=== PATIENT | female | born 1985 | race Caucasian/White ===

== ENCOUNTER 2017-08-30 11:50 | Emergency (ER) | payer MEDICAID ==
--- NOTE | 2017-08-30 12:23 | EDM.PDOC ---
ED HPI GENERAL MEDICAL PROBLEM - General Chief Complaint: Allergic Reaction Stated Complaint: POSS ALLERGIC REACTION Time Seen by Provider: 08/30/17 12:18 Source of Information: Reports: Patient History Limitations: Reports: No Limitations - History of Present Illness INITIAL COMMENTS - FREE TEXT/NARRATIVE: HISTORY AND PHYSICAL: []31-year-old female from [employer] [facility] had been given antibiotics of cephalexin A shunt now has a rash surrounding her face of edema surrounding her eyes and going down her neck and back History of Present Illness: [][employer] [place] has given her 100 of Benadryl 2 hours ago and some of the FARHANA has improved Patient has never taken cephalexin in the past Review of Systems: As per history of present illness and below otherwise all systems reviewed and negative. Past medical history: As per history of present illness and as reviewed below otherwise noncontributory. Surgical history: As per history of present illness and as reviewed below otherwise noncontributory. Social history: No reported history of drug or alcohol abuse. Family history: As per history of present illness and as reviewed below otherwise noncontributory. Physical exam: Alert and oriented answering questions appropriately without any shortness of breath denies any difficulty with her breathing. Fine erythematous rash present HEENT: Atraumatic, normocehpalic, pupils reactive, negative for conjunctival pallor or scleral icterus, mucous membranes moist, throat clear, neck supple, nontender, trachea midline. Lungs: Clear to auscultation, breath sounds equal bilaterally, chest non tender. Heart: S1S2, regular, negative for clicks, rubs, or JVD. Abdomen: Soft, nondistended, nontender. Negative for masses or hepatossplenmegaly. Negative for costovertebral tenderness. Pelvis: Stable nontender. Genitourinary: Deferred. Rectal: Deferred Extremities: Atraumatic, negative for cords or calf pain. Neurovascular unremarkable. Neuro: Awake, alert, oriented. Cranial nerves II through XII unremarkable. Cerebellum unremarkable. Motor and sensory unremarkable throughout. Exam nonfocal. Diagnostics: [] Therapeutics: [] Impression: []Allergic reaction Plan: []Discharge to home Medrol Dosepak Follow-up with your PCP Return to the emergency room Definitive disposition and diagnosis as appropriate pending reevaluation and review of above. - Related Data Allergies Allergy/AdvReac Type Severity Reaction Status Date / Time Sulfa (Sulfonamide Allergy Difficulty Verified 02/10/14 11:50 Antibiotics) Breathing Home Meds: Home Meds Furosemide [Lasix] 20 mg 02/10/14 [History] Metoprolol Tartrate 25 mg DAILY 02/10/14 [History] medroxyPROGESTERone Acetate [Depo-Provera] 150 mg IM 02/10/14 [History] predniSONE [Prednisone] 7.5 mg DAILY 02/10/14 [History] valACYclovir HCl [Valtrex] 2 tab-cap 02/10/14 [History] Cephalexin mg PO 08/30/17 [History] methylPREDNISolone [Medrol] 4 mg PO ASDIRECTED #1 dosepk 08/30/17 [Rx] Past Medical History HEENT History: Reports: Otitis Media, Sinusitis Cardiovascular History: Reports: Blood Clots/VTE/DVT, Hypertension Respiratory History: Reports: Sleep Apnea, Other (See Below) Other Respiratory History: respiratory difficulties Dermatologic History: Reports: Cellulitis, Other (See Below) Other Dermatologic History: Ulceration right leg 2009- wound cares & [facility] - Past Surgical History HEENT Surgical History: Reports: Adenoidectomy, Cataract Surgery, Eye Surgery, Myringotomy w Tube(s), Tonsillectomy, Other (See Below) Cardiovascular Surgical History: Reports: Other (See Below) Social & Family History - Recreational Drug Use Recreational Drug Use: No ED ROS ALLERGIC REACTION - Review of Systems Review Of Systems: ROS reveals no pertinent complaints other than HPI. ED EXAM GENERAL NO PERIP PULSE - Physical Exam Exam: See Below (see dictation) Departure - Departure Time of Disposition: 12:22 Disposition: Home, Self-Care 01 Condition: Good Clinical Impression: Allergic reaction caused by a drug Qualifiers: Encounter type: initial encounter Qualified Code(s): T78.40XA - Allergy, unspecified, initial encounter - Discharge Information Prescriptions: methylPREDNISolone [Medrol] 4 mg PO ASDIRECTED #1 dosepk Instructions: Allergies, Adult, [id number] Additional Instructions: The following information is given to patients seen in the emergency department who are being discharged to home. This information is to outline your options for follow-up care. We provide all patients seen in our emergency department with a follow-up referral. The need for follow-up, as well as the timing and circumstances, are variable depending upon the specifics of your emergency department visit. If you don't have a primary care physician on staff, we will provide you with a referral. We always advise you to contact your personal physician following an emergency department visit to inform them of the circumstance of the visit and for follow-up with them and/or the need for any referrals to a consulting specialist. The emergency department will also refer you to a specialist when appropriate. This referral assures that you have the opportunity for followup care with a specialist. All of these measure are taken in an effort to provide you with optimal care, which includes your followup. Under all circumstances we always encourage you to contact your private physician who remains a resource for coordinating your care. When calling for followup care, please make the office aware that this follow-up is from your recent emergency room visit. If for any reason you are refused follow-up, please contact the [facility] emergency department at and asked to speak to the emergency department charge nurse. You have a reaction to the cephalexin the evening taking .Stop This medication Continue with the Benadryl every 4 hours Return to emergency room as needed over the weekend Follow-up with your primary care next week
== END 2017-08-30 12:35 | disposition home or self-care (01) ==
LOC: MW.ED 11:50
DX: L25.8 Unspecified contact dermatitis due to other agents (principal); T36.1X5A Adverse effect of cephalosporins and other beta-lactam antibiotics, initial encounter; I10 Essential (primary) hypertension; Z88.2 Allergy status to sulfonamides; Z79.899 Other long term (current) drug therapy
CPT/HCPCS: 99283

== ENCOUNTER 2017-11-07 16:28 | Emergency (ER) | payer MEDICAID ==
--- NOTE | 2017-11-07 16:50 | EDM.PDOC ---
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 I have seen patient in the past in the clinic regarding this chronic right lower extremity wound. 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 Skin is erythematous and wound is draining clear/yellow fluid. She denies and fevers or chills. She sees wound care every friday and . ] Review of systems: As per history of present illness and below otherwise all systems reviewed and negative. Past medical history: As per history of present illness and as reviewed below otherwise noncontributory. Surgical history: As per history of present illness and as reviewed below otherwise noncontributory. Social history: No reported history of drug or alcohol abuse. Family history: As per history of present illness and as reviewed below otherwise noncontributory. Physical exam: HEENT: Atraumatic, normocephalic, pupils reactive, negative for conjunctival pallor or scleral icterus Lungs: Clear to auscultation, breath sounds equal bilaterally Heart: S1S2, regular, negative for clicks, rubs Extremities: There is a 3cm ulceration to the right medial lower extremity with multiple small scabbed over lesions. Erythema and warmth from the ankle to approximately 6 cm above the ankle. negative for cords or calf pain. Neurovascular unremarkable. Neuro: Awake, alert, oriented. Cranial nerves II through XII unremarkable. Cerebellum unremarkable. Motor and sensory unremarkable throughout. Exam nonfocal. Notes: Diagnostics: [CBC] Therapeutics: [Bacitracin Ciprofloxacin 500mg BID x 7 days] Impression: [Cellulitis LE Ulcer] Plan: [#1 Take antibiotic and use non-adherent dressings as instructed #2 Follow up with wound care and PCP #3 Return to ED as needed as discussed] Definitive disposition and diagnosis as appropriate pending reevaluation and review of above. right lower leg Pain Score (Numeric/FACES): 6 - Related Data Allergies Allergy/AdvReac Type Severity Reaction Status Date / Time cephalexin [From Keflex] Allergy Swelling Verified 11/07/17 16:39 Sulfa (Sulfonamide Allergy Difficulty Verified 11/07/17 16:39 Antibiotics) Breathing Home Meds: Home Meds Furosemide [Lasix] 20 mg PO DAILY 02/10/14 [History] Metoprolol Tartrate 25 mg PO DAILY 02/10/14 [History] medroxyPROGESTERone Acetate [Depo-Provera] 150 mg IM ASDIRECTED 02/10/14 [ History] predniSONE [Prednisone] 7.5 mg PO DAILY 02/10/14 [History] valACYclovir HCl [Valtrex] 2 tab-cap PO DAILY 02/10/14 [History] methylPREDNISolone [Medrol] 4 mg PO ASDIRECTED #1 dosepk 08/30/17 [Rx] Ciprofloxacin [Cipro XR] 500 mg PO BID 7 Days #14 tab.er 11/07/17 [Rx] Past Medical History HEENT History: Reports: Otitis Media, Sinusitis Cardiovascular History: Reports: Blood Clots/VTE/DVT, Hypertension Respiratory History: Reports: Sleep Apnea, Other (See Below) Other Respiratory History: respiratory difficulties Dermatologic History: Reports: Cellulitis, Other (See Below) Other Dermatologic History: Ulceration right leg 2008- wound cares & [facility] - Infectious Disease History Infectious Disease History: Reports: None - Past Surgical History HEENT Surgical History: Reports: Adenoidectomy, Cataract Surgery, Eye Surgery, Myringotomy w Tube(s), Tonsillectomy, Other (See Below) Cardiovascular Surgical History: Reports: Other (See Below) GI Surgical History: Reports: Cholecystectomy Musculoskeletal Surgical History: Reports: Amputation Social & Family History - Family History Family Medical History: Noncontributory - Caffeine Use Caffeine Use: Reports: Coffee, Soda ED ROS GENERAL - Review of Systems Review Of Systems: ROS reveals no pertinent complaints other than HPI. ED EXAM, SKIN/RASH Exam: See Below (see dictation) Course - Vital Signs Last Recorded V/S: Last Vital Signs Temp 36.8 C 11/07/17 16:45 Pulse 85 11/07/17 16:45 Resp 18 11/07/17 16:45 BP 150/92 H 11/07/17 16:45 Pulse Ox 96 11/07/17 16:45 - Orders/Labs/Meds Labs: Laboratory Tests 11/07/17 Range/Units 17:28 WBC 12.87 H (4.0-11.0) K/uL RBC 4.91 (4.30-5.90) M/uL Hgb 13.4 (12.0-16.0) g/dL Hct 40.6 (36.0-46.0) % MCV 82.7 (80.0-98.0) fL MCH 27.3 (27.0-32.0) pg MCHC 33.0 (31.0-37.0) g/dL RDW Std Deviation 42.6 (28.0-62.0) fl RDW Coeff of Suleman 14 (11.0-15.0) % Plt Count 390 (150-400) K/uL MPV 10.10 (7.40-12.00) fL Neut % (Auto) 67.9 (48.0-80.0) % Lymph % (Auto) 21.3 (16.0-40.0) % Sabine % (Auto) 6.4 (0.0-15.0) % Eos % (Auto) 4.2 (0.0-7.0) % Baso % (Auto) 0.2 (0.0-1.5) % Neut # (Auto) 8.7 H (1.4-5.7) K/uL Lymph # (Auto) 2.7 H (0.6-2.4) K/uL Sabine # (Auto) 0.8 (0.0-0.8) K/uL Eos # (Auto) 0.5 (0.0-0.7) K/uL Baso # (Auto) 0.0 (0.0-0.1) K/uL Nucleated RBC % 0.0 /100WBC Nucleated RBCs # 0 K/uL Meds: Medications Discontinued Medications Generic Name Dose Route Start Last Admin Trade Name Freq PRN Reason Stop Dose Admin Bacitracin 1 dose 11/07/17 17:07 11/07/17 17:39 Bacitracin Oint 1 Gm TOP 11/07/17 17:08 1 dose ONETIME ONE Administration Departure - Departure Time of Disposition: 17:45 Disposition: Home, Self-Care 01 Condition: Good Clinical Impression: Lower extremity ulceration, Cellulitis - Discharge Information Prescriptions: Ciprofloxacin [Cipro XR] 500 mg PO BID 7 Days #14 tab.er Referrals: PCP,None [Primary Care Provider] - (Dr. Zuñiga) Forms: ED Department Discharge Additional Instructions: The following information is given to patients seen in the emergency department who are being discharged to home. This information is to outline your options for follow-up care. We provide all patients seen in our emergency department with a follow-up referral. The need for follow-up, as well as the timing and circumstances, are variable depending upon the specifics of your emergency department visit. If you don't have a primary care physician on staff, we will provide you with a referral. We always advise you to contact your personal physician following an emergency department visit to inform them of the circumstance of the visit and for follow-up with them and/or the need for any referrals to a consulting specialist. The emergency department will also refer you to a specialist when appropriate. This referral assures that you have the opportunity for follow-up care with a specialist. All of these measure are taken in an effort to provide you with optimal care, which includes your follow-up. Under all circumstances we always encourage you to contact your private physician who remains a resource for coordinating your care. When calling for follow-up care, please make the office aware that this follow-up is from your recent emergency room visit. If for any reason you are refused follow-up, please contact the [facility] Emergency Department at and asked to speak to the emergency department charge nurse. [facility] [address] [place] [id number] #1 Take antibiotic and use non-adherent dressings as instructed #2 Follow up with wound care and PCP #3 Return to ED as needed as discussed
[2017-11-07] MEDS ORDERED: Bacitracin Oint 1 GM U/D Packet TOP ONE (17:07)
== END 2017-11-07 18:20 | disposition home or self-care (01) ==
LOC: MW.ED 16:28
DX: L03.115 Cellulitis of right lower limb (principal); L97.919 Non-pressure chronic ulcer of unspecified part of right lower leg with unspecified severity; I10 Essential (primary) hypertension; Z88.1 Allergy status to other antibiotic agents; Z88.2 Allergy status to sulfonamides; Z79.899 Other long term (current) drug therapy
CPT/HCPCS: 36415; 85025; 99283

== ENCOUNTER 2017-12-12 12:26 | Emergency (ER) | payer MEDICAID ==
--- NOTE | 2017-12-12 12:51 | EDM.PDOC ---
ED HPI GENERAL MEDICAL PROBLEM - General Chief Complaint: Skin Complaint Stated Complaint: RT LEG INFECTED Time Seen by Provider: 12/12/17 12:32 Source of Information: Reports: Patient History Limitations: Reports: No Limitations - History of Present Illness INITIAL COMMENTS - FREE TEXT/NARRATIVE: History of present illness: []Patient has long history of right leg cellulitis that she's been going to wound care for dressing changes. It started looking worse 2 days ago and this morning her leg became more red with drainage. Not currently on antibiotics. Review of systems: As per history of present illness and below otherwise all systems reviewed and negative. Past medical history: As per history of present illness and as reviewed below otherwise noncontributory. Surgical history: As per history of present illness and as reviewed below otherwise noncontributory. Social history: No reported history of drug or alcohol abuse. Family history: As per history of present illness and as reviewed below otherwise noncontributory. Physical exam: General: Well developed, well nourished in NAD HEENT: Atraumatic, normocephalic, pupils reactive, negative for conjunctival pallor or scleral icterus, mucous membranes moist, throat clear, neck supple, nontender, trachea midline. Lungs: Clear to auscultation, breath sounds equal bilaterally, chest nontender. Heart: S1S2, regular, negative for clicks, rubs, or JVD. Abdomen: Soft, nondistended, nontender. Negative for masses or hepatosplenomegaly. Negative for costovertebral tenderness. Pelvis: Stable nontender. Genitourinary: Deferred. Rectal: Deferred. Extremities: Right lower leg with area of erythema has multiple open lesions with serosanguineous drainage, negative for cords or calf pain. Neurovascular unremarkable. Neuro: Awake, alert, oriented. Cranial nerves II through XII unremarkable. Cerebellum unremarkable. Motor and sensory unremarkable throughout. Exam nonfocal. Skin:warm and dry Diagnostics: None Therapeutics: None ED Course: Unremarkable Impression: Right leg cellulitis Prescriptions: Doxycycline twice a day for 10 days Plan: [place] wound care, start antibiotics return if symptoms worsen or change follow- up with a primary care physician. Definitive disposition and diagnosis as appropriate pending reevaluation and review of above. Right Posterior Leg Pain Score (Numeric/FACES): 9 - Related Data Allergies Allergy/AdvReac Type Severity Reaction Status Date / Time cephalexin [From Keflex] Allergy Swelling Verified 12/12/17 12:43 Sulfa (Sulfonamide Allergy Difficulty Verified 12/12/17 12:43 Antibiotics) Breathing Home Meds: Home Meds Furosemide [Lasix] 20 mg PO DAILY 02/10/14 [History] Metoprolol Tartrate 25 mg PO DAILY 02/10/14 [History] medroxyPROGESTERone Acetate [Depo-Provera] 150 mg IM ASDIRECTED 02/10/14 [ History] predniSONE [Prednisone] 7.5 mg PO DAILY 02/10/14 [History] valACYclovir HCl [Valtrex] 2 tab-cap PO DAILY 02/10/14 [History] methylPREDNISolone [Medrol] 4 mg PO ASDIRECTED #1 dosepk 08/30/17 [Rx] Doxycycline [Vibramycin] 100 mg PO BID #30 cap 12/12/17 [Rx] cycloSPORINE [Restasis] 1 drop BID 12/12/17 [History] Past Medical History HEENT History: Reports: Otitis Media, Sinusitis Cardiovascular History: Reports: Blood Clots/VTE/DVT, Hypertension Respiratory History: Reports: Sleep Apnea, Other (See Below) Other Respiratory History: respiratory difficulties Gastrointestinal History: Reports: None Genitourinary History: Reports: None [employer]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 Musculoskeletal History: Reports: None Neurological History: Reports: None Psychiatric History: Reports: None Endocrine/Metabolic History: Reports: None Hematologic History: Reports: None Immunologic History: Reports: None Oncologic (Cancer) History: Reports: None Dermatologic History: Reports: Cellulitis, Other (See Below) Other Dermatologic History: Ulceration right leg 2009- wound cares & [facility] - Infectious Disease History Infectious Disease History: Reports: None - Past Surgical History Head Surgeries/Procedures: Reports: None Respiratory Surgical History: Reports: None Female Surgical History: Reports: None Endocrine Surgical History: Reports: None Neurological Surgical History: Reports: None Oncologic Surgical History: Reports: None Dermatological Surgical History: Reports: None Social & Family History - Family History Family Medical History: Noncontributory - Caffeine Use Caffeine Use: Reports: Coffee, Soda ED ROS GENERAL - Review of Systems Review Of Systems: ROS reveals no pertinent complaints other than HPI. ED EXAM, SKIN/RASH Exam: See Below (See history of present illness) Course - Vital Signs Last Recorded V/S: Last Vital Signs Temp 98.2 F 12/12/17 12:39 Pulse 93 12/12/17 12:39 Resp 18 12/12/17 12:39 BP 158/98 H 12/12/17 12:39 Pulse Ox 95 12/12/17 12:39 Departure - Departure Time of Disposition: 12:51 Disposition: Home, Self-Care 01 Condition: Good Clinical Impression: Cellulitis of right leg - Discharge Information *PRESCRIPTION DRUG MONITORING PROGRAM REVIEWED*: No Prescriptions: Doxycycline [Vibramycin] 100 mg PO BID #30 cap Forms: ED Department Discharge Additional Instructions: The following information is given to patients seen in the emergency department who are being discharged to home. This information is to outline your options for follow-up care. We provide all patients seen in our emergency department with a follow-up referral. The need for follow-up, as well as the timing and circumstances, are variable depending upon the specifics of your emergency department visit. If you don't have a primary care physician on staff, we will provide you with a referral. We always advise you to contact your personal physician following an emergency department visit to inform them of the circumstance of the visit and for follow-up with them and/or the need for any referrals to a consulting specialist. The emergency department will also refer you to a specialist when appropriate. This referral assures that you have the opportunity for follow-up care with a specialist. All of these measure are taken in an effort to provide you with optimal care, which includes your follow-up. Under all circumstances we always encourage you to contact your private physician who remains a resource for coordinating your care. When calling for follow-up care, please make the office aware that this follow-up is from your recent emergency room visit. If for any reason you are refused follow-up, please contact the [facility] Emergency Department at and asked to speak to the emergency department charge nurse. Doxycycline as directed, continue wound care, follow up with primary care return if symptoms worsen or change. [facility] [address] [place] [id number]
== END 2017-12-12 13:12 | disposition home or self-care (01) ==
LOC: MW.ED 12:26
DX: L03.115 Cellulitis of right lower limb (principal); I10 Essential (primary) hypertension; Z88.2 Allergy status to sulfonamides; Z88.1 Allergy status to other antibiotic agents; Z79.899 Other long term (current) drug therapy
CPT/HCPCS: 99282

== ENCOUNTER 2018-10-25 16:54 | Emergency (ER) | payer MEDICAID ==
--- NOTE | 2018-10-25 17:12 | EDM.PDOC ---
ED HPI GENERAL MEDICAL PROBLEM - General Chief Complaint: Eye Problems Stated Complaint: RIGHT EYE ISSUES Time Seen by Provider: 10/25/18 17:00 Source of Information: Reports: Patient History Limitations: Reports: No Limitations - History of Present Illness INITIAL COMMENTS - FREE TEXT/NARRATIVE: HISTORY AND PHYSICAL: History of present illness: Patient is a 32-year-old female presents to the ED today with concern of pinkeye. Patient states the symptoms started this morning when she woke up and her eye was crusted together on the right. 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 Patient denies getting anything into her eye or any trauma of the eye. Patient states there is a slight discomfort with it but not much pain. Patient denies any visual changes. Patient denies fever, chills, chest pain, shortness of breath, or cough. Denies headache, neck stiff ness, change in vision, syncope, or near syncope. Denies nausea, vomiting, abdominal pain, diarrhea, constipation, or dysuria. Has not noted any blood in urine or stool. Patient has been eating and drinking appropriately. Review of systems: As per history of present illness and below otherwise all systems reviewed and negative. Past medical history: As per history of present illness and as reviewed below otherwise noncontributory. Surgical history: As per history of present illness and as reviewed below otherwise noncontributory. Social history: See social history for further information Family history: As per history of present illness and as reviewed below otherwise noncontributory. Physical exam: General: Patient is alert, oriented, and in no acute distress. Patient sitting comfortably on exam table. HEENT: Atraumatic, normocephalic, pupils equal and reactive bilaterally, negative for conjunctival pallor or scleral icterus, mucous membranes moist, TMs normal bilaterally, throat clear, neck supple, nontender, trachea midline. No drooling or trismus noted. No meningeal signs. No hot potato voice noted. Visual acuity is intact. The right sclera is injected with crusting on the inferior eyelid. No obvious foreign body. Lungs: Clear to auscultation, breath sounds equal bilaterally, chest nontender. Heart: S1S2, regular rate and rhythm without overt murmur Abdomen: Soft, nondistended, nontender. Negative for masses or hepatosplenomegaly. Negative for costovertebral tenderness. Pelvis: Stable nontender. Genitourinary: Deferred. Rectal: Deferred. Skin: Intact, warm, dry. No lesions or rashes noted. Extremities: Atraumatic, negative for cords or calf pain. Neurovascular unremarkable. Neuro: Awake, alert, oriented. Cranial nerves II through XII unremarkable. Cerebellum unremarkable. Motor and sensory unremarkable throughout. Exam nonfocal. Notes: Discussed the importance for follow-up with primary care provider. Voices understanding and is agreeable to plan of care. Denies any further questions or concerns at this time. Diagnostics: None Therapeutics: None Prescription: Erythromycin ophthalmic Impression: Bacterial conjunctivitis, right eye Plan: 1. Apply medication as prescribed. You can alternate ibuprofen and Tylenol as directed for pain and discomfort. 2. Follow-up with the primary care provider as discussed. Return to the ED as needed and as discussed. Definitive disposition and diagnosis as appropriate pending reevaluation and review of above. Right Eye Pain Score (Numeric/FACES): 9 - Related Data Allergies Allergy/AdvReac Type Severity Reaction Status Date / Time cephalexin [From Keflex] Allergy Swelling Verified 10/25/18 17:01 Sulfa (Sulfonamide Allergy Difficulty Verified 10/25/18 17:01 Antibiotics) Breathing Home Meds: Home Meds Furosemide [Lasix] 20 mg PO WEEKLY 02/10/14 [History] Metoprolol Tartrate 25 mg PO DAILY 02/10/14 [History] medroxyPROGESTERone Acetate [Depo-Provera] 150 mg IM ASDIRECTED 02/10/14 [ History] predniSONE [Prednisone] 7.5 mg PO DAILY 02/10/14 [History] valACYclovir HCl [Valtrex] 2 tab-cap PO DAILY 02/10/14 [History] methylPREDNISolone [Medrol] 4 mg PO ASDIRECTED #1 dosepk 08/30/17 [Rx] Doxycycline [Vibramycin] 100 mg PO BID #30 cap 12/12/17 [Rx] cycloSPORINE [Restasis] 1 drop .XX BID 12/12/17 [History] Past Medical History HEENT History: Reports: Otitis Media, Sinusitis Cardiovascular History: Reports: Blood Clots/VTE/DVT, Hypertension Respiratory History: Reports: Sleep Apnea, Other (See Below) Other Respiratory History: respiratory difficulties Gastrointestinal History: Reports: None Genitourinary History: Reports: None 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 Musculoskeletal History: Reports: None Neurological History: Reports: None Psychiatric History: Reports: None Endocrine/Metabolic History: Reports: None Hematologic History: Reports: None Immunologic History: Reports: None Oncologic (Cancer) History: Reports: None Dermatologic History: Reports: Cellulitis, Other (See Below) Other Dermatologic History: Ulceration right leg 2009- wound cares & [facility] - Infectious Disease History Infectious Disease History: Reports: None - Past Surgical History Head Surgeries/Procedures: Reports: None Respiratory Surgical History: Reports: None Female Surgical History: Reports: None Endocrine Surgical History: Reports: None Neurological Surgical History: Reports: None Oncologic Surgical History: Reports: None Dermatological Surgical History: Reports: None Social & Family History - Family History Family Medical History: Noncontributory - Tobacco Use Smoking Status *Q: Never Smoker - Caffeine Use Caffeine Use: Reports: Coffee, Soda - Recreational Drug Use Recreational Drug Use: No ED ROS GENERAL - Review of Systems Review Of Systems: ROS reveals no pertinent complaints other than HPI. ED EXAM GENERAL W FULL EYE - Physical Exam Exam: See Below (See dictation) Course - Vital Signs Last Recorded V/S: Last Vital Signs Temp 35.8 C 10/25/18 16:56 Pulse 99 10/25/18 16:56 Resp BP 149/100 H 10/25/18 16:56 Pulse Ox 93 L 10/25/18 16:56 Departure - Departure Time of Disposition: 17:12 Disposition: Home, Self-Care 01 Clinical Impression: Bacterial conjunctivitis - Discharge Information Referrals: PCP,None [Primary Care Provider] - Forms: ED Department Discharge Additional Instructions: The following information is given to patients seen in the emergency department who are being discharged to home. This information is to outline your options for follow-up care. We provide all patients seen in our emergency department with a follow-up referral. The need for follow-up, as well as the timing and circumstances, are variable depending upon the specifics of your emergency department visit. If you don't have a primary care physician on staff, we will provide you with a referral. We always advise you to contact your personal physician following an emergency department visit to inform them of the circumstance of the visit and for follow-up with them and/or the need for any referrals to a consulting specialist. The emergency department will also refer you to a specialist when appropriate. This referral assures that you have the opportunity for follow-up care with a specialist. All of these measure are taken in an effort to provide you with optimal care, which includes your follow-up. Under all circumstances we always encourage you to contact your private physician who remains a resource for coordinating your care. When calling for follow-up care, please make the office aware that this follow-up is from your recent emergency room visit. If for any reason you are refused follow-up, please contact the [facility] Emergency Department at and asked to speak to the emergency department charge nurse. [facility] [address] [place] [id number] [address] [id number] 1. Apply medication as prescribed. You can alternate ibuprofen and Tylenol as directed for pain and discomfort. 2. Follow-up with the primary care provider as discussed. Return to the ED as needed and as discussed.
== END 2018-10-25 17:20 | disposition home or self-care (01) ==
LOC: MW.ED 16:54
DX: H10.89 Other conjunctivitis (principal); B96.89 Other specified bacterial agents as the cause of diseases classified elsewhere; I10 Essential (primary) hypertension; Z88.2 Allergy status to sulfonamides; Z88.1 Allergy status to other antibiotic agents; Z79.899 Other long term (current) drug therapy
CPT/HCPCS: 99282; 99283

== ENCOUNTER 2018-12-16 17:41 | Emergency (ER) | payer MEDICAID ==
--- NOTE | 2018-12-16 17:59 | EDM.PDOC ---
ED HPI GENERAL MEDICAL PROBLEM - General Chief Complaint: Lower Extremity Injury/Pain Stated Complaint: LEG INJURY Time Seen by Provider: 12/16/18 17:46 Source of Information: Reports: Patient History Limitations: Reports: No Limitations - History of Present Illness INITIAL COMMENTS - FREE TEXT/NARRATIVE: History of present illness: []Patient has a history of Down's syndrome with developmental delay hit her leg on the bed frame 2 days ago. Patient has increasing pain in the area of the abrasion. She denies any fevers, calf pain or difficulty walking. Review of systems: As per history of present illness and below otherwise all systems reviewed and negative. Past medical history: As per history of present illness and as reviewed below otherwise noncontributory. Surgical history: As per history of present illness and as reviewed below otherwise noncontributory. Social history: No reported history of drug or alcohol abuse. Family history: As per history of present illness and as reviewed below otherwise noncontributory. Physical exam: General: Well developed, well nourished in NAD HEENT: Atraumatic, normocephalic, pupils reactive, negative for conjunctival pallor or scleral icterus, mucous membranes moist, throat clear, neck supple, nontender, trachea midline. Lungs: Clear to auscultation, breath sounds equal bilaterally, chest nontender. Heart: S1S2, regular, negative for clicks, rubs, or JVD. Abdomen: NABS, Soft, nondistended, nontender. Negative for masses or hepatosplenomegaly. Negative for costovertebral tenderness. Pelvis: Stable nontender. Genitourinary: Deferred. Rectal: Deferred. Extremities: Left lower leg abrasion with surrounding erythema, negative tenderness of left calf, negative for cords . Neurovascular unremarkable. Neuro: Awake, alert, oriented. Cranial nerves II through XII unremarkable. Cerebellum unremarkable. Motor and sensory unremarkable throughout. Exam nonfocal. Skin:warm and dry Diagnostics: None Therapeutics: none ED Course: Stable Impression: Cellulitis left leg Prescriptions: Dicloxacillin Plan: Take dicloxacillin, Tylenol and/or Motrin as directed, follow up with your primary care physician, return to ER if symptoms worsen or change. Definitive disposition and diagnosis as appropriate pending reevaluation and review of above. - Related Data Allergies Allergy/AdvReac Type Severity Reaction Status Date / Time cephalexin [From Keflex] Allergy Swelling Verified 12/16/18 18:07 Sulfa (Sulfonamide Allergy Difficulty Verified 12/16/18 18:07 Antibiotics) Breathing Home Meds: Home Meds Furosemide [Lasix] 20 mg PO WEEKLY 02/10/14 [History] Metoprolol Tartrate 25 mg PO DAILY 02/10/14 [History] medroxyPROGESTERone Acetate [Depo-Provera] 150 mg IM ASDIRECTED 02/10/14 [ History] predniSONE [Prednisone] 7.5 mg PO DAILY 02/10/14 [History] valACYclovir HCl [Valtrex] 2 tab-cap PO DAILY 02/10/14 [History] methylPREDNISolone [Medrol] 4 mg PO ASDIRECTED #1 dosepk 08/30/17 [Rx] Doxycycline [Vibramycin] 100 mg PO BID #30 cap 12/12/17 [Rx] cycloSPORINE [Restasis] 1 drop .XX BID 12/12/17 [History] Dicloxacillin 500 mg PO QID #40 cap 12/16/18 [Rx] Past Medical History HEENT History: Reports: Otitis Media, Sinusitis Cardiovascular History: Reports: Blood Clots/VTE/DVT, Hypertension Respiratory History: Reports: Sleep Apnea, Other (See Below) Other Respiratory History: respiratory difficulties Gastrointestinal History: Reports: None Genitourinary History: Reports: None 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 Musculoskeletal History: Reports: None Neurological History: Reports: None Psychiatric History: Reports: None Endocrine/Metabolic History: Reports: None Hematologic History: Reports: None Immunologic History: Reports: None Oncologic (Cancer) History: Reports: None Dermatologic History: Reports: Cellulitis, Other (See Below) Other Dermatologic History: Ulceration right leg 2009- wound cares & [facility] - Infectious Disease History Infectious Disease History: Reports: None - Past Surgical History Head Surgeries/Procedures: Reports: None Respiratory Surgical History: Reports: None Female Surgical History: Reports: None Endocrine Surgical History: Reports: None Neurological Surgical History: Reports: None Oncologic Surgical History: Reports: None Dermatological Surgical History: Reports: None Social & Family History - Family History Family Medical History: Noncontributory - Caffeine Use Caffeine Use: Reports: Coffee, Soda Review of Systems - Review of Systems Review Of Systems: See Below ED EXAM, GENERAL - Physical Exam Exam: See Below Departure - Departure Time of Disposition: 18:03 Disposition: Home, Self-Care 01 Condition: Good Clinical Impression: Left leg cellulitis - Discharge Information *PRESCRIPTION DRUG MONITORING PROGRAM REVIEWED*: Not Applicable *COPY OF PRESCRIPTION DRUG MONITORING REPORT IN PATIENT ANALI: Not Applicable Prescriptions: Dicloxacillin 500 mg PO QID #40 cap Referrals: PCP,Unknown [Primary Care Provider] - Forms: ED Department Discharge Additional Instructions: The following information is given to patients seen in the emergency department who are being discharged to home. This information is to outline your options for follow-up care. We provide all patients seen in our emergency department with a follow-up referral. The need for follow-up, as well as the timing and circumstances, are variable depending upon the specifics of your emergency department visit. If you don't have a primary care physician on staff, we will provide you with a referral. We always advise you to contact your personal physician following an emergency department visit to inform them of the circumstance of the visit and for follow-up with them and/or the need for any referrals to a consulting specialist. The emergency department will also refer you to a specialist when appropriate. This referral assures that you have the opportunity for follow-up care with a specialist. All of these measure are taken in an effort to provide you with optimal care, which includes your follow-up. Under all circumstances we always encourage you to contact your private physician who remains a resource for coordinating your care. When calling for follow-up care, please make the office aware that this follow-up is from your recent emergency room visit. If for any reason you are refused follow-up, please contact the [facility] Emergency Department at and asked to speak to the emergency department charge nurse. Take meds as directed, follow up with your primary care physician, return to ER if symptoms worsen or change. [facility] [place] [id number]
== END 2018-12-16 18:49 | disposition home or self-care (01) ==
LOC: MW.ED 17:41
DX: S80.812A Abrasion, left lower leg, initial encounter (principal); L03.116 Cellulitis of left lower limb; I10 Essential (primary) hypertension; Z86.718 Personal history of other venous thrombosis and embolism; Z88.1 Allergy status to other antibiotic agents; Z79.899 Other long term (current) drug therapy; W22.8XXA Striking against or struck by other objects, initial encounter
CPT/HCPCS: 99283

== ENCOUNTER 2019-07-01 15:42 | Emergency (ER) | payer MEDICAID ==
--- NOTE | 2019-07-01 15:58 | EDM.PDOC ---
ED HPI GENERAL MEDICAL PROBLEM - General Chief Complaint: Skin Complaint Stated Complaint: SORE UNDER STOMACH FOLD Time Seen by Provider: 07/01/19 15:54 Source of Information: Reports: Patient History Limitations: Reports: No Limitations - History of Present Illness INITIAL COMMENTS - FREE TEXT/NARRATIVE: HISTORY AND PHYSICAL: History of present illness: Patient is a 33-year-old female from the [facility], [place] presents to the ED with complaint of sore on her abdomen. Patient states she just noticed it today and states it is painful. She denies fevers, chills, nausea, vomiting. Review of systems: As per history of present illness and below otherwise all systems reviewed and negative. Past medical history: As per history of present illness and as reviewed below otherwise noncontributory. Surgical history: As per history of present illness and as reviewed below otherwise noncontributory. Social history: No reported history of drug or alcohol abuse. Family history: As per history of present illness and as reviewed below otherwise noncontributory. Physical exam: General: Patient sitting comfortably in no acute distress and nontoxic appearing HEENT: Atraumatic, normocephalic, pupils reactive, negative for conjunctival pallor or scleral icterus, mucous membranes moist, throat clear, neck supple, nontender, trachea midline. No meningeal signs. Lungs: Clear to auscultation, breath sounds equal bilaterally, chest nontender. Heart: S1S2, regular, negative for clicks, rubs, or overt murmur. Abdomen: Soft, nondistended, nontender. Negative for masses or hepatosplenomegaly. Negative for costovertebral tenderness. No rigidity, rebound , guarding. Pelvis: Stable nontender. Genitourinary: Deferred. Rectal: Deferred. Skin: There is an ear of slight erythema with central clearing in the right lower abdominal skin fold with a central area of superficial macerated skin. No warmth, fluctuance, or induration. Extremities: Atraumatic, negative for cords or calf pain. Neurovascular unremarkable. Neuro: Awake, alert, oriented. Cranial nerves II through XII unremarkable. Cerebellum unremarkable. Motor and sensory unremarkable throughout. Exam nonfocal. Notes: Diagnostics: none Therapeutics: none Prescriptions: Nystatin powder Impression: Fungal skin infection Plan: Gently cleanse the area with mild soap and water and pat dry. Apply powder to the affected area twice daily. Follow up with primary care provider Return to ED as needed as discussed Definitive disposition and diagnosis as appropriate pending reevaluation and review of above. Lower Abdomen Pain Score (Numeric/FACES): 3 - Related Data Allergies Allergy/AdvReac Type Severity Reaction Status Date / Time cephalexin [From Keflex] Allergy Swelling Verified 07/01/19 15:51 Sulfa (Sulfonamide Allergy Difficulty Verified 07/01/19 15:51 Antibiotics) Breathing Home Meds: Home Meds Furosemide [Lasix] 20 mg PO DAILY 02/10/14 [History] Metoprolol Tartrate 25 mg PO DAILY 02/10/14 [History] medroxyPROGESTERone Acetate [Depo-Provera] 150 mg IM ASDIRECTED 02/10/14 [ History] predniSONE [Prednisone] 7.5 mg PO DAILY 02/10/14 [History] valACYclovir HCl [Valtrex] 2 tab-cap PO ASDIRECTED 02/10/14 [History] cycloSPORINE [Restasis] 1 drop TOP BID 12/12/17 [History] Nystatin [Nystop] 60 gm TP BID 7 Days #1 bottle 07/01/19 [Rx] Silver Sulfadiazine [Silvadene 1% Cream 20 GM] 20 gm .XX ASDIRECTED 07/01/19 [ History] Past Medical History HEENT History: Reports: Otitis Media, Sinusitis Cardiovascular History: Reports: Blood Clots/VTE/DVT, Hypertension Respiratory History: Reports: Sleep Apnea, Other (See Below) Other Respiratory History: respiratory difficulties Gastrointestinal History: Reports: None Genitourinary History: Reports: None 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 Musculoskeletal History: Reports: None Neurological History: Reports: None Psychiatric History: Reports: None Endocrine/Metabolic History: Reports: None Hematologic History: Reports: None Immunologic History: Reports: None Oncologic (Cancer) History: Reports: None Dermatologic History: Reports: Cellulitis, Other (See Below) Other Dermatologic History: Ulceration right leg 2009- wound cares & [facility] - Infectious Disease History Infectious Disease History: Reports: None - Past Surgical History Head Surgeries/Procedures: Reports: None Respiratory Surgical History: Reports: None Female Surgical History: Reports: None Endocrine Surgical History: Reports: None Neurological Surgical History: Reports: None Oncologic Surgical History: Reports: None Dermatological Surgical History: Reports: None Social & Family History - Family History Family Medical History: Noncontributory - Caffeine Use Caffeine Use: Reports: None ED ROS GENERAL - Review of Systems Review Of Systems: Comprehensive ROS is negative, except as noted in HPI. ED EXAM, SKIN/RASH Exam: See Below (see dictation) Course - Vital Signs Last Recorded V/S: Last Vital Signs Temp 98.2 F 07/01/19 15:48 Pulse 95 07/01/19 15:48 Resp 18 07/01/19 15:48 BP 130/75 07/01/19 15:48 Pulse Ox 96 07/01/19 15:48 Departure - Departure Time of Disposition: 16:03 Disposition: Home, Self-Care 01 Condition: Good Clinical Impression: Fungal skin infection - Discharge Information Prescriptions: Nystatin [Nystop] 60 gm TP BID 7 Days #1 bottle Referrals: Yas Zuñiga MD [Primary Care Provider] - Forms: ED Department Discharge Additional Instructions: The following information is given to patients seen in the emergency department who are being discharged to home. This information is to outline your options for follow-up care. We provide all patients seen in our emergency department with a follow-up referral. The need for follow-up, as well as the timing and circumstances, are variable depending upon the specifics of your emergency department visit. If you don't have a primary care physician on staff, we will provide you with a referral. We always advise you to contact your personal physician following an emergency department visit to inform them of the circumstance of the visit and for follow-up with them and/or the need for any referrals to a consulting specialist. The emergency department will also refer you to a specialist when appropriate. This referral assures that you have the opportunity for follow-up care with a specialist. All of these measure are taken in an effort to provide you with optimal care, which includes your follow-up. Under all circumstances we always encourage you to contact your private physician who remains a resource for coordinating your care. When calling for follow-up care, please make the office aware that this follow-up is from your recent emergency room visit. If for any reason you are refused follow-up, please contact the [facility] Emergency Department at and asked to speak to the emergency department charge nurse. [facility] [address] [place] [id number] [facility] [address] [place] [phone] Gently cleanse the area with mild soap and water and pat dry. Apply powder to the affected area twice daily. Follow up with primary care provider Return to ED as needed as discussed Sepsis Event Note - Evaluation Sepsis Screening Result: No Definite Risk - Focused Exam Vital Signs: Vital Signs Temp Pulse Resp BP Pulse Ox 07/01/19 15:48 98.2 F 95 18 130/75 96 Date Exam was Performed: 07/01/19 Time Exam was Performed: 16:06
== END 2019-07-01 16:20 | disposition home or self-care (01) ==
LOC: MW.ED 15:42
DX: B36.9 Superficial mycosis, unspecified (principal); I10 Essential (primary) hypertension; Z88.1 Allergy status to other antibiotic agents; Z88.2 Allergy status to sulfonamides; Z79.899 Other long term (current) drug therapy
CPT/HCPCS: 99282

== ENCOUNTER 2019-09-20 19:34 | Emergency (ER) | payer MEDICAID ==
--- NOTE | 2019-09-20 19:46 | EDM.PDOC ---
ED HPI GENERAL MEDICAL PROBLEM - General Chief Complaint: Skin Complaint Stated Complaint: RIGHT LEG BITE Time Seen by Provider: 09/20/19 19:39 Source of Information: Reports: Patient History Limitations: Reports: No Limitations - History of Present Illness INITIAL COMMENTS - FREE TEXT/NARRATIVE: HISTORY AND PHYSICAL: History of present illness: Patient is a 33-year-old female who presents to the emergency room with complaints of a "bug bite" to her right knee. She states a few days ago she was out at a family member's home when "something bit me". Since that time she has had diffuse redness below her kneecap. She does have a longstanding history of multiple skin infections that require treatment of antibiotics. Patient denies any fever, chills, headache, change in vision, syncope or near syncope. Denies any chest pain, back pain, shortness of breath or cough. Denies any GI or symptoms. Patient has been eating and drinking appropriately. Review of systems: As per history of present illness and below otherwise all systems reviewed and negative. Past medical history: As per history of present illness and as reviewed below otherwise noncontributory. Surgical history: As per history of present illness and as reviewed below otherwise noncontributory. Social history: See social history for further information Family history: As per history of present illness and as reviewed below otherwise noncontributory. Physical exam: General: Developed and well-nourished 33-year-old female. History of Down syndrome. Alert and oriented. Nontoxic-appearing and in no acute distress. HEENT: Atraumatic, normocephalic, pupils equal and reactive bilaterally, negative for conjunctival pallor or scleral icterus, mucous membranes moist, TMs normal bilaterally, throat clear, neck supple, nontender, trachea midline. No drooling or trismus noted. No meningeal signs. No hot potato voice noted. Lungs: Clear to auscultation, breath sounds equal bilaterally, chest nontender. Heart: S1S2, regular rate and rhythm without overt murmur Abdomen: Soft, nondistended, nontender. Skin: Diffuse redness noted below the right knee, consistent with cellulitis. Intact, warm, dry. No lesions or rashes noted. Extremities: Atraumatic, moves all extremities per self without difficulty or deficits, negative for cords or calf pain. Neurovascular unremarkable. Neuro: Awake, alert, oriented. Cranial nerves II through XII unremarkable. Cerebellum unremarkable. Motor and sensory unremarkable throughout. Exam nonfocal. Notes: The margins of redness were outlined with a surgical marker. We discussed signs and symptoms that would prompt her to return to the emergency room. Medication and supportive care measures were reviewed and discussed (she does have multiple abx allergies- has used Cipro in the past w/ good coverage). Voices understanding and is agreeable to plan of care. Denies any further questions or concerns at this time. Diagnostics: None Therapeutics: Cipro Prescription: Cipro 500mg BID Impression: Cellulitis, right knee Plan: 1. Keep the area clean and dry. Continue to monitor for signs of improvement. Take the antibiotic as prescribed. 2. Tylenol and/or ibuprofen as needed for pain management. 3. Please follow-up with your primary care provider in the next few days. Return to the ED as needed and as discussed. Definitive disposition and diagnosis as appropriate pending reevaluation and review of above. Right Knee Pain Score (Numeric/FACES): 9 - Related Data Allergies Allergy/AdvReac Type Severity Reaction Status Date / Time cephalexin [From Keflex] Allergy Swelling Verified 09/20/19 19:45 Sulfa (Sulfonamide Allergy Difficulty Verified 09/20/19 19:45 Antibiotics) Breathing Home Meds: Home Meds Furosemide [Lasix] 20 mg PO DAILY 02/10/14 [History] Metoprolol Tartrate 25 mg PO DAILY 02/10/14 [History] medroxyPROGESTERone Acetate [Depo-Provera] 150 mg IM ASDIRECTED 02/10/14 [ History] predniSONE [Prednisone] 7.5 mg PO DAILY 02/10/14 [History] valACYclovir HCl [Valtrex] 2 tab-cap PO ASDIRECTED 02/10/14 [History] cycloSPORINE [Restasis] 1 drop TOP BID 12/12/17 [History] Nystatin [Nystop] 60 gm TP BID 7 Days #1 bottle 07/01/19 [Rx] Silver Sulfadiazine [Silvadene 1% Cream 20 GM] 20 gm .XX ASDIRECTED 07/01/19 [ History] Ciprofloxacin HCl [Cipro] 500 mg PO BID 7 Days #14 tablet 09/20/19 [Rx] Past Medical History HEENT History: Reports: Otitis Media, Sinusitis Cardiovascular History: Reports: Blood Clots/VTE/DVT, Hypertension Respiratory History: Reports: Sleep Apnea, Other (See Below) Other Respiratory History: respiratory difficulties Gastrointestinal History: Reports: None Genitourinary History: Reports: None 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 Musculoskeletal History: Reports: None Neurological History: Reports: None Psychiatric History: Reports: None Endocrine/Metabolic History: Reports: None Hematologic History: Reports: None Immunologic History: Reports: None Oncologic (Cancer) History: Reports: None Dermatologic History: Reports: Cellulitis, Other (See Below) Other Dermatologic History: Ulceration right leg 2009- wound cares & [facility] - Infectious Disease History Infectious Disease History: Reports: None - Past Surgical History Head Surgeries/Procedures: Reports: None Respiratory Surgical History: Reports: None Female Surgical History: Reports: None Endocrine Surgical History: Reports: None Neurological Surgical History: Reports: None Oncologic Surgical History: Reports: None Dermatological Surgical History: Reports: None Social & Family History - Family History Family Medical History: Noncontributory - Caffeine Use Caffeine Use: Reports: None ED ROS GENERAL - Review of Systems Review Of Systems: Comprehensive ROS is negative, except as noted in HPI. ED EXAM, SKIN/RASH Exam: See Below (See dictation) Course - Vital Signs Last Recorded V/S: Last Vital Signs Temp 97.9 F 09/20/19 19:41 Pulse 100 09/20/19 19:41 Resp 18 09/20/19 19:41 BP 124/71 09/20/19 19:41 Pulse Ox 96 09/20/19 19:41 - Orders/Labs/Meds Meds: Medications Discontinued Medications Generic Name Dose Route Start Last Admin Trade Name Carlene PRN Reason Stop Dose Admin Ciprofloxacin 500 mg 09/20/19 19:49 Ciprofloxacin Hcl PO 09/20/19 19:50 ONETIME ONE Departure - Departure Time of Disposition: 19:46 Disposition: Home, Self-Care 01 Clinical Impression: Cellulitis Qualifiers: Site of cellulitis: extremity Site of cellulitis of extremity: lower extremity Laterality: right Qualified Code(s): L03.115 - Cellulitis of right lower limb - Discharge Information Prescriptions: Ciprofloxacin HCl [Cipro] 500 mg PO BID 7 Days #14 tablet Instructions: Cellulitis, Adult, [id number] Forms: ED Department Discharge Additional Instructions: The following information is given to patients seen in the emergency department who are being discharged to home. This information is to outline your options for follow-up care. We provide all patients seen in our emergency department with a follow-up referral. The need for follow-up, as well as the timing and circumstances, are variable depending upon the specifics of your emergency department visit. If you don't have a primary care physician on staff, we will provide you with a referral. We always advise you to contact your personal physician following an emergency department visit to inform them of the circumstance of the visit and for follow-up with them and/or the need for any referrals to a consulting specialist. The emergency department will also refer you to a specialist when appropriate. This referral assures that you have the opportunity for follow-up care with a specialist. All of these measure are taken in an effort to provide you with optimal care, which includes your follow-up. Under all circumstances we always encourage you to contact your private physician who remains a resource for coordinating your care. When calling for follow-up care, please make the office aware that this follow-up is from your recent emergency room visit. If for any reason you are refused follow-up, please contact the [facility] Emergency Department at and asked to speak to the emergency department charge nurse. [facility] [address] [place] [id number] [facility] [address] [place] [id number] 1. Keep the area clean and dry. Continue to monitor for signs of improvement. Take the antibiotic as prescribed. 2. Tylenol and/or ibuprofen as needed for pain management. 3. Please follow-up with your primary care provider in the next few days. Return to the ED as needed and as discussed Sepsis Event Note - Focused Exam Vital Signs: Vital Signs Temp Pulse Resp BP Pulse Ox 09/20/19 19:41 97.9 F 100 18 124/71 96 Date Exam was Performed: 09/20/19 Time Exam was Performed: 19:50
[2019-09-20] MEDS ORDERED: Ciprofloxacin 500 MG Tab PO ONE (19:49)
== END 2019-09-20 20:05 | disposition home or self-care (01) ==
LOC: MW.ED 19:34
DX: L03.115 Cellulitis of right lower limb (principal); I10 Essential (primary) hypertension; Q90.9 Down syndrome, unspecified; Z88.1 Allergy status to other antibiotic agents; Z88.2 Allergy status to sulfonamides; Z79.899 Other long term (current) drug therapy
CPT/HCPCS: 99282; A9270

== ENCOUNTER 2019-10-12 19:11 | Emergency (ER) | payer MEDICAID ==
[2019-10-12] MEDS ORDERED: Doxycycline 100 MG Cap PO ONE (19:24)
--- NOTE | 2019-10-12 19:29 | EDM.PDOC ---
ED HPI GENERAL MEDICAL PROBLEM - General Chief Complaint: Lower Extremity Injury/Pain Stated Complaint: PAIN IN BOTH LEG Time Seen by Provider: 10/12/19 19:16 Source of Information: Reports: Patient History Limitations: Reports: No Limitations - History of Present Illness INITIAL COMMENTS - FREE TEXT/NARRATIVE: History of present illness: [Patient is 33-year-old female with a history of developmental delay who presents with suspected cellulitis involving her bilateral lower extremities. This is a problem she has dealt with in the past. She states it feels like previous episodes of cellulitis that she has had. She scraped the anterior portion of her left lower extremity yesterday and started to develop some redness in that area along with pain. Also developed it on the right. Symptoms really started today. Denies fever. Denies chest pain or shortness of breath. Denies URI symptoms. Denies any known COVID-19 exposure.] Review of systems: As per history of present illness and below otherwise all systems reviewed and negative. Past medical history: As per history of present illness and as reviewed below otherwise noncontributory. Surgical history: As per history of present illness and as reviewed below otherwise noncontributory. Social history: No reported history of drug or alcohol abuse. Family history: As per history of present illness and as reviewed below otherwise noncontributory. Physical exam: General: Awake, alert, no acute distress, A&O X3. HEENT: Atraumatic, normocephalic, pupils reactive, negative for conjunctival pallor or scleral icterus, mucous membranes moist, throat clear, neck supple, nontender, trachea midline. Lungs: Clear to auscultation, breath sounds equal bilaterally, chest nontender. Heart: RRR, normal S1S2, no JVD. Abdomen: Soft, nondistended, nontender. Negative for masses or hepatosplenomegaly. Negative for costovertebral tenderness. Pelvis: Stable nontender. Genitourinary: Deferred. Rectal: Deferred. Skin: Mild erythema on the anterior portion of bilateral lower extremities. No calf pain, no palpable cords, diameter of left and right legs similar in size. No purulent discharge. Warm to the touch. Extremities: Atraumatic, no edema, Neurovascular unremarkable. Neuro: Motor and sensory grossly intact throughout. Exam nonfocal. Diagnostics: [] Therapeutics: [] Impression: [] Plan: [] Definitive disposition and diagnosis as appropriate pending reevaluation and review of above. Bilateral Lower Leg Pain Score (Numeric/FACES): 5 - Related Data Allergies Allergy/AdvReac Type Severity Reaction Status Date / Time cephalexin [From Keflex] Allergy Swelling Verified 10/12/19 19:27 latex Allergy Redness Verified 10/12/19 19:27 Sulfa (Sulfonamide Allergy Difficulty Verified 10/12/19 19:27 Antibiotics) Breathing Home Meds: Home Meds Furosemide [Lasix] 20 mg PO DAILY 02/10/14 [History] Metoprolol Tartrate 25 mg PO DAILY 02/10/14 [History] medroxyPROGESTERone Acetate [Depo-Provera] 150 mg IM ASDIRECTED 02/10/14 [ History] predniSONE [Prednisone] 1 mg PO DAILY 02/10/14 [History] valACYclovir HCl [Valtrex] 2 tab-cap PO ASDIRECTED 02/10/14 [History] cycloSPORINE [Restasis] 1 drop TOP BID 12/12/17 [History] Silver Sulfadiazine [Silvadene 1% Cream 20 GM] 20 gm .XX ASDIRECTED 07/01/19 [ History] Doxycycline Monohydrate 100 mg PO BID #20 tablet 10/12/19 [Rx] Past Medical History HEENT History: Reports: Otitis Media, Sinusitis Cardiovascular History: Reports: Blood Clots/VTE/DVT, Hypertension Respiratory History: Reports: Sleep Apnea, Other (See Below) Other Respiratory History: respiratory difficulties Gastrointestinal History: Reports: None Genitourinary History: Reports: None 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 Musculoskeletal History: Reports: None Neurological History: Reports: None Psychiatric History: Reports: None Endocrine/Metabolic History: Reports: None Hematologic History: Reports: None Immunologic History: Reports: None Oncologic (Cancer) History: Reports: None Dermatologic History: Reports: Cellulitis, Other (See Below) Other Dermatologic History: Ulceration right leg 2009- wound cares & [facility] - Infectious Disease History Infectious Disease History: Reports: None - Past Surgical History Head Surgeries/Procedures: Reports: None Respiratory Surgical History: Reports: None Female Surgical History: Reports: None Endocrine Surgical History: Reports: None Neurological Surgical History: Reports: None Oncologic Surgical History: Reports: None Dermatological Surgical History: Reports: None Social & Family History - Family History Family Medical History: Noncontributory - Caffeine Use Caffeine Use: Reports: None Review of Systems - Review of Systems Review Of Systems: Comprehensive ROS is negative, except as noted in HPI. ED EXAM, GENERAL - Physical Exam Exam: See Below (see h and p) Course - Vital Signs Text/Narrative:: Patient mildly tachycardic but in no distress. Appears to be similar to previous cases of cellulitis. No convincing evidence for DVT. No chest pain, no shortness of breath. Provided her with a dose of doxycycline here and sent a prescription electronically to her pharmacy for 10 days of doxycycline to be used at home. Return precautions provided. Patient was well-appearing and stable at the time of discharge. Last Recorded V/S: Last Vital Signs Temp 36.4 C 10/12/19 19:25 Pulse 113 H 10/12/19 19:25 Resp 18 10/12/19 19:25 BP 124/74 10/12/19 19:25 Pulse Ox 96 10/12/19 19:25 - Orders/Labs/Meds Meds: Medications Discontinued Medications Generic Name Dose Route Start Last Admin Trade Name Carlene PRN Reason Stop Dose Admin Doxycycline Hyclate 100 mg 10/12/19 19:24 10/12/19 19:33 Vibramycin PO 10/12/19 19:25 100 mg ONETIME ONE Administration Departure - Departure Time of Disposition: 19:30 Disposition: Home, Self-Care 01 Condition: Good Clinical Impression: Cellulitis of left leg - Discharge Information *PRESCRIPTION DRUG MONITORING PROGRAM REVIEWED*: Not Applicable Prescriptions: Doxycycline Monohydrate 100 mg PO BID #20 tablet Instructions: Cellulitis, Adult, [id number] Referrals: PCP,Unknown [Primary Care Provider] - Forms: ED Department Discharge Additional Instructions: The following information is given to patients seen in the emergency department who are being discharged to home. This information is to outline your options for follow-up care. We provide all patients seen in our emergency department with a follow-up referral. The need for follow-up, as well as the timing and circumstances, are variable depending upon the specifics of your emergency department visit. If you don't have a primary care physician on staff, we will provide you with a referral. We always advise you to contact your personal physician following an emergency department visit to inform them of the circumstance of the visit and for follow-up with them and/or the need for any referrals to a consulting specialist. The emergency department will also refer you to a specialist when appropriate. This referral assures that you have the opportunity for follow-up care with a specialist. All of these measure are taken in an effort to provide you with optimal care, which includes your follow- up. Under all circumstances we always encourage you to contact your private physician who remains a resource for coordinating your care. When calling for follow-up care, please make the office aware that this follow-up is from your recent emergency room visit. If for any reason you are refused follow-up, please contact the [facility] Emergency Department at and asked to speak to the emergency department charge nurse. [facility] [address] [place] [id number] [facility] [address] [place] [id number] Sepsis Event Note (ED) - Focused Exam Vital Signs: Vital Signs Temp Pulse Resp BP Pulse Ox 10/12/19 19:25 36.4 C 113 H 18 124/74 96
== END 2019-10-12 19:40 | disposition home or self-care (01) ==
LOC: MW.ED 19:11
DX: L03.116 Cellulitis of left lower limb (principal); Z88.1 Allergy status to other antibiotic agents; Z91.040 Latex allergy status; Z88.2 Allergy status to sulfonamides; I10 Essential (primary) hypertension; Z79.899 Other long term (current) drug therapy
CPT/HCPCS: 99283; A9270; 99282

== ENCOUNTER 2019-10-27 12:54 | Inpatient (IN) | payer MEDICAID ==
[2019-10-27] MEDS ORDERED: Sodium Chloride 0.9% 2.5 ML Syringe FLUSH PRN (13:38)
[2019-10-27] MEDS ORDERED: Sodium Chloride 0.9% 10 ML Syringe FLUSH PRN (13:38)
[2019-10-27] MEDS ORDERED: VANCOMYCIN IV ONE (13:38)
[2019-10-27] MEDS ORDERED: SODIUM CHLORIDE 0.9% IV ONE (13:38)
[2019-10-27] MEDS ORDERED: Lactated Ringers 1,000 ML IV ONE (13:40)
[2019-10-27] MEDS ORDERED: Acetaminophen 325 MG Tab PO ONE (13:40)
--- NOTE | 2019-10-27 13:41 | EDM.PDOC ---
ED HPI GENERAL MEDICAL PROBLEM - General Chief Complaint: Skin Complaint Stated Complaint: SPOKE TO NURSE Time Seen by Provider: 10/27/19 12:55 Source of Information: Reports: Patient, Other History Limitations: Reports: No Limitations - History of Present Illness INITIAL COMMENTS - FREE TEXT/NARRATIVE: 33-year-old female with past medical history of Down syndrome, frequent lower extremity infections presenting with bilateral leg redness and fever. Seen in our ED on September 19 and diagnosed with cellulitis on the right knee, prescribed ciprofloxacin. Seen in our emergency department again on September 10 and diagnosed with cellulitis of the left leg, given a 10-day course of doxycycline, which she finished approximately 1 week ago. Today she is presents emergency department with a caregiver. She reports persistent bilateral lower extremity redness for months. Approximately noon today, she developed a fever and was directed to the emergency department. She has been undergoing wound care visits and her caregiver thinks that her legs are more red than usual today. She denies any headache, neck stiffness, cough, shortness of breath, rhinorrhea, sore throat, vomiting, diarrhea, abdominal pain, dysuria, urinary frequency, any recent travel or sick contacts. No antipyretic medications prior to arrival. bilateral legs Pain Score (Numeric/FACES): 2 - Related Data Allergies Allergy/AdvReac Type Severity Reaction Status Date / Time cephalexin [From Keflex] Allergy Swelling Verified 10/27/19 13:17 latex Allergy Redness Verified 10/27/19 13:17 Home Meds: Home Meds Furosemide [Lasix] 20 mg PO DAILY 02/10/14 [History] Metoprolol Tartrate 25 mg PO DAILY 02/10/14 [History] medroxyPROGESTERone Acetate [Depo-Provera] 150 mg IM ASDIRECTED 02/10/14 [History] valACYclovir HCl [Valtrex] 1,000 mg PO BID PRN 02/10/14 [History] cycloSPORINE [Restasis] 1 drop TOP BID 12/12/17 [History] Silver Sulfadiazine [Silvadene 1% Cream 20 GM] 20 gm TOP BID PRN 07/01/19 [History] Urea Cream 10/27/19 [History] prednisoLONE acetate [Pred Forte 1% Ophth Susp] 1 drop EYEBOTH BID 10/27/19 [History] Past Medical History HEENT History: Reports: Otitis Media, Sinusitis Cardiovascular History: Reports: Blood Clots/VTE/DVT, Hypertension, Other (See Below) Other Cardiovascular History: coarctation of the aorta Respiratory History: Reports: Sleep Apnea, Other (See Below) Other Respiratory History: respiratory difficulties Gastrointestinal History: Reports: None Genitourinary History: Reports: None ACCOUNTANT TAX History: Reports: None Musculoskeletal History: Reports: None Neurological History: Reports: Other (See Below) Other Neuro History: gayla syndrome Psychiatric History: Reports: None Endocrine/Metabolic History: Reports: None Hematologic History: Reports: None Immunologic History: Reports: None Oncologic (Cancer) History: Reports: None Dermatologic History: Reports: Cellulitis, Other (See Below) Other Dermatologic History: Ulceration right leg 2009- wound cares & [facility] - Infectious Disease History Infectious Disease History: Reports: None - Past Surgical History Head Surgeries/Procedures: Reports: None HEENT Surgical History: Reports: Cataract Surgery, Myringotomy w Tube(s), Other (See Below) Other HEENT Surgeries/Procedures: ear sx, L corneal transplant Cardiovascular Surgical History: Reports: Other (See Below) Other Cardiovascular Surgeries/Procedures: heart sx for coarctation Respiratory Surgical History: Reports: None GI Surgical History: Reports: Cholecystectomy Female Surgical History: Reports: None Endocrine Surgical History: Reports: None Neurological Surgical History: Reports: None Oncologic Surgical History: Reports: None Dermatological Surgical History: Reports: None Social & Family History - Family History Family Medical History: Noncontributory - Tobacco Use Smoking Status *Q: Never Smoker Second Hand Smoke Exposure: No - Caffeine Use Caffeine Use: Reports: None - Recreational Drug Use Recreational Drug Use: No ED ROS GENERAL - Review of Systems Review Of Systems: See Below Constitutional: Reports: Fever, Weakness. Denies: Chills HEENT: Denies: Ear Pain, Rhinitis, Throat Pain Respiratory: Denies: Shortness of Breath, Wheezing, Cough Cardiovascular: Denies: Chest Pain Endocrine: Reports: No Symptoms GI/Abdominal: Denies: Abdominal Pain, Diarrhea, Nausea, Vomiting : Denies: Dysuria, Flank Pain, Urgency Musculoskeletal: Denies: Neck Pain, Back Pain Skin: Reports: Erythema Neurological: Denies: Headache Psychiatric: Reports: No Symptoms Hematologic/Lymphatic: Reports: No Symptoms Immunologic: Reports: No Symptoms ED EXAM, SKIN/RASH Exam: See Below Text/Narrative:: Vital signs reviewed. Nursing notes reviewed. Constitutional: Awake, alert, non-distressed. Head: Normocephalic, atraumatic. Eyes: EOMI, conjunctiva normal, no discharge, no scleral icterus. Ears, Nose, Throat: External ears and nose normal, moist oral mucosa. TMs clear bilaterally. Neck: Supple, full range of motion Cardiovascular: Tachycardic, 2+ radial pulse, capillary refill less than 2 seconds. Pulmonary: normal work of breathing, no accessory muscle use. Abdomen/GI: Soft, nontender, nondistended, no guarding or rigidity, no masses. Morbidly obese. Musculoskeletal: No deformities. Integumentary: Appropriate color for ethnicity, warm, dry, no pallor or jaundice, no rash. The bilateral lower extremities both feet are areas of erythema, warmth, and tenderness concerning for cellulitis. There are some ruptured blistering areas to the left lower extremity. Neurologic: Alert, answering questions appropriately, normal speech, no facial droop, moving all extremities well. Psychiatric: Appropriate mood and affect, normal thought process. Course - Vital Signs Text/Narrative:: Patient tachycardic and febrile but looks nontoxic. Differential diagnosis includes but is not limited to: Cellulitis, UTI, pyelonephritis, intra-abdominal infection, cholecystitis, pneumonia, bacteremia, viral syndrome, meningoencephalitis, abscess, etc. Urinalysis shows trace leukocyte esterase, trace blood. No urinary symptoms to suggest UTI or pyelonephritis. Mild leukocytosis. Lactate elevated 2.6. Norm al renal function and electrolytes. Negative test. Chest x-ray is clear. Given 1 L of crystalloid, IV vancomycin and Zosyn. Chest x-rays showed no infiltrate. HR improving after fluids and acetaminophen Patient need to be admitted the hospital for severe sepsis, suspected to be due to cellulitis of the bilateral lower extremities. I spoke with Dr. Greg Canseco by phone who agrees to admit to the medicine service. Last Recorded V/S: Last Vital Signs Temp 38.6 C H 10/27/19 14:12 Pulse 101 H 10/27/19 15:54 Resp 18 10/27/19 15:54 BP 129/77 10/27/19 15:54 Pulse Ox 96 10/27/19 15:54 - Orders/Labs/Meds Orders: Active Orders 24 hr Category Date Time Status Patient Status [ADT] Routine ADT 10/27/19 15:13 Active Cardiac Monitoring [RC] CONTINUOUS Care 10/27/19 13:39 Active Overnight Pulse Oximetry [RC] Click to Edit Care 10/27/19 13:39 Active CULTURE BLOOD [BC] Stat Lab 10/27/19 14:04 Results CULTURE BLOOD [BC] Stat Lab 10/27/19 14:19 Results Sodium Chloride 0.9% [Saline Flush] Med 10/27/19 13:38 Active 10 ml FLUSH ASDIRECTED PRN Sodium Chloride 0.9% [Saline Flush] Med 10/27/19 13:38 Active 2.5 ml FLUSH ASDIRECTED PRN Blood Culture x2 Reflex Set [OM.PC] Stat Oth 10/27/19 13:38 Ordered Pulse Oximetry Continuous Monitoring [OM.PC] Routine Oth 10/27/19 13:38 Ordered Saline Lock Insert [OM.PC] Stat Oth 10/27/19 13:38 Ordered Medication Orders Sodium Chloride (Saline Flush) 10 ml FLUSH ASDIRECTED PRN PRN Reason: Keep Vein Open Last Admin: 10/27/19 14:13 Dose: 10 ml Documented by: [id number] Sodium Chloride (Saline Flush) 2.5 ml FLUSH ASDIRECTED PRN PRN Reason: Keep Vein Open Last Admin: 10/27/19 14:13 Dose: 2.5 ml Documented by: [id number] Labs: Laboratory Tests 10/27/19 10/27/19 10/27/19 Range/Units 14:04 14:04 14:04 WBC 11.52 H (4.0-11.0) K/uL RBC 4.89 (4.30-5.90) M/uL Hgb 13.3 (12.0-16.0) g/dL Hct 41.2 (36.0-46.0) % MCV 84.3 (80.0-98.0) fL MCH 27.2 (27.0-32.0) pg MCHC 32.3 (31.0-37.0) g/dL RDW Std Deviation 41.6 (28.0-62.0) fl RDW Coeff of [place] 14 (11.0-15.0) % Plt Count 273 (150-400) K/uL MPV 10.60 (7.40-12.00) fL Neut % (Auto) 72.3 (48.0-80.0) % Lymph % (Auto) 16.8 (16.0-40.0) % [place] % (Auto) 7.6 (0.0-15.0) % Eos % (Auto) 3.0 (0.0-7.0) % Baso % (Auto) 0.3 (0.0-1.5) % Neut # (Auto) 8.3 H (1.4-5.7) K/uL Lymph # (Auto) 1.9 (0.6-2.4) K/uL [place] # (Auto) 0.9 H (0.0-0.8) K/uL Eos # (Auto) 0.4 (0.0-0.7) K/uL Baso # (Auto) 0.0 (0.0-0.1) K/uL Nucleated RBC % 0.0 /100WBC Nucleated RBCs # 0 K/uL INR 0.96 Lactate 2.6 H* (0.20-2.00) mmol/L Sodium (136-145) mmol/L Potassium (3.5-5.1) mmol/L Chloride (98-107) mmol/L Carbon Dioxide (21.0-32.0) mmol/L BUN (7.0-18.0) mg/dL Creatinine (0.6-1.0) mg/dL Est Cr Clr Drug Dosing mL/min Estimated GFR (MDRD) ml/min Glucose (74-106) mg/dL Calcium (8.5-10.1) mg/dL Total Bilirubin (0.2-1.0) mg/dL AST (15-37) IU/L ALT (14-63) IU/L Alkaline Phosphatase (46-116) U/L Troponin I (0.000-0.056) ng/mL Total Protein (6.4-8.2) g/dL Albumin (3.4-5.0) g/dL Globulin (2.6-4.0) g/dL Albumin/Globulin Ratio (0.9-1.6) HCG, Qual (NEG) Urine Color Urine Appearance Urine pH (5.0-8.0) Ur Specific [place] (1.001-1.035) Urine Protein (NEGATIVE) mg/dL Urine Glucose (UA) (NEGATIVE) mg/dL Urine Ketones (NEGATIVE) mg/dL Urine Occult Blood (NEGATIVE) Urine Nitrite (NEGATIVE) Urine Bilirubin (NEGATIVE) Urine Urobilinogen (<2.0) EU/dL Ur Leukocyte Esterase (NEGATIVE) Urine RBC (0-2/HPF) Urine WBC (0-5/HPF) Ur Epithelial Cells (NONE-FEW) Urine Bacteria (NEGATIVE) Urine Mucus (NONE-MOD) 10/27/19 10/27/19 10/27/19 Range/Units 14:19 14:19 14:59 WBC (4.0-11.0) K/uL RBC (4.30-5.90) M/uL Hgb (12.0-16.0) g/dL Hct (36.0-46.0) % MCV (80.0-98.0) fL MCH (27.0-32.0) pg MCHC (31.0-37.0) g/dL RDW Std Deviation (28.0-62.0) fl RDW Coeff of [place] (11.0-15.0) % Plt Count (150-400) K/uL MPV (7.40-12.00) fL Neut % (Auto) (48.0-80.0) % Lymph % (Auto) (16.0-40.0) % [place] % (Auto) (0.0-15.0) % Eos % (Auto) (0.0-7.0) % Baso % (Auto) (0.0-1.5) % Neut # (Auto) (1.4-5.7) K/uL Lymph # (Auto) (0.6-2.4) K/uL [place] # (Auto) (0.0-0.8) K/uL Eos # (Auto) (0.0-0.7) K/uL Baso # (Auto) (0.0-0.1) K/uL Nucleated RBC % /100WBC Nucleated RBCs # K/uL INR Lactate (0.20-2.00) mmol/L Sodium 137 (136-145) mmol/L Potassium 4.4 (3.5-5.1) mmol/L Chloride 100 (98-107) mmol/L Carbon Dioxide 26.1 (21.0-32.0) mmol/L BUN 11 (7.0-18.0) mg/dL Creatinine 0.7 (0.6-1.0) mg/dL Est Cr Clr Drug Dosing 81.34 mL/min Estimated GFR (MDRD) > 60.0 ml/min Glucose 99 (74-106) mg/dL Calcium 9.0 (8.5-10.1) mg/dL Total Bilirubin 0.4 (0.2-1.0) mg/dL AST 28 (15-37) IU/L ALT 33 (14-63) IU/L Alkaline Phosphatase 78 (46-116) U/L Troponin I <0.050 (0.000-0.056) ng/mL Total Protein 7.3 (6.4-8.2) g/dL Albumin 4.1 (3.4-5.0) g/dL Globulin 3.2 (2.6-4.0) g/dL Albumin/Globulin Ratio 1.3 (0.9-1.6) HCG, Qual NEGATIVE (NEG) Urine Color YELLOW Urine Appearance CLEAR Urine pH 6.5 (5.0-8.0) Ur Specific [place] 1.015 (1.001-1.035) Urine Protein NEGATIVE (NEGATIVE) mg/dL Urine Glucose (UA) NEGATIVE (NEGATIVE) mg/dL Urine Ketones NEGATIVE (NEGATIVE) mg/dL Urine Occult Blood TRACE-INTACT H (NEGATIVE) Urine Nitrite NEGATIVE (NEGATIVE) Urine Bilirubin NEGATIVE (NEGATIVE) Urine Urobilinogen 0.2 (<2.0) EU/dL Ur Leukocyte Esterase TRACE H (NEGATIVE) Urine RBC 0-2 (0-2/HPF) Urine WBC 1-3 (0-5/HPF) Ur Epithelial Cells FEW (NONE-FEW) Urine Bacteria RARE (NEGATIVE) Urine Mucus LIGHT (NONE-MOD) Meds: Medications Generic Name Dose Route Start Last Admin Trade Name Freq PRN Reason Stop Dose Admin Sodium Chloride 10 ml 10/27/19 13:38 10/27/19 14:13 Saline Flush FLUSH 10 ml ASDIRECTED PRN Administration Keep Vein Open Sodium Chloride 2.5 ml 10/27/19 13:38 10/27/19 14:13 Saline Flush FLUSH 2.5 ml ASDIRECTED PRN Administration Keep Vein Open Discontinued Medications Generic Name Dose Route Start Last Admin Trade Name Freq PRN Reason Stop Dose Admin Acetaminophen 650 mg 10/27/19 13:40 10/27/19 14:12 Tylenol PO 10/27/19 13:41 650 mg NOW ONE Administration Vancomycin HCl 2,000 gm/ 250 mls @ 167 mls/hr 10/27/19 13:38 10/27/19 14:02 Sodium Chloride IV 10/27/19 15:07 Not Given STAT ONE Lactated Ringer's 1,000 mls @ 999 mls/hr 10/27/19 13:40 10/27/19 14:13 Ringers, Lactated IV 10/27/19 14:40 999 mls/hr .BOLUS ONE Administration Piperacillin Sod/Tazobactam 100 mls @ 100 mls/hr 10/27/19 13:49 10/27/19 14:13 Sod 4.5 gm/ Sodium Chloride IV 10/27/19 14:48 100 mls/hr ONETIME ONE Administration Vancomycin HCl 2 gm/ Sodium 500 mls @ 333 mls/hr 10/27/19 14:02 10/27/19 14:41 Chloride IV 10/27/19 15:32 333 mls/hr ONETIME ONE Administration Departure - Departure Time of Disposition: 14:49 Disposition: Admitted As Inpatient 65 Condition: Good Clinical Impression: Severe sepsis, Cellulitis of both lower extremities - Discharge Information Sepsis Event Note (ED) - Evaluation Sepsis Screening Result: No Definite Risk - Focused Exam Vital Signs: Vital Signs Temp Temp Pulse Resp BP Pulse Ox 10/27/19 14:58 107 H 17 129/76 97 10/27/19 14:43 107 H 18 125/76 97 10/27/19 14:23 111 H 18 127/76 98 10/27/19 14:12 38.6 C H 10/27/19 13:07 38.6 C H 111 H 17 147/79 H 100 - My Orders Last 24 Hours: My Active Orders 10/27/19 13:38 Sodium Chloride 0.9% [Saline Flush] 10 ml FLUSH ASDIRECTED PRN Sodium Chloride 0.9% [Saline Flush] 2.5 ml FLUSH ASDIRECTED PRN Blood Culture x2 Reflex Set [OM.PC] Stat Pulse Oximetry Continuous Monitoring [OM.PC] Routine Saline Lock Insert [OM.PC] Stat 10/27/19 13:39 Cardiac Monitoring [RC] CONTINUOUS Overnight Pulse Oximetry [RC] Click to Edit 10/27/19 14:04 CULTURE BLOOD [BC] Stat 10/27/19 14:19 CULTURE BLOOD [BC] Stat 10/27/19 15:13 Patient Status [ADT] Routine - Assessment/Plan Last 24 Hours: My Active Orders 10/27/19 13:38 Sodium Chloride 0.9% [Saline Flush] 10 ml FLUSH ASDIRECTED PRN Sodium Chloride 0.9% [Saline Flush] 2.5 ml FLUSH ASDIRECTED PRN Blood Culture x2 Reflex Set [OM.PC] Stat Pulse Oximetry Continuous Monitoring [OM.PC] Routine Saline Lock Insert [OM.PC] Stat 10/27/19 13:39 Cardiac Monitoring [RC] CONTINUOUS Overnight Pulse Oximetry [RC] Click to Edit 10/27/19 14:04 CULTURE BLOOD [BC] Stat 10/27/19 14:19 CULTURE BLOOD [BC] Stat 10/27/19 15:13 Patient Status [ADT] Routine
[2019-10-27] MEDS ORDERED: Piperacillin/Tazobactam 4.5 GM in Sodium Chloride 0.9% 100 ML IV ONE (13:49)
[2019-10-27] MEDS ORDERED: Vancomycin 2 GM in Sodium Chloride 0.9% 500 ML IV ONE (14:02)
[2019-10-27 15:01] LABS: BLOOD UREA NITROGEN,BUN 11 mg/dL (7.0-18.0); CARBON DIOXIDE,CO2 26.1 mmol/L (21.0-32.0); CHLORIDE,CL 100 mmol/L (98-107); GLUCOSE RANDOM 99 mg/dL (74-106); POTASSIUM,K 4.4 mmol/L (3.5-5.1); SODIUM,NA 137 mmol/L (136-145)
--- NOTE | 2019-10-27 15:59 | CR ---
Chest: 2 views of the chest were obtained. Comparison: Prior chest x-ray of 05/12/13. Heart size and mediastinum are within normal limits for AP technique. Lungs are clear. Bony structures are unremarkable for the patient's age. Surgical clips are seen within the upper abdomen. Impression: 1. Nothing acute is seen on 2 view chest x-ray. Diagnostic code #2 This report was dictated in MDT
[2019-10-27] MEDS ORDERED: Sodium Chloride 0.9% 1,000 ML IV ONE (17:30)
--- NOTE | 2019-10-27 17:40 | PCM.HP.2 ---
H&P History of Present Illness - General Date of Service: 10/27/19 Admit Problem/Dx: Admission Diagnosis/Problem Admission Diagnosis/Problem Severe sepsis Source of Information: Patient History Limitations: Reports: No Limitations - History of Present Illness Initial Comments - Free Text/Narative: Patient is a 33 y.o female w. PMH of MR, resident of [facility] oarctation of aorta s/p repair, HTN, HLD and morbid obesity presenting this afternoon for worsening redness, swelling of lower extremity/ concerns for repeat cellulitis. Pt has had in the past multiple episodes of cellulitis in theses areas, and treated w. good response. Mentions having been seen here in the ED for the same issues; on October 11; and was prescribed a 10 day course of Doxycycline. Mentions erythema had improved but soon returned after completion of the abx. Mentions fever and chills were also the deciding factor today to proceed to the ED. Denies taking any OTC medications prior to their arrival here this AM. ED course: CXR negative. Received Tylenol and bolus of 1 liter LR. No other acute symptoms appreciated; images from previous ED visit compared ; advised for admission secondary to outpatient abx failure. Bedside: not endorsing any fevers since Tylenol provided. Mother at bedside. Denies any other acute complaints. bilateral legs Pain Score (Numeric/FACES): 2 - Related Data Allergies/Adverse Reactions: Allergies Allergy/AdvReac Type Severity Reaction Status Date / Time cephalexin [From Keflex] Allergy Swelling Verified 10/27/19 19:53 latex Allergy Redness Verified 10/27/19 19:53 Sulfa (Sulfonamide Allergy Airway Verified 10/27/19 19:55 Antibiotics) Tightness Home Medications: Home Meds Furosemide [Lasix] 20 mg PO DAILY 02/10/14 [History] Metoprolol Tartrate 25 mg PO DAILY 02/10/14 [History] medroxyPROGESTERone Acetate [Depo-Provera] 150 mg IM ASDIRECTED 02/10/14 [History] valACYclovir HCl [Valtrex] 1,000 mg PO BID PRN 02/10/14 [History] cycloSPORINE [Restasis] 1 drop TOP DAILY 12/12/17 [History] prednisoLONE acetate [Pred Forte 1% Ophth Susp] 1 drop EYEBOTH BID 10/27/19 [History] Past Medical History HEENT History: Reports: Otitis Media, Sinusitis Cardiovascular History: Reports: Blood Clots/VTE/DVT, Hypertension, Other (See Below) Other Cardiovascular History: coarctation of the aorta Respiratory History: Reports: Sleep Apnea, Other (See Below) Other Respiratory History: respiratory difficulties Gastrointestinal History: Reports: None Genitourinary History: Reports: None WEL[employer] ARC History: Reports: None Musculoskeletal History: Reports: None Neurological History: Reports: Other (See Below) Other Neuro History: gayla syndrome Psychiatric History: Reports: None Endocrine/Metabolic History: Reports: None Hematologic History: Reports: None Immunologic History: Reports: None Oncologic (Cancer) History: Reports: None Dermatologic History: Reports: Cellulitis, Other (See Below) Other Dermatologic History: Ulceration right leg 2009- wound cares & [facility] - Infectious Disease History Infectious Disease History: Reports: Chicken Pox - Past Surgical History Head Surgeries/Procedures: Reports: None HEENT Surgical History: Reports: Cataract Surgery, Myringotomy w Tube(s), Other (See Below) Other HEENT Surgeries/Procedures: ear sx, L corneal transplant Cardiovascular Surgical History: Reports: Other (See Below) Other Cardiovascular Surgeries/Procedures: heart sx for coarctation Respiratory Surgical History: Reports: None GI Surgical History: Reports: Cholecystectomy Female Surgical History: Reports: None Endocrine Surgical History: Reports: None Neurological Surgical History: Reports: None Oncologic Surgical History: Reports: None Dermatological Surgical History: Reports: None Social & Family History - Family History Family Medical History: Noncontributory - Tobacco Use Smoking Status *Q: Never Smoker Second Hand Smoke Exposure: No - Caffeine Use Caffeine Use: Reports: Tea - Recreational Drug Use Recreational Drug Use: No H&P Review of Systems - Review of Systems: Review Of Systems: See Below General: Reports: Fever. Denies: Chills, Malaise, Fatigue HEENT: Reports: No Symptoms Pulmonary: Reports: No Symptoms. Denies: Shortness of Breath, Wheezing, Pleuritic Chest Pain Cardiovascular: Denies: Chest Pain, Palpitations, Dyspnea on Exertion Gastrointestinal: Reports: No Symptoms. Denies: Abdominal Pain, Constipation, Diarrhea Genitourinary: Reports: No Symptoms Musculoskeletal: Reports: Leg Pain Skin: Reports: Erythema Psychiatric: Reports: No Symptoms Neurological: Reports: Pre-Existing Deficit. Denies: Confusion, Dizziness, Headache Hematologic/Lymphatic: Reports: No Symptoms Exam - Exam Exam: See Below - Vital Signs Vital Signs: Last Vital Signs Temp 101.1 F H 10/27/19 17:09 Pulse 102 H 10/27/19 17:09 Resp 14 10/27/19 17:09 BP 126/84 10/27/19 17:09 Pulse Ox 97 10/27/19 17:09 Weight: 119.1 kg - Exam Quality Assessment: No: Supplemental Oxygen General: Alert, Oriented, Cooperative HEENT: EOMI Neck: Supple, Trachea Midline Lungs: Clear to Auscultation, Normal Respiratory Effort Cardiovascular: Regular Rate, Regular Rhythm GI/Abdominal Exam: Soft, Non-Tender Extremities: Other (right lower extremity: erythmea w. skin peeling noted over anterior and posterior portion of lower 1/3 of extremity; pld surgical incision noted over anterior portion. sensation and strength intact. pulses intact. ROM intact. :eft lower extremity; similar area of redness; predominanlty on anterior portion of distal 1/3 of lower extrmeity NVI; pt. can ambualte w.o issues. ) Skin: Warm Neurological: Cranial Nerves Intact Neuro Extensive - Mental Status: Alert, Oriented x3, Normal Mood/Affect Neuro Extensive - Motor, Sensory, Reflexes: Normal Gait Psychiatric: Alert, Normal Affect, Normal Mood - Patient Data Lab Results Last 24 hrs: Laboratory Results - last 24 hr 10/27/19 10/27/19 10/27/19 Range/Units 14:04 14:04 14:04 WBC 11.52 H (4.0-11.0) K/uL RBC 4.89 (4.30-5.90) M/uL Hgb 13.3 (12.0-16.0) g/dL Hct 41.2 (36.0-46.0) % MCV 84.3 (80.0-98.0) fL MCH 27.2 (27.0-32.0) pg MCHC 32.3 (31.0-37.0) g/dL RDW Std Deviation 41.6 (28.0-62.0) fl RDW Coeff of Suleman 14 (11.0-15.0) % Plt Count 273 (150-400) K/uL MPV 10.60 (7.40-12.00) fL Neut % (Auto) 72.3 (48.0-80.0) % Lymph % (Auto) 16.8 (16.0-40.0) % [place] % (Auto) 7.6 (0.0-15.0) % Eos % (Auto) 3.0 (0.0-7.0) % Baso % (Auto) 0.3 (0.0-1.5) % Neut # (Auto) 8.3 H (1.4-5.7) K/uL Lymph # (Auto) 1.9 (0.6-2.4) K/uL [place] # (Auto) 0.9 H (0.0-0.8) K/uL Eos # (Auto) 0.4 (0.0-0.7) K/uL Baso # (Auto) 0.0 (0.0-0.1) K/uL Nucleated RBC % 0.0 /100WBC Nucleated RBCs # 0 K/uL INR 0.96 Lactate 2.6 H* (0.20-2.00) mmol/L Sodium (136-145) mmol/L Potassium (3.5-5.1) mmol/L Chloride (98-107) mmol/L Carbon Dioxide (21.0-32.0) mmol/L BUN (7.0-18.0) mg/dL Creatinine (0.6-1.0) mg/dL Est Cr Clr Drug Dosing mL/min Estimated GFR (MDRD) ml/min Glucose (74-106) mg/dL Calcium (8.5-10.1) mg/dL Total Bilirubin (0.2-1.0) mg/dL AST (15-37) IU/L ALT (14-63) IU/L Alkaline Phosphatase (46-116) U/L Troponin I (0.000-0.056) ng/mL Total Protein (6.4-8.2) g/dL Albumin (3.4-5.0) g/dL Globulin (2.6-4.0) g/dL Albumin/Globulin Ratio (0.9-1.6) HCG, Qual (NEG) Urine Color Urine Appearance Urine pH (5.0-8.0) Ur Specific [place] (1.001-1.035) Urine Protein (NEGATIVE) mg/dL Urine Glucose (UA) (NEGATIVE) mg/dL Urine Ketones (NEGATIVE) mg/dL Urine Occult Blood (NEGATIVE) Urine Nitrite (NEGATIVE) Urine Bilirubin (NEGATIVE) Urine Urobilinogen (<2.0) EU/dL Ur Leukocyte Esterase (NEGATIVE) Urine RBC (0-2/HPF) Urine WBC (0-5/HPF) Ur Epithelial Cells (NONE-FEW) Urine Bacteria (NEGATIVE) Urine Mucus (NONE-MOD) 10/27/19 10/27/19 10/27/19 Range/Units 14:19 14:19 14:59 WBC (4.0-11.0) K/uL RBC (4.30-5.90) M/uL Hgb (12.0-16.0) g/dL Hct (36.0-46.0) % MCV (80.0-98.0) fL MCH (27.0-32.0) pg MCHC (31.0-37.0) g/dL RDW Std Deviation (28.0-62.0) fl RDW Coeff of Suleman (11.0-15.0) % Plt Count (150-400) K/uL MPV (7.40-12.00) fL Neut % (Auto) (48.0-80.0) % Lymph % (Auto) (16.0-40.0) % [place] % (Auto) (0.0-15.0) % Eos % (Auto) (0.0-7.0) % Baso % (Auto) (0.0-1.5) % Neut # (Auto) (1.4-5.7) K/uL Lymph # (Auto) (0.6-2.4) K/uL [place] # (Auto) (0.0-0.8) K/uL Eos # (Auto) (0.0-0.7) K/uL Baso # (Auto) (0.0-0.1) K/uL Nucleated RBC % /100WBC Nucleated RBCs # K/uL INR Lactate (0.20-2.00) mmol/L Sodium 137 (136-145) mmol/L Potassium 4.4 (3.5-5.1) mmol/L Chloride 100 (98-107) mmol/L Carbon Dioxide 26.1 (21.0-32.0) mmol/L BUN 11 (7.0-18.0) mg/dL Creatinine 0.7 (0.6-1.0) mg/dL Est Cr Clr Drug Dosing 81.34 mL/min Estimated GFR (MDRD) > 60.0 ml/min Glucose 99 (74-106) mg/dL Calcium 9.0 (8.5-10.1) mg/dL Total Bilirubin 0.4 (0.2-1.0) mg/dL AST 28 (15-37) IU/L ALT 33 (14-63) IU/L Alkaline Phosphatase 78 (46-116) U/L Troponin I <0.050 (0.000-0.056) ng/mL Total Protein 7.3 (6.4-8.2) g/dL Albumin 4.1 (3.4-5.0) g/dL Globulin 3.2 (2.6-4.0) g/dL Albumin/Globulin Ratio 1.3 (0.9-1.6) HCG, Qual NEGATIVE (NEG) Urine Color YELLOW Urine Appearance CLEAR Urine pH 6.5 (5.0-8.0) Ur Specific [place] 1.015 (1.001-1.035) Urine Protein NEGATIVE (NEGATIVE) mg/dL Urine Glucose (UA) NEGATIVE (NEGATIVE) mg/dL Urine Ketones NEGATIVE (NEGATIVE) mg/dL Urine Occult Blood TRACE-INTACT H (NEGATIVE) Urine Nitrite NEGATIVE (NEGATIVE) Urine Bilirubin NEGATIVE (NEGATIVE) Urine Urobilinogen 0.2 (<2.0) EU/dL Ur Leukocyte Esterase TRACE H (NEGATIVE) Urine RBC 0-2 (0-2/HPF) Urine WBC 1-3 (0-5/HPF) Ur Epithelial Cells FEW (NONE-FEW) Urine Bacteria RARE (NEGATIVE) Urine Mucus LIGHT (NONE-MOD) Result Diagrams: 10/28/19 05:39 10/28/19 05:39 Major Results Last 24 hrs: Microbiology 10/27/19 14:04 Anaerobic Blood Culture - Final Blood - Venous 10/27/19 14:19 Anaerobic Blood Culture - Final Blood - Venous - Lab Draw Sepsis Event Note - Evaluation Sepsis Screening Result: Severe Sepsis Risk - Focused Exam Vital Signs: Vital Signs Temp Temp Pulse Resp BP Pulse Ox 10/27/19 17:09 101.1 F H 102 H 14 126/84 97 10/27/19 15:54 101 H 18 129/77 96 10/27/19 14:58 107 H 17 129/76 97 10/27/19 14:43 107 H 18 125/76 97 10/27/19 14:23 111 H 18 127/76 98 10/27/19 14:12 101.4 F H 10/27/19 13:07 101.4 F H 111 H 17 147/79 H 100 Date Exam was Performed: 10/28/19 Time Exam was Performed: 14:16 Problem List Initiated/Reviewed/Updated: Yes Orders Last 24hrs: Active Orders 24 hr Category Date Time Status Patient Status [ADT] Routine ADT 10/27/19 15:13 Active Cardiac Monitoring [RC] CONTINUOUS Care 10/27/19 13:39 Active Intake and Output [RC] ASDIRECTED Care 10/27/19 17:18 Ordered Overnight Pulse Oximetry [RC] Click to Edit Care 10/27/19 13:39 Active Up ad Kayla [RC] ASDIRECTED Care 10/27/19 17:17 Ordered Vital Signs [RC] PER UNIT ROUTINE Care 10/27/19 17:16 Ordered Heart Healthy Diet [DIET] Diet 10/28/19 Breakfast Ordered CULTURE BLOOD [BC] Stat Lab 10/27/19 14:04 Results CULTURE BLOOD [BC] Stat Lab 10/27/19 14:19 Results LACTATE WITH REFLEX [BG] Stat Lab 10/27/19 18:30 Ordered VANCOMYCIN TROUGH [CHEM] Timed Lab 10/28/19 22:10 Ordered Furosemide [Lasix] Med 10/28/19 09:00 Ordered 20 mg PO DAILY Heparin Sodium Med 10/27/19 17:30 Ordered 5,000 units SUBCUT Q12H Metoprolol Tartrate [Lopressor] Med 10/28/19 09:00 Ordered 25 mg PO DAILY Omeprazole Med 10/28/19 07:30 Ordered 20 mg PO BIDAC Pharmacy to Dose - Vancomycin Med 10/27/19 17:30 Ordered 1 dose .XX ASDIRECTED Piperacillin/Tazobactam [Piperacil-Tazobact] 3.375 gm Med 10/27/19 21:00 Ordered Sodium Chloride 0.9% [Normal Saline] 50 ml IV Q6H Sodium Chloride 0.9% [Normal Saline] 1,000 ml Med 10/27/19 17:30 Ordered IV STAT Sodium Chloride 0.9% [Saline Flush] Med 10/27/19 13:38 Active 10 ml FLUSH ASDIRECTED PRN Sodium Chloride 0.9% [Saline Flush] Med 10/27/19 13:38 Active 2.5 ml FLUSH ASDIRECTED PRN Vancomycin 1.75 gm Med 10/27/19 22:40 Active Sodium Chloride 0.9% [Normal Saline] 500 ml IV Q8H cycloSPORINE [Restasis] Med 10/27/19 21:00 Ordered 1 drop TOP BID Blood Culture x2 Reflex Set [OM.PC] Stat Oth 10/27/19 13:38 Ordered Pulse Oximetry Continuous Monitoring [OM.PC] Routine Oth 10/27/19 13:38 Ordered Saline Lock Insert [OM.PC] Stat Oth 10/27/19 13:38 Ordered Medication Orders Furosemide (Lasix) 20 mg PO DAILY [facility] Heparin Sodium (Porcine) (Heparin Sodium) 5,000 units SUBCUT Q12H [facility] Vancomycin HCl 1.75 gm/ Sodium (Chloride) 500 mls @ 250 mls/hr IV Q8H [facility] Piperacillin Sod/Tazobactam (Sod 3.375 gm/ Sodium Chloride) 50 mls @ 100 mls/hr IV Q6H [facility] Sodium Chloride (Normal Saline) 1,000 mls @ 999 mls/hr IV STAT ONE Stop: 10/27/19 18:30 Metoprolol Tartrate (Lopressor) 25 mg PO DAILY [facility] Omeprazole (Omeprazole) 20 mg PO BIDAC [facility] Cyclosporine [ (Restasis]) 1 each EYEBOTH BID [facility] Sodium Chloride (Saline Flush) 10 ml FLUSH ASDIRECTED PRN PRN Reason: Keep Vein Open Last Admin: 10/27/19 14:13 Dose: 10 ml Documented by: [id number] Sodium Chloride (Saline Flush) 2.5 ml FLUSH ASDIRECTED PRN PRN Reason: Keep Vein Open Last Admin: 10/27/19 14:13 Dose: 2.5 ml Documented by: [email or web address] Vancomycin HCl (Pharmacy To Dose - Vancomycin) 1 dose .XX ASDIRECTED [facility] Assessment/Plan Comment:: Assessment: 1. B/l lower extremity cellulitis : failed outpatient therapy 2. Elevated Lactate 3. PMH: MR, cardiomegaly, HTN, KEN on CPAP, cataract surgery. Plan Admit to observation. Full code. I/o's per routine. Up ad kayla. Diet: heart healthy DVT: heparin 5000 q12; GI: omeprazole CPAP at night : has home device 1. Cellulitis of b/l lower extremities: failed outpatient therapy; (doxycycline) Received Vancomycin and Zosyn in ED. Will continue current regimen for cellulitis; chronic issue for patient; requiring outpatient wound care; increasing redness and swelling noted. history of enterococcus faecalis/wound culture from 2016; will continue current regimen and adjust if not responding. Fever in ED: Bcx ordered; currently afebrile at bedside. Mother at bedside does not endorse any travel and or sick contacts; will test for COVID however Elevated Lactate: received 1liter LR in ED; will recheck in 5 hours/PM; provide additional 1 liter NS; reassess further. 2. Hx .of Coarctation s/p repair: on daily lasix; will continue HTN: home medication continue Eye drops continue 3. Continue to monitor.
[2019-10-27] MEDS: Heparin Sodium 5,000 Units/ML Vial SUBCUT SCH (17:48)
[2019-10-27] MEDS ORDERED: Acetaminophen 500 MG Tab PO PRN (17:59)
[2019-10-27] MEDS: Piperacillin/Tazobactam 3.375 GM in Sodium Chloride 0.9% 50 ML IV SCH (20:38)
[2019-10-27] MEDS: Cyclosporine [Restasis] EYEBOTH SCH (20:44)
[2019-10-27] MEDS: Vancomycin 1.75 GM in Sodium Chloride 0.9% 500 ML IV SCH (21:46)
[2019-10-28] MEDS: Piperacillin/Tazobactam 3.375 GM in Sodium Chloride 0.9% 50 ML IV SCH ×4 (03:49→20:31)
[2019-10-28] MEDS: Vancomycin 1.75 GM in Sodium Chloride 0.9% 500 ML IV SCH ×3 (05:40→22:04)
[2019-10-28] MEDS: Heparin Sodium 5,000 Units/ML Vial SUBCUT SCH ×2 (05:40→16:52)
[2019-10-28] MEDS: Omeprazole 20 MG Cap.CR PO SCH ×2 (06:30→16:51)
[2019-10-28 06:47] LABS: BLOOD UREA NITROGEN,BUN 9 mg/dL (7.0-18.0); CARBON DIOXIDE,CO2 27.5 mmol/L (21.0-32.0); CHLORIDE,CL 105 mmol/L (98-107); GLUCOSE RANDOM 111 mg/dL (74-106); POTASSIUM,K 3.6 mmol/L (3.5-5.1); SODIUM,NA 140 mmol/L (136-145)
[2019-10-28] MEDS: Furosemide 20 MG Tab PO SCH (08:07)
[2019-10-28] MEDS: Metoprolol Tartrate 25 MG Tab PO SCH (08:07)
[2019-10-28] MEDS: Cyclosporine [Restasis] EYEBOTH SCH ×3 (09:38→20:39)
--- NOTE | 2019-10-28 10:45 | PCM.PN ---
- General Info Date of Service: 10/28/19 Subjective Update: Bedside: pleasant and in no acute distress. Does not endorse any fevers and or pain Functional Status: Reports: Pain Controlled - Review of Systems General: Reports: No Symptoms. Denies: Fever, Chills Pulmonary: Reports: No Symptoms Cardiovascular: Reports: No Symptoms Gastrointestinal: Reports: No Symptoms Musculoskeletal: Reports: No Symptoms Skin: Reports: Other (celluilits ) Neurological: Reports: Pre-Existing Deficit Psychiatric: Reports: No Symptoms - Patient Data Vitals - Most Recent: Last Vital Signs Temp 99.6 F 10/28/19 08:09 Pulse 91 10/28/19 08:09 Resp 16 10/28/19 08:09 BP 132/76 10/28/19 08:09 Pulse Ox 95 10/28/19 08:09 Weight - Most Recent: 119.1 kg I&O - Last 24 Hours: Intake & Output 10/27/19 10/28/19 10/28/19 22:59 06:59 14:59 Intake Total 1050 760 Output Total 1000 Balance 1050 -240 Lab Results Last 24 Hours: Laboratory Results - last 24 hr 10/27/19 10/27/19 10/27/19 Range/Units 14:04 14:04 14:04 WBC 11.52 H (4.0-11.0) K/uL RBC 4.89 (4.30-5.90) M/uL Hgb 13.3 (12.0-16.0) g/dL Hct 41.2 (36.0-46.0) % MCV 84.3 (80.0-98.0) fL MCH 27.2 (27.0-32.0) pg MCHC 32.3 (31.0-37.0) g/dL RDW Std Deviation 41.6 (28.0-62.0) fl RDW Coeff of Suleman 14 (11.0-15.0) % Plt Count 273 (150-400) K/uL MPV 10.60 (7.40-12.00) fL Neut % (Auto) 72.3 (48.0-80.0) % Lymph % (Auto) 16.8 (16.0-40.0) % [place] % (Auto) 7.6 (0.0-15.0) % Eos % (Auto) 3.0 (0.0-7.0) % Baso % (Auto) 0.3 (0.0-1.5) % Neut # (Auto) 8.3 H (1.4-5.7) K/uL Lymph # (Auto) 1.9 (0.6-2.4) K/uL [place] # (Auto) 0.9 H (0.0-0.8) K/uL Eos # (Auto) 0.4 (0.0-0.7) K/uL Baso # (Auto) 0.0 (0.0-0.1) K/uL Nucleated RBC % 0.0 /100WBC Nucleated RBCs # 0 K/uL INR 0.96 Lactate 2.6 H* (0.20-2.00) mmol/L Sodium (136-145) mmol/L Potassium (3.5-5.1) mmol/L Chloride (98-107) mmol/L Carbon Dioxide (21.0-32.0) mmol/L BUN (7.0-18.0) mg/dL Creatinine (0.6-1.0) mg/dL Est Cr Clr Drug Dosing mL/min Estimated GFR (MDRD) ml/min Glucose (74-106) mg/dL Calcium (8.5-10.1) mg/dL Total Bilirubin (0.2-1.0) mg/dL AST (15-37) IU/L ALT (14-63) IU/L Alkaline Phosphatase (46-116) U/L Troponin I (0.000-0.056) ng/mL Total Protein (6.4-8.2) g/dL Albumin (3.4-5.0) g/dL Globulin (2.6-4.0) g/dL Albumin/Globulin Ratio (0.9-1.6) HCG, Qual (NEG) Urine Color Urine Appearance Urine pH (5.0-8.0) Ur Specific [place] (1.001-1.035) Urine Protein (NEGATIVE) mg/dL Urine Glucose (UA) (NEGATIVE) mg/dL Urine Ketones (NEGATIVE) mg/dL Urine Occult Blood (NEGATIVE) Urine Nitrite (NEGATIVE) Urine Bilirubin (NEGATIVE) Urine Urobilinogen (<2.0) EU/dL Ur Leukocyte Esterase (NEGATIVE) Urine RBC (0-2/HPF) Urine WBC (0-5/HPF) Ur Epithelial Cells (NONE-FEW) Urine Bacteria (NEGATIVE) Urine Mucus (NONE-MOD) SARS-CoV-2 RNA (RT-PCR) (NEGATIVE) 10/27/19 10/27/19 10/27/19 Range/Units 14:19 14:19 14:59 WBC (4.0-11.0) K/uL RBC (4.30-5.90) M/uL Hgb (12.0-16.0) g/dL Hct (36.0-46.0) % MCV (80.0-98.0) fL MCH (27.0-32.0) pg MCHC (31.0-37.0) g/dL RDW Std Deviation (28.0-62.0) fl RDW Coeff of [place]ule[place] (11.0-15.0) % Plt Count (150-400) K/uL MPV (7.40-12.00) fL Neut % (Auto) (48.0-80.0) % Lymph % (Auto) (16.0-40.0) % [place] % (Auto) (0.0-15.0) % Eos % (Auto) (0.0-7.0) % Baso % (Auto) (0.0-1.5) % Neut # (Auto) (1.4-5.7) K/uL Lymph # (Auto) (0.6-2.4) K/uL [place] # (Auto) (0.0-0.8) K/uL Eos # (Auto) (0.0-0.7) K/uL Baso # (Auto) (0.0-0.1) K/uL Nucleated RBC % /100WBC Nucleated RBCs # K/uL INR Lactate (0.20-2.00) mmol/L Sodium 137 (136-145) mmol/L Potassium 4.4 (3.5-5.1) mmol/L Chloride 100 (98-107) mmol/L Carbon Dioxide 26.1 (21.0-32.0) mmol/L BUN 11 (7.0-18.0) mg/dL Creatinine 0.7 (0.6-1.0) mg/dL Est Cr Clr Drug Dosing 81.34 mL/min Estimated GFR (MDRD) > 60.0 ml/min Glucose 99 (74-106) mg/dL Calcium 9.0 (8.5-10.1) mg/dL Total Bilirubin 0.4 (0.2-1.0) mg/dL AST 28 (15-37) IU/L ALT 33 (14-63) IU/L Alkaline Phosphatase 78 (46-116) U/L Troponin I <0.050 (0.000-0.056) ng/mL Total Protein 7.3 (6.4-8.2) g/dL Albumin 4.1 (3.4-5.0) g/dL Globulin 3.2 (2.6-4.0) g/dL Albumin/Globulin Ratio 1.3 (0.9-1.6) HCG, Qual NEGATIVE (NEG) Urine Color YELLOW Urine Appearance CLEAR Urine pH 6.5 (5.0-8.0) Ur Specific [place] 1.015 (1.001-1.035) Urine Protein NEGATIVE (NEGATIVE) mg/dL Urine Glucose (UA) NEGATIVE (NEGATIVE) mg/dL Urine Ketones NEGATIVE (NEGATIVE) mg/dL Urine Occult Blood TRACE-INTACT H (NEGATIVE) Urine Nitrite NEGATIVE (NEGATIVE) Urine Bilirubin NEGATIVE (NEGATIVE) Urine Urobilinogen 0.2 (<2.0) EU/dL Ur Leukocyte Esterase TRACE H (NEGATIVE) Urine RBC 0-2 (0-2/HPF) Urine WBC 1-3 (0-5/HPF) Ur Epithelial Cells FEW (NONE-FEW) Urine Bacteria RARE (NEGATIVE) Urine Mucus LIGHT (NONE-MOD) SARS-CoV-2 RNA (RT-PCR) (NEGATIVE) 10/27/19 10/27/19 10/28/19 Range/Units 17:40 18:55 05:39 WBC 7.64 (4.0-11.0) K/uL RBC 4.47 (4.30-5.90) M/uL Hgb 11.7 L (12.0-16.0) g/dL Hct 37.9 (36.0-46.0) % MCV 84.8 (80.0-98.0) fL MCH 26.2 L (27.0-32.0) pg MCHC 30.9 L (31.0-37.0) g/dL RDW Std Deviation 42.2 (28.0-62.0) fl RDW Coeff of [place]ule[place] 14 (11.0-15.0) % Plt Count 290 (150-400) K/uL MPV 10.30 (7.40-12.00) fL Neut % (Auto) 63.6 (48.0-80.0) % Lymph % (Auto) 20.7 (16.0-40.0) % [place] % (Auto) 12.8 (0.0-15.0) % Eos % (Auto) 2.6 (0.0-7.0) % Baso % (Auto) 0.3 (0.0-1.5) % Neut # (Auto) 4.9 (1.4-5.7) K/uL Lymph # (Auto) 1.6 (0.6-2.4) K/uL [place] # (Auto) 1.0 H (0.0-0.8) K/uL Eos # (Auto) 0.2 (0.0-0.7) K/uL Baso # (Auto) 0.0 (0.0-0.1) K/uL Nucleated RBC % 0.0 /100WBC Nucleated RBCs # 0 K/uL INR Lactate 1.4 (0.20-2.00) mmol/L Sodium (136-145) mmol/L Potassium (3.5-5.1) mmol/L Chloride (98-107) mmol/L Carbon Dioxide (21.0-32.0) mmol/L BUN (7.0-18.0) mg/dL Creatinine (0.6-1.0) mg/dL Est Cr Clr Drug Dosing mL/min Estimated GFR (MDRD) ml/min Glucose (74-106) mg/dL Calcium (8.5-10.1) mg/dL Total Bilirubin (0.2-1.0) mg/dL AST (15-37) IU/L ALT (14-63) IU/L Alkaline Phosphatase (46-116) U/L Troponin I (0.000-0.056) ng/mL Total Protein (6.4-8.2) g/dL Albumin (3.4-5.0) g/dL Globulin (2.6-4.0) g/dL Albumin/Globulin Ratio (0.9-1.6) HCG, Qual (NEG) Urine Color Urine Appearance Urine pH (5.0-8.0) Ur Specific [place] (1.001-1.035) Urine Protein (NEGATIVE) mg/dL Urine Glucose (UA) (NEGATIVE) mg/dL Urine Ketones (NEGATIVE) mg/dL Urine Occult Blood (NEGATIVE) Urine Nitrite (NEGATIVE) Urine Bilirubin (NEGATIVE) Urine Urobilinogen (<2.0) EU/dL Ur Leukocyte Esterase (NEGATIVE) Urine RBC (0-2/HPF) Urine WBC (0-5/HPF) Ur Epithelial Cells (NONE-FEW) Urine Bacteria (NEGATIVE) Urine Mucus (NONE-MOD) SARS-CoV-2 RNA (RT-PCR) NEGATIVE (NEGATIVE) 10/28/19 Range/Units 05:39 WBC (4.0-11.0) K/uL RBC (4.30-5.90) M/uL Hgb (12.0-16.0) g/dL Hct (36.0-46.0) % MCV (80.0-98.0) fL MCH (27.0-32.0) pg MCHC (31.0-37.0) g/dL RDW Std Deviation (28.0-62.0) fl RDW Coeff of Suleman (11.0-15.0) % Plt Count (150-400) K/uL MPV (7.40-12.00) fL Neut % (Auto) (48.0-80.0) % Lymph % (Auto) (16.0-40.0) % [place] % (Auto) (0.0-15.0) % Eos % (Auto) (0.0-7.0) % Baso % (Auto) (0.0-1.5) % Neut # (Auto) (1.4-5.7) K/uL Lymph # (Auto) (0.6-2.4) K/uL [place] # (Auto) (0.0-0.8) K/uL Eos # (Auto) (0.0-0.7) K/uL Baso # (Auto) (0.0-0.1) K/uL Nucleated RBC % /100WBC Nucleated RBCs # K/uL INR Lactate (0.20-2.00) mmol/L Sodium 140 (136-145) mmol/L Potassium 3.6 (3.5-5.1) mmol/L Chloride 105 (98-107) mmol/L Carbon Dioxide 27.5 (21.0-32.0) mmol/L BUN 9 (7.0-18.0) mg/dL Creatinine 0.8 (0.6-1.0) mg/dL Est Cr Clr Drug Dosing 71.17 mL/min Estimated GFR (MDRD) > 60.0 ml/min Glucose 111 H (74-106) mg/dL Calcium 8.0 L (8.5-10.1) mg/dL Total Bilirubin 0.5 (0.2-1.0) mg/dL AST 20 (15-37) IU/L ALT 31 (14-63) IU/L Alkaline Phosphatase 57 (46-116) U/L Troponin I (0.000-0.056) ng/mL Total Protein 6.5 (6.4-8.2) g/dL Albumin 3.3 L (3.4-5.0) g/dL Globulin 3.2 (2.6-4.0) g/dL Albumin/Globulin Ratio 1.0 (0.9-1.6) HCG, Qual (NEG) Urine Color Urine Appearance Urine pH (5.0-8.0) Ur Specific [place] (1.001-1.035) Urine Protein (NEGATIVE) mg/dL Urine Glucose (UA) (NEGATIVE) mg/dL Urine Ketones (NEGATIVE) mg/dL Urine Occult Blood (NEGATIVE) Urine Nitrite (NEGATIVE) Urine Bilirubin (NEGATIVE) Urine Urobilinogen (<2.0) EU/dL Ur Leukocyte Esterase (NEGATIVE) Urine RBC (0-2/HPF) Urine WBC (0-5/HPF) Ur Epithelial Cells (NONE-FEW) Urine Bacteria (NEGATIVE) Urine Mucus (NONE-MOD) SARS-CoV-2 RNA (RT-PCR) (NEGATIVE) Major Results Last 24 Hours: Microbiology 10/27/19 14:04 Anaerobic Blood Culture - Final Blood - Venous 10/27/19 14:19 Anaerobic Blood Culture - Final Blood - Venous - Lab Draw Med Orders - Current: Current Medications Acetaminophen (Tylenol Extra Strength) 500 mg PO Q6H PRN PRN Reason: Fever Last Admin: 10/27/19 20:01 Dose: 500 mg Documented by: Furosemide (Lasix) 20 mg PO DAILY [facility] Last Admin: 10/28/19 08:07 Dose: 20 mg Documented by: Heparin Sodium (Porcine) (Heparin Sodium) 5,000 units SUBCUT Q12H [facility] Last Admin: 10/28/19 05:40 Dose: 5,000 units Documented by: Vancomycin HCl 1.75 gm/ Sodium (Chloride) 500 mls @ 250 mls/hr IV Q8H [facility] Last Admin: 10/28/19 05:40 Dose: 250 mls/hr Documented by: Piperacillin Sod/Tazobactam (Sod 3.375 gm/ Sodium Chloride) 50 mls @ 100 mls/hr IV Q6H [facility] Last Admin: 10/28/19 09:41 Dose: 100 mls/hr Documented by: Ibuprofen (Motrin) 400 mg PO Q4H PRN PRN Reason: Pain Metoprolol Tartrate (Lopressor) 25 mg PO DAILY [facility] Last Admin: 10/28/19 08:07 Dose: 25 mg Documented by: Omeprazole (Omeprazole) 20 mg PO BIDAC [facility] Last Admin: 10/28/19 06:30 Dose: 20 mg Documented by: Cyclosporine [ (Restasis]) 1 each EYEBOTH BID [facility] Last Admin: 10/28/19 10:31 Dose: 1 each Documented by: Sodium Chloride (Saline Flush) 10 ml FLUSH ASDIRECTED PRN PRN Reason: Keep Vein Open Last Admin: 10/27/19 14:13 Dose: 10 ml Documented by: Sodium Chloride (Saline Flush) 2.5 ml FLUSH ASDIRECTED PRN PRN Reason: Keep Vein Open Last Admin: 10/27/19 14:13 Dose: 2.5 ml Documented by: Vancomycin HCl (Pharmacy To Dose - Vancomycin) 1 dose .XX ASDIRECTED [facility] Discontinued Medications Acetaminophen (Tylenol) 650 mg PO NOW ONE Stop: 10/27/19 13:41 Last Admin: 10/27/19 14:12 Dose: 650 mg Documented by: Vancomycin HCl 2,000 gm/ (Sodium Chloride) 250 mls @ 167 mls/hr IV STAT ONE Stop: 10/27/19 15:07 Last Admin: 10/27/19 14:02 Dose: Not Given Documented by: Lactated Ringer's (Ringers, Lactated) 1,000 mls @ 999 mls/hr IV .BOLUS ONE Stop: 10/27/19 14:40 Last Admin: 10/27/19 14:13 Dose: 999 mls/hr Documented by: Piperacillin Sod/Tazobactam (Sod 4.5 gm/ Sodium Chloride) 100 mls @ 100 mls/hr IV ONETIME ONE Stop: 10/27/19 14:48 Last Admin: 10/27/19 14:13 Dose: 100 mls/hr Documented by: Vancomycin HCl 2 gm/ Sodium (Chloride) 500 mls @ 333 mls/hr IV ONETIME ONE Stop: 10/27/19 15:32 Last Admin: 10/27/19 14:41 Dose: 333 mls/hr Documented by: Sodium Chloride (Normal Saline) 1,000 mls @ 999 mls/hr IV STAT ONE Stop: 10/27/19 18:30 Last Admin: 10/27/19 17:53 Dose: 999 mls/hr Documented by: - Exam Quality Assessment: Supplemental Oxygen General: Alert, Oriented, Cooperative, No Acute Distress HEENT: EOMI Neck: Supple Lungs: Clear to Auscultation, Normal Respiratory Effort Cardiovascular: Regular Rate, Regular Rhythm GI/Abdominal Exam: Soft, Non-Tender Back Exam: Full Range of Motion Extremities: Other (right lower extrmity: mild interval improvment of erythmea; no increase in blistering; tenderness apprecaited over posterior ty. left leg: nominal changes in 14 hours . ) Skin: Warm Neurological: No New Focal Deficit Psy/Mental Status: Alert, Normal Affect Sepsis Event Note - Evaluation Sepsis Screening Result: Sepsis Risk - Focused Exam Vital Signs: Vital Signs Temp Pulse Pulse Resp BP BP Pulse Ox 10/28/19 08:09 99.6 F 91 16 132/76 95 10/28/19 08:07 91 132/76 10/28/19 04:18 100.1 F 93 20 125/65 94 L 10/27/19 23:22 101.3 F H 97 20 116/59 L 93 L Date Exam was Performed: 10/28/19 Time Exam was Performed: 11:23 - Problem List Review Problem List Initiated/Reviewed/Updated: Yes - My Orders Last 24 Hours: My Active Orders 10/27/19 17:16 Vital Signs [RC] PER UNIT ROUTINE 10/27/19 17:17 Up ad Kayla [RC] ASDIRECTED 10/27/19 17:18 Intake and Output [RC] ASDIRECTED 10/27/19 17:30 Heparin Sodium 5,000 units SUBCUT Q12H Pharmacy to Dose - Vancomycin 1 dose .XX ASDIRECTED 10/27/19 17:42 Code Status [Resuscitation Status] Routine 10/27/19 17:59 Acetaminophen [Tylenol Extra Strength] 500 mg PO Q6H PRN Ibuprofen [Motrin] 400 mg PO Q4H PRN 10/27/19 18:02 RT Communication [RC] Click to Edit 10/27/19 21:00 Patient's Own Medication [Ptom] 1 each EYEBOTH BID Piperacillin/Tazobactam [Piperacil-Tazobact] 3.375 gm Sodium Chloride 0.9% [Normal Saline] 50 ml IV Q6H 10/27/19 22:40 Vancomycin 1.75 gm Sodium Chloride 0.9% [Normal Saline] 500 ml IV Q8H 10/28/19 Breakfast Heart Healthy Diet [DIET] 10/28/19 07:30 Omeprazole 20 mg PO BIDAC 10/28/19 09:00 Furosemide [Lasix] 20 mg PO DAILY Metoprolol Tartrate [Lopressor] 25 mg PO DAILY - Plan Plan:: Assessment: 1. B/l lower extremity cellulitis : failed outpatient therapy 2. Elevated Lactate:resolved 3. PMH: MR, cardiomegaly, HTN, KEN on CPAP, cataract surgery. Plan Admit to observation. Full code. I/o's per routine. Up ad kayla. Diet: heart healthy DVT: heparin 5000 q12; GI: omeprazole CPAP at night : has home device 1. Cellulitis of b/l lower extremities: failed outpatient therapy; (doxycycline) Received Vancomycin and Zosyn in ED. Will continue current regimen for cellulitis; chronic issue for patient; requiring outpatient wound care; increasing redness and swelling noted. history of enterococcus faecalis/wound culture from 2016; will continue current regimen and adjust if not responding. Fever in ED: Bcx ordered; currently afebrile at bedside. Mother at bedside does not endorse any travel and or sick contacts; COVID negative Will order a Duplex U/S of bilateral l/e secondary to previous hx. of DVT + tenderness noted over posterior calf on right (site of cellulitis as well) 2. Hx .of Coarctation s/p repair: on daily lasix; will continue HTN: home medication continue Eye drops continue 3. Continue to monitor.
--- NOTE | 2019-10-28 12:16 | US ---
Bilateral lower extremity deep venous ultrasound: Duplex and color Doppler evaluation was obtained of the right and left common femoral, superficial femoral, popliteal, posterior tibial and peroneal veins. Comparison: No prior venous exam is available. Findings: Normal compression and Doppler blood flow is seen. Impression: 1. No evidence of deep venous thrombosis within the right or left lower extremities. Diagnostic code #1 This report was dictated in MDT
[2019-10-28] MEDS: Ibuprofen 400 MG Tab PO PRN (17:29)
[2019-10-28] MEDS ORDERED: VALACYCLOVIR 500 MG PO PRN (17:47)
[2019-10-28] MEDS ORDERED: prednisoLONE Acetate 1% Ophth Susp 5 ML Bottle EYEBOTH SCH (21:30)
[2019-10-28] MEDS: prednisoLONE Acetate 1% Ophth Susp 5 ML Bottle**OWN MED EYEBOTH SCH (23:22)
[2019-10-29] MEDS: Ondansetron 4 MG/2 ML SDV IVPUSH PRN ×3 (00:13→23:36)
[2019-10-29] MEDS: Piperacillin/Tazobactam 3.375 GM in Sodium Chloride 0.9% 50 ML IV SCH ×4 (02:00→21:05)
[2019-10-29] MEDS: Heparin Sodium 5,000 Units/ML Vial SUBCUT SCH ×2 (05:27→19:11)
[2019-10-29] MEDS: Ibuprofen 400 MG Tab PO PRN ×2 (07:52→15:53)
[2019-10-29] MEDS: Omeprazole 20 MG Cap.CR PO SCH ×2 (07:55→19:11)
[2019-10-29 08:31] LABS: CARBON DIOXIDE,CO2 25.8 mmol/L (21.0-32.0); POTASSIUM,K 3.8 mmol/L (3.5-5.1)
[2019-10-29] MEDS ORDERED: valACYclovir 500 MG Tab PO PRN (09:00)
[2019-10-29] MEDS: Metoprolol Tartrate 25 MG Tab PO SCH (09:06)
--- NOTE | 2019-10-29 09:06 | PCM.PN ---
- General Info Date of Service: 10/29/19 Subjective Update: pt .states feeling slightly nauseous; mild improvement thereafter w. Zofran and AM omeprazole Functional Status: Reports: Pain Controlled - Review of Systems General: Denies: Fever, Chills HEENT: Reports: No Symptoms Pulmonary: Reports: No Symptoms Cardiovascular: Reports: No Symptoms Gastrointestinal: Reports: Nausea. Denies: Abdominal Pain, Constipation, Diarrhea Genitourinary: Reports: No Symptoms Musculoskeletal: Reports: No Symptoms Neurological: Reports: Pre-Existing Deficit Psychiatric: Reports: No Symptoms - Patient Data Vitals - Most Recent: Last Vital Signs Temp 97.9 F 10/29/19 07:08 Pulse 81 10/29/19 07:08 Resp 20 10/29/19 07:08 BP 139/94 H 10/29/19 07:08 Pulse Ox 95 10/29/19 07:08 Weight - Most Recent: 119.1 kg I&O - Last 24 Hours: Intake & Output 10/28/19 10/29/19 10/29/19 22:59 06:59 14:59 Intake Total 830 1000 Output Total 800 500 Balance 30 500 Lab Results Last 24 Hours: Laboratory Results - last 24 hr 10/28/19 10/29/19 10/29/19 Range/Units 22:25 06:02 07:50 WBC 8.54 (4.0-11.0) K/uL RBC 4.49 (4.30-5.90) M/uL Hgb 12.1 (12.0-16.0) g/dL Hct 38.1 (36.0-46.0) % MCV 84.9 (80.0-98.0) fL MCH 26.9 L (27.0-32.0) pg MCHC 31.8 (31.0-37.0) g/dL RDW Std Deviation 42.3 (28.0-62.0) fl RDW Coeff of [place] 14 (11.0-15.0) % Plt Count 269 (150-400) K/uL MPV 10.00 (7.40-12.00) fL Neut % (Auto) 61.8 (48.0-80.0) % Lymph % (Auto) 18.1 (16.0-40.0) % [place] % (Auto) 13.8 (0.0-15.0) % Eos % (Auto) 6.1 (0.0-7.0) % Baso % (Auto) 0.2 (0.0-1.5) % Neut # (Auto) 5.3 (1.4-5.7) K/uL Lymph # (Auto) 1.6 (0.6-2.4) K/uL [place] # (Auto) 1.2 H (0.0-0.8) K/uL Eos # (Auto) 0.5 (0.0-0.7) K/uL Baso # (Auto) 0.0 (0.0-0.1) K/uL Nucleated RBC % 0.0 /100WBC Nucleated RBCs # 0 K/uL Sodium (136-145) mmol/L Potassium (3.5-5.1) mmol/L Chloride (98-107) mmol/L Carbon Dioxide (21.0-32.0) mmol/L BUN (7.0-18.0) mg/dL Creatinine (0.6-1.0) mg/dL Est Cr Clr Drug Dosing mL/min Estimated GFR (MDRD) ml/min Glucose (74-106) mg/dL Calcium (8.5-10.1) mg/dL Vancomycin Trough 39.5 H 38.8 H (5.0-10.0) ug/mL 10/29/19 Range/Units 07:50 WBC (4.0-11.0) K/uL RBC (4.30-5.90) M/uL Hgb (12.0-16.0) g/dL Hct (36.0-46.0) % MCV (80.0-98.0) fL MCH (27.0-32.0) pg MCHC (31.0-37.0) g/dL RDW Std Deviation (28.0-62.0) fl RDW Coeff of [place] (11.0-15.0) % Plt Count (150-400) K/uL MPV (7.40-12.00) fL Neut % (Auto) (48.0-80.0) % Lymph % (Auto) (16.0-40.0) % [place] % (Auto) (0.0-15.0) % Eos % (Auto) (0.0-7.0) % Baso % (Auto) (0.0-1.5) % Neut # (Auto) (1.4-5.7) K/uL Lymph # (Auto) (0.6-2.4) K/uL [place] # (Auto) (0.0-0.8) K/uL Eos # (Auto) (0.0-0.7) K/uL Baso # (Auto) (0.0-0.1) K/uL Nucleated RBC % /100WBC Nucleated RBCs # K/uL Sodium 142 (136-145) mmol/L Potassium 3.8 (3.5-5.1) mmol/L Chloride 105 (98-107) mmol/L Carbon Dioxide 25.8 (21.0-32.0) mmol/L BUN 10 (7.0-18.0) mg/dL Creatinine 1.2 H (0.6-1.0) mg/dL Est Cr Clr Drug Dosing 47.45 mL/min Estimated GFR (MDRD) 51.4 ml/min Glucose 118 H (74-106) mg/dL Calcium 8.2 L (8.5-10.1) mg/dL Vancomycin Trough (5.0-10.0) ug/mL Major Results Last 24 Hours: Microbiology 10/27/19 14:19 Aerobic Blood Culture - Preliminary Blood - Venous - Lab Draw NO GROWTH AFTER 1 DAY Anaerobic Blood Culture - Final 10/27/19 14:04 Aerobic Blood Culture - Preliminary Blood - Venous NO GROWTH AFTER 1 DAY Anaerobic Blood Culture - Final Med Orders - Current: Current Medications Acetaminophen (Tylenol Extra Strength) 500 mg PO Q6H PRN PRN Reason: Fever Last Admin: 10/27/19 20:01 Dose: 500 mg Documented by: Furosemide (Lasix) 20 mg PO DAILY [facility] Last Admin: 10/28/19 08:07 Dose: 20 mg Documented by: Heparin Sodium (Porcine) (Heparin Sodium) 5,000 units SUBCUT Q12H [facility] Last Admin: 10/29/19 05:27 Dose: 5,000 units Documented by: Piperacillin Sod/Tazobactam (Sod 3.375 gm/ Sodium Chloride) 50 mls @ 100 mls/hr IV Q6H [facility] Last Admin: 10/29/19 02:00 Dose: 100 mls/hr Documented by: Ibuprofen (Motrin) 400 mg PO Q4H PRN PRN Reason: Pain Last Admin: 10/29/19 07:52 Dose: 400 mg Documented by: Metoprolol Tartrate (Lopressor) 25 mg PO DAILY [facility] Last Admin: 10/28/19 08:07 Dose: 25 mg Documented by: Omeprazole (Omeprazole) 20 mg PO BIDAC [facility] Last Admin: 10/29/19 07:55 Dose: 20 mg Documented by: Ondansetron HCl (Zofran) 4 mg IVPUSH Q4H PRN PRN Reason: Nausea Last Admin: 10/29/19 06:30 Dose: 4 mg Documented by: Cyclosporine [ (Restasis]) 1 each EYEBOTH BID [facility] Last Admin: 10/28/19 20:39 Dose: 1 each Documented by: Prednisolone Acetate (Pred Forte 1% Ophth Susp) 1 ml EYEBOTH BID [facility] Last Admin: 10/28/19 23:22 Dose: 1 ml Documented by: Sodium Chloride (Saline Flush) 10 ml FLUSH ASDIRECTED PRN PRN Reason: Keep Vein Open Last Admin: 10/27/19 14:13 Dose: 10 ml Documented by: Sodium Chloride (Saline Flush) 2.5 ml FLUSH ASDIRECTED PRN PRN Reason: Keep Vein Open Last Admin: 10/27/19 14:13 Dose: 2.5 ml Documented by: Valacyclovir HCl (Valtrex) 500 mg PO DAILY PRN PRN Reason: cold sores Vancomycin HCl (Pharmacy To Dose - Vancomycin) 1 dose .XX ASDIRECTED [facility] Discontinued Medications Acetaminophen (Tylenol) 650 mg PO NOW ONE Stop: 10/27/19 13:41 Last Admin: 10/27/19 14:12 Dose: 650 mg Documented by: Vancomycin HCl 2,000 gm/ (Sodium Chloride) 250 mls @ 167 mls/hr IV STAT ONE Stop: 10/27/19 15:07 Last Admin: 10/27/19 14:02 Dose: Not Given Documented by: Lactated Ringer's (Ringers, Lactated) 1,000 mls @ 999 mls/hr IV .BOLUS ONE Stop: 10/27/19 14:40 Last Admin: 10/27/19 14:13 Dose: 999 mls/hr Documented by: Piperacillin Sod/Tazobactam (Sod 4.5 gm/ Sodium Chloride) 100 mls @ 100 mls/hr IV ONETIME ONE Stop: 10/27/19 14:48 Last Admin: 10/27/19 14:13 Dose: 100 mls/hr Documented by: Vancomycin HCl 2 gm/ Sodium (Chloride) 500 mls @ 333 mls/hr IV ONETIME ONE Stop: 10/27/19 15:32 Last Admin: 10/27/19 14:41 Dose: 333 mls/hr Documented by: Vancomycin HCl 1.75 gm/ Sodium (Chloride) 500 mls @ 250 mls/hr IV Q8H [facility] Last Admin: 10/28/19 22:04 Dose: 250 mls/hr Documented by: Sodium Chloride (Normal Saline) 1,000 mls @ 999 mls/hr IV STAT ONE Stop: 10/27/19 18:30 Last Admin: 10/27/19 17:53 Dose: 999 mls/hr Documented by: Valacyclovir HCl (Valtrex) 500 mg PO BID PRN PRN Reason: cold sores Vancomycin HCl (Pharmacy To Dose - Vancomycin) 1 dose .XX ASDIRECTED [facility] - Exam Quality Assessment: No: Supplemental Oxygen General: Alert, Oriented, Cooperative, No Acute Distress HEENT: EOMI Neck: Supple Lungs: Clear to Auscultation, Normal Respiratory Effort Cardiovascular: Regular Rate, Regular Rhythm GI/Abdominal Exam: Soft, Non-Tender Extremities: Redness (minimal improvement in 24 hours/ purulence still apprecia ble on posterior aspect of right lower extremity ) Sepsis Event Note - Evaluation Sepsis Screening Result: No Definite Risk - Focused Exam Vital Signs: Vital Signs Temp Pulse Resp BP Pulse Ox 10/29/19 07:08 97.9 F 81 20 139/94 H 95 10/29/19 04:43 97.9 F 88 18 128/73 94 L 10/29/19 00:04 97.5 F 84 16 128/75 94 L Date Exam was Performed: 10/29/19 Time Exam was Performed: 10:14 - Problem List Review Problem List Initiated/Reviewed/Updated: Yes - My Orders Last 24 Hours: My Active Orders 10/28/19 09:00 Furosemide [Lasix] 20 mg PO DAILY Metoprolol Tartrate [Lopressor] 25 mg PO DAILY 10/29/19 07:00 Pharmacy to Dose - Vancomycin 1 dose .XX ASDIRECTED 10/30/19 05:11 VANCOMYCIN RANDOM [CHEM] AM - Plan Plan:: Assessment: 1. B/l lower extremity cellulitis : failed outpatient therapy 2. Elevated Lactate:resolved 3. PMH: MR, cardiomegaly, HTN, KEN on CPAP, cataract surgery. Plan Admit to observation. Full code. I/o's per routine. Up ad sy. Diet: heart healthy DVT: heparin 5000 q12; GI: omeprazole CPAP at night : has home device 1. Cellulitis of b/l lower extremities: failed outpatient therapy; (doxycycline) Received Vancomycin and Zosyn in ED. With marginal improvement and subjective chills; will switch regimen to Zosyn alone. Bcx negative today. Increasing Vancomycin trough levels and mild HUSSAIN: dc vancomycin ; reassess response. ; chronic issue for patient; requiring outpatient wound care; increasing redness and swelling noted. history of enterococcus faecalis/wound culture from 2016; will continue current regimen and adjust if not responding. Fever in ED: Bcx ordered; currently afebrile at bedside. Mother at bedside does not endorse any travel and or sick contacts; Covid negative. Elevated Lactate:now resolved Continue Valacyclovir for oral-labial herpes 2. Hx .of Coarctation s/p repair: on daily lasix; will continue HTN: home medication continue Eye drops continue 3. Continue to monitor.
[2019-10-29] MEDS: Furosemide 20 MG Tab PO SCH (09:07)
[2019-10-29] MEDS: prednisoLONE Acetate 1% Ophth Susp 5 ML Bottle**OWN MED EYEBOTH SCH ×2 (09:14→21:08)
[2019-10-29] MEDS: Cyclosporine [Restasis] EYEBOTH SCH ×2 (09:15→21:08)
[2019-10-29] MEDS ORDERED: VALACYCLOVIR 500 MG PO PRN (09:28)
[2019-10-29] MEDS: Vancomycin 1.75 GM in Sodium Chloride 0.9% 500 ML IV SCH (16:28)
[2019-10-30] MEDS: Piperacillin/Tazobactam 3.375 GM in Sodium Chloride 0.9% 50 ML IV SCH ×2 (02:56→08:24)
[2019-10-30] MEDS: Heparin Sodium 5,000 Units/ML Vial SUBCUT SCH ×2 (05:39→16:39)
[2019-10-30] MEDS: Omeprazole 20 MG Cap.CR PO SCH ×2 (07:29→16:39)
[2019-10-30] MEDS ORDERED: Sodium Chloride 0.9% 1,000 ML IV ONE (07:48)
[2019-10-30] MEDS: Furosemide 20 MG Tab PO SCH (08:30)
[2019-10-30] MEDS: Metoprolol Tartrate 25 MG Tab PO SCH (08:30)
[2019-10-30] MEDS: prednisoLONE Acetate 1% Ophth Susp 5 ML Bottle**OWN MED EYEBOTH SCH ×2 (08:37→20:21)
[2019-10-30] MEDS: Cyclosporine [Restasis] EYEBOTH SCH ×2 (08:38→20:22)
--- NOTE | 2019-10-30 09:06 | PCM.PN ---
- General Info Date of Service: 10/30/19 Subjective Update: Endorses feeling better; denies any pain in lower extremities; denies fevers,chills BA Functional Status: Reports: Pain Controlled - Review of Systems General: Reports: No Symptoms HEENT: Reports: No Symptoms Pulmonary: Reports: No Symptoms Cardiovascular: Reports: No Symptoms Gastrointestinal: Reports: Nausea. Denies: Abdominal Pain, Constipation, Diarrhea Genitourinary: Reports: No Symptoms Musculoskeletal: Reports: No Symptoms Skin: Reports: Other (erythema) Neurological: Reports: Pre-Existing Deficit Psychiatric: Denies: Confusion, Depression - Patient Data Vitals - Most Recent: Last Vital Signs Temp 97.2 F 10/30/19 08:01 Pulse 78 10/30/19 08:30 Resp 18 10/30/19 08:01 BP 147/79 H 10/30/19 08:30 Pulse Ox 99 10/30/19 08:01 Weight - Most Recent: 119.1 kg I&O - Last 24 Hours: Intake & Output 10/29/19 10/30/19 10/30/19 22:59 06:59 14:59 Intake Total 450 1200 Output Total 900 900 Balance -450 300 Lab Results Last 24 Hours: Laboratory Results - last 24 hr 10/30/19 10/30/19 Range/Units 06:30 06:30 WBC 11.06 H (4.0-11.0) K/uL RBC 4.46 (4.30-5.90) M/uL Hgb 11.9 L (12.0-16.0) g/dL Hct 37.6 (36.0-46.0) % MCV 84.3 (80.0-98.0) fL MCH 26.7 L (27.0-32.0) pg MCHC 31.6 (31.0-37.0) g/dL RDW Std Deviation 41.2 (28.0-62.0) fl RDW Coeff of Suleman 14 (11.0-15.0) % Plt Count 285 (150-400) K/uL MPV 9.90 (7.40-12.00) fL Neut % (Auto) 67.8 (48.0-80.0) % Lymph % (Auto) 16.1 (16.0-40.0) % [place] % (Auto) 10.0 (0.0-15.0) % Eos % (Auto) 5.8 (0.0-7.0) % Baso % (Auto) 0.3 (0.0-1.5) % Neut # (Auto) 7.5 H (1.4-5.7) K/uL Lymph # (Auto) 1.8 (0.6-2.4) K/uL [place] # (Auto) 1.1 H (0.0-0.8) K/uL Eos # (Auto) 0.6 (0.0-0.7) K/uL Baso # (Auto) 0.0 (0.0-0.1) K/uL Nucleated RBC % 0.0 /100WBC Nucleated RBCs # 0 K/uL Sodium 140 (136-145) mmol/L Potassium 4.0 (3.5-5.1) mmol/L Chloride 104 (98-107) mmol/L Carbon Dioxide 26.0 (21.0-32.0) mmol/L BUN 14 (7.0-18.0) mg/dL Creatinine 1.6 H (0.6-1.0) mg/dL Est Cr Clr Drug Dosing 35.59 mL/min Estimated GFR (MDRD) 36.9 ml/min Glucose 111 H (74-106) mg/dL Calcium 8.4 L (8.5-10.1) mg/dL Total Bilirubin 0.5 (0.2-1.0) mg/dL AST 27 (15-37) IU/L ALT 34 (14-63) IU/L Alkaline Phosphatase 61 (46-116) U/L Total Protein 6.9 (6.4-8.2) g/dL Albumin 3.4 (3.4-5.0) g/dL Globulin 3.5 (2.6-4.0) g/dL Albumin/Globulin Ratio 1.0 (0.9-1.6) Major Results Last 24 Hours: Microbiology 10/27/19 14:19 Aerobic Blood Culture - Preliminary Blood - Venous - Lab Draw NO GROWTH AFTER 2 DAYS Anaerobic Blood Culture - Final 10/27/19 14:04 Aerobic Blood Culture - Preliminary Blood - Venous NO GROWTH AFTER 2 DAYS Anaerobic Blood Culture - Final Med Orders - Current: Current Medications Acetaminophen (Tylenol Extra Strength) 500 mg PO Q6H PRN PRN Reason: Fever Last Admin: 10/27/19 20:01 Dose: 500 mg Documented by: Furosemide (Lasix) 20 mg PO DAILY [facility] Last Admin: 10/30/19 08:30 Dose: 20 mg Documented by: Heparin Sodium (Porcine) (Heparin Sodium) 5,000 units SUBCUT Q12H [facility] Last Admin: 10/30/19 05:39 Dose: 5,000 units Documented by: Piperacillin Sod/Tazobactam (Sod 3.375 gm/ Sodium Chloride) 50 mls @ 100 mls/hr IV Q6H [facility] Last Admin: 10/30/19 08:24 Dose: 100 mls/hr Documented by: Sodium Chloride (Normal Saline) 1,000 mls @ 100 mls/hr IV CONTINUOUS ONE Stop: 10/30/19 17:47 Last Admin: 10/30/19 08:23 Dose: 100 mls/hr Documented by: Metoprolol Tartrate (Lopressor) 25 mg PO DAILY [facility] Last Admin: 10/30/19 08:30 Dose: 25 mg Documented by: Omeprazole (Omeprazole) 20 mg PO BIDAC [facility] Last Admin: 10/30/19 07:29 Dose: 20 mg Documented by: Ondansetron HCl (Zofran) 4 mg IVPUSH Q4H PRN PRN Reason: Nausea Last Admin: 10/29/19 23:36 Dose: 4 mg Documented by: Cyclosporine [ (Restasis]) 1 each EYEBOTH BID [facility] Last Admin: 10/30/19 08:38 Dose: 1 each Documented by: Prednisolone Acetate (Pred Forte 1% Ophth Susp) 1 ml EYEBOTH BID [facility] Last Admin: 10/30/19 08:37 Dose: 1 ml Documented by: Sodium Chloride (Saline Flush) 10 ml FLUSH ASDIRECTED PRN PRN Reason: Keep Vein Open Last Admin: 10/27/19 14:13 Dose: 10 ml Documented by: Sodium Chloride (Saline Flush) 2.5 ml FLUSH ASDIRECTED PRN PRN Reason: Keep Vein Open Last Admin: 10/27/19 14:13 Dose: 2.5 ml Documented by: Valacyclovir HCl (Valtrex) 500 mg PO DAILY PRN PRN Reason: cold sores Last Admin: 10/29/19 09:56 Dose: 500 mg Documented by: Discontinued Medications Acetaminophen (Tylenol) 650 mg PO NOW ONE Stop: 10/27/19 13:41 Last Admin: 10/27/19 14:12 Dose: 650 mg Documented by: Vancomycin HCl 2,000 gm/ (Sodium Chloride) 250 mls @ 167 mls/hr IV STAT ONE Stop: 10/27/19 15:07 Last Admin: 10/27/19 14:02 Dose: Not Given Documented by: Lactated Ringer's (Ringers, Lactated) 1,000 mls @ 999 mls/hr IV .BOLUS ONE Stop: 10/27/19 14:40 Last Admin: 10/27/19 14:13 Dose: 999 mls/hr Documented by: Piperacillin Sod/Tazobactam (Sod 4.5 gm/ Sodium Chloride) 100 mls @ 100 mls/hr IV ONETIME ONE Stop: 10/27/19 14:48 Last Admin: 10/27/19 14:13 Dose: 100 mls/hr Documented by: Vancomycin HCl 2 gm/ Sodium (Chloride) 500 mls @ 333 mls/hr IV ONETIME ONE Stop: 10/27/19 15:32 Last Admin: 10/27/19 14:41 Dose: 333 mls/hr Documented by: Vancomycin HCl 1.75 gm/ Sodium (Chloride) 500 mls @ 250 mls/hr IV Q8H [facility] Last Admin: 10/29/19 16:28 Dose: Not Given Documented by: Sodium Chloride (Normal Saline) 1,000 mls @ 999 mls/hr IV STAT ONE Stop: 10/27/19 18:30 Last Admin: 10/27/19 17:53 Dose: 999 mls/hr Documented by: Ibuprofen (Motrin) 400 mg PO Q4H PRN PRN Reason: Pain Last Admin: 10/29/19 15:53 Dose: 400 mg Documented by: Valacyclovir HCl (Valtrex) 500 mg PO BID PRN PRN Reason: cold sores Valacyclovir HCl (Valtrex) 500 mg PO DAILY PRN PRN Reason: cold sores Vancomycin HCl (Pharmacy To Dose - Vancomycin) 1 dose .XX ASDIRECTED [facility] Vancomycin HCl (Pharmacy To Dose - Vancomycin) 1 dose .XX ASDIRECTED [facility] - Exam General: Alert, Oriented, Cooperative, No Acute Distress Neck: Supple Lungs: Clear to Auscultation, Normal Respiratory Effort Cardiovascular: Regular Rate, Regular Rhythm GI/Abdominal Exam: Soft, Non-Tender Back Exam: Full Range of Motion Skin: Other (right lower extrmeity: redness still appreciated w/in lines of demarcation; wound drainage from poserior calf still appreciated ; unchanged ) Wound/Incisions: Drainage, Erythema Improving Neurological: No New Focal Deficit Psy/Mental Status: Alert, Normal Mood Sepsis Event Note - Evaluation Sepsis Screening Result: No Definite Risk - Focused Exam Vital Signs: Vital Signs Temp Pulse Pulse Resp BP BP Pulse Ox 10/30/19 08:30 78 147/79 H 10/30/19 08:01 97.2 F 78 18 147/79 H 99 10/30/19 04:11 98 F 65 17 127/68 94 L 10/30/19 00:16 96.9 F 83 16 116/74 97 Date Exam was Performed: 10/30/19 Time Exam was Performed: 11:42 - Problem List Review Problem List Initiated/Reviewed/Updated: Yes - My Orders Last 24 Hours: My Active Orders 10/30/19 07:48 Sodium Chloride 0.9% [Normal Saline] 1,000 ml IV CONTINUOUS - Plan Plan:: Assessment: 1. B/l lower extremity cellulitis : failed outpatient therapy 2. Elevated Lactate:resolved 3.HUSSAIN 4. PMH: MR, cardiomegaly, HTN, KEN on CPAP, cataract surgery. Plan Admit to observation. Full code. I/o's per routine. Up ad sy. Diet: heart healthy DVT: heparin 5000 q12; GI: omeprazole CPAP at night : has home device 1. Cellulitis of b/l lower extremities: failed outpatient therapy; (doxycycline) Received Vancomycin and Zosyn in ED. Will switch regimen to PO Clindamycin 300 mg QID ; will continue to monitor Discontinued Ibuprofen due to HUSSAIN ; gentle IV fluids for now ; chronic issue for patient; requiring outpatient wound care; increasing redness and swelling noted. history of enterococcus faecalis/wound culture from 2016; will continue current regimen and adjust if not responding. Fever in ED: Bcx ordered; currently afebrile at bedside. Mother at bedside does not endorse any travel and or sick contacts; Covid negative. Elevated Lactate:now resolved Continue Valacyclovir for oral-labial herpes 2. Hx .of Coarctation s/p repair: on daily lasix; will continue HTN: home medication continue Eye drops continue 3. Continue to monitor.
[2019-10-30] MEDS: Clindamycin HCl 150 MG Cap PO SCH ×3 (11:04→23:08)
[2019-10-30] MEDS: Ondansetron 4 MG/2 ML SDV IVPUSH PRN (23:37)
[2019-10-31] MEDS: Clindamycin HCl 150 MG Cap PO SCH ×2 (05:14→09:50)
[2019-10-31] MEDS: Heparin Sodium 5,000 Units/ML Vial SUBCUT SCH (05:14)
[2019-10-31] MEDS: Omeprazole 20 MG Cap.CR PO SCH (07:07)
[2019-10-31 07:27] LABS: CARBON DIOXIDE,CO2 23.2 mmol/L (21.0-32.0); POTASSIUM,K 3.5 mmol/L (3.5-5.1)
[2019-10-31] MEDS: Metoprolol Tartrate 25 MG Tab PO SCH (08:39)
[2019-10-31] MEDS: Furosemide 20 MG Tab PO SCH (08:39)
[2019-10-31] MEDS: prednisoLONE Acetate 1% Ophth Susp 5 ML Bottle**OWN MED EYEBOTH SCH (08:40)
[2019-10-31] MEDS: Cyclosporine [Restasis] EYEBOTH SCH (08:41)
--- NOTE | 2019-10-31 11:15 | PCM.DCSUM1 ---
Discharge Summary - Discharge Data Discharge Date: 10/31/19 Discharge Disposition: Home, Self-Care 01 Condition: Stable - Referral to Home Health Primary Care Physician: Yas Zuñiga MD - Patient Summary/Data Hospital Course: Patient is a 33 y.o female w. PMH of MR, resident of [facility], Coarctation of aorta s/p repair, HTN, HLD and morbid obesity who was admitted for bilateral lower extremity cellulitis. PAtient had failed an outpatient course of doxycycline. She was treated with vancomycin and zosyn with improvement in her cellulitis. She did have a rise in her creatinine so Vancomycin and zosyn was switched to clindamycin. Today she is requesting discharge. She was discharged home with five more days of clindamycin. - Patient Instructions Diet: Regular Diet as Tolerated Activity: As Tolerated Notify Provider of: Fever, Increased Pain, Swelling and Redness, Nausea and/or Vomiting - Discharge Plan Prescriptions/Med Rec: clindamycin HCL [Cleocin] 300 mg PO Q6H #20 cap Home Medications: Home Meds Furosemide [Lasix] 20 mg PO DAILY 02/10/14 [History] Metoprolol Tartrate 25 mg PO DAILY 02/10/14 [History] medroxyPROGESTERone Acetate [Depo-Provera] 150 mg IM ASDIRECTED 02/10/14 [History] valACYclovir HCl [Valtrex] 1,000 mg PO BID PRN 02/10/14 [History] cycloSPORINE [Restasis] 1 drop TOP DAILY 12/12/17 [History] prednisoLONE acetate [Pred Forte 1% Ophth Susp] 1 drop EYEBOTH BID 10/27/19 [History] clindamycin HCL [Cleocin] 300 mg PO Q6H #20 cap 10/31/19 [Rx] Patient Handouts: Clindamycin capsules, Cellulitis, Adult, [id number] Referrals: Yas Zuñiga MD [Primary Care Provider] - Priti Velasquez NP [Nurse Practitioner] - 11/08/19 3:30 pm - Discharge Summary/Plan Comment DC Time >30 min.: No - Patient Data Vitals - Most Recent: Last Vital Signs Temp 36.6 C 10/31/19 07:31 Pulse 87 10/31/19 08:39 Resp 14 10/31/19 07:31 BP 122/68 10/31/19 08:39 Pulse Ox 95 10/31/19 07:31 Weight - Most Recent: 119.1 kg I&O - Last 24 hours: Intake & Output 10/30/19 10/31/19 10/31/19 22:59 06:59 14:59 Intake Total 2792 500 Output Total 2000 800 Balance 792 -300 Lab Results - Last 24 hrs: Laboratory Results - last 24 hr 10/31/19 10/31/19 Range/Units 06:50 06:50 WBC 12.03 H (4.0-11.0) K/uL RBC 4.49 (4.30-5.90) M/uL Hgb 12.0 (12.0-16.0) g/dL Hct 37.3 (36.0-46.0) % MCV 83.1 (80.0-98.0) fL MCH 26.7 L (27.0-32.0) pg MCHC 32.2 (31.0-37.0) g/dL RDW Std Deviation 41.3 (28.0-62.0) fl RDW Coeff of Suleman 14 (11.0-15.0) % Plt Count 299 (150-400) K/uL MPV 9.80 (7.40-12.00) fL Neut % (Auto) 68.1 (48.0-80.0) % Lymph % (Auto) 16.1 (16.0-40.0) % [place] % (Auto) 10.8 (0.0-15.0) % Eos % (Auto) 4.7 (0.0-7.0) % Baso % (Auto) 0.3 (0.0-1.5) % Neut # (Auto) 8.2 H (1.4-5.7) K/uL Lymph # (Auto) 1.9 (0.6-2.4) K/uL [place] # (Auto) 1.3 H (0.0-0.8) K/uL Eos # (Auto) 0.6 (0.0-0.7) K/uL Baso # (Auto) 0.0 (0.0-0.1) K/uL Nucleated RBC % 0.0 /100WBC Nucleated RBCs # 0 K/uL Sodium 141 (136-145) mmol/L Potassium 3.5 (3.5-5.1) mmol/L Chloride 105 (98-107) mmol/L Carbon Dioxide 23.2 (21.0-32.0) mmol/L BUN 14 (7.0-18.0) mg/dL Creatinine 1.6 H (0.6-1.0) mg/dL Est Cr Clr Drug Dosing 35.59 mL/min Estimated GFR (MDRD) 36.9 ml/min Glucose 114 H (74-106) mg/dL Calcium 8.1 L (8.5-10.1) mg/dL Total Bilirubin 0.6 (0.2-1.0) mg/dL AST 21 (15-37) IU/L ALT 28 (14-63) IU/L Alkaline Phosphatase 59 (46-116) U/L Total Protein 6.9 (6.4-8.2) g/dL Albumin 3.3 L (3.4-5.0) g/dL Globulin 3.6 (2.6-4.0) g/dL Albumin/Globulin Ratio 0.9 (0.9-1.6) SORAYA Results - Last 24 hrs: Microbiology 10/27/19 14:19 Aerobic Blood Culture - Preliminary Blood - Venous - Lab Draw NO GROWTH AFTER 3 DAYS Anaerobic Blood Culture - Final 10/27/19 14:04 Aerobic Blood Culture - Preliminary Blood - Venous NO GROWTH AFTER 3 DAYS Anaerobic Blood Culture - Final Med Orders - Current: Current Medications Acetaminophen (Tylenol Extra Strength) 500 mg PO Q6H PRN PRN Reason: Fever Last Admin: 10/27/19 20:01 Dose: 500 mg Documented by: Clindamycin HCl (Cleocin) 300 mg PO Q6H [facility] Last Admin: 10/31/19 09:50 Dose: 300 mg Documented by: Furosemide (Lasix) 20 mg PO DAILY [facility] Last Admin: 10/31/19 08:39 Dose: 20 mg Documented by: Heparin Sodium (Porcine) (Heparin Sodium) 5,000 units SUBCUT Q12H [facility] Last Admin: 10/31/19 05:14 Dose: 5,000 units Documented by: Metoprolol Tartrate (Lopressor) 25 mg PO DAILY [facility] Last Admin: 10/31/19 08:39 Dose: 25 mg Documented by: Omeprazole (Omeprazole) 20 mg PO BIDAC [facility] Last Admin: 10/31/19 07:07 Dose: 20 mg Documented by: Ondansetron HCl (Zofran) 4 mg IVPUSH Q4H PRN PRN Reason: Nausea Last Admin: 10/30/19 23:37 Dose: 4 mg Documented by: Cyclosporine [ (Restasis]) 1 each EYEBOTH BID [facility] Last Admin: 10/31/19 08:41 Dose: 1 each Documented by: Prednisolone Acetate (Pred Forte 1% Ophth Susp) 1 ml EYEBOTH BID [facility] Last Admin: 10/31/19 08:40 Dose: 1 ml Documented by: Sodium Chloride (Saline Flush) 10 ml FLUSH ASDIRECTED PRN PRN Reason: Keep Vein Open Last Admin: 10/27/19 14:13 Dose: 10 ml Documented by: Sodium Chloride (Saline Flush) 2.5 ml FLUSH ASDIRECTED PRN PRN Reason: Keep Vein Open Last Admin: 10/27/19 14:13 Dose: 2.5 ml Documented by: Valacyclovir HCl (Valtrex) 500 mg PO DAILY PRN PRN Reason: cold sores Last Admin: 10/29/19 09:56 Dose: 500 mg Documented by: Discontinued Medications Acetaminophen (Tylenol) 650 mg PO NOW ONE Stop: 10/27/19 13:41 Last Admin: 10/27/19 14:12 Dose: 650 mg Documented by: Vancomycin HCl 2,000 gm/ (Sodium Chloride) 250 mls @ 167 mls/hr IV STAT ONE Stop: 10/27/19 15:07 Last Admin: 10/27/19 14:02 Dose: Not Given Documented by: Lactated Ringer's (Ringers, Lactated) 1,000 mls @ 999 mls/hr IV .BOLUS ONE Stop: 10/27/19 14:40 Last Admin: 10/27/19 14:13 Dose: 999 mls/hr Documented by: Piperacillin Sod/Tazobactam (Sod 4.5 gm/ Sodium Chloride) 100 mls @ 100 mls/hr IV ONETIME ONE Stop: 10/27/19 14:48 Last Admin: 10/27/19 14:13 Dose: 100 mls/hr Documented by: Vancomycin HCl 2 gm/ Sodium (Chloride) 500 mls @ 333 mls/hr IV ONETIME ONE Stop: 10/27/19 15:32 Last Admin: 10/27/19 14:41 Dose: 333 mls/hr Documented by: Vancomycin HCl 1.75 gm/ Sodium (Chloride) 500 mls @ 250 mls/hr IV Q8H [facility] Last Admin: 10/29/19 16:28 Dose: Not Given Documented by: Piperacillin Sod/Tazobactam (Sod 3.375 gm/ Sodium Chloride) 50 mls @ 100 mls/hr IV Q6H [facility] Last Admin: 10/30/19 08:24 Dose: 100 mls/hr Documented by: Sodium Chloride (Normal Saline) 1,000 mls @ 999 mls/hr IV STAT ONE Stop: 10/27/19 18:30 Last Admin: 10/27/19 17:53 Dose: 999 mls/hr Documented by: Sodium Chloride (Normal Saline) 1,000 mls @ 100 mls/hr IV CONTINUOUS ONE Stop: 10/30/19 17:47 Last Admin: 10/30/19 08:23 Dose: 100 mls/hr Documented by: Ibuprofen (Motrin) 400 mg PO Q4H PRN PRN Reason: Pain Last Admin: 10/29/19 15:53 Dose: 400 mg Documented by: Valacyclovir HCl (Valtrex) 500 mg PO BID PRN PRN Reason: cold sores Valacyclovir HCl (Valtrex) 500 mg PO DAILY PRN PRN Reason: cold sores Vancomycin HCl (Pharmacy To Dose - Vancomycin) 1 dose .XX ASDIRECTED [facility] Vancomycin HCl (Pharmacy To Dose - Vancomycin) 1 dose .XX ASDIRECTED [facility]
== END 2019-10-31 11:35 | disposition home or self-care (01) | DRG 872 ==
LOC: MW.ED 12:54 → MW.MS 15:35
PROVIDERS: ADMIT Internal Medicine; ATTEND Internal Medicine
DX: A41.9 Sepsis, unspecified organism (principal); L03.115 Cellulitis of right lower limb; N17.9 Acute kidney failure, unspecified; R65.20 Severe sepsis without septic shock; Z68.43 Body mass index [BMI] 50.0-59.9, adult; L03.116 Cellulitis of left lower limb; G47.30 Sleep apnea, unspecified; I10 Essential (primary) hypertension; E78.5 Hyperlipidemia, unspecified; Z20.828 Contact with and (suspected) exposure to other viral communicable diseases; E66.01 Morbid (severe) obesity due to excess calories; G47.33 Obstructive sleep apnea (adult) (pediatric); Q90.9 Down syndrome, unspecified; Z88.1 Allergy status to other antibiotic agents; Z91.040 Latex allergy status; B00.1 Herpesviral vesicular dermatitis; Z88.2 Allergy status to sulfonamides; Z94.7 Corneal transplant status; Z79.52 Long term (current) use of systemic steroids; Z79.890 Hormone replacement therapy; Z79.899 Other long term (current) drug therapy; Z86.718 Personal history of other venous thrombosis and embolism; Z90.49 Acquired absence of other specified parts of digestive tract; Z98.49 Cataract extraction status, unspecified eye; Z99.81 Dependence on supplemental oxygen
CPT/HCPCS: 36415; 71046; 80053; 81001; 83605; 84484; 84703; 85025; 85610; 87040 ×2; 96365; 96368; 99284; A9270; J2543; J3370; J7040; J7050; J7120; 80048; 80202; 93970; 93970-26; J1644; J2405; J7030; U0002

== ENCOUNTER 2019-11-26 18:28 | Emergency (ER) | payer MEDICAID ==
[2019-11-26] MEDS ORDERED: Clindamycin HCl 150 MG Cap PO ONE (19:00)
--- NOTE | 2019-11-26 19:08 | EDM.PDOC ---
ED HPI GENERAL MEDICAL PROBLEM - General Chief Complaint: Lower Extremity Injury/Pain Stated Complaint: LEG PROBLEM Time Seen by Provider: 11/26/19 18:48 - History of Present Illness INITIAL COMMENTS - FREE TEXT/NARRATIVE: History of present illness: [] She reports redness and drainage from her left leg. She was discharged on 10/31/2019 after an admission for infection of her lower legs. Her cellulitis was treated with clindamycin 5 days after she was discharged. She claims compliance. She cleared up almost completely. She has chronic edema and recurrent cellulitis of her legs. Over the last 2 days she has redness and draining. She also has a cough and is concerned about COVID-19. The patient has had a previous negative test. She does not have any systemic signs of illness other than the cough. She has no fever and chills. She does not feel weak. She does not have any other infectious symptoms. Her complaint is mild redness and drainage from her legs. The old chart and her relevant records. It does not seem like she has any reason to be concerned about systemic illness and might need another course of clindamycin and close follow-up. The patient does have mild renal failure with creatinines between 1.4 and 1.6. I reviewed the clindamycin dosing recommendations and for mild renal failure there is no alteration in the dose. Review of systems: As per history of present illness and below otherwise all systems reviewed and negative. Past medical history: As per history of present illness and as reviewed below otherwise noncontributory. Surgical history: As per history of present illness and as reviewed below otherwise noncontributory. Social history: No reported history of drug or alcohol abuse. Family history: As per history of present illness and as reviewed below otherwise no ncontributory. Physical exam: Constitutional - well developed, well-nourished and in no acute distress HEENT - normocephalic, no evidence of trauma - external nose and mouth normal - no mass in neck and no JVD - mucosae moist EYES - full EOM, PERRL, no icterus - no evidence of inflammation, injection, or drainage Respiratory - no respiratory distress, equal bilateral expansion, lungs clear to auscultation and no abnormal lung sounds Cardiovascular - Regular Rhythm with S1 and S2 appreciated and no murmur, gallop or rub. GI - abdomen soft without distension or organomegaly - normal bowel sounds - no guard or rebound Musculoskeletal no gross deformity of long bones or joints - no tenderness, swelling or edema Neurologic - Alert and oriented times four - CN II-XII grossly intact - motor sensory and coordination symmetrically normal Psychiatric - appropriate mood and affect with normal thought content Hematologic - No petechiae or purpura - mucosa appropriate color and sclera not pale - normal nail bed color and refill Integument -redness below mid leg both lower extremities. The swelling symmetric. There is some skin breakdown in 3 places with a little bit of purulent drainage mention 1 of those. No rash or evidence of trauma - normal turgor Diagnostics: [] Therapeutics: [] Impression: [] Plan: [] Definitive disposition and diagnosis as appropriate pending reevaluation and review of above. - Related Data Allergies Allergy/AdvReac Type Severity Reaction Status Date / Time cephalexin [From Keflex] Allergy Swelling Verified 10/27/19 19:53 latex Allergy Redness Verified 10/27/19 19:53 Sulfa (Sulfonamide Allergy Airway Verified 10/27/19 19:55 Antibiotics) Tightness Home Meds: Home Meds Furosemide [Lasix] 20 mg PO DAILY 02/10/14 [History] Metoprolol Tartrate 25 mg PO DAILY 02/10/14 [History] medroxyPROGESTERone Acetate [Depo-Provera] 150 mg IM ASDIRECTED 02/10/14 [H istory] valACYclovir HCl [Valtrex] 1,000 mg PO BID PRN 02/10/14 [History] cycloSPORINE [Restasis] 1 drop TOP DAILY 12/12/17 [History] prednisoLONE acetate [Pred Forte 1% Ophth Susp] 1 drop EYEBOTH BID 10/27/19 [History] Amoxicillin 2,000 mg PO ASDIRECTED 11/26/19 [History] Clindamycin HCl 300 mg PO TID #30 capsule 11/26/19 [Rx] Hydrocortisone [Hydrocortisone 1% Crm] 1 applic TOP ASDIRECTED 11/26/19 [History] Silver Sulfadiazine [Silvadene 1% Cream 20 GM] 2 applic TOP BID 11/26/19 [History] Past Medical History HEENT History: Reports: Otitis Media, Sinusitis Cardiovascular History: Reports: Blood Clots/VTE/DVT, Hypertension, Other (See Below) Other Cardiovascular History: coarctation of the aorta Respiratory History: Reports: Sleep Apnea, Other (See Below) Other Respiratory History: respiratory difficulties Gastrointestinal History: Reports: None Genitourinary History: Reports: None 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 Musculoskeletal History: Reports: None Neurological History: Reports: Other (See Below) Other Neuro History: down syndrome Psychiatric History: Reports: None Endocrine/Metabolic History: Reports: None Hematologic History: Reports: None Immunologic History: Reports: None Oncologic (Cancer) History: Reports: None Dermatologic History: Reports: Cellulitis, Other (See Below) Other Dermatologic History: Ulceration right leg 2009- wound cares & [facility] - Infectious Disease History Infectious Disease History: Reports: Chicken Pox - Past Surgical History Head Surgeries/Procedures: Reports: None HEENT Surgical History: Reports: Cataract Surgery, Myringotomy w Tube(s), Other (See Below) Other HEENT Surgeries/Procedures: ear sx, L corneal transplant Cardiovascular Surgical History: Reports: Other (See Below) Other Cardiovascular Surgeries/Procedures: heart sx for coarctation Respiratory Surgical History: Reports: None GI Surgical History: Reports: Cholecystectomy Female Surgical History: Reports: None Endocrine Surgical History: Reports: None Neurological Surgical History: Reports: None Oncologic Surgical History: Reports: None Dermatological Surgical History: Reports: None Social & Family History - Family History Family Medical History: Noncontributory - Tobacco Use Smoking Status *Q: Never Smoker Second Hand Smoke Exposure: No - Caffeine Use Caffeine Use: Reports: Tea - Recreational Drug Use Recreational Drug Use: No Review of Systems - Review of Systems Review Of Systems: Comprehensive ROS is negative, except as noted in HPI. ED EXAM, GENERAL - Physical Exam Exam: See Below Free Text/Narrative:: Physical exam is in the HPI Course - Vital Signs Last Recorded V/S: Last Vital Signs Temp 97.7 F 11/26/19 18:42 Pulse 94 11/26/19 18:42 Resp 17 11/26/19 18:42 BP 155/96 H 11/26/19 18:42 Pulse Ox 96 11/26/19 18:42 - Orders/Labs/Meds Orders: Active Orders 24 hr Category Date Time Status CORONAVIRUS COVID-19 PCR PHL Stat Lab 11/26/19 18:56 Ordered Meds: Medications Discontinued Medications Generic Name Dose Route Start Last Admin Trade Name Freq PRN Reason Stop Dose Admin Clindamycin HCl 300 mg 11/26/19 19:00 Cleocin PO 11/26/19 19:01 ONETIME ONE Departure - Departure Time of Disposition: 19:09 Disposition: Home, Self-Care 01 Clinical Impression: Cellulitis Qualifiers: Site of cellulitis: extremity Site of cellulitis of extremity: lower extremity Laterality: right Qualified Code(s): L03.115 - Cellulitis of right lower limb - Discharge Information Prescriptions: Clindamycin HCl 300 mg PO TID #30 capsule Instructions: Cellulitis, Adult, [id number] Referrals: Yas Zuñiga MD [Primary Care Provider] - Additional Instructions: The following information is given to patients seen in the emergency department who are being discharged to home. This information is to outline your options for follow-up care. We provide all patients seen in our emergency department with a follow-up referral. The need for follow-up, as well as the timing and circumstances, are variable depending upon the specifics of your emergency department visit. If you don't have a primary care physician on staff, we will provide you with a referral. We always advise you to contact your personal physician following an emergency department visit to inform them of the circumstance of the visit and for follow-up with them and/or the need for any referrals to a consulting specialist. The emergency department will also refer you to a specialist when appropriate. This referral assures that you have the opportunity for follow-up care with a specialist. All of these measure are taken in an effort to provide you with optimal care, which includes your follow-up. Under all circumstances we always encourage you to contact your private physician who remains a resource for coordinating your care. When calling for follow-up care, please make the office aware that this follow-up is from your recent emergency room visit. If for any reason you are refused follow-up, please contact the [facility] Emergency Department at and asked to speak to the emergency department charge nurse. Jaden Elinor [facility] - Primary Care [address] [place] [id number] [facility] [address] [place] [id number] It is important that you watch for improvement. Expect improvement in 2 days an d if you get worse or you get sick return. Sepsis Event Note (ED) - Evaluation Sepsis Screening Result: No Definite Risk - Focused Exam Vital Signs: Vital Signs Temp Pulse Resp BP Pulse Ox 11/26/19 18:42 97.7 F 94 17 155/96 H 96 - My Orders Last 24 Hours: My Active Orders 11/26/19 18:56 CORONAVIRUS COVID-19 PCR PHL Stat - Assessment/Plan Last 24 Hours: My Active Orders 11/26/19 18:56 CORONAVIRUS COVID-19 PCR PHL Stat
== END 2019-11-26 19:50 | disposition home or self-care (01) ==
LOC: MW.ED 18:28
DX: L03.116 Cellulitis of left lower limb (principal); L03.115 Cellulitis of right lower limb; I10 Essential (primary) hypertension; Q90.9 Down syndrome, unspecified; Z88.1 Allergy status to other antibiotic agents; Z91.040 Latex allergy status; Z88.2 Allergy status to sulfonamides; Z79.899 Other long term (current) drug therapy; Z20.828 Contact with and (suspected) exposure to other viral communicable diseases
CPT/HCPCS: 87635; 99283; A9270; U0002

== ENCOUNTER 2019-11-30 16:59 | Emergency (ER) | payer MEDICAID ==
--- NOTE | 2019-11-30 17:56 | EDM.PDOC ---
ED HPI GENERAL MEDICAL PROBLEM - General Chief Complaint: Skin Complaint Stated Complaint: RIGHT LEG PAIN Time Seen by Provider: 11/30/19 17:14 Source of Information: Reports: Patient History Limitations: Reports: No Limitations - History of Present Illness INITIAL COMMENTS - FREE TEXT/NARRATIVE: Patient presents from the [facility] with a support provider for a complaint of non-improving redness of the lower legs. Patient has a history of mentally challenged, corrected coarctation of the aorta, hypertension, morbid obesity and recurrent cellulitis of the lower legs. Was seen in this emergency room on 11/26 2019 for a complaint of increased redness of the lower legs. She was started on a course of clindomycin. She has been taking the medication regular basis although her support provider states it causes diarrhea and stomach upset. 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 She has been about her usual activities, afebrile, walking with her usual gait. Her support provider states that the redness in her lower legs is worsening rather than improving on the antibiotics. Her support provider does indicate that she at baseline always has redness and "sores" on her lower calves and shins. right leg Pain Score (Numeric/FACES): 6 - Related Data Allergies Allergy/AdvReac Type Severity Reaction Status Date / Time adhesive Allergy Rash Verified 11/30/19 17:16 cephalexin [From Keflex] Allergy Swelling Verified 11/30/19 17:16 latex Allergy Redness Verified 11/30/19 17:16 Sulfa (Sulfonamide Allergy Airway Verified 11/30/19 17:16 Antibiotics) Tightness Home Meds: Home Meds Furosemide [Lasix] 20 mg PO DAILY 02/10/14 [History] Metoprolol Tartrate 25 mg PO DAILY 02/10/14 [History] medroxyPROGESTERone Acetate [Depo-Provera] 150 mg IM ASDIRECTED 02/10/14 [Hist ory] valACYclovir HCl [Valtrex] 1,000 mg PO BID PRN 02/10/14 [History] cycloSPORINE [Restasis] 1 drop EYEBOTH BID 12/12/17 [History] prednisoLONE acetate [Pred Forte 1% Ophth Susp] 1 drop EYEBOTH BID 10/27/19 [History] Amoxicillin 2,000 mg PO ASDIRECTED 11/26/19 [History] Clindamycin HCl 300 mg PO TID #30 capsule 11/26/19 [Rx] Hydrocortisone [Hydrocortisone 1% Crm] 1 applic TOP ASDIRECTED 11/26/19 [History] Silver Sulfadiazine [Silvadene 1% Cream 20 GM] 2 applic TOP BID 11/26/19 [History] Past Medical History HEENT History: Reports: Otitis Media, Sinusitis Cardiovascular History: Reports: Blood Clots/VTE/DVT, Hypertension, Other (See Below) Other Cardiovascular History: coarctation of the aorta Respiratory History: Reports: Sleep Apnea, Other (See Below) Other Respiratory History: respiratory difficulties Gastrointestinal History: Reports: None Genitourinary History: Reports: None 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: Reports: 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 Musculoskeletal History: Reports: None Neurological History: Reports: Other (See Below) Other Neuro History: down syndrome Psychiatric History: Reports: None Endocrine/Metabolic History: Reports: None Hematologic History: Reports: None Immunologic History: Reports: None Oncologic (Cancer) History: Reports: None Dermatologic History: Reports: Cellulitis, Other (See Below) Other Dermatologic History: Ulceration right leg 2009- wound cares & [facility] - Infectious Disease History Infectious Disease History: Reports: Chicken Pox - Past Surgical History Head Surgeries/Procedures: Reports: None HEENT Surgical History: Reports: Cataract Surgery, Myringotomy w Tube(s), Other (See Below) Other HEENT Surgeries/Procedures: ear sx, L corneal transplant Cardiovascular Surgical History: Reports: Other (See Below) Other Cardiovascular Surgeries/Procedures: heart sx for coarctation Respiratory Surgical History: Reports: None GI Surgical History: Reports: Cholecystectomy Female Surgical History: Reports: None Endocrine Surgical History: Reports: None Neurological Surgical History: Reports: None Oncologic Surgical History: Reports: None Dermatological Surgical History: Reports: None Social & Family History - Family History Family Medical History: Noncontributory - Tobacco Use Smoking Status *Q: Never Smoker - Caffeine Use Caffeine Use: Reports: None - Recreational Drug Use Recreational Drug Use: No ED ROS GENERAL - Review of Systems Review Of Systems: Comprehensive ROS is negative, except as noted in HPI. ED EXAM, SKIN/RASH Exam: See Below General Appearance: Alert, No Apparent Distress Ears: Normal External Exam Nose: Normal Inspection Throat/Mouth: Normal Inspection Head: Atraumatic, Normocephalic Neck: Normal Inspection Respiratory/Chest: No Respiratory Distress Cardiovascular: Normal Peripheral Pulses, Regular Rate, Rhythm Back Exam: Normal Inspection Extremities: Normal Inspection, Other (Bilateral lower shins and calves light pink with several scabbed areas. One area on the left kerr is dark red to volicious and somewhat shiny.) Neurological: Alert, Oriented, Normal Cognition Course - Vital Signs Last Recorded V/S: Last Vital Signs Temp 36.6 C 11/30/19 17:12 Pulse 96 11/30/19 17:12 Resp 20 11/30/19 17:12 BP 126/98 H 11/30/19 17:12 Pulse Ox 96 11/30/19 17:12 - Orders/Labs/Meds Labs: Laboratory Tests 11/30/19 11/30/19 11/30/19 Range/Units 17:57 17:57 17:57 WBC 10.96 (4.0-11.0) K/uL RBC 4.70 (4.30-5.90) M/uL Hgb 12.3 (12.0-16.0) g/dL Hct 38.6 (36.0-46.0) % MCV 82.1 (80.0-98.0) fL MCH 26.2 L (27.0-32.0) pg MCHC 31.9 (31.0-37.0) g/dL RDW Std Deviation 40.9 (28.0-62.0) fl RDW Coeff of Suleman 13 (11.0-15.0) % Plt Count 342 (150-400) K/uL MPV 9.40 (7.40-12.00) fL Neut % (Auto) 58.3 (48.0-80.0) % Lymph % (Auto) 28.6 (16.0-40.0) % [place] % (Auto) 9.1 (0.0-15.0) % Eos % (Auto) 3.6 (0.0-7.0) % Baso % (Auto) 0.4 (0.0-1.5) % Neut # (Auto) 6.4 H (1.4-5.7) K/uL Lymph # (Auto) 3.1 H (0.6-2.4) K/uL [place] # (Auto) 1.0 H (0.0-0.8) K/uL Eos # (Auto) 0.4 (0.0-0.7) K/uL Baso # (Auto) 0.0 (0.0-0.1) K/uL Nucleated RBC % 0.0 /100WBC Nucleated RBCs # 0 K/uL Lactate 1.1 (0.20-2.00) mmol/L Sodium 138 (136-145) mmol/L Potassium 3.7 (3.5-5.1) mmol/L Chloride 102 (98-107) mmol/L Carbon Dioxide 25.7 (21.0-32.0) mmol/L BUN 18 (7.0-18.0) mg/dL Creatinine 1.1 H (0.6-1.0) mg/dL Est Cr Clr Drug Dosing TNP Estimated GFR (MDRD) 56.5 ml/min Glucose 96 (74-106) mg/dL Calcium 8.7 (8.5-10.1) mg/dL Total Bilirubin 0.3 (0.2-1.0) mg/dL AST 20 (15-37) IU/L ALT 26 (14-63) IU/L Alkaline Phosphatase 72 (46-116) U/L Total Protein 7.8 (6.4-8.2) g/dL Albumin 3.9 (3.4-5.0) g/dL Globulin 3.9 (2.6-4.0) g/dL Albumin/Globulin Ratio 1.0 (0.9-1.6) Departure - Departure Time of Disposition: 18:49 Disposition: Home, Self-Care 01 Condition: Good Clinical Impression: Dermatitis Cellulitis Qualifiers: Site of cellulitis: extremity Site of cellulitis of extremity: lower extremity Laterality: unspecified laterality Qualified Code(s): L03.119 - Cellulitis of unspecified part of limb - Discharge Information Referrals: Yas Zuñiga MD [Primary Care Provider] - Gabriel Ye MD [Ordering Only Provider] - Forms: ED Department Discharge Additional Instructions: The following information is given to patients seen in the emergency department who are being discharged to home. This information is to outline your options for follow-up care. We provide all patients seen in our emergency department with a follow-up referral. The need for follow-up, as well as the timing and circumstances, are variable depending upon the specifics of your emergency department visit. If you don't have a primary care physician on staff, we will provide you with a referral. We always advise you to contact your personal physician following an emergency department visit to inform them of the circumstance of the visit and for follow-up with them and/or the need for any referrals to a consulting specialist. The emergency department will also refer you to a specialist when appropriate. This referral assures that you have the opportunity for follow-up care with a specialist. All of these measure are taken in an effort to provide you with optimal care, which includes your follow-up. Under all circumstances we always encourage you to contact your private physician who remains a resource for coordinating your care. When calling for follow-up care, please make the office aware that this follow-up is from your recent emergency room visit. If for any reason you are refused follow-up, please contact the [facility] Emergency Department at and asked to speak to the emergency department charge nurse. 1. Continue your antibiotics until gone 2. Please call the vanstone machine operator Dr. Ye's office. You have been provided with his contact information and a message has been sent to his office that you have been seen in the emergency room. 3. Take your antibiotics with food. You may take Tums at other times if you need to for acid reflux. 4. You must follow up with your primary care provider. You may want to take a picture every 24-48 hours to track the redness/sores on your legs. Sepsis Event Note (ED) - Evaluation Sepsis Screening Result: No Definite Risk - Focused Exam Vital Signs: Vital Signs Temp Pulse Resp BP Pulse Ox 11/30/19 17:12 36.6 C 96 20 126/98 H 96
[2019-11-30 18:28] LABS: BLOOD UREA NITROGEN,BUN 18 mg/dL (7.0-18.0); CARBON DIOXIDE,CO2 25.7 mmol/L (21.0-32.0); CHLORIDE,CL 102 mmol/L (98-107); GLUCOSE RANDOM 96 mg/dL (74-106); POTASSIUM,K 3.7 mmol/L (3.5-5.1); SODIUM,NA 138 mmol/L (136-145)
== END 2019-11-30 19:03 | disposition home or self-care (01) ==
LOC: MW.ED 16:59
DX: L03.115 Cellulitis of right lower limb (principal); L03.116 Cellulitis of left lower limb; L30.9 Dermatitis, unspecified; I10 Essential (primary) hypertension; Z91.048 Other nonmedicinal substance allergy status; Z88.1 Allergy status to other antibiotic agents; Z88.2 Allergy status to sulfonamides; Z91.040 Latex allergy status; Z79.899 Other long term (current) drug therapy
CPT/HCPCS: 36415; 80053; 83605; 85025; 99283

== ENCOUNTER 2019-12-13 18:49 | Emergency (ER) | payer MEDICAID, OTHER ==
--- NOTE | 2019-12-13 19:15 | EDM.PDOC ---
ED HPI GENERAL MEDICAL PROBLEM - General Chief Complaint: Skin Complaint Stated Complaint: DRAINAGE IN LEG AND HOT AND PAINFUL (RIGHT) Time Seen by Provider: 12/13/19 19:03 - History of Present Illness INITIAL COMMENTS - FREE TEXT/NARRATIVE: HISTORY AND PHYSICAL: History of present illness: This is a 34-year-old female with a history significant for hypertension, coarctation of the aorta status post repair, chronic lower extremity cellulitis/venous stasis, who presents to the ER today secondary to increased redness and warmth to her right lower extremity that was noted within the last 24 hours. Patient reports that she is completed a course of doxycycline approximately 1 week ago and reports that her legs looked "great". She reports that over the last 24 hours she is noticed redness to the posterior aspect of her distal calf with increased redness in a circumferential manner. Patient denies any recent fevers, shakes, chills, nausea, vomiting, diarrhea, dysuria, frequency, urgency, chest pain, shortness of breath, abdominal pain, dysuria, frequency, urgency. Patient reports no increased pain or discomfort to the area. Patient reports that she has contacted dermatology for an appointment but has not been able to secure an appointment as of yet. Review of systems: As per history of present illness and below otherwise all systems reviewed and negative. Past medical history: As per history of present illness and as reviewed below otherwise noncontributory. Surgical history: As per history of present illness and as reviewed below otherwise noncontributory. Social history: No reported history of drug or alcohol abuse. Family history: As per history of present illness and as reviewed below otherwise noncontributory. Physical exam: Constitutional: Patient is oriented to person, place, and time. Appears well- developed and well-nourished. No distress. HEENT: Moist mucous membranes Head: Normocephalic and atraumatic Eyes: Right eye exhibits no discharge. Left eye exhibits no discharge. No scleral icterus Neck: Normal range of motion. No tracheal deviation present. Cardiovascular: Normal rate and regular rhythm. Pulmonary: Effort normal, no respiratory distress. Abdominal: No distention Musculoskeletal: Normal range of motion Neurologic: Alert and oriented to person, place and time. Skin: [place], warm and dry. Psychiatric: Normal mood and affect. Behavior is normal. Judgment and thought content normal. Nursing note and vital signs have been reviewed Patient's ER physical exam is significant for warmth to the posterior aspect of her right calf at the area of the Achilles tendon as well as circumferential erythema to her distal right lower extremity. Patient reports that this is similar to her prior episodes of cellulitis in the past. Patient does not have a Homans sign. There is no lower extremity edema. Diagnostics: Not indicated Therapeutics: Doxycycline 100 mg p.o. twice daily x14 days Assessment and plan: This is a 34-year-old female who presents the ER today secondary to cellulitis to her right lower extremity. Patient reports that she has chronic cellulitis to her lower extremities. She reports she has completed a course of clindamycin 1 week ago and reports that she had significant improvement in her symptoms. Patient reports that she has not been on doxycycline recently. Will trial doxycycline 100 mg p.o. twice daily x14 days a s she is allergic to Keflex as well as sulfa drugs. Patient has been encouraged to follow-up with her primary care physician for monitoring of her cellulitis. Definitive disposition and diagnosis as appropriate pending reevaluation and review of above. Right leg Pain Score (Numeric/FACES): 4 - Related Data Allergies Allergy/AdvReac Type Severity Reaction Status Date / Time adhesive Allergy Rash Verified 12/13/19 19:09 cephalexin [From Keflex] Allergy Swelling Verified 12/13/19 19:09 latex Allergy Redness Verified 12/13/19 19:09 Sulfa (Sulfonamide Allergy Airway Verified 12/13/19 19:09 Antibiotics) Tightness Home Meds: Home Meds Furosemide [Lasix] 20 mg PO DAILY 02/10/14 [History] Metoprolol Tartrate 25 mg PO DAILY 02/10/14 [History] medroxyPROGESTERone Acetate [Depo-Provera] 150 mg IM ASDIRECTED 02/10/14 [History] valACYclovir HCl [Valtrex] 1,000 mg PO BID PRN 02/10/14 [History] cycloSPORINE [Restasis] 1 drop EYEBOTH BID 12/12/17 [History] prednisoLONE acetate [Pred Forte 1% Ophth Susp] 1 drop EYEBOTH BID 10/27/19 [History] Amoxicillin 2,000 mg PO ASDIRECTED 11/26/19 [History] Clindamycin HCl 300 mg PO TID #30 capsule 11/26/19 [Rx] Hydrocortisone [Hydrocortisone 1% Crm] 1 applic TOP ASDIRECTED 11/26/19 [History] Silver Sulfadiazine [Silvadene 1% Cream 20 GM] 2 applic TOP BID 11/26/19 [History] Doxycycline Hyclate [Vibramycin] 100 mg PO BID #28 cap 12/13/19 [Rx] Past Medical History HEENT History: Reports: Otitis Media, Sinusitis Cardiovascular History: Reports: Blood Clots/VTE/DVT, Hypertension, Other (See Below) Other Cardiovascular History: coarctation of the aorta Respiratory History: Reports: Sleep Apnea, Other (See Below) Other Respiratory History: respiratory difficulties Gastrointestinal History: Reports: None Genitourinary History: Reports: None BLOCKER POLISHING History: Reports: None Musculoskeletal History: Reports: None Neurological History: Reports: Other (See Below) Other Neuro History: down syndrome Psychiatric History: Reports: None Endocrine/Metabolic History: Reports: None Hematologic History: Reports: None Immunologic History: Reports: None Oncologic (Cancer) History: Reports: None Dermatologic History: Reports: Cellulitis, Other (See Below) Other Dermatologic History: Ulceration right leg 2009- [facility] & [facility] - Infectious Disease History Infectious Disease History: Reports: Chicken Pox - Past Surgical History Head Surgeries/Procedures: Reports: None HEENT Surgical History: Reports: Cataract Surgery, Myringotomy w Tube(s), Other (See Below) Other HEENT Surgeries/Procedures: ear sx, L corneal transplant Cardiovascular Surgical History: Reports: Other (See Below) Other Cardiovascular Surgeries/Procedures: heart sx for coarctation Respiratory Surgical History: Reports: None GI Surgical History: Reports: Cholecystectomy Female Surgical History: Reports: None Endocrine Surgical History: Reports: None Neurological Surgical History: Reports: None Oncologic Surgical History: Reports: None Dermatological Surgical History: Reports: None Social & Family History - Family History Family Medical History: Noncontributory - Caffeine Use Caffeine Use: Reports: None ED ROS GENERAL - Review of Systems Review Of Systems: Comprehensive ROS is negative, except as noted in HPI. ED EXAM, SKIN/RASH Exam: See Below Course - Vital Signs Last Recorded V/S: Last Vital Signs Temp 97.4 F 12/13/19 19:05 Pulse 92 12/13/19 19:05 Resp 18 12/13/19 19:05 BP 146/80 H 12/13/19 19:05 Pulse Ox 98 12/13/19 19:05 Departure - Departure Time of Disposition: 19:19 Disposition: Home, Self-Care 01 Condition: Good Clinical Impression: Cellulitis of right leg - Discharge Information Instructions: Cellulitis, Adult Referrals: Yas Zuñiga MD [Primary Care Provider] - Additional Instructions: Please take your doxycycline as directed. 1 tablet twice a day for 14 days. Please make an appointment to see your primary care physician to reevaluate your lower extremity in 3 to 5 days. Please return to the ER if you start developing fevers increased pain or increased swelling to the area. The following information is given to patients seen in the emergency department who are being discharged to home. This information is to outline your options for follow-up care. We provide all patients seen in our emergency department with a follow-up referral. The need for follow-up, as well as the timing and circumstances, are variable depending upon the specifics of your emergency department visit. If you don't have a primary care physician on staff, we will provide you with a referral. We always advise you to contact your personal physician following an emergency department visit to inform them of the circumstance of the visit and for follow-up with them and/or the need for any referrals to a consulting specialist. The emergency department will also refer you to a specialist when appropriate. This referral assures that you have the opportunity for follow-up care with a specialist. All of these measure are taken in an effort to provide you with optimal care, which includes your follow-up. Under all circumstances we always encourage you to contact your private physician who remains a resource for coordinating your care. When calling for follow-up care, please make the office aware that this follow-up is from your recent emergency room visit. If for any reason you are refused follow-up, please contact the [facility] Emergency Department at and asked to speak to the emergency department charge nurse. Sepsis Event Note (ED) - Evaluation Sepsis Screening Result: No Definite Risk - Focused Exam Vital Signs: Vital Signs Temp Pulse Resp BP Pulse Ox 12/13/19 19:05 97.4 F 92 18 146/80 H 98
[2019-12-13] MEDS ORDERED: Doxycycline 100 MG Cap PO ONE (19:23)
== END 2019-12-13 19:38 | disposition home or self-care (01) ==
LOC: MW.ED 18:49
DX: L03.115 Cellulitis of right lower limb (principal); I10 Essential (primary) hypertension; Z79.899 Other long term (current) drug therapy; Z88.1 Allergy status to other antibiotic agents; Z88.2 Allergy status to sulfonamides; Z91.040 Latex allergy status; Z91.048 Other nonmedicinal substance allergy status
CPT/HCPCS: 99282; A9270

== ENCOUNTER 2019-12-21 12:35 | Observation (INO) | payer MEDICAID, OTHER ==
--- NOTE | 2019-12-21 12:48 | EDM.PDOC ---
ED HPI GENERAL MEDICAL PROBLEM - General Stated Complaint: RIGHT LEG PAIN AND SWELLING Time Seen by Provider: 12/21/19 12:43 Source of Information: Reports: Patient History Limitations: Reports: No Limitations - History of Present Illness INITIAL COMMENTS - FREE TEXT/NARRATIVE: HISTORY AND PHYSICAL: History of present illness: Patient is a 34-year-old female who presents to the emergency room with comp laints of right leg swelling and redness. She has a past medical history of hypertension, coarctation of the aorta status post repair, chronic lower extremity cellulitis/venous stasis. Radha recently was seen in our emergency room on 12/13/2019 and at that time had been placed on doxycycline 100 mg twice daily x14 days. Prior to that she had been on Clindamycin. Over the past 3-4 months, she has been consistently on antibiotics for unresolved cellulitis. The caregiver at bedside states that she started to have increased warmth, redness, and swelling. Tired to keep her legs elevated throughout the night, seemed to help with swelling a little. States "when it gets to this point, she will usually start getting blisters... last time she became septic and had to be admitted". States the redness has now crossed over to the left anterior kerr. Patient denies any fever, chills, headache, change in vision, syncope or near syncope. Denies any chest pain, back pain, shortness of breath or cough. Denies any GI or symptoms. Patient has been eating and drinking appropriately. Review of systems: As per history of present illness and below otherwise all systems reviewed and negative. Past medical history: As per history of present illness and as reviewed below otherwise noncontributory. Surgical history: As per history of present illness and as reviewed below otherwise noncontrib utory. Social history: See social history for further information Family history: As per history of present illness and as reviewed below otherwise noncontributory. Physical exam: General: Well developed and well nourished 34-year-old female. Accompanied by a caregiver. Alert and orientated x 3. Nontoxic in appearance and in no acute distress. Vital signs are stable and have been reviewed by me. Nursing notes were reviewed. HEENT: Atraumatic, normocephalic, pupils equal and reactive bilaterally, negative for conjunctival pallor or scleral icterus, mucous membranes moist, trachea midline. No drooling or trismus noted. No meningeal signs. No hot potato voice noted. Lungs: Clear to auscultation, breath sounds equal bilaterally, chest nontender. Normal work of breathing, no accessory muscles used. Heart: S1S2, regular rate and rhythm without overt murmur Abdomen: Soft, nondistended, nontender. Skin: Diffuse erythema of the right lower extremity, noncircumferential. Mild erythema, approximately palmar size of the left anterior kerr. Otherwise remaining skin is intact, warm, dry. No lesions or rashes noted. Hematologic: No petechiae or purpra. Mucosa appropriate color and normal nail bed color and refill. Extremities: Atraumatic, moves all extremities per self without difficulty or deficits, negative for cords or calf pain. Neurovascular unremarkable. Neuro: Awake, alert, oriented. Cranial nerves II through XII unremarkable. Cerebellum unremarkable. Motor and sensory unremarkable throughout. Exam nonfocal. Psychiatric: Mood and affect are appropriate. Normal thought process. Answering questions appropriately. Notes: Patient does have a slight leukocytosis. Although patient does not appear septic she does meet criteria for "failed outpatient therapy". Nursing staff did call Cynthia, the dermatology clinic to set up a follow-up appointment for the patient. They were able to get her in on at 1115. Discussed with patient, caregiver and mother the option of admission versus close follow-up with the blade worker. The mother is adamant about her being admitted for IV antibiotics. I did consult Dr. Diallo, hospitalist on-call, who is agreeable to accepting this patient. She does request that he get a soft tissue CT of the lower extremity to rule out osteomyelitis or underlying abscess. Requesting Vancomycin to be started. Results pending she will be admitted. CT shows focal soft tissue density extending from the skin into the subcu fat within the right lower extremity either due to cellulitis or scarring. There is no fluid collection of abscess seen. No evidence of osteomyelitis. Old injury of the distal fibula. Mild deformity of the tibiotalar joint. Patient will be admitted to the floor for observation admission. Diagnostics: CBC, CMP, Lactate, CT Right lower extremity, COVID Therapeutics: Vancomycin Impression: Cellulitis Plan: Observation admission to Med/Surg Definitive disposition and diagnosis as appropriate pending reevaluation and review of above. right lower leg Pain Score (Numeric/FACES): 4 - Related Data Allergies Allergy/AdvReac Type Severity Reaction Status Date / Time adhesive Allergy Rash Verified 12/21/19 12:47 cephalexin [From Keflex] Allergy Swelling Verified 12/21/19 12:47 latex Allergy Redness Verified 12/21/19 12:47 Sulfa (Sulfonamide Allergy Airway Verified 12/21/19 12:47 Antibiotics) Tightness Home Meds: Home Meds Furosemide [Lasix] 20 mg PO DAILY 02/10/14 [History] Metoprolol Tartrate 25 mg PO DAILY 02/10/14 [History] medroxyPROGESTERone Acetate [Depo-Provera] 150 mg IM ASDIRECTED 02/10/14 [History] valACYclovir HCl [Valtrex] 1,000 mg PO BID PRN 02/10/14 [History] cycloSPORINE [Restasis] 1 drop EYEBOTH BID 12/12/17 [History] prednisoLONE acetate [Pred Forte 1% Ophth Susp] 1 drop EYEBOTH BID 10/27/19 [History] Amoxicillin 2,000 mg PO ASDIRECTED 11/26/19 [History] Clindamycin HCl 300 mg PO TID #30 capsule 11/26/19 [Rx] Hydrocortisone [Hydrocortisone 1% Crm] 1 applic TOP ASDIRECTED 11/26/19 [History] Silver Sulfadiazine [Silvadene 1% Cream 20 GM] 2 applic TOP BID 11/26/19 [History] Doxycycline Hyclate [Vibramycin] 100 mg PO BID #28 cap 12/13/19 [Rx] Past Medical History HEENT History: Reports: Otitis Media, Sinusitis Cardiovascular History: Reports: Blood Clots/VTE/DVT, Hypertension, Other (See Below) Other Cardiovascular History: coarctation of the aorta Respiratory History: Reports: Sleep Apnea, Other (See Below) Other Respiratory History: respiratory difficulties Gastrointestinal History: Reports: None Genitourinary History: Reports: None CARE TAKER History: Reports: None Musculoskeletal History: Reports: None Neurological History: Reports: Other (See Below) Other Neuro History: down syndrome Psychiatric History: Reports: None Endocrine/Metabolic History: Reports: None Hematologic History: Reports: None Immunologic History: Reports: None Oncologic (Cancer) History: Reports: None Dermatologic History: Reports: Cellulitis, Other (See Below) Other Dermatologic History: Ulceration right leg 2009- [facility] & [facility] - Infectious Disease History Infectious Disease History: Reports: Chicken Pox - Past Surgical History Head Surgeries/Procedures: Reports: None HEENT Surgical History: Reports: Cataract Surgery, Myringotomy w Tube(s), Other (See Below) Other HEENT Surgeries/Procedures: ear sx, L corneal transplant Cardiovascular Surgical History: Reports: Other (See Below) Other Cardiovascular Surgeries/Procedures: heart sx for coarctation Respiratory Surgical History: Reports: None GI Surgical History: Reports: Cholecystectomy Female Surgical History: Reports: None Endocrine Surgical History: Reports: None Neurological Surgical History: Reports: None Oncologic Surgical History: Reports: None Dermatological Surgical History: Reports: None Social & Family History - Family History Family Medical History: Noncontributory - Caffeine Use Caffeine Use: Reports: None ED ROS GENERAL - Review of Systems Review Of Systems: Comprehensive ROS is negative, except as noted in HPI. ED EXAM, GENERAL - Physical Exam Exam: See Below (See dictation) Course - Vital Signs Last Recorded V/S: Last Vital Signs Temp 96.9 F 12/21/19 12:46 Pulse 92 12/21/19 12:46 Resp 18 12/21/19 12:46 BP 145/80 H 12/21/19 12:46 Pulse Ox 95 12/21/19 12:46 - Orders/Labs/Meds Orders: Active Orders 24 hr Category Date Time Status Admission Status [Patient Status] [ADT] Stat ADT 12/21/19 14:00 Active CORONAVIRUS COVID-19 RAPID [MOLEC] Stat Lab 12/21/19 14:53 Received Vancomycin 1 gm Med 12/21/19 14:02 Active Sodium Chloride 0.9% [Normal Saline (AdvBag)] 250 ml IV ONETIME Medication Orders Vancomycin HCl 1 gm/ Sodium (Chloride) 250 mls @ 166 mls/hr IV ONETIME ONE Stop: 12/21/19 15:32 Last Admin: 12/21/19 14:56 Dose: 166 mls/hr Documented by: KENNETH Labs: Laboratory Tests 12/21/19 12/21/19 12/21/19 Range/Units 13:10 13:10 13:10 WBC 11.42 H (4.0-11.0) K/uL RBC 4.84 (4.30-5.90) M/uL Hgb 12.7 (12.0-16.0) g/dL Hct 40.5 (36.0-46.0) % MCV 83.7 (80.0-98.0) fL MCH 26.2 L (27.0-32.0) pg MCHC 31.4 (31.0-37.0) g/dL RDW Std Deviation 41.2 (28.0-62.0) fl RDW Coeff of Suleman 14 (11.0-15.0) % Plt Count 335 (150-400) K/uL MPV 9.60 (7.40-12.00) fL Neut % (Auto) 59.4 (48.0-80.0) % Lymph % (Auto) 28.2 (16.0-40.0) % Dale % (Auto) 9.1 (0.0-15.0) % Eos % (Auto) 3.0 (0.0-7.0) % Baso % (Auto) 0.3 (0.0-1.5) % Neut # (Auto) 6.8 H (1.4-5.7) K/uL Lymph # (Auto) 3.2 H (0.6-2.4) K/uL Dale # (Auto) 1.0 H (0.0-0.8) K/uL Eos # (Auto) 0.3 (0.0-0.7) K/uL Baso # (Auto) 0.0 (0.0-0.1) K/uL Nucleated RBC % 0.0 /100WBC Nucleated RBCs # 0 K/uL Lactate 1.2 (0.20-2.00) mmol/L Sodium 141 (136-145) mmol/L Potassium 3.8 (3.5-5.1) mmol/L Chloride 105 (98-107) mmol/L Carbon Dioxide 27.5 (21.0-32.0) mmol/L BUN 18 (7.0-18.0) mg/dL Creatinine 0.9 (0.6-1.0) mg/dL Est Cr Clr Drug Dosing TNP Estimated GFR (MDRD) > 60.0 ml/min Glucose 102 (74-106) mg/dL Calcium 9.5 (8.5-10.1) mg/dL Total Bilirubin 0.3 (0.2-1.0) mg/dL AST 21 (15-37) IU/L ALT 31 (14-63) IU/L Alkaline Phosphatase 67 (46-116) U/L Total Protein 7.2 (6.4-8.2) g/dL Albumin 3.7 (3.4-5.0) g/dL Globulin 3.5 (2.6-4.0) g/dL Albumin/Globulin Ratio 1.1 (0.9-1.6) Meds: Medications Generic Name Dose Route Start Last Admin Trade Name Freq PRN Reason Stop Dose Admin Vancomycin HCl 1 gm/ Sodium 250 mls @ 166 mls/hr 12/21/19 14:02 12/21/19 14:56 Chloride IV 12/21/19 15:32 166 mls/hr ONETIME ONE Administration Discontinued Medications Generic Name Dose Route Start Last Admin Trade Name Freq PRN Reason Stop Dose Admin Iopamidol 100 ml 12/21/19 14:57 12/21/19 14:57 Isovue Multipack-370 (76%) IVPUSH 12/21/19 14:58 100 ml ONETIME STA Administration Departure - Departure Time of Disposition: 15:27 Disposition: Refer to Observation Clinical Impression: Cellulitis Qualifiers: Site of cellulitis: extremity Site of cellulitis of extremity: lower extremity Laterality: unspecified laterality Qualified Code(s): L03.119 - Cellulitis of unspecified part of limb - Discharge Information Referrals: Yas uZñiga MD [Primary Care Provider] - Sepsis Event Note (ED) - Focused Exam Vital Signs: Vital Signs Temp Pulse Resp BP Pulse Ox 12/21/19 12:46 96.9 F 92 18 145/80 H 95 - My Orders Last 24 Hours: My Active Orders 12/21/19 14:00 Admission Status [Patient Status] [ADT] Stat 12/21/19 14:02 Vancomycin 1 gm Sodium Chloride 0.9% [Normal Saline (AdvBag)] 250 ml IV ONETIME 12/21/19 14:53 CORONAVIRUS COVID-19 RAPID [MOLEC] Stat - Assessment/Plan Last 24 Hours: My Active Orders 12/21/19 14:00 Admission Status [Patient Status] [ADT] Stat 12/21/19 14:02 Vancomycin 1 gm Sodium Chloride 0.9% [Normal Saline (AdvBag)] 250 ml IV ONETIME 12/21/19 14:53 CORONAVIRUS COVID-19 RAPID [MOLEC] Stat
[2019-12-21 13:52] LABS: BLOOD UREA NITROGEN,BUN 18 mg/dL (7.0-18.0); CARBON DIOXIDE,CO2 27.5 mmol/L (21.0-32.0); CHLORIDE,CL 105 mmol/L (98-107); GLUCOSE RANDOM 102 mg/dL (74-106); POTASSIUM,K 3.8 mmol/L (3.5-5.1); SODIUM,NA 141 mmol/L (136-145)
[2019-12-21] MEDS ORDERED: Iopamidol 755 MG/ML 500 ML Multipack Bottle IVPUSH STA (14:57)
--- NOTE | 2019-12-21 15:22 | CT ---
CT right lower extremity Technique: Multiple axial sections were obtained through the right lower extremity. Intravenous contrast was utilized. Reconstructed coronal and sagittal images were obtained. Findings: Bony density is noted off the inferior fibula compatible with old injury. Ankle mortise is asymmetric compatible with soft tissue ligamentous laxity. Possible cartilage loss within the tibiotalar joint is also suggested. Soft tissue density is seen extending from the skin into the subcutaneous fat. This either represents cellulitis or scarring. No focal fluid collections of abscess are seen. No bony erosions are noted. Impression: 1. Focal soft tissue density extending from the skin into the subcutaneous fat within the right lower extremity either due to cellulitis or scarring. 2. No fluid collections of abscess are seen. No evidence of osteomyelitis. 3. Old injury off the distal fibula. Mild deformity of the tibiotalar joint as noted above. Diagnostic code #3 This report was dictated in MDT
[2019-12-21] MEDS ORDERED: Acetaminophen/HYDROcodone 325-5 MG Tab PO PRN (16:03)
[2019-12-21] MEDS ORDERED: Acetaminophen 325 MG Tab PO PRN (16:03)
[2019-12-21] MEDS ORDERED: Docusate Sodium 100 MG Cap PO PRN (16:03)
[2019-12-21] MEDS ORDERED: Ondansetron 4 MG/2 ML SDV IVPUSH PRN (16:03)
--- NOTE | 2019-12-21 16:14 | PCM.HP.2 ---
H&P History of Present Illness - General Date of Service: 12/21/19 Admit Problem/Dx: Admission Diagnosis/Problem Admission Diagnosis/Problem Cellulitis Source of Information: Patient, Old Records, Other (healthcare liaison from [facility], [place]) History Limitations: Reports: No Limitations - History of Present Illness Initial Comments - Free Text/Narative: This 34 year old female with pmh of coarctation of the aorta s/p repair, HTN, HLD, MR and recurrent cellulitis and venous stasis to BLE presented to the ED today with complaints of worsening redness to R lower leg after being started on Doxycycline and few days ago. The caregiver reports over the last few days, the redness to RLE has progressively worsened. No fevers at home, no new trauma to the right leg. No wound or drainage. They report this is what happened last time and she was sent home and became septic prior to previous admission. No new medical history since previous admission. Denies chest pain or SOB. NO feers or chills. No generalized malaise. No diarrhea, constipation or urinary troubles. No focal neurological deficit. In the ED mild leukocytosis noted, 11,420. Otherwise labwork unremarkable. CT of RLE obtained, revealing no abscess She was treated with vancomycin. She will be admitted observation for failed outpatient treatment of RLE cellulitis. right lower leg Pain Score (Numeric/FACES): 3 - Related Data Allergies/Adverse Reactions: Allergies Allergy/AdvReac Type Severity Reaction Status Date / Time adhesive Allergy Rash Verified 12/21/19 12:47 cephalexin [From Keflex] Allergy Swelling Verified 12/21/19 12:47 latex Allergy Redness Verified 12/21/19 12:47 Sulfa (Sulfonamide Allergy Airway Verified 12/21/19 12:47 Antibiotics) Tightness Home Medications: Home Meds Furosemide [Lasix] 20 mg PO DAILY 02/10/14 [History] Metoprolol Tartrate 25 mg PO DAILY 02/10/14 [History] medroxyPROGESTERone Acetate [Depo-Provera] 150 mg IM ASDIRECTED 02/10/14 [History] valACYclovir HCl [Valtrex] 1,000 mg PO BID PRN 02/10/14 [History] cycloSPORINE [Restasis] 1 drop EYEBOTH BID 12/12/17 [History] prednisoLONE acetate [Pred Forte 1% Ophth Susp] 1 drop EYEBOTH BID 10/27/19 [History] Amoxicillin 2,000 mg PO ASDIRECTED 11/26/19 [History] Clindamycin HCl 300 mg PO TID #30 capsule 11/26/19 [Rx] Hydrocortisone [Hydrocortisone 1% Crm] 1 applic TOP ASDIRECTED 11/26/19 [History ] Silver Sulfadiazine [Silvadene 1% Cream 20 GM] 2 applic TOP BID 11/26/19 [History] Doxycycline Hyclate [Vibramycin] 100 mg PO BID #28 cap 12/13/19 [Rx] Past Medical History HEENT History: Reports: Otitis Media, Sinusitis Cardiovascular History: Reports: Blood Clots/VTE/DVT, Hypertension, Other (See Below) Other Cardiovascular History: coarctation of the aorta Respiratory History: Reports: Sleep Apnea, Other (See Below) Other Respiratory History: respiratory difficulties Gastrointestinal History: Reports: None Genitourinary History: Reports: None HAND REAMER History: Reports: None Musculoskeletal History: Reports: None Neurological History: Reports: Other (See Below) Other Neuro History: down syndrome Psychiatric History: Reports: None Endocrine/Metabolic History: Reports: None Hematologic History: Reports: None Immunologic History: Reports: None Oncologic (Cancer) History: Reports: None Dermatologic History: Reports: Cellulitis, Other (See Below) Other Dermatologic History: Ulceration right leg 2009- wound cares & [facility] - Infectious Disease History Infectious Disease History: Reports: Chicken Pox - Past Surgical History Head Surgeries/Procedures: Reports: None HEENT Surgical History: Reports: Cataract Surgery, Myringotomy w Tube(s), Other (See Below) Other HEENT Surgeries/Procedures: ear sx, L corneal transplant Cardiovascular Surgical History: Reports: Other (See Below) Other Cardiovascular Surgeries/Procedures: heart sx for coarctation Respiratory Surgical History: Reports: None GI Surgical History: Reports: Cholecystectomy Female Surgical History: Reports: None Endocrine Surgical History: Reports: None Neurological Surgical History: Reports: None Oncologic Surgical History: Reports: None Dermatological Surgical History: Reports: None Social & Family History - Family History Family Medical History: Noncontributory - Tobacco Use Smoking Status *Q: Never Smoker Second Hand Smoke Exposure: No - Caffeine Use Caffeine Use: Reports: None - Recreational Drug Use Recreational Drug Use: No - Living Situation & Occupation Living situation: Reports: Other ([facility]) H&P Review of Systems - Review of Systems: Review Of Systems: See Below General: Reports: No Symptoms. Denies: Fever, Chills, Malaise, Weakness HEENT: Reports: No Symptoms. Denies: Headaches, Sinus Congestion, Vertigo Pulmonary: Reports: No Symptoms. Denies: Shortness of Breath Cardiovascular: Reports: No Symptoms. Denies: Chest Pain Gastrointestinal: Reports: No Symptoms. Denies: Abdominal Pain, Black Stool, Bloody Stool, Decreased Appetite, Nausea, Vomiting Genitourinary: Reports: No Symptoms. Denies: Dysuria, Frequency, Burning Skin: Reports: Erythema Psychiatric: Reports: No Symptoms Neurological: Reports: No Symptoms Hematologic/Lymphatic: Reports: No Symptoms Immunologic: Reports: No Symptoms Exam - Exam Exam: See Below - Vital Signs Vital Signs: Last Vital Signs Temp 96.9 F 12/21/19 12:46 Pulse 82 12/21/19 15:10 Resp 15 12/21/19 15:10 BP 140/82 12/21/19 15:10 Pulse Ox 97 12/21/19 15:10 Weight: 115 kg - Exam General: Alert, Oriented, Cooperative Lungs: Clear to Auscultation Cardiovascular: Regular Rate, Regular Rhythm GI/Abdominal Exam: Normal Bowel Sounds, Soft, Non-Tender, Other (obese abdomen) Back Exam: Normal Inspection, Full Range of Motion Extremities: Pedal Edema (+1 non pitting BLE), Redness (mainly to lower anterior R extremity, circumferentially, no open sores noted. No calf tenderness. No overt pain. No induration or fluctuance noted. Very scant erythema noted to LLE, smal abrasion, which is healing. NO drainage.) Skin: Warm, Dry Neuro Extensive - Mental Status: Alert, Oriented x3 Neuro Extensive - Motor, Sensory, Reflexes: CN II-XII Intact Psychiatric: Alert, Normal Affect, Normal Mood - Patient Data Lab Results Last 24 hrs: Laboratory Results - last 24 hr 12/21/19 12/21/19 12/21/19 Range/Units 13:10 13:10 13:10 WBC 11.42 H (4.0-11.0) K/uL RBC 4.84 (4.30-5.90) M/uL Hgb 12.7 (12.0-16.0) g/dL Hct 40.5 (36.0-46.0) % MCV 83.7 (80.0-98.0) fL MCH 26.2 L (27.0-32.0) pg MCHC 31.4 (31.0-37.0) g/dL RDW Std Deviation 41.2 (28.0-62.0) fl RDW Coeff of Suleman 14 (11.0-15.0) % Plt Count 335 (150-400) K/uL MPV 9.60 (7.40-12.00) fL Neut % (Auto) 59.4 (48.0-80.0) % Lymph % (Auto) 28.2 (16.0-40.0) % Liberty % (Auto) 9.1 (0.0-15.0) % Eos % (Auto) 3.0 (0.0-7.0) % Baso % (Auto) 0.3 (0.0-1.5) % Neut # (Auto) 6.8 H (1.4-5.7) K/uL Lymph # (Auto) 3.2 H (0.6-2.4) K/uL Liberty # (Auto) 1.0 H (0.0-0.8) K/uL Eos # (Auto) 0.3 (0.0-0.7) K/uL Baso # (Auto) 0.0 (0.0-0.1) K/uL Nucleated RBC % 0.0 /100WBC Nucleated RBCs # 0 K/uL Lactate 1.2 (0.20-2.00) mmol/L Sodium 141 (136-145) mmol/L Potassium 3.8 (3.5-5.1) mmol/L Chloride 105 (98-107) mmol/L Carbon Dioxide 27.5 (21.0-32.0) mmol/L BUN 18 (7.0-18.0) mg/dL Creatinine 0.9 (0.6-1.0) mg/dL Est Cr Clr Drug Dosing TNP Estimated GFR (MDRD) > 60.0 ml/min Glucose 102 (74-106) mg/dL Calcium 9.5 (8.5-10.1) mg/dL Total Bilirubin 0.3 (0.2-1.0) mg/dL AST 21 (15-37) IU/L ALT 31 (14-63) IU/L Alkaline Phosphatase 67 (46-116) U/L Total Protein 7.2 (6.4-8.2) g/dL Albumin 3.7 (3.4-5.0) g/dL Globulin 3.5 (2.6-4.0) g/dL Albumin/Globulin Ratio 1.1 (0.9-1.6) COVID-19 (ELENI) (NEGATIVE) 12/21/19 Range/Units 14:53 WBC (4.0-11.0) K/uL RBC (4.30-5.90) M/uL Hgb (12.0-16.0) g/dL Hct (36.0-46.0) % MCV (80.0-98.0) fL MCH (27.0-32.0) pg MCHC (31.0-37.0) g/dL RDW Std Deviation (28.0-62.0) fl RDW Coeff of Suleman (11.0-15.0) % Plt Count (150-400) K/uL MPV (7.40-12.00) fL Neut % (Auto) (48.0-80.0) % Lymph % (Auto) (16.0-40.0) % Liberty % (Auto) (0.0-15.0) % Eos % (Auto) (0.0-7.0) % Baso % (Auto) (0.0-1.5) % Neut # (Auto) (1.4-5.7) K/uL Lymph # (Auto) (0.6-2.4) K/uL Liberty # (Auto) (0.0-0.8) K/uL Eos # (Auto) (0.0-0.7) K/uL Baso # (Auto) (0.0-0.1) K/uL Nucleated RBC % /100WBC Nucleated RBCs # K/uL Lactate (0.20-2.00) mmol/L Sodium (136-145) mmol/L Potassium (3.5-5.1) mmol/L Chloride (98-107) mmol/L Carbon Dioxide (21.0-32.0) mmol/L BUN (7.0-18.0) mg/dL Creatinine (0.6-1.0) mg/dL Est Cr Clr Drug Dosing Estimated GFR (MDRD) ml/min Glucose (74-106) mg/dL Calcium (8.5-10.1) mg/dL Total Bilirubin (0.2-1.0) mg/dL AST (15-37) IU/L ALT (14-63) IU/L Alkaline Phosphatase (46-116) U/L Total Protein (6.4-8.2) g/dL Albumin (3.4-5.0) g/dL Globulin (2.6-4.0) g/dL Albumin/Globulin Ratio (0.9-1.6) COVID-19 (ELENI) NEGATIVE (NEGATIVE) Result Diagrams: 12/21/19 13:10 12/21/19 13:10 Sepsis Event Note - Evaluation Sepsis Screening Result: No Definite Risk - Focused Exam Vital Signs: Vital Signs Temp Pulse Resp BP Pulse Ox 12/21/19 15:10 82 15 140/82 97 12/21/19 12:46 96.9 F 92 18 145/80 H 95 - Problem List (1) Cellulitis SNOMED Code(s): 168691021 ICD Code: L03.90 - CELLULITIS, UNSPECIFIED Status: Acute Current Visit: Yes Qualifiers: Site of cellulitis: extremity Site of cellulitis of extremity: lower extremity Laterality: unspecified laterality Qualified Code(s): L03.119 - Cellulitis of unspecified part of limb (2) HTN (hypertension) SNOMED Code(s): 41745737 ICD Code: I10 - ESSENTIAL (PRIMARY) HYPERTENSION Status: Chronic Current Visit: Yes (3) HLD (hyperlipidemia) SNOMED Code(s): 07856469 ICD Code: E78.5 - HYPERLIPIDEMIA, UNSPECIFIED Status: Chronic Current Visit: Yes (4) Coarctation of aorta SNOMED Code(s): 6015300 ICD Code: Q25.1 - COARCTATION OF AORTA Status: Chronic Current Visit: Yes (5) Status post aortic coarctation repair SNOMED Code(s): 884704262, 632947049, 285653552 ICD Code: Z87.74 - PERSONAL HISTORY OF CONGENITAL MALFORM OF HEART AND CIRC SYS Status: Chronic Current Visit: Yes (6) Obesity SNOMED Code(s): 628032801, 993543628 ICD Code: E66.9 - OBESITY, UNSPECIFIED Status: Chronic Current Visit: Yes (7) Venous stasis of lower extremity SNOMED Code(s): 302763714, 728972489 ICD Code: I87.8 - OTHER SPECIFIED DISORDERS OF VEINS Status: Chronic Current Visit: Yes (8) Cellulitis of right leg SNOMED Code(s): 492078104 ICD Code: L03.115 - CELLULITIS OF RIGHT LOWER LIMB Status: Acute Current Visit: No Problem List Initiated/Reviewed/Updated: Yes Orders Last 24hrs: Active Orders 24 hr Category Date Time Status Admission Status [Patient Status] [ADT] Stat ADT 12/21/19 14:00 Active Elevate Extremity [RC] BID Care 12/21/19 16:03 Ordered Height and Weight [RC] DAILY Care 12/21/19 16:03 Ordered Intake and Output [RC] QSHIFT Care 12/21/19 16:04 Ordered May Shower [RC] ASDIRECTED Care 12/21/19 16:03 Ordered Oxygen Therapy [RC] PRN Care 12/21/19 16:03 Ordered Up With Assistance [RC] ASDIRECTED Care 12/21/19 16:03 Ordered VTE/DVT Education [RC] PER UNIT ROUTINE Care 12/21/19 16:03 Ordered Vital Signs [RC] Q4H Care 12/21/19 16:03 Ordered Regular Diet [DIET] Diet 12/21/19 Lunch Ordered BASIC METABOLIC PANEL,BMP [CHEM] AM Lab 12/22/19 05:11 Ordered CBC WITH AUTO DIFF [HEME] AM Lab 12/22/19 05:11 Ordered Acetaminophen [TylenoL] Med 12/21/19 16:03 Ordered 650 mg PO Q4H PRN Acetaminophen/HYDROcodone [Ripley 325-5 MG] Med 12/21/19 16:03 Ordered 1 tab PO Q4H PRN Docusate Sodium [Colace] Med 12/21/19 16:03 Ordered 100 mg PO BID PRN Enoxaparin [Lovenox] Med 12/21/19 16:15 Ordered 40 mg SUBCUT Q24H Furosemide [Lasix] Med 12/22/19 09:00 Ordered 20 mg PO DAILY Metoprolol Tartrate [Lopressor] Med 12/22/19 09:00 Ordered 25 mg PO DAILY Nystatin [Nystop] Med 12/21/19 22:00 Ordered See Dose Instructions TOP TID Ondansetron [Zofran] Med 12/21/19 16:03 Ordered 4 mg IVPUSH Q4H PRN Pharmacy to Dose - Vancomycin Med 12/21/19 16:15 Ordered 1 dose .XX ASDIRECTED Sodium Chloride 0.9% [Normal Saline] 1,000 ml Med 12/21/19 16:15 Ordered IV Q8H cycloSPORINE [Restasis] Med 12/21/19 21:00 Ordered 1 drop EYEBOTH BID prednisoLONE acetate [Pred Forte 1% Ophth Susp] Med 12/21/19 21:00 Ordered 1 drop EYEBOTH BID Resuscitation Status Routine Resus Stat 12/21/19 16:03 Ordered Medication Orders Acetaminophen (Tylenol) 650 mg PO Q4H PRN PRN Reason: Pain (Mild 1-3)/fever Hydrocodone Bitart/Acetaminophen (Ripley 325-5 Mg) 1 tab PO Q4H PRN PRN Reason: Pain (moderate 4-6) Docusate Sodium (Colace) 100 mg PO BID PRN PRN Reason: Constipation Enoxaparin Sodium (Lovenox) 40 mg SUBCUT Q24H [facility] Sodium Chloride (Normal Saline) 1,000 mls @ 125 mls/hr IV Q8H [facility] Stop: 12/22/19 00:14 Ondansetron HCl (Zofran) 4 mg IVPUSH Q4H PRN PRN Reason: Nausea Vancomycin HCl (Pharmacy To Dose - Vancomycin) 1 dose .XX ASDIRECTED [facility] Assessment/Plan Comment:: This 34 year old female admitted with RLE cellulitis 1. RLE cellulitis - Does not appear septic. 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 HTN - Continue Metoprolol VTE prophylaxis: Lovenox Dispo: 1-2 days pending improvement - Mortality Measure Prognosis:: Good
[2019-12-21] MEDS ORDERED: Sodium Chloride 0.9% 1,000 ML IV SCH (16:15)
[2019-12-21] MEDS ORDERED: Enoxaparin 40 MG/0.4 ML Syringe SUBCUT SCH (16:15)
--- NOTE | 2019-12-21 18:23 | US ---
INDICATION: ERYTHEMA. PAIN. TECHNIQUE: : Ultrasound venous duplex lower extremity bilateral. Compression venous exam was performed using camp-scale, color Doppler, and spectral Doppler imaging. COMPARISON: None. FINDINGS: Sonographic imaging demonstrates the common femoral, deep femoral, superficial femoral, popliteal, posterior tibial, peroneal and greater saphenous veins to be fully compressible with normal color Doppler blood flow in both lower extremities. Remainder negative. IMPRESSION: No evidence for DVT in either leg. Dictated by Giuseppe Quispe MD @ Dec 21 2019 6:21PM Signed by Dr. Giuseppe Quispe @ Dec 21 2019 6:23PM
[2019-12-21] MEDS: PREDNISOLONE ACETATE 1% EYEBOTH SCH (20:34)
[2019-12-21] MEDS: CYCLOSPORINE EYEBOTH SCH (20:39)
[2019-12-21] MEDS ORDERED: prednisoLONE Acetate 1% Ophth Susp 5 ML Bottle EYEBOTH SCH (21:00)
[2019-12-21] MEDS ORDERED: Cyclosporine [Restasis] 1 DROP EYEBOTH SCH (21:00)
[2019-12-21] MEDS: NYSTATIN TOP SCH (21:28)
[2019-12-21] MEDS ORDERED: Nystatin Topical Powder 15 GM Bottle TOP SCH (22:00)
[2019-12-21] MEDS: Vancomycin 1.75 GM in Sodium Chloride 0.9% 500 ML IV SCH (23:31)
[2019-12-22] MEDS: NYSTATIN TOP SCH (06:22)
[2019-12-22 06:25] LABS: BLOOD UREA NITROGEN,BUN 14 mg/dL (7.0-18.0); CHLORIDE,CL 105 mmol/L (98-107); GLUCOSE RANDOM 106 mg/dL (74-106); POTASSIUM,K 3.6 mmol/L (3.5-5.1); SODIUM,NA 138 mmol/L (136-145)
[2019-12-22] MEDS: Vancomycin 1.75 GM in Sodium Chloride 0.9% 500 ML IV SCH (06:41)
[2019-12-22] MEDS ORDERED: Furosemide 20 MG Tab*PT OWN MED PO SCH (09:00)
[2019-12-22] MEDS ORDERED: METOPROLOL SUCCINATE 25 MG PO SCH (09:00)
[2019-12-22] MEDS ORDERED: Metoprolol Succinate 25 MG Tab.ER PO SCH (09:00)
[2019-12-22] MEDS ORDERED: Furosemide 20 MG Tab PO SCH ×4 (09:00→10:45)
[2019-12-22] MEDS: PREDNISOLONE ACETATE 1% EYEBOTH SCH (09:49)
[2019-12-22] MEDS: CYCLOSPORINE EYEBOTH SCH (09:50)
[2019-12-22] MEDS ORDERED: Furosemide 20 MG/2 ML VIAL ONE ×2 (10:07→10:40)
--- NOTE | 2019-12-22 11:11 | PCM.DCSUM1 ---
Discharge Summary - Hospital Course Brief History: This 34 year old female with pmh of coarctation of the aorta s/p repair, HTN, HLD, MR and recurrent cellulitis and venous stasis to BLE presented to the ED today with complaints of worsening redness to R lower leg after being started on Doxycycline and few days ago. The caregiver reports over the last few days, the redness to RLE has progressively worsened. No fevers at home, no new trauma to the right leg. No wound or drainage. They report this is what happened last time and she was sent home and became septic prior to previous admission. No new medical history since previous admission. Denies chest pain or SOB. NO feers or chills. No generalized malaise. No diarrhea, constipation or urinary troubles. No focal neurological deficit. In the ED mild leukocytosis noted, 11,420. Otherwise labwork unremarkable. CT of RLE obtained, revealing no abscess She was treated with vancomycin. She will be admitted observation for failed outpatient treatment of RLE cellulitis. Diagnosis: Stroke: No - Discharge Data Discharge Date: 12/22/19 Discharge Disposition: Home, Self-Care 01 Condition: Stable - Referral to Home Health Primary Care Physician: Yas Zuñiga MD - Discharge Diagnosis/Problem(s) (1) Cellulitis SNOMED Code(s): 524079927 ICD Code: L03.90 - CELLULITIS, UNSPECIFIED Status: Acute Current Visit: Yes Qualifiers: Site of cellulitis: extremity Site of cellulitis of extremity: lower extremity Laterality: unspecified laterality Qualified Code(s): L03.119 - Cellulitis of unspecified part of limb (2) HTN (hypertension) SNOMED Code(s): 72081425 ICD Code: I10 - ESSENTIAL (PRIMARY) HYPERTENSION Status: Chronic Current Visit: Yes (3) HLD (hyperlipidemia) SNOMED Code(s): 54410457 ICD Code: E78.5 - HYPERLIPIDEMIA, UNSPECIFIED Status: Chronic Current Visit: Yes (4) Coarctation of aorta SNOMED Code(s): 2597892 ICD Code: Q25.1 - COARCTATION OF AORTA Status: Chronic Current Visit: Yes (5) Status post aortic coarctation repair SNOMED Code(s): 097337915, 734354022, 040788202 ICD Code: Z87.74 - PERSONAL HISTORY OF CONGENITAL MALFORM OF HEART AND CIRC SYS Status: Chronic Current Visit: Yes (6) Obesity SNOMED Code(s): 197410706, 952392040 ICD Code: E66.9 - OBESITY, UNSPECIFIED Status: Chronic Current Visit: Yes (7) Venous stasis of lower extremity SNOMED Code(s): 160409797, 853023387 ICD Code: I87.8 - OTHER SPECIFIED DISORDERS OF VEINS Status: Chronic Current Visit: Yes (8) Cellulitis of right leg SNOMED Code(s): 529380140 ICD Code: L03.115 - CELLULITIS OF RIGHT LOWER LIMB Status: Acute Current Visit: No - Patient Summary/Data Hospital Course: Admitting Diagnoses: R LE cellulitis Discharge Diagnoses: R LE Cellulitis Radha was admitted secondary to RLE cellulitis and failed outpatient management. She was treated with Vancomycin. Today leukocytosis improved. DVT ruled out. Erythema significantly better today. She is pain free. We will discharge her home today with Orbactiv 1200 mg IV one dose, which will cover her for 10 days. She is to follow up with Dermatology tomorrow. This appears more venous stasis related than cellulitis, but site was red and warm yesterday. She is to see PCP in 1 week. She is to return to ED or clinic if concerns should arise. Plan discussed with mom at bedside. - Patient Instructions Diet: Heart Healthy Diet Activity: As Tolerated, Elevate Extremity, No Strenuous Activities Showering/Bathing: May Shower Notify Provider of: Fever, Increased Pain, Swelling and Redness, Drainage, Nausea and/or Vomiting - Discharge Plan *PRESCRIPTION DRUG MONITORING PROGRAM REVIEWED*: Not Applicable *COPY OF PRESCRIPTION DRUG MONITORING REPORT IN PATIENT ANALI: Not Applicable Prescriptions/Med Rec: Oritavancin Diphosphate [Orbactiv] 1,200 mg IV ONETIME #3 vial Home Medications: Home Meds Furosemide [Lasix] 20 mg PO DAILY 02/10/14 [History] medroxyPROGESTERone Acetate [Depo-Provera] 150 mg IM ASDIRECTED 02/10/14 [Hi story] cycloSPORINE [Restasis] 1 drop EYEBOTH BID 12/12/17 [History] prednisoLONE acetate [Pred Forte 1% Ophth Susp] 1 drop EYEBOTH BID 10/27/19 [History] Hydrocortisone [Hydrocortisone 1% Crm] 1 applic TOP ASDIRECTED 11/26/19 [History] Silver Sulfadiazine [Silvadene 1% Cream 20 GM] 2 applic TOP BID 11/26/19 [History] Metoprolol Succinate [Toprol XL] 25 mg PO DAILY 12/21/19 [History] Nystatin 1 applic TOP TID 12/21/19 [History] Oritavancin Diphosphate [Orbactiv] 1,200 mg IV ONETIME #3 vial 12/22/19 [Rx] Oxygen Therapy Mode: Room Air Patient Handouts: Oritavancin injection, Cellulitis, Adult, [id number] Referrals: Yas Zuñiga MD [Primary Care Provider] - 12/29/19 1:30 pm (Please arrive 15 minutes early with identification, insurance cards and your own facemask.) - Discharge Summary/Plan Comment DC Time >30 min.: No - Patient Data Vitals - Most Recent: Last Vital Signs Temp 96.9 F 12/22/19 08:00 Pulse 85 12/22/19 09:48 Resp 16 12/22/19 08:00 BP 120/88 12/22/19 09:48 Pulse Ox 96 12/22/19 08:00 Weight - Most Recent: 115 kg I&O - Last 24 hours: Intake & Output 12/21/19 12/22/19 12/22/19 22:59 06:59 14:59 Intake Total 1619 Output Total 800 Balance 819 Lab Results - Last 24 hrs: Laboratory Results - last 24 hr 12/21/19 12/21/19 12/21/19 Range/Units 13:10 13:10 13:10 WBC 11.42 H (4.0-11.0) K/uL RBC 4.84 (4.30-5.90) M/uL Hgb 12.7 (12.0-16.0) g/dL Hct 40.5 (36.0-46.0) % MCV 83.7 (80.0-98.0) fL MCH 26.2 L (27.0-32.0) pg MCHC 31.4 (31.0-37.0) g/dL RDW Std Deviation 41.2 (28.0-62.0) fl RDW Coeff of Suleman 14 (11.0-15.0) % Plt Count 335 (150-400) K/uL MPV 9.60 (7.40-12.00) fL Neut % (Auto) 59.4 (48.0-80.0) % Lymph % (Auto) 28.2 (16.0-40.0) % [place] % (Auto) 9.1 (0.0-15.0) % Eos % (Auto) 3.0 (0.0-7.0) % Baso % (Auto) 0.3 (0.0-1.5) % Neut # (Auto) 6.8 H (1.4-5.7) K/uL Lymph # (Auto) 3.2 H (0.6-2.4) K/uL [place] # (Auto) 1.0 H (0.0-0.8) K/uL Eos # (Auto) 0.3 (0.0-0.7) K/uL Baso # (Auto) 0.0 (0.0-0.1) K/uL Nucleated RBC % 0.0 /100WBC Nucleated RBCs # 0 K/uL Lactate 1.2 (0.20-2.00) mmol/L Sodium 141 (136-145) mmol/L Potassium 3.8 (3.5-5.1) mmol/L Chloride 105 (98-107) mmol/L Carbon Dioxide 27.5 (21.0-32.0) mmol/L BUN 18 (7.0-18.0) mg/dL Creatinine 0.9 (0.6-1.0) mg/dL Est Cr Clr Drug Dosing TNP Estimated GFR (MDRD) > 60.0 ml/min Glucose 102 (74-106) mg/dL Calcium 9.5 (8.5-10.1) mg/dL Total Bilirubin 0.3 (0.2-1.0) mg/dL AST 21 (15-37) IU/L ALT 31 (14-63) IU/L Alkaline Phosphatase 67 (46-116) U/L Total Protein 7.2 (6.4-8.2) g/dL Albumin 3.7 (3.4-5.0) g/dL Globulin 3.5 (2.6-4.0) g/dL Albumin/Globulin Ratio 1.1 (0.9-1.6) COVID-19 (ELENI) (NEGATIVE) 12/21/19 12/22/19 12/22/19 Range/Units 14:53 05:44 05:44 WBC 8.84 (4.0-11.0) K/uL RBC 4.73 (4.30-5.90) M/uL Hgb 12.6 (12.0-16.0) g/dL Hct 39.6 (36.0-46.0) % MCV 83.7 (80.0-98.0) fL MCH 26.6 L (27.0-32.0) pg MCHC 31.8 (31.0-37.0) g/dL RDW Std Deviation 41.6 (28.0-62.0) fl RDW Coeff of Suleman 14 (11.0-15.0) % Plt Count 322 (150-400) K/uL MPV 9.50 (7.40-12.00) fL Neut % (Auto) 65.9 (48.0-80.0) % Lymph % (Auto) 18.8 (16.0-40.0) % [place] % (Auto) 10.6 (0.0-15.0) % Eos % (Auto) 4.4 (0.0-7.0) % Baso % (Auto) 0.3 (0.0-1.5) % Neut # (Auto) 5.8 H (1.4-5.7) K/uL Lymph # (Auto) 1.7 (0.6-2.4) K/uL [place] # (Auto) 0.9 H (0.0-0.8) K/uL Eos # (Auto) 0.4 (0.0-0.7) K/uL Baso # (Auto) 0.0 (0.0-0.1) K/uL Nucleated RBC % 0.0 /100WBC Nucleated RBCs # 0 K/uL Lactate (0.20-2.00) mmol/L Sodium 138 (136-145) mmol/L Potassium 3.6 (3.5-5.1) mmol/L Chloride 105 (98-107) mmol/L Carbon Dioxide 26.0 (21.0-32.0) mmol/L BUN 14 (7.0-18.0) mg/dL Creatinine 1.0 (0.6-1.0) mg/dL Est Cr Clr Drug Dosing TNP Estimated GFR (MDRD) > 60.0 ml/min Glucose 106 (74-106) mg/dL Calcium 8.8 (8.5-10.1) mg/dL Total Bilirubin (0.2-1.0) mg/dL AST (15-37) IU/L ALT (14-63) IU/L Alkaline Phosphatase (46-116) U/L Total Protein (6.4-8.2) g/dL Albumin (3.4-5.0) g/dL Globulin (2.6-4.0) g/dL Albumin/Globulin Ratio (0.9-1.6) COVID-19 (ELENI) NEGATIVE (NEGATIVE) Med Orders - Current: Current Medications Acetaminophen (Tylenol) 650 mg PO Q4H PRN PRN Reason: Pain (Mild 1-3)/fever Hydrocodone Bitart/Acetaminophen (Stokes 325-5 Mg) 1 tab PO Q4H PRN PRN Reason: Pain (moderate 4-6) Last Admin: 12/22/19 06:21 Dose: 1 tab Documented by: Docusate Sodium (Colace) 100 mg PO BID PRN PRN Reason: Constipation Enoxaparin Sodium (Lovenox) 40 mg SUBCUT Q24H [facility] Last Admin: 12/21/19 17:31 Dose: 40 mg Documented by: Furosemide (Lasix) 20 mg PO DAILY [facility] Last Admin: 12/22/19 10:53 Dose: 20 mg Documented by: Vancomycin HCl 1.75 gm/ Sodium (Chloride) 500 mls @ 250 mls/hr IV Q8H [facility] Last Admin: 12/22/19 06:41 Dose: 250 mls/hr Documented by: Metoprolol Succinate (Toprol Xl) 25 mg PO DAILY [facility] Last Admin: 12/22/19 09:48 Dose: 25 mg Documented by: Ondansetron HCl (Zofran) 4 mg IVPUSH Q4H PRN PRN Reason: Nausea Nystatin Topical Powder 30 Gm Bottle* Pt Own Med* 0 each TOP TID [facility] Last Admin: 12/22/19 06:22 Dose: 1 each Documented by: Cyclosporine [ Restasis] *Pt Own Med* 0 each EYEBOTH BID [facility] Last Admin: 12/22/19 09:50 Dose: 1 each Documented by: Prednisolone Acetate (Pred Forte 1% Ophth Susp) 0 ml EYEBOTH BID [facility] Last Admin: 12/22/19 09:49 Dose: 1 drop Documented by: Vancomycin HCl (Pharmacy To Dose - Vancomycin) 1 dose .XX ASDIRECTED [facility] Discontinued Medications Furosemide (Lasix) 20 mg PO DAILY [facility] Furosemide (Lasix) 20 mg PO DAILY [facility] Last Admin: 12/22/19 10:32 Dose: Not Given Documented by: Furosemide (Lasix) 20 mg PO DAILY [facility] Last Admin: 12/22/19 10:32 Dose: Not Given Documented by: Furosemide (Lasix) Confirm Administered Dose 40 mg .ROUTE .STK-MED ONE Stop: 12/22/19 10:08 Last Admin: 12/22/19 10:45 Dose: Not Given Documented by: Furosemide (Lasix) 20 mg PO DAILY [facility] Furosemide (Lasix) Confirm Administered Dose 20 mg .ROUTE .STK-MED ONE Stop: 12/22/19 10:41 Last Admin: 12/22/19 10:45 Dose: Not Given Documented by: Vancomycin HCl 1 gm/ Sodium (Chloride) 250 mls @ 166 mls/hr IV ONETIME ONE Stop: 12/21/19 15:32 Last Admin: 12/21/19 14:56 Dose: 166 mls/hr Documented by: Sodium Chloride (Normal Saline) 1,000 mls @ 125 mls/hr IV Q8H [facility] Stop: 12/22/19 00:14 Last Admin: 12/21/19 17:29 Dose: 125 mls/hr Documented by: Iopamidol (Isovue Multipack-370 (76%)) 100 ml IVPUSH ONETIME STA Stop: 12/21/19 14:58 Last Admin: 12/21/19 14:57 Dose: 100 ml Documented by: Metoprolol Succinate (Toprol Xl) 25 mg PO DAILY [facility] Nystatin (Nystop) 0 gm TOP TID [facility] Cyclosporine [ (Restasis] 1 Drop) 1 each EYEBOTH BID [facility] Prednisolone Acetate (Pred Forte 1% Ophth Susp) 0 ml EYEBOTH BID [facility] - Exam General: Reports: Alert, Oriented, Cooperative, No Acute Distress Lungs: Reports: Clear to Auscultation, Normal Respiratory Effort Cardiovascular: Reports: Regular Rate, Regular Rhythm GI/Abdominal Exam: Normal Bowel Sounds, Soft, Non-Tender, No Organomegaly Extremities: Normal Inspection, Normal Range of Motion, Non-Tender, No Pedal Edema. No: Redness Skin: Reports: Other (yuriy venous stasis skin changes bilaterally to lower legs) Psy/Mental Status: Reports: Alert, Normal Affect, Normal Mood
== END 2019-12-22 12:17 | disposition home or self-care (01) ==
LOC: MW.ED 12:35 → MW.MS 15:32
PROVIDERS: ADMIT Student in an Organized Health Care Education/Training Program; ATTEND Student in an Organized Health Care Education/Training Program
DX: L03.115 Cellulitis of right lower limb (principal); L03.116 Cellulitis of left lower limb; I10 Essential (primary) hypertension; I87.8 Other specified disorders of veins; E78.5 Hyperlipidemia, unspecified; G47.30 Sleep apnea, unspecified; E66.9 Obesity, unspecified; Z87.74 Personal history of (corrected) congenital malformations of heart and circulatory system; Z98.890 Other specified postprocedural states; Z79.899 Other long term (current) drug therapy; Z91.048 Other nonmedicinal substance allergy status; Z88.2 Allergy status to sulfonamides; Z91.040 Latex allergy status; Z20.828 Contact with and (suspected) exposure to other viral communicable diseases
CPT/HCPCS: 36415; 73701; 80048; 80053; 83605; 85025; 87635; 93970; 96361; 96365; 96366; 96372; 99284; A9270; G0378; J1650; J3370; J7030; J7040; J7050; Q9967; 99283; U0002

== ENCOUNTER 2020-01-22 09:59 | Emergency (ER) | payer MEDICAID, OTHER ==
--- NOTE | 2020-01-22 11:39 | CR ---
Right tibia and fibula: 2 views of the right tibia and fibula were obtained. Comparison: No previous tibia or fibula radiographic study, previous CT right tibia and fibula study of 12/21/19. Findings: Mild medial joint space narrowing noted within the knee. 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 Soft tissue indentation is seen which correlates to CT finding as previously described. No acute fracture or acute erosions are seen. Impression: 1. Findings as noted above. 2. No acute bony abnormality is appreciated. Diagnostic code #2 This report was dictated in MDT
[2020-01-22 11:42] LABS: BLOOD UREA NITROGEN,BUN 15 mg/dL (7.0-18.0); CARBON DIOXIDE,CO2 26.1 mmol/L (21.0-32.0); CHLORIDE,CL 104 mmol/L (98-107); GLUCOSE RANDOM 101 mg/dL (74-106); POTASSIUM,K 3.7 mmol/L (3.5-5.1); SODIUM,NA 140 mmol/L (136-145)
--- NOTE | 2020-01-22 12:01 | EDM.PDOC ---
ED HPI GENERAL MEDICAL PROBLEM - General Chief Complaint: Lower Extremity Injury/Pain Stated Complaint: FT FRONT ANKLE PAIN Time Seen by Provider: 01/22/20 10:06 Source of Information: Reports: Patient History Limitations: Reports: No Limitations - History of Present Illness INITIAL COMMENTS - FREE TEXT/NARRATIVE: HISTORY AND PHYSICAL: History of present illness: Patient is a 34-year-old female who presents to the emergency room today with complaints of right lower extremity infection. Patient has a history of lower extremity cellulitis/venous stasis and states she has had frequent cellulitis infections in the past. Patient states that her symptoms just started this morning so she came to the ED to be evaluated for this sooner rather than waiting for the infection to worsen. Patient states other than pain of the area that is infected, she feels per her usual self. Patient states that last time she had waited for a while before coming in and the infection was worse than it is today and states that she had to be hospitalized for IV antibiotics. Patient states she wishes to have a trial of oral antibiotics at home. Patient denies any trauma or injury to the leg. 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 Denies any other symptoms or concerns. Patient denies fever, chills, chest pain, shortness of breath, or cough. Denies headache, neck stiff ness, change in vision, syncope, or near syncope. Denies nausea, vomiting, abdominal pain, diarrhea, constipation, or dysuria. Has not noted any blood in urine or stool. Patient has been eating and drinking appropriately. Review of systems: As per history of present illness and below otherwise all systems reviewed and negative. Past medical history: As per history of present illness and as reviewed below otherwise nonc ontributory. Surgical history: As per history of present illness and as reviewed below otherwise noncontributory. Social history: See social history for further information Family history: As per history of present illness and as reviewed below otherwise noncontributory. Physical exam: General: Patient is alert, oriented, and in no acute distress. Patient sitting comfortably on exam table. HEENT: Atraumatic, normocephalic, pupils equal and reactive bilaterally, negative for conjunctival pallor or scleral icterus, mucous membranes moist, TMs normal bilaterally, throat clear, neck supple, nontender, trachea midline. No drooling or trismus noted. No meningeal signs. No hot potato voice noted. Lungs: Clear to auscultation, breath sounds equal bilaterally, chest nontender. Heart: S1S2, regular rate and rhythm without overt murmur Abdomen: Soft, nondistended, nontender. Negative for masses or hepatosplenomegaly. Negative for costovertebral tenderness. Pelvis: Stable nontender. Genitourinary: Deferred. Rectal: Deferred. Skin: Intact, warm, dry. No lesions or rashes noted. Extremities: There is an area of erythematous cellulitis over the right kerr. There is an indentation/scarring of this area with a small amount of clear/non purulent drainage of the scarred area without evidence of abscess. Patient has full range of motion of the complete right lower extremity without pain or difficulty. Dorsalis pedis and posterior tibial pulses are grossly intact of the right lower extremity with capillary refill less than 2 seconds. Otherwise, atraumatic, negative for cords or calf pain. Neurovascular unremarkable. Neuro: Awake, alert, oriented. Cranial nerves II through XII unremarkable. Cerebellum unremarkable. Motor and sensory unremarkable throughout. Exam nonfocal. Notes: The area of infection was outlined using a surgical marker and thoroughly discussed with patient to monitor for signs of improvement versus spreading infection. Patient is adamant about trial of antibiotics at home and states she will return to the ED if this does not improve. Signs and symptoms that would prompt return to the ED thoroughly discussed with patient. Discussed importance for follow-up with a primary care provider. Voices understanding and is agreeable to plan of care. Denies any further questions or concerns at this time. Diagnostics: CBC, CMP, Tib/Fib XR Therapeutics: None Prescription: Amoxicillin, doxycycline Impression: Right lower extremity cellulitis Plan: 1. Take medication as prescribed. Continue to monitor for improvement or spreading infection as discussed. Return to the ED in 24 to 48 hours if symptoms are not improving as discussed. 2. You can alternate ibuprofen and Tylenol as directed for pain and discomfort. Follow-up with a primary care provider as discussed. Return to the ED as needed and as discussed. Definitive disposition and diagnosis as appropriate pending reevaluation and review of above. right leg Pain Score (Numeric/FACES): 3 - Related Data Allergies Allergy/AdvReac Type Severity Reaction Status Date / Time adhesive Allergy Rash Verified 01/22/20 10:24 cephalexin [From Keflex] Allergy Swelling Verified 01/22/20 10:24 latex Allergy Redness Verified 01/22/20 10:24 Sulfa (Sulfonamide Allergy Airway Verified 01/22/20 10:24 Antibiotics) Tightness Home Meds: Home Meds Furosemide [Lasix] 20 mg PO DAILY 02/10/14 [History] medroxyPROGESTERone Acetate [Depo-Provera] 150 mg IM ASDIRECTED 02/10/14 [History] cycloSPORINE [Restasis] 1 drop EYEBOTH BID 12/12/17 [History] prednisoLONE acetate [Pred Forte 1% Ophth Susp] 1 drop EYEBOTH BID 10/27/19 [History] Hydrocortisone [Hydrocortisone 1% Crm] 1 applic TOP ASDIRECTED 11/26/19 [History] Metoprolol Succinate [Toprol XL] 25 mg PO DAILY 12/21/19 [History] Amoxicillin 500 mg PO BID 10 Days #20 tablet 01/22/20 [Rx] Doxycycline [Vibramycin] 100 mg PO BID 10 Days #20 cap 01/22/20 [Rx] Past Medical History HEENT History: Reports: Otitis Media, Sinusitis Cardiovascular History: Reports: Blood Clots/VTE/DVT, Hypertension, Other (See Below) Other Cardiovascular History: coarctation of the aorta Respiratory History: Reports: Sleep Apnea, Other (See Below) Other Respiratory History: respiratory difficulties Gastrointestinal History: Reports: None Genitourinary History: Reports: None TALENT ENGINEER History: Reports: None Musculoskeletal History: Reports: None Neurological History: Reports: Other (See Below) Other Neuro History: down syndrome Psychiatric History: Reports: None Endocrine/Metabolic History: Reports: None Hematologic History: Reports: None Immunologic History: Reports: None Oncologic (Cancer) History: Reports: None Dermatologic History: Reports: Cellulitis, Other (See Below) Other Dermatologic History: Ulceration right leg 2009- wound cares & [facility] - Infectious Disease History Infectious Disease History: Reports: Chicken Pox - Past Surgical History Head Surgeries/Procedures: Reports: None HEENT Surgical History: Reports: Adenoidectomy, Cataract Surgery, Myringotomy w Tube(s), Tonsillectomy, Other (See Below) Other HEENT Surgeries/Procedures: ear sx, L corneal transplant Cardiovascular Surgical History: Reports: Other (See Below) Other Cardiovascular Surgeries/Procedures: heart sx for coarctation Respiratory Surgical History: Reports: None GI Surgical History: Reports: Cholecystectomy Female Surgical History: Reports: None Endocrine Surgical History: Reports: None Neurological Surgical History: Reports: None Oncologic Surgical History: Reports: None Dermatological Surgical History: Reports: None Social & Family History - Family History Family Medical History: Noncontributory - Tobacco Use Smoking Status *Q: Never Smoker - Caffeine Use Caffeine Use: Reports: None - Recreational Drug Use Recreational Drug Use: No - Living Situation & Occupation Living situation: Reports: Other (shelter) Review of Systems - Review of Systems Review Of Systems: Comprehensive ROS is negative, except as noted in HPI. ED EXAM, GENERAL - Physical Exam Exam: See Below (see dictation) Course - Vital Signs Last Recorded V/S: Last Vital Signs Temp 96.8 F L 01/22/20 10:20 Pulse 99 01/22/20 10:20 Resp 16 01/22/20 10:20 BP 136/93 H 01/22/20 10:20 Pulse Ox 95 01/22/20 10:20 - Orders/Labs/Meds Labs: Laboratory Tests 01/22/20 01/22/20 Range/Units 11:05 11:05 WBC 8.42 (4.0-11.0) K/uL RBC 4.95 (4.30-5.90) M/uL Hgb 13.1 (12.0-16.0) g/dL Hct 41.1 (36.0-46.0) % MCV 83.0 (80.0-98.0) fL MCH 26.5 L (27.0-32.0) pg MCHC 31.9 (31.0-37.0) g/dL RDW Std Deviation 41.7 (28.0-62.0) fl RDW Coeff of Suleman 14 (11.0-15.0) % Plt Count 327 (150-400) K/uL MPV 9.40 (7.40-12.00) fL Neut % (Auto) 63.2 (48.0-80.0) % Lymph % (Auto) 24.0 (16.0-40.0) % Caroline % (Auto) 8.9 (0.0-15.0) % Eos % (Auto) 3.7 (0.0-7.0) % Baso % (Auto) 0.2 (0.0-1.5) % Neut # (Auto) 5.3 (1.4-5.7) K/uL Lymph # (Auto) 2.0 (0.6-2.4) K/uL Caroline # (Auto) 0.8 (0.0-0.8) K/uL Eos # (Auto) 0.3 (0.0-0.7) K/uL Baso # (Auto) 0.0 (0.0-0.1) K/uL Nucleated RBC % 0.0 /100WBC Nucleated RBCs # 0 K/uL Sodium 140 (136-145) mmol/L Potassium 3.7 (3.5-5.1) mmol/L Chloride 104 (98-107) mmol/L Carbon Dioxide 26.1 (21.0-32.0) mmol/L BUN 15 (7.0-18.0) mg/dL Creatinine 0.8 (0.6-1.0) mg/dL Est Cr Clr Drug Dosing TNP Estimated GFR (MDRD) > 60.0 ml/min Glucose 101 (74-106) mg/dL Calcium 9.2 (8.5-10.1) mg/dL Total Bilirubin 0.4 (0.2-1.0) mg/dL AST 26 (15-37) IU/L ALT 38 (14-63) IU/L Alkaline Phosphatase 64 (46-116) U/L Total Protein 7.4 (6.4-8.2) g/dL Albumin 3.9 (3.4-5.0) g/dL Globulin 3.5 (2.6-4.0) g/dL Albumin/Globulin Ratio 1.1 (0.9-1.6) Departure - Departure Time of Disposition: 12:01 Disposition: Home, Self-Care 01 Clinical Impression: Cellulitis Qualifiers: Site of cellulitis: extremity Site of cellulitis of extremity: lower extremity Laterality: right Qualified Code(s): L03.115 - Cellulitis of right lower limb - Discharge Information Prescriptions: Amoxicillin 500 mg PO BID 10 Days #20 tablet Doxycycline [Vibramycin] 100 mg PO BID 10 Days #20 cap Referrals: Yas Zuñiga MD [Primary Care Provider] - Additional Instructions: The following information is given to patients seen in the emergency department who are being discharged to home. This information is to outline your options for follow-up care. We provide all patients seen in our emergency department with a follow-up referral. The need for follow-up, as well as the timing and circumstances, are variable d epending upon the specifics of your emergency department visit. If you don't have a primary care physician on staff, we will provide you with a referral. We always advise you to contact your personal physician following an emergency department visit to inform them of the circumstance of the visit and for follow-up with them and/or the need for any referrals to a consulting specialist. The emergency department will also refer you to a specialist when appropriate. This referral assures that you have the opportunity for follow-up care with a specialist. All of these measure are taken in an effort to provide you with optimal care, which includes your follow-up. Under all circumstances we always encourage you to contact your private physician who remains a resource for coordinating your care. When calling for follow-up care, please make the office aware that this follow-up is from your recent emergency room visit. If for any reason you are refused follow-up, please contact the [facility] Emergency Department at and asked to speak to the emergency department charge nurse. [facility] [address] [place] [id number] [place] [address] 1. Take medication as prescribed. Continue to monitor for improvement or spreading infection as discussed. Return to the ED in 24 to 48 hours if symptoms are not improving as discussed. 2. You can alternate ibuprofen and Tylenol as directed for pain and discomfort. Follow-up with a primary care provider as discussed. Return to the ED as needed and as discussed. Sepsis Event Note (ED) - Evaluation Sepsis Screening Result: No Definite Risk - Focused Exam Vital Signs: Vital Signs Temp Pulse Resp BP Pulse Ox 01/22/20 10:20 96.8 F L 99 16 136/93 H 95
== END 2020-01-22 12:10 | disposition home or self-care (01) ==
LOC: MW.ED 09:59
DX: L03.115 Cellulitis of right lower limb (principal); I10 Essential (primary) hypertension; Z90.49 Acquired absence of other specified parts of digestive tract; Z88.2 Allergy status to sulfonamides; Z88.1 Allergy status to other antibiotic agents; Z91.040 Latex allergy status; Z91.09 Other allergy status, other than to drugs and biological substances; Z79.899 Other long term (current) drug therapy
CPT/HCPCS: 36415; 73590-26-RT; 73590-RT; 80053; 85025; 99283; 99283-25

== ENCOUNTER 2020-01-29 09:16 | Emergency (ER) | payer MEDICAID, OTHER ==
--- NOTE | 2020-01-29 09:20 | EDM.PDOC ---
ED HPI GENERAL MEDICAL PROBLEM - General Stated Complaint: INFECTION ON LEG Time Seen by Provider: 01/29/20 09:25 Source of Information: Reports: Patient History Limitations: Reports: No Limitations - History of Present Illness INITIAL COMMENTS - FREE TEXT/NARRATIVE: 34-year-old female presents with worsening cellulitis to the right leg since yesterday. She is currently taking amoxicillin and doxycycline, she has been on her feet more due to wetting preparation. She notes worsening redness but denies fever, warmth, pain. ROS: A 10-point review of systems, other than pertinent positives and negatives as stated per HPI, is otherwise negative Past medical history: No additional pertinent history Past Surgical history: No additional pertinent history Social history: No additional pertinent history Family history: No additional pertinent history PHYSICAL EXAM General: AOx4, GCS = 15, No distress HEENT: dry mucous membrane Neck: supple, no meningismus, no Kernig or Brudzinski Cardiac: S1S2 RRR Respiratory: CTAB, no crackles or rales, no wheezing Abdomen: Soft, nontender, no rebound or guarding, nondistended, no pulsatile mass. Back: nontender Musculoskeletal: NVI distally, right distal tib-fib erythema, no warmth or tenderness Neuro: No focal deficits, CN 2 - 12 WNL. - Related Data Allergies Allergy/AdvReac Type Severity Reaction Status Date / Time adhesive Allergy Rash Verified 01/22/20 10:24 cephalexin [From Keflex] Allergy Swelling Verified 01/22/20 10:24 latex Allergy Redness Verified 01/22/20 10:24 Sulfa (Sulfonamide Allergy Airway Verified 01/22/20 10:24 Antibiotics) Tightness Home Meds: Home Meds Furosemide [Lasix] 20 mg PO DAILY 02/10/14 [History] medroxyPROGESTERone Acetate [Depo-Provera] 150 mg IM ASDIRECTED 02/10/14 [History] cycloSPORINE [Restasis] 1 drop EYEBOTH BID 12/12/17 [History] prednisoLONE acetate [Pred Forte 1% Ophth Susp] 1 drop EYEBOTH BID 10/27/19 [History] Hydrocortisone [Hydrocortisone 1% Crm] 1 applic TOP ASDIRECTED 11/26/19 [History] Metoprolol Succinate [Toprol XL] 25 mg PO DAILY 12/21/19 [History] Amoxicillin 500 mg PO BID 10 Days #20 tablet 01/22/20 [Rx] Doxycycline [Vibramycin] 100 mg PO BID 10 Days #20 cap 01/22/20 [Rx] Past Medical History HEENT History: Reports: Otitis Media, Sinusitis Cardiovascular History: Reports: Blood Clots/VTE/DVT, Hypertension, Other (See Below) Other Cardiovascular History: coarctation of the aorta Respiratory History: Reports: Sleep Apnea, Other (See Below) Other Respiratory History: respiratory difficulties Gastrointestinal History: Reports: None Genitourinary History: Reports: None [employer]ER History: Reports: None Musculoskeletal History: Reports: None Neurological History: Reports: Other (See Below) Other Neuro History: down syndrome Psychiatric History: Reports: None Endocrine/Metabolic History: Reports: None Hematologic History: Reports: None Immunologic History: Reports: None Oncologic (Cancer) History: Reports: None Dermatologic History: Reports: Cellulitis, Other (See Below) Other Dermatologic History: Ulceration right leg 2009- wound cares & [facility] - Infectious Disease History Infectious Disease History: Reports: Chicken Pox - Past Surgical History Head Surgeries/Procedures: Reports: None HEENT Surgical History: Reports: Adenoidectomy, Cataract Surgery, Myringotomy w Tube(s), Tonsillectomy, Other (See Below) Other HEENT Surgeries/Procedures: ear sx, L corneal transplant Cardiovascular Surgical History: Reports: Other (See Below) Other Cardiovascular Surgeries/Procedures: heart sx for coarctation Respiratory Surgical History: Reports: None GI Surgical History: Reports: Cholecystectomy Female Surgical History: Reports: None Endocrine Surgical History: Reports: None Neurological Surgical History: Reports: None Oncologic Surgical History: Reports: None Dermatological Surgical History: Reports: None Social & Family History - Family History Family Medical History: Noncontributory - Caffeine Use Caffeine Use: Reports: None - Living Situation & Occupation Living situation: Reports: Other (care home) ED ROS GENERAL - Review of Systems Review Of Systems: Comprehensive ROS is negative, except as noted in HPI. (see dictation) ED EXAM, GENERAL - Physical Exam Exam: See Below (see dictation) Course - Orders/Labs/Meds Orders: Active Orders 24 hr Category Date Time Status Clindamycin Phosphate in D5W [Cleocin in D5W] 600 mg Med 01/29/20 09:28 Ordered Premix Bag 1 bag IV ONETIME - Re-Assessments/Exams Free Text/Narrative Re-Assessment/Exam: 01/29/20 09:50 After IV clindamycin in the ER, she is currently stable for discharge. I performed a repeat exam and did not appreciate new abnormal findings. Patient exhibits normal vital signs and has a normal gait on road test. I advised the patient to return to the ER for reevaluation if symptoms worsened, including fever, worsening pain, or any other worrisome symptoms. I instructed the patient to follow up with their PCP within 2-3 days. MEDICAL DECISION MAKING: I reviewed the patients past medical records, lab and radiographic findings. I discussed the case with the patient. My differential diagnosis included: Cellulitis. No fever or tachycardia to suggest sirs or sepsis, I do not suspect need for blood work. Departure - Departure Time of Disposition: 09:32 Disposition: Home, Self-Care 01 Condition: Good Clinical Impression: Cellulitis Qualifiers: Site of cellulitis: extremity Site of cellulitis of extremity: lower extremity Laterality: right Qualified Code(s): L03.115 - Cellulitis of right lower limb - Discharge Information *PRESCRIPTION DRUG MONITORING PROGRAM REVIEWED*: Not Applicable *COPY OF PRESCRIPTION DRUG MONITORING REPORT IN PATIENT ANALI: Not Applicable Instructions: Cellulitis, Adult Referrals: Yas Zuñiga MD [Primary Care Provider] - 3 Days Additional Instructions: The need for follow-up, as well as the timing and circumstances, are variable depending upon the specifics of your emergency department visit. If you don't have a primary care physician on staff, we will provide you with a referral. We always advise you to contact your personal physician following an emergency department visit to inform them of the circumstance of the visit and for follow-up with them and/or the need for any referrals to a consulting specialist. The emergency department will also refer you to a specialist when appropriate. This referral assures that you have the opportunity for follow-up care with a specialist. All of these measure are taken in an effort to provide you with optimal care, which includes your follow-up. Under all circumstances we always encourage you to contact your private physician who remains a resource for coordinating your care. When calling for follow-up care, please make the office aware that this follow-up is from your recent emergency room visit. If for any reason you are refused follow-up, please contact the [facility] Emergency Department at and asked to speak to the emergency department charge nurse. If you do not have a primary care doctor, please follow up with the clinics below within 3-5 days. [facility] [address] [place] [id number] [place] [address] - My Orders Last 24 Hours: My Active Orders 01/29/20 09:28 Clindamycin Phosphate in D5W [Cleocin in D5W] 600 mg Premix Bag 1 bag IV ONET TISHA - Assessment/Plan Last 24 Hours: My Active Orders 01/29/20 09:28 Clindamycin Phosphate in D5W [Cleocin in D5W] 600 mg Premix Bag 1 bag IV ONETIME
[2020-01-29] MEDS ORDERED: Clindamycin Phosphate in D5W 600 MG in Premix Bag 1 BAG IV ONE ×2 (09:28)
== END 2020-01-29 10:26 | disposition home or self-care (01) ==
LOC: MW.ED 09:16
DX: L03.115 Cellulitis of right lower limb (principal); I10 Essential (primary) hypertension; Z91.048 Other nonmedicinal substance allergy status; Z88.1 Allergy status to other antibiotic agents; Z88.2 Allergy status to sulfonamides; Z91.040 Latex allergy status; Z79.899 Other long term (current) drug therapy
CPT/HCPCS: 96365; 99283; J3490

== ENCOUNTER 2020-02-13 14:03 | Emergency (ER) | payer MEDICAID ==
[2020-02-13] MEDS ORDERED: diphenhydrAMINE 50 MG/ML SDV IVPUSH ONE (15:30)
[2020-02-13] MEDS ORDERED: methylPREDNISolone Sodium Succinate 125 MG/2 ML SDV IVPUSH ONE (15:30)
[2020-02-13 17:16] LABS: BLOOD UREA NITROGEN,BUN 22 mg/dL (7.0-18.0); CARBON DIOXIDE,CO2 26.5 mmol/L (21.0-32.0); CHLORIDE,CL 104 mmol/L (98-107); GLUCOSE RANDOM 97 mg/dL (74-106); POTASSIUM,K 3.9 mmol/L (3.5-5.1); SODIUM,NA 140 mmol/L (136-145)
[2020-02-13] MEDS ORDERED: methylPREDNISolone Sodium Succinate 125 MG/2 ML SDV ONE (18:00)
[2020-02-13] MEDS ORDERED: diphenhydrAMINE 50 MG/ML SDV ONE (18:00)
[2020-02-13] MEDS ORDERED: Iopamidol 755 MG/ML 500 ML Multipack Bottle IVPUSH ONE (18:30)
--- NOTE | 2020-02-13 18:41 | EDM.PDOC ---
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 Patient has been seen in the ED multiple times since September of this year for frequent cellulitis infections of her right lower extremity. She has been placed on antibiotics numerous times for this and has improvement of her symptoms for short amount of time before her symptoms return. Patient states that she saw her primary care provider approximately 1 week ago and was started again on levofloxacin after a wound culture and is still currently on these antibiotics despite having worsening symptoms over the past couple days of her cellulitis. Patient states she is in the process of getting RADHA hose but is having a complication and being able to get these according to patient. Patient was seen in the ED on 02/03/2020 and was instructed to have daily Telfa dressings with Amando wrap, was placed in PT for lymphedema massage starting in March, then will get remeasured for RADHA stockings. Patient is also on daily Lasix. Patient had a wound culture done at this visit and was later called to get started on levofloxacin after cultures came back with positive staph aureus infection. Patient denies fever, chills, chest pain, shortness of breath, or cough. Denies headache, neck stiff ness, change in vision, syncope, or near syncope. Denies nausea, vomiting, abdominal pain, diarrhea, constipation, or dysuria. Has not noted any blood in urine or stool. Patient has been eating and drinking appropriately. Review of systems: As per history of present illness and below otherwise all systems reviewed and negative. Past medical history: As per history of present illness and as reviewed below otherwise noncontributory. Surgical history: As per history of present illness and as reviewed below otherwise noncontributory. Social history: See social history for further information Family history: As per history of present illness and as reviewed below otherwise noncontributory. Physical exam: General: Patient is alert, oriented, and in no acute distress. Patient sitting comfortably on exam table. HEENT: Atraumatic, normocephalic, pupils equal and reactive bilaterally, negative for conjunctival pallor or scleral icterus, mucous membranes moist, TMs normal bilaterally, throat clear, neck supple, nontender, trachea midline. No drooling or trismus noted. No meningeal signs. No hot potato voice noted. Lungs: Clear to auscultation, breath sounds equal bilaterally, chest nontender. Heart: S1S2, regular rate and rhythm without overt murmur Abdomen: Soft, nondistended, nontender. Negative for masses or hepato splenomegaly. Negative for costovertebral tenderness. Pelvis: Stable nontender. Genitourinary: Deferred. Rectal: Deferred. Skin: See Extremities. Otherwise, Intact, warm, dry. No lesions or rashes noted. Extremities: There is a 2cm ulcer of the medial right tibia area with surrounding cellulitis, this area is warm to the touch. There is also an urticarial rash surrounding the area of cellulitis that is pruritic. No drainage from the ulcerated area. Patient has full range of motion of the complete that pain is difficulty. Patient does have reflux edema of bilateral lower extremities to the knees. Otherwise, atraumatic, negative for cords or calf pain. Neurovascular unremarkable. Neuro: Awake, alert, oriented. Cranial nerves II through XII unremarkable. Cerebellum unremarkable. Motor and sensory unremarkable throughout. Exam nonfocal. Notes: Dr. Saleh directly involved in patient care. The area of cellulitis does appear to have an overlying rash that is pruritic and does appear to have some allergic component to it. Will switch antibiotic based off susceptibility based off of culture of wound from the clinic with close instruction to have proper wound management and to follow up with her PCP/wound clinic. Augmentin shows susceptible from wound culture. Patient has taken this safely in the past. Signs and symptoms that would prompt return to the ED thoroughly discussed with patient. Discussed importance for follow-up with the wound clinic and her primary care provider Voices understanding and is agreeable to plan of care. Denies any further questions or concerns at this time. Diagnostics: CBC, CMP, lower extremity CT w cont Therapeutics: None Prescription: Augmentin Impression: Chronic venous stasis ulcer with surrounding cellulitis Dermatitis, r/o allergic Plan: 1. While symptomatic continue to routinely take Benadryl. Stop taking Levoquin and start taking Augmentin medication as prescribed. 2. Please follow up with your Primary care doctor and wound care clinic. Return to the ED as needed and as discussed. Definitive disposition and diagnosis as appropriate pending reevaluation and review of above. - Related Data Allergies Allergy/AdvReac Type Severity Reaction Status Date / Time adhesive Allergy Rash Verified 02/13/20 14:17 cephalexin [From Keflex] Allergy Swelling Verified 02/13/20 14:17 latex Allergy Redness Verified 02/13/20 14:17 Sulfa (Sulfonamide Allergy Airway Verified 02/13/20 14:17 Antibiotics) Tightness Home Meds: Home Meds Furosemide [Lasix] 20 mg PO DAILY 02/10/14 [History] medroxyPROGESTERone Acetate [Depo-Provera] 150 mg IM ASDIRECTED 02/10/14 [History] cycloSPORINE [Restasis] 1 drop EYEBOTH BID 12/12/17 [History] prednisoLONE acetate [Pred Forte 1% Ophth Susp] 1 drop EYEBOTH BID 10/27/19 [History] Metoprolol Succinate [Toprol XL] 25 mg PO DAILY 12/21/19 [History] Amoxicillin/Potassium Clav [Augmentin 875-125 Tablet] 1 each PO BID 7 Days #14 tablet 02/13/20 [Rx] Levofloxacin 1 tab PO DAILY 02/13/20 [History] Triamcinolone Acetonide [Triamcinolone Acetonide 0.025%] 1 dose TOP BID 02/13/20 [History] Past Medical History HEENT History: Reports: Otitis Media, Sinusitis Cardiovascular History: Reports: Blood Clots/VTE/DVT, Hypertension, Other (See Below) Other Cardiovascular History: coarctation of the aorta Respiratory History: Reports: Sleep Apnea, Other (See Below) Other Respiratory History: respiratory difficulties Gastrointestinal History: Reports: None Genitourinary History: Reports: None GROUP FITNESS MANAGER History: Reports: None Musculoskeletal History: Reports: None Neurological History: Reports: Other (See Below) Other Neuro History: down syndrome Psychiatric History: Reports: None Endocrine/Metabolic History: Reports: None Hematologic History: Reports: None Immunologic History: Reports: None Oncologic (Cancer) History: Reports: None Dermatologic History: Reports: Cellulitis, Other (See Below) Other Dermatologic History: Ulceration right leg 2009- wound cares & [facility] - Infectious Disease History Infectious Disease History: Reports: Chicken Pox - Past Surgical History Head Surgeries/Procedures: Reports: None HEENT Surgical History: Reports: Adenoidectomy, Cataract Surgery, Myringotomy w Tube(s), Tonsillectomy, Other (See Below) Other HEENT Surgeries/Procedures: ear sx, L corneal transplant Cardiovascular Surgical History: Reports: Other (See Below) Other Cardiovascular Surgeries/Procedures: heart sx for coarctation Respiratory Surgical History: Reports: None GI Surgical History: Reports: Cholecystectomy Female Surgical History: Reports: None Endocrine Surgical History: Reports: None Neurological Surgical History: Reports: None Oncologic Surgical History: Reports: None Dermatological Surgical History: Reports: None Social & Family History - Family History Family Medical History: Noncontributory - Tobacco Use Smoking Status *Q: Never Smoker - Caffeine Use Caffeine Use: Reports: None - Recreational Drug Use Recreational Drug Use: No - Living Situation & Occupation Living situation: Reports: Other (fdc) Review of Systems - Review of Systems Review Of Systems: Comprehensive ROS is negative, except as noted in HPI. ED EXAM, GENERAL - Physical Exam Exam: See Below (See dictation) Course - Vital Signs Last Recorded V/S: Last Vital Signs Temp 97.0 F 02/13/20 18:39 Pulse 87 02/13/20 18:39 Resp 18 02/13/20 14:14 BP 120/77 02/13/20 18:39 Pulse Ox 99 02/13/20 18:39 - Orders/Labs/Meds Orders: Active Orders 24 hr Category Date Time Status Venous Doppler Lwr Ext Rt [US] Stat Exams 02/13/20 18:41 Ordered Labs: Laboratory Tests 02/13/20 02/13/20 02/13/20 Range/Units 16:26 16:26 17:52 WBC 12.00 H (4.0-11.0) K/uL RBC 4.82 (4.30-5.90) M/uL Hgb 12.9 (12.0-16.0) g/dL Hct 40.4 (36.0-46.0) % MCV 83.8 (80.0-98.0) fL MCH 26.8 L (27.0-32.0) pg MCHC 31.9 (31.0-37.0) g/dL RDW Std Deviation 43.0 (28.0-62.0) fl RDW Coeff of Suleman 14 (11.0-15.0) % Plt Count 336 (150-400) K/uL MPV 10.10 (7.40-12.00) fL Neut % (Auto) 61.0 (48.0-80.0) % Lymph % (Auto) 24.6 (16.0-40.0) % [place] % (Auto) 8.5 (0.0-15.0) % Eos % (Auto) 5.5 (0.0-7.0) % Baso % (Auto) 0.4 (0.0-1.5) % Neut # (Auto) 7.3 H (1.4-5.7) K/uL Lymph # (Auto) 3.0 H (0.6-2.4) K/uL [place] # (Auto) 1.0 H (0.0-0.8) K/uL Eos # (Auto) 0.7 (0.0-0.7) K/uL Baso # (Auto) 0.1 (0.0-0.1) K/uL Nucleated RBC % 0.0 /100WBC Nucleated RBCs # 0 K/uL Lactate 1.8 (0.20-2.00) mmol/L Sodium 140 (136-145) mmol/L Potassium 3.9 (3.5-5.1) mmol/L Chloride 104 (98-107) mmol/L Carbon Dioxide 26.5 (21.0-32.0) mmol/L BUN 22 H (7.0-18.0) mg/dL Creatinine 0.9 (0.6-1.0) mg/dL Est Cr Clr Drug Dosing TNP Estimated GFR (MDRD) > 60.0 ml/min Glucose 97 (74-106) mg/dL Calcium 9.1 (8.5-10.1) mg/dL Total Bilirubin 0.2 (0.2-1.0) mg/dL AST 19 (15-37) IU/L ALT 27 (14-63) IU/L Alkaline Phosphatase 68 (46-116) U/L Total Protein 7.3 (6.4-8.2) g/dL Albumin 3.8 (3.4-5.0) g/dL Globulin 3.5 (2.6-4.0) g/dL Albumin/Globulin Ratio 1.1 (0.9-1.6) Meds: Medications Discontinued Medications Generic Name Dose Route Start Last Admin Trade Name Carlene PRN Reason Stop Dose Admin Diphenhydramine HCl 25 mg 02/13/20 15:30 02/13/20 18:10 Benadryl IVPUSH 02/13/20 15:31 25 mg ONETIME ONE Administration Diphenhydramine HCl Confirm 02/13/20 18:00 02/13/20 18:04 Benadryl Administered 02/13/20 18:01 Not Given Dose 50 mg .ROUTE .STK-MED ONE Iopamidol 100 ml 02/13/20 18:30 02/13/20 18:31 Isovue Multipack-370 (76%) IVPUSH 02/13/20 18:31 100 ml ONETIME ONE Administration Methylprednisolone Sodium Succinate 125 mg 02/13/20 15:30 02/13/20 18:10 Solu-Medrol IVPUSH 02/13/20 15:31 125 mg ONETIME ONE Administration Methylprednisolone Sodium Succinate Confirm 02/13/20 18:00 02/13/20 18:04 Solu-Medrol Administered 02/13/20 18:01 Not Given Dose 125 mg .ROUTE .STK-MED ONE Departure - Departure Time of Disposition: 20:20 Disposition: Home, Self-Care 01 Clinical Impression: Cellulitis of right leg, Venous stasis of lower extremity - Discharge Information Prescriptions: Amoxicillin/Potassium Clav [Augmentin 875-125 Tablet] 1 each PO BID 7 Days #14 tablet Instructions: Cellulitis, Adult, [id number] Referrals: Yas Zuñiga MD [Primary Care Provider] - Forms: ED Department Discharge Additional Instructions: The following information is given to patients seen in the emergency department who are being discharged to home. This information is to outline your options for follow-up care. We provide all patients seen in our emergency department with a follow-up referral. The need for follow-up, as well as the timing and circumstances, are variable depending upon the specifics of your emergency department visit. If you don't have a primary care physician on staff, we will provide you with a referral. We always advise you to contact your personal physician following an emergency department visit to inform them of the circumstance of the visit and for follow-up with them and/or the need for any referrals to a consulting specialist. The emergency department will also refer you to a specialist when appropriate. This referral assures that you have the opportunity for follow-up care with a specialist. All of these measure are taken in an effort to provide you with optimal care, which includes your follow-up. Under all circumstances we always encourage you to contact your private physician who remains a resource for coordinating your care. When calling for follow-up care, please make the office aware that this follow-up is from your recent emergency room visit. If for any reason you are refused follow-up, please contact the [facility] Emergency Department at and asked to speak to the emergency department charge nurse. [facility] Primary Care [address] [place] [id number] [place] [address] 1. While symptomatic continue to routinely take Benadryl. Stop taking Levoquin and start taking medication as prescribed. 2. Please follow up with your Primary care doctor and wound care clinic. Return to the ED as needed and as discussed. Sepsis Event Note (ED) - Evaluation Sepsis Screening Result: No Definite Risk - Focused Exam Vital Signs: Vital Signs Temp Pulse Resp BP Pulse Ox 02/13/20 18:39 97.0 F 87 120/77 99 02/13/20 14:14 98 F 96 18 143/79 H 95 - My Orders Last 24 Hours: My Active Orders 02/13/20 18:41 Venous Doppler Lwr Ext Rt [US] Stat - Assessment/Plan Last 24 Hours: My Active Orders 02/13/20 18:41 Venous Doppler Lwr Ext Rt [US] Stat
--- NOTE | 2020-02-13 19:05 | PCM.SN.2 ---
- Free Text/Narrative Note: [id number]: Difficult IV start on patient in ED 8. RNs have attempted several times. Ultrasound used to place 20g 1.88 inch IV to right upper extremity X 1 attempt. Good blood return and IV flushed with 5 ml saline. Lab here and requests blood drawn. Blood pulled from IV with syringe for lab work. 5 ml waste and 5 ml for lab work handed off to Environmental Officer. IV flushed with 5 ml saline, secured with Tegaderm and tape, saline locked and secured. Patient tolerated procedure well. Patient's mother with patient throughout procedure.
--- NOTE | 2020-02-13 19:29 | CT ---
HISTORY: Right leg wound. Concern for osteomyelitis. TECHNIQUE: CT right tibia and fibula with IV contrast. COMPARISON: CT right tibia and fibula 12/21/2019. FINDINGS: Contour deformity of the anterolateral soft tissues of the mid to distal lower leg. Band of soft tissue density infiltration of subcutaneous fat underlying the contour deformity. New shallow wound in the area of soft tissue deformity (axial series 202, image 64). No fluid collection. No fluid in the deep fascial planes. Mild reticular infiltration of subcutaneous fat in the lower leg with skin thickening. Mild fatty infiltration of portions of the lower leg musculature. No erosions or periostitis. No fracture. No lytic or blastic bone lesions. Chronic ossicles adjacent to the lateral malleolus from remote injury. Os trigonum. IMPRESSION: 1. New anterior lower leg wound along an otherwise unchanged region of contour deformity and subcutaneous fat infiltration in the mid to distal lower leg. No fluid collection. 2. No findings to suggest osteomyelitis. 3. Mild subcutaneous fat infiltration elsewhere in the lower leg from edema or cellulitis. Please note that all CT scans at this facility use dose modulation, iterative reconstruction, and/or weight-based dosing when appropriate to reduce radiation dose to as low as reasonably achievable. Dictated by Carlos Robbins MD @ Feb 13 2020 7:18PM Signed by Dr. Carlos Robbins @ Feb 13 2020 7:26PM
== END 2020-02-13 20:51 | disposition home or self-care (01) ==
LOC: MW.ED 14:03
DX: I83.012 Varicose veins of right lower extremity with ulcer of calf (principal); L97.219 Non-pressure chronic ulcer of right calf with unspecified severity; L03.115 Cellulitis of right lower limb; L30.9 Dermatitis, unspecified; Z91.048 Other nonmedicinal substance allergy status; Z88.1 Allergy status to other antibiotic agents; Z91.040 Latex allergy status; Z88.2 Allergy status to sulfonamides; Z79.899 Other long term (current) drug therapy
CPT/HCPCS: 36415; 73701; 80053; 83605; 85025; 96374; 96375; 99284; Q9967; J1200; J2930

== ENCOUNTER 2020-02-24 18:45 | Emergency (ER) | payer MEDICAID, OTHER ==
--- NOTE | 2020-02-24 20:16 | EDM.PDOC ---
ED HPI GENERAL MEDICAL PROBLEM - General Chief Complaint: Lower Extremity Injury/Pain Stated Complaint: RIGHT LEG Time Seen by Provider: 02/24/20 19:21 Source of Information: Reports: Patient History Limitations: Reports: No Limitations - History of Present Illness INITIAL COMMENTS - FREE TEXT/NARRATIVE: 34 yo F with history of cellulitis, venous stasis, sepsis presents with wo rsening redness to the right lower extremity today. She finished amoxicillin on Friday and has noticed increasing warmth and redness to the inner right lower extremity, associated with clear nonpurulent drainage. She denies fever, chills. She would like to be switched to a different antibiotic orally. ROS: A 10-point review of systems, other than pertinent positives and negatives as stated per HPI, is otherwise negative Past medical history: No additional pertinent history Past Surgical history: No additional pertinent history Social history: No additional pertinent history Family history: No additional pertinent history PHYSICAL EXAM General: AOx4, GCS = 15, No distress HEENT: dry mucous membrane Neck: supple, no meningismus, no Kernig or Brudzinski Cardiac: S1S2 RRR Respiratory: CTAB, no crackles or rales, no wheezing Abdomen: Soft, nontender, no rebound or guarding, nondistended, no pulsatile mas s. Back: nontender Musculoskeletal: NVI distally, nonhealing dry quarter sized ulcer to the right anterior tib-fib with no purulent drainage with surrounding erythema, no fluctuance or induration or warmth appreciated. No tenderness to the right posterior calf or thigh. Neuro: No focal deficits, CN 2 - 12 WNL. right leg Pain Score (Numeric/FACES): 4 - Related Data Allergies Allergy/AdvReac Type Severity Reaction Status Date / Time adhesive Allergy Rash Verified 02/24/20 19:15 cephalexin [From Keflex] Allergy Swelling Verified 02/24/20 19:15 latex Allergy Redness Verified 02/24/20 19:15 Sulfa (Sulfonamide Allergy Airway Verified 02/24/20 19:15 Antibiotics) Tightness Home Meds: Home Meds Furosemide [Lasix] 20 mg PO DAILY 02/10/14 [History] medroxyPROGESTERone Acetate [Depo-Provera] 150 mg IM ASDIRECTED 02/10/14 [History] cycloSPORINE [Restasis] 1 drop EYEBOTH BID 12/12/17 [History] prednisoLONE acetate [Pred Forte 1% Ophth Susp] 1 drop EYEBOTH BID 10/27/19 [History] Metoprolol Succinate [Toprol XL] 25 mg PO DAILY 12/21/19 [History] Triamcinolone Acetonide [Triamcinolone Acetonide 0.025%] 1 dose TOP BID 02/13/20 [History] clindamycin HCL [Clindamycin HCl] 450 mg PO TID 7 Days #21 capsule 02/24/20 [Rx] Past Medical History HEENT History: Reports: Otitis Media, Sinusitis Cardiovascular History: Reports: Blood Clots/VTE/DVT, Hypertension, Other (See Below) Other Cardiovascular History: coarctation of the aorta Respiratory History: Reports: Sleep Apnea, Other (See Below) Other Respiratory History: respiratory difficulties Gastrointestinal History: Reports: None Genitourinary History: Reports: None PHYSICIAN GYNECOLOGIST History: Reports: None Musculoskeletal History: Reports: None Neurological History: Reports: Other (See Below) Other Neuro History: down syndrome Psychiatric History: Reports: None Endocrine/Metabolic History: Reports: None Hematologic History: Reports: None Immunologic History: Reports: None Oncologic (Cancer) History: Reports: None Dermatologic History: Reports: Cellulitis, Other (See Below) Other Dermatologic History: Ulceration right leg 2009- wound cares & [facility] - Infectious Disease History Infectious Disease History: Reports: Chicken Pox - Past Surgical History Head Surgeries/Procedures: Reports: None HEENT Surgical History: Reports: Adenoidectomy, Cataract Surgery, Myringotomy w Tube(s), Tonsillectomy, Other (See Below) Other HEENT Surgeries/Procedures: ear sx, L corneal transplant Cardiovascular Surgical History: Reports: Other (See Below) Other Cardiovascular Surgeries/Procedures: heart sx for coarctation Respiratory Surgical History: Reports: None GI Surgical History: Reports: Cholecystectomy Female Surgical History: Reports: None Endocrine Surgical History: Reports: None Neurological Surgical History: Reports: None Oncologic Surgical History: Reports: None Dermatological Surgical History: Reports: None Social & Family History - Family History Family Medical History: Noncontributory - Tobacco Use Tobacco Use Status *Q: Never Tobacco User - Caffeine Use Caffeine Use: Reports: None - Recreational Drug Use Recreational Drug Use: No - Living Situation & Occupation Living situation: Reports: Other (correction) Review of Systems - Review of Systems Review Of Systems: See Below (ctation) ED EXAM, GENERAL - Physical Exam Exam: See Below (see dictation) Course - Vital Signs Last Recorded V/S: Last Vital Signs Temp 97.6 F 02/24/20 19:17 Pulse 99 02/24/20 19:17 Resp 20 02/24/20 19:17 BP 155/89 H 02/24/20 19:17 Pulse Ox 96 02/24/20 19:17 - Re-Assessments/Exams Free Text/Narrative Re-Assessment/Exam: 02/24/20 20:12 Patient is wishing to switch to a different oral antibiotic. I advised the patient to return to the ER for reevaluation if symptoms worsened, including fever, drainage, worsening pain, or any other worrisome symptoms. I instructed the patient to follow up with their PCP within 2-3 days repeat wound check. MEDICAL DECISION MAKING: I reviewed the patients past medical records, lab and radiographic findings. I discussed the case with the patient. My differential diagnosis included: Cellulitis, abscess, nonhealing ulcer. Patient's cellulitis today is amendable for oral antibiotic treatment. There was no drainage from the ulcer, no fluctuance or induration, I do not suspect underlying abscess. She has no fever or tachycardia, my suspicion for sepsis is low. She has no tenderness to right posterior calf or thigh, I do not suspect DVT. I did give her strict return precautions for worsening symptoms, including fever, drainage, pain, redness. I instructed her to follow-up with PCP in 2 to 3 days for repeat wound check. Departure - Departure Time of Disposition: 20:14 Disposition: Home, Self-Care 01 Condition: Good Clinical Impression: Nonhealing ulcer of right lower extremity, Cellulitis - Discharge Information *PRESCRIPTION DRUG MONITORING PROGRAM REVIEWED*: Not Applicable *COPY OF PRESCRIPTION DRUG MONITORING REPORT IN PATIENT ANALI: Not Applicable Prescriptions: clindamycin HCL [Clindamycin HCl] 450 mg PO TID 7 Days #21 capsule Instructions: Cellulitis, Adult Referrals: Yas Zuñiga MD [Primary Care Provider] - Forms: ED Department Discharge Additional Instructions: The need for follow-up, as well as the timing and circumstances, are variable depending upon the specifics of your emergency department visit. If you don't have a primary care physician on staff, we will provide you with a referral. We always advise you to contact your personal physician following an emergency department visit to inform them of the circumstance of the visit and for follow-up with them and/or the need for any referrals to a consulting specialist. The emergency department will also refer you to a specialist when appropriate. This referral assures that you have the opportunity for follow-up care with a specialist. All of these measure are taken in an effort to provide you with optimal care, which includes your follow-up. Under all circumstances we always encourage you to contact your private physician who remains a resource for coordinating your care. When calling for follow-up care, please make the office aware that this follow-up is from your recent emergency room visit. If for any reason you are refused follow-up, please contact the [facility] Emergency Department at and asked to speak to the emergency department charge nurse. If you do not have a primary care doctor, please follow up with the clinics below within 3-5 days. [facility] - Primary Care [address] [place] [id number] [address] Sepsis Event Note (ED) - Evaluation Sepsis Screening Result: No Definite Risk - Focused Exam Vital Signs: Vital Signs Temp Pulse Resp BP Pulse Ox 02/24/20 19:17 97.6 F 99 20 155/89 H 96
== END 2020-02-24 20:50 | disposition home or self-care (01) ==
LOC: MW.ED 18:45
DX: L97.219 Non-pressure chronic ulcer of right calf with unspecified severity (principal); L03.115 Cellulitis of right lower limb; I10 Essential (primary) hypertension; Q90.9 Down syndrome, unspecified; Z91.048 Other nonmedicinal substance allergy status; Z88.1 Allergy status to other antibiotic agents; Z91.040 Latex allergy status; Z88.2 Allergy status to sulfonamides; Z79.899 Other long term (current) drug therapy
CPT/HCPCS: 99283

== ENCOUNTER 2020-03-21 17:53 | Emergency (ER) | payer MEDICAID ==
--- NOTE | 2020-03-21 18:25 | PCM.SN.2 ---
- Free Text/Narrative Note: 12-Lead ECG Interpretation Acquired: 6:06 PM Rhythm: Sinus rhythm Rate: 92 bpm [place]: Normal Intervals: Normal Ectopy: None RV Strain: No obvious RV strain pattern. ST Segments/T-Waves: Biphasic T waves in leads V2 through 6 Acute Ischemic Changes: None apparent Interpretation: No STEMI
--- NOTE | 2020-03-21 19:05 | EDM.PDOC ---
ED HPI GENERAL MEDICAL PROBLEM - General Chief Complaint: Respiratory Problem Stated Complaint: covid test Time Seen by Provider: 03/21/20 17:56 Source of Information: Reports: Patient History Limitations: Reports: No Limitations - History of Present Illness INITIAL COMMENTS - FREE TEXT/NARRATIVE: Presents reporting right leg ulcer. A care-lumber carrier from [facility] accompanies. Patient has a long history of cellulitis, stasis dermatitis, kerr ulcer. Been seen in this ER, local clinics and hospitalized on a couple of occasions for cellulitis. She did see dermatology in December 2019, was diagnosed with stasis dermatitis and prescribed triamcinolone cream and RADHA hose. The patient states that she never picked up the RADHA hose when they were prescribed in December. On Friday, 2019 the patient was by her primary provider who did take a look at the stasis ulcer on her right lower kerr. No new prescriptions. The patient and her caregiver report that the kerr has gotten more red and some purulent drainage from the ulcer over the last 4 to 5 days. 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 Patient also complains of a 2 to 3-day history of a little sore throat, shortness of breath and cough. No diarrhea, vomiting, fever. She did have a Covid exposure at her workplace. This patient lives at a local home for disabled. 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 - Related Data Allergies Allergy/AdvReac Type Severity Reaction Status Date / Time adhesive Allergy Rash Verified 03/21/20 18:04 cephalexin [From Keflex] Allergy Swelling Verified 03/21/20 18:04 latex Allergy Redness Verified 03/21/20 18:04 Sulfa (Sulfonamide Allergy Airway Verified 03/21/20 18:04 Antibiotics) Tightness Home Meds: Home Meds Furosemide [Lasix] 20 mg PO DAILY 02/10/14 [History] medroxyPROGESTERone Acetate [Depo-Provera] 150 mg IM ASDIRECTED 02/10/14 [History] cycloSPORINE [Restasis] 1 drop EYEBOTH BID 12/12/17 [History] prednisoLONE acetate [Pred Forte 1% Ophth Susp] 1 drop EYEBOTH BID 10/27/19 [History] Metoprolol Succinate [Toprol XL] 25 mg PO DAILY 12/21/19 [History] Triamcinolone Acetonide [Triamcinolone Acetonide 0.025%] 1 dose TOP BID 02/13/20 [History] clindamycin HCL [Clindamycin HCl] 450 mg PO TID 7 Days #21 capsule 02/24/20 [Rx] Past Medical History HEENT History: Reports: Otitis Media, Sinusitis Cardiovascular History: Reports: Blood Clots/VTE/DVT, Hypertension, Other (See Below) Other Cardiovascular History: coarctation of the aorta Respiratory History: Reports: Sleep Apnea, Other (See Below) Other Respiratory History: respiratory difficulties Gastrointestinal History: Reports: None Genitourinary History: Reports: None PRODUCT LEAD History: Reports: None Musculoskeletal History: Reports: None Neurological History: Reports: Other (See Below) Other Neuro History: down syndrome Psychiatric History: Reports: None Endocrine/Metabolic History: Reports: None Hematologic History: Reports: None Immunologic History: Reports: None Oncologic (Cancer) History: Reports: None Dermatologic History: Reports: Cellulitis, Other (See Below) Other Dermatologic History: Ulceration right leg 2009- wound cares & [facility] - Infectious Disease History Infectious Disease History: Reports: Chicken Pox - Past Surgical History Head Surgeries/Procedures: Reports: None HEENT Surgical History: Reports: Adenoidectomy, Cataract Surgery, Myringotomy w Tube(s), Tonsillectomy, Other (See Below) Other HEENT Surgeries/Procedures: ear sx, L corneal transplant Cardiovascular Surgical History: Reports: Other (See Below) Other Cardiovascular Surgeries/Procedures: heart sx for coarctation Respiratory Surgical History: Reports: None GI Surgical History: Reports: Cholecystectomy Female Surgical History: Reports: None Endocrine Surgical History: Reports: None Neurological Surgical History: Reports: None Musculoskeletal Surgical History: Reports: Amputation Oncologic Surgical History: Reports: None Dermatological Surgical History: Reports: None Social & Family History - Family History Family Medical History: No Pertinent Family History - Tobacco Use Tobacco Use Status *Q: Never Tobacco User - Caffeine Use Caffeine Use: Reports: None - Recreational Drug Use Recreational Drug Use: No - Living Situation & Occupation Living situation: Reports: Other (snf) ED ROS GENERAL - Review of Systems Review Of Systems: Comprehensive ROS is negative, except as noted in HPI. ED EXAM, GENERAL - Physical Exam Exam: See Below Exam Limited By: No Limitations General Appearance: Alert, No Apparent Distress, Other (Playing on her phone) Ears: Normal External Exam Nose: Normal Inspection Throat/Mouth: Normal Inspection Head: Atraumatic, Normocephalic Neck: Normal Inspection Respiratory/Chest: No Respiratory Distress, Lungs Clear, Normal Breath Sounds Cardiovascular: Normal Peripheral Pulses, Regular Rate, Rhythm GI/Abdominal: Soft Extremities: Other (Left lower leg/kerr 6 x 5 cm shiny slightly pink. Right lo wer leg/kerr 15 x 10 cm erythematous shiny patch with 4 x 2 cm shallow ulcer with yellow purulent discharge) Neurological: Alert, Oriented, Normal Cognition Psychiatric: Normal Affect, Normal Mood Skin Exam: Warm, Dry Lymphatic: No Adenopathy Course - Vital Signs Last Recorded V/S: Last Vital Signs Temp 35.2 C L 03/21/20 18:02 Pulse 98 03/21/20 18:02 Resp 16 03/21/20 18:02 BP 139/85 03/21/20 18:02 Pulse Ox 97 03/21/20 18:02 - Orders/Labs/Meds Orders: Active Orders 24 hr Category Date Time Status EKG 12 Lead [EKG Documentation Completion] [RC] STAT Care 03/21/20 18:15 Active CORONAVIRUS COVID-19 PCR PHL Stat Lab 03/21/20 18:17 Ordered Labs: Laboratory Tests 03/21/20 03/21/20 03/21/20 Range/Units 18:36 19:05 19:05 WBC 11.87 H (4.0-11.0) K/uL RBC 4.98 (4.30-5.90) M/uL Hgb 13.4 (12.0-16.0) g/dL Hct 41.9 (36.0-46.0) % MCV 84.1 (80.0-98.0) fL MCH 26.9 L (27.0-32.0) pg MCHC 32.0 (31.0-37.0) g/dL RDW Std Deviation 41.7 (28.0-62.0) fl RDW Coeff of Suleman 14 (11.0-15.0) % Plt Count 356 (150-400) K/uL MPV 9.80 (7.40-12.00) fL Neut % (Auto) 58.4 (48.0-80.0) % Lymph % (Auto) 30.4 (16.0-40.0) % Yell % (Auto) 8.8 (0.0-15.0) % Eos % (Auto) 2.1 (0.0-7.0) % Baso % (Auto) 0.3 (0.0-1.5) % Neut # (Auto) 6.9 H (1.4-5.7) K/uL Lymph # (Auto) 3.6 H (0.6-2.4) K/uL Yell # (Auto) 1.0 H (0.0-0.8) K/uL Eos # (Auto) 0.3 (0.0-0.7) K/uL Baso # (Auto) 0.0 (0.0-0.1) K/uL Nucleated RBC % 0.0 /100WBC Nucleated RBCs # 0 K/uL Sodium 143 (136-145) mmol/L Potassium 3.9 (3.5-5.1) mmol/L Chloride 106 (98-107) mmol/L Carbon Dioxide 27.0 (21.0-32.0) mmol/L BUN 17 (7.0-18.0) mg/dL Creatinine 0.9 (0.6-1.0) mg/dL Est Cr Clr Drug Dosing 62.67 mL/min Estimated GFR (MDRD) > 60.0 ml/min Glucose 93 (74-106) mg/dL Calcium 9.1 (8.5-10.1) mg/dL Total Bilirubin 0.2 (0.2-1.0) mg/dL AST 24 (15-37) IU/L ALT 39 (14-63) IU/L Alkaline Phosphatase 72 (46-116) U/L Total Protein 7.9 (6.4-8.2) g/dL Albumin 4.0 (3.4-5.0) g/dL Globulin 3.9 (2.6-4.0) g/dL Albumin/Globulin Ratio 1.0 (0.9-1.6) SARS CoV-2 RNA Rapid ELENI NEGATIVE (NEGATIVE) Meds: Medications Discontinued Medications Generic Name Dose Route Start Last Admin Trade Name Freq PRN Reason Stop Dose Admin Non-Formulary Medication 1 each 03/21/20 20:15 Nf Drug .XX 03/21/20 20:16 ONETIME ONE - Re-Assessments/Exams Free Text/Narrative Re-Assessment/Exam: 03/21/20 20:18 Review of the records indicates that the patient is allergic to cephalexin and sulfa drugs. She has failed both oral clindamycin and doxycycline therapy for her recurrent cellulitis and stasis ulcer. In addition, she has been h ospitalized in the past on Levaquin. She stated that as soon as she stopped the antibiotic the infection came right back and further antibiotic therapy was required. In that case, she was given a dose of oritavancin with good results. Free Text/Narrative Re-Assessment/Exam: 03/21/20 20:[address] Powell, Emergency Medicine. Review of records. Will give one-time dose of oritavancin due to multiple drug allergies and previous therapy failures with multiple antibiotics along with past efficacy of oritavancin therapy. Free Text/Narrative Re-Assessment/Exam: 03/21/20 21:05 The erythema RLE was circled. Departure - Departure Time of Disposition: 20:54 Disposition: Home, Self-Care 01 Condition: Good Clinical Impression: Cellulitis Stasis dermatitis Qualifiers: Laterality: bilateral Qualified Code(s): I87.2 - Venous insufficiency (chronic) (peripheral) Stasis ulcer Qualifiers: Venous stasis ulcer site: other part of lower leg Varicose vein presence: without varicose veins Laterality: right Non-pressure ulcer stage: unspecified non-pressure ulcer stage Qualified Code(s): I87.2 - Venous insufficiency (chronic) (peripheral); L97.819 - Non-pressure chronic ulcer of other part of right lower leg with unspecified severity - Discharge Information Referrals: PCP,None [Primary Care Provider] - Yas Zuñiga MD [Physician] - Forms: ED Department Discharge Additional Instructions: The following information is given to patients seen in the emergency department who are being discharged to home. This information is to outline your options for follow-up care. We provide all patients seen in our emergency department with a follow-up referral. The need for follow-up, as well as the timing and circumstances, are variable depending upon the specifics of your emergency department visit. If you don't have a primary care physician on staff, we will provide you with a referral. We always advise you to contact your personal physician following an emergency department visit to inform them of the circumstance of the visit and for follow-up with them and/or the need for any referrals to a consulting specialist. The emergency department will also refer you to a specialist when appropriate. This referral assures that you have the opportunity for follow-up care with a specialist. All of these measure are taken in an effort to provide you with optimal care, which includes your follow-up. Under all circumstances we always encourage you to contact your private physician who remains a resource for coordinating your care. When calling for follow-up care, please make the office aware that this follow-up is from your recent emergency room visit. If for any reason you are refused follow-up, please contact the [facility] Emergency Department at and asked to speak to the emergency department charge nurse. 1. Follow-up with Dr. Zuñiga primary care. Suggest wound care referral. 2. Order and wear your RADHA hose as previously prescribed and directed. 3. Return to the emergency room for fevers, expanding redness, elevated heart rate Sepsis Event Note (ED) - Evaluation Sepsis Screening Result: No Definite Risk - Focused Exam Vital Signs: Vital Signs Temp Pulse Resp BP Pulse Ox 03/21/20 18:02 35.2 C L 98 16 139/85 97 - My Orders Last 24 Hours: My Active Orders 03/21/20 18:15 EKG 12 Lead [EKG Documentation Completion] [RC] STAT 03/21/20 18:17 CORONAVIRUS COVID-19 PCR PHL Stat - Assessment/Plan Last 24 Hours: My Active Orders 03/21/20 18:15 EKG 12 Lead [EKG Documentation Completion] [RC] STAT 03/21/20 18:17 CORONAVIRUS COVID-19 PCR PHL Stat
[2020-03-21 19:34] LABS: BLOOD UREA NITROGEN,BUN 17 mg/dL (7.0-18.0); CHLORIDE,CL 106 mmol/L (98-107); GLUCOSE RANDOM 93 mg/dL (74-106); POTASSIUM,K 3.9 mmol/L (3.5-5.1); SODIUM,NA 143 mmol/L (136-145)
[2020-03-21] MEDS: Non-Formulary Medication 1 Each ONE ×2 (20:39→20:44)
[2020-03-21] MEDS ORDERED: DEXTROSE 5% IV SCH ×2 (20:45)
[2020-03-21] MEDS ORDERED: WATER IV SCH ×2 (20:45)
[2020-03-21] MEDS ORDERED: ORITAVANCIN DIPHOSPHATE IV SCH ×2 (20:45)
== END 2020-03-21 23:45 | disposition home or self-care (01) ==
LOC: MW.ED 17:53
DX: I87.2 Venous insufficiency (chronic) (peripheral) (principal); L03.116 Cellulitis of left lower limb; L03.115 Cellulitis of right lower limb; I10 Essential (primary) hypertension; Q90.9 Down syndrome, unspecified; Z20.828 Contact with and (suspected) exposure to other viral communicable diseases; Z88.1 Allergy status to other antibiotic agents; Z91.048 Other nonmedicinal substance allergy status; Z91.040 Latex allergy status; Z88.2 Allergy status to sulfonamides; Z79.899 Other long term (current) drug therapy
CPT/HCPCS: 36415; 80053; 85025; 87635; 93005; 96365; 96366; 99283; J2407; J7060; 93010; 99284; A9270-GY; U0002

== ENCOUNTER 2020-07-07 16:31 | Observation (INO) | payer MEDICARE, MEDICAID ==
--- NOTE | 2020-07-07 16:41 | EDM.PDOC ---
ED HPI GENERAL MEDICAL PROBLEM - General Stated Complaint: RT LEG POSSIBLE INFECTION Time Seen by Provider: 07/07/20 16:39 Source of Information: Reports: Patient, Family History Limitations: Reports: No Limitations - History of Present Illness INITIAL COMMENTS - FREE TEXT/NARRATIVE: HISTORY AND PHYSICAL: History of present illness: Patient is a 34-year-old female who presents to the emergency room with caregiver with concerns of returning cellulitis of the right lower extremity. Patient has acute on chronic cellulitis of the right lower extremity which she has been on multiple rounds of antibiotics. Currently she is on day #8 of 10 of doxycycline for an "ear issue". States she also just finished Amoxicillin for cellulitis 2-3 weeks ago. She has been seeing Dr. Ye, junior systems analyst, for her skin issues. She noticed the redness approximately 3 days ago but worse today. Has had some drainage from a linear open sore of the anterior lower tib/fib. Patient has a medical history of coarctation of the aorta s/p repair, HTN, HLD, mental retardation, recurrent cellulitis and venous stasis. Patient denies any fever, chills, headache, change in vision, syncope or near syncope. Denies any chest pain, back pain, shortness of breath or cough. Denies any GI or symptoms. Patient has been eating and drinking appropriately. Review of systems: As per history of present illness and below otherwise all systems reviewed and negative. Past medical history: As per history of present illness and as reviewed below otherwise noncontributory. Surgical history: As per history of present illness and as reviewed below otherwise noncontributory. Social history: See social history for further information Family history: As per history of present illness and as reviewed below otherwise noncontributory. Physical exam: General: Well developed and well nourished. Alert and orientated x 3. HX of MR, resident of [facility]. Nontoxic in appearance and in no acute distress. Vital signs are stable and have been reviewed by me. Nursing notes were reviewed. HEENT: Atraumatic, normocephalic, pupils equal and reactive bilaterally, negative for conjunctival pallor or scleral icterus, mucous membranes moist, TMs normal bilaterally, throat clear, neck supple, nontender, trachea midline. No drooling or trismus noted. No meningeal signs. No hot potato voice noted. Lungs: Clear to auscultation bilaterally. No wheezes, rales, or rhonchi. Chest nontender. Normal work of breathing, no accessory muscles used. Heart: S1S2, regular rate and rhythm without overt murmur, gallops, or rubs. No JVD. No peripheral edema Abdomen: Soft, nondistended, nontender. Negative for masses or costovertebral tenderness. Skin: Redness to anterior aspect of distal RLE with a linear open sore without drainage. Warm to touch. No fluctuance. Remaining skin is intact, warm, dry. No lesions or rashes noted. Hematologic: No petechiae or purpra. Mucosa appropriate color and normal nail bed color and refill. Extremities: Atraumatic, moves all extremities per self without difficulty or deficits, negative for cords or calf pain. SEE SKIN for details. Neurovascular unremarkable. Neuro: Awake, alert, oriented. Cranial nerves II through XII unremarkable. Cerebellum unremarkable. Motor and sensory unremarkable throughout. Exam nonfocal. Psychiatric: Mood and affect are appropriate. Normal thought process. Answering questions appropriately. Notes: *This patient was seen and evaluated during the 2019 SARS-CoV-2 novel coronavirus pandemic period. Community viral transmission is ongoing at time of this encounter and the emergency department is operating under pandemic response procedures. After initial evaluation and discussion with Radha and her caregiver, we discussed the likelihood of her needing admission for failed outpatient antibiotic therapy. She is agreeable to labs and Saline lock while waiting for results. After a few minutes, patient has become upset and tearful stating adamantly refuses admission. She is refusing IV start, but willing to have basic lab work done. I told Radha that I feel she needs to be admitted for IV antibiotics. Given it is the weekend, she will not have Ye or PCP to follow up with until Friday. I did talk with her mother, Amy, about my concerns. Amy spoke with Radha and she is now agreeable for admission/IV access. Patient has succ essfully had Vancomycin IV in the past, blood cultures ordered and abx. X-ray shows soft tissue edema. Normal alignment. No soft tissue gas seen. No fractures or acute osseous abnormalities Dr Diallo, hospitalist on-call is aware of this patient and agreeable to keeping her for observation. Patient and patient's mother/caregivers are aware of admission and agreeable. Patient's vital signs remained stable. Upon reassessment she is stable and will be going to the floor shortly. Diagnostics: CBC, CMP, BC x 2, tib/fib x-ray Therapeutics: IV fluids, Vancomycin Impression: Cellulitis, RLE Plan: Observation admission to Med/Surg Definitive disposition and diagnosis as appropriate pending reevaluation and review of above. Duration: Chronic (Acute on chronic) Location: Reports: Lower Extremity, Right R leg Pain Score (Numeric/FACES): 7 - Related Data Allergies Allergy/AdvReac Type Severity Reaction Status Date / Time adhesive Allergy Rash Verified 07/07/20 18:00 cephalexin [From Keflex] Allergy Swelling Verified 07/07/20 18:00 latex Allergy Redness Verified 07/07/20 18:00 Sulfa (Sulfonamide Allergy Airway Verified 07/07/20 18:00 Antibiotics) Tightness Home Meds: Home Meds Furosemide [Lasix] 20 mg PO DAILY 02/10/14 [History] medroxyPROGESTERone Acetate [Depo-Provera] 150 mg IM ASDIRECTED 02/10/14 [History] cycloSPORINE [Restasis] 1 drop EYEBOTH BID 12/12/17 [History] prednisoLONE acetate [Pred Forte 1% Ophth Susp] 1 drop EYEBOTH BID 10/27/19 [History] Metoprolol Succinate [Toprol XL] 25 mg PO DAILY 12/21/19 [History] Triamcinolone Acetonide [Triamcinolone Acetonide 0.025%] 1 dose TOP BID 02/13/20 [History] clindamycin HCL [Clindamycin HCl] 450 mg PO TID 7 Days #21 capsule 02/24/20 [Rx] Past Medical History HEENT History: Reports: Otitis Media, Sinusitis Cardiovascular History: Reports: Blood Clots/VTE/DVT, Hypertension, Other (See Below) Other Cardiovascular History: coarctation of the aorta Respiratory History: Reports: Sleep Apnea, Other (See Below) Other Respiratory History: respiratory difficulties Gastrointestinal History: Reports: None Genitourinary History: Reports: None DIRECTOR OF REAL ESTATE History: Reports: None Musculoskeletal History: Reports: None Neurological History: Reports: Other (See Below) Other Neuro History: down syndrome Psychiatric History: Reports: None Endocrine/Metabolic History: Reports: None Hematologic History: Reports: None Immunologic History: Reports: None Oncologic (Cancer) History: Reports: None Dermatologic History: Reports: Cellulitis, Other (See Below) Other Dermatologic History: Ulceration right leg 2009- [facility] cares & [facility] - Infectious Disease History Infectious Disease History: Reports: Chicken Pox - Past Surgical History Head Surgeries/Procedures: Reports: None HEENT Surgical History: Reports: Adenoidectomy, Cataract Surgery, Myringotomy w Tube(s), Tonsillectomy, Other (See Below) Other HEENT Surgeries/Procedures: ear sx, L corneal transplant Cardiovascular Surgical History: Reports: Other (See Below) Other Cardiovascular Surgeries/Procedures: heart sx for coarctation Respiratory Surgical History: Reports: None GI Surgical History: Reports: Cholecystectomy Female Surgical History: Reports: None Endocrine Surgical History: Reports: None Neurological Surgical History: Reports: None Musculoskeletal Surgical History: Reports: Amputation Oncologic Surgical History: Reports: None Dermatological Surgical History: Reports: None Social & Family History - Family History Family Medical History: No Pertinent Family History - Caffeine Use Caffeine Use: Reports: None - Living Situation & Occupation Living situation: Reports: Other (detention) ED ROS GENERAL - Review of Systems Review Of Systems: Comprehensive ROS is negative, except as noted in HPI. ED EXAM, SKIN/RASH Exam: See Below (See dictation) Course - Vital Signs Last Recorded V/S: Last Vital Signs Temp 98.2 F 07/07/20 16:45 Pulse 95 07/07/20 18:45 Resp 17 07/07/20 18:45 BP 126/74 07/07/20 18:45 Pulse Ox 99 07/07/20 18:45 - Orders/Labs/Meds Orders: Active Orders 24 hr Category Date Time Status Tibia Fibula Rt [CR] Stat Exams 07/07/20 18:10 Taken CORONAVIRUS COVID-19 ELENI [MOLEC] Stat Lab 07/07/20 18:33 Ordered CULTURE BLOOD [BC] Stat Lab 07/07/20 18:06 Received CULTURE BLOOD [BC] Stat Lab 07/07/20 18:06 Received Sodium Chloride 0.9% [Normal Saline] 1,000 ml Med 07/07/20 17:49 Active IV STAT Sodium Chloride 0.9% [Saline Flush] Med 07/07/20 16:51 Active 10 ml FLUSH ASDIRECTED PRN Sodium Chloride 0.9% [Saline Flush] Med 07/07/20 16:51 Active 2.5 ml FLUSH ASDIRECTED PRN Vancomycin 1 gm Med 07/07/20 17:47 Active Sodium Chloride 0.9% [Normal Saline (AdvBag)] 250 ml IV ONETIME Blood Culture x2 Reflex Set [OM.PC] Stat Oth 07/07/20 17:48 Ordered Saline Lock Insert [OM.PC] Stat Oth 07/07/20 16:51 Ordered Medication Orders Vancomycin HCl 1 gm/ Sodium (Chloride) 250 mls @ 166 mls/hr IV ONETIME ONE Stop: 07/07/20 19:17 Last Admin: 07/07/20 18:24 Dose: 166 mls/hr Documented by: PEREZ Sodium Chloride (Normal Saline) 1,000 mls @ 100 mls/hr IV STAT ONE Stop: 07/08/20 03:48 Last Admin: 07/07/20 18:24 Dose: 100 mls/hr Documented by: PEREZ Sodium Chloride (Saline Flush) 10 ml FLUSH ASDIRECTED PRN PRN Reason: Keep Vein Open Last Admin: 07/07/20 18:24 Dose: 10 ml Documented by: PEREZ Sodium Chloride (Saline Flush) 2.5 ml FLUSH ASDIRECTED PRN PRN Reason: Keep Vein Open Last Admin: 07/07/20 18:24 Dose: 2.5 ml Documented by: PEREZ Labs: Laboratory Tests 07/07/20 07/07/20 Range/Units 17:36 17:36 WBC 10.20 (4.0-11.0) K/uL RBC 4.68 (4.30-5.90) M/uL Hgb 12.7 (12.0-16.0) g/dL Hct 39.5 (36.0-46.0) % MCV 84.4 (80.0-98.0) fL MCH 27.1 (27.0-32.0) pg MCHC 32.2 (31.0-37.0) g/dL RDW Std Deviation 43.7 (28.0-62.0) fl RDW Coeff of Suleman 14 (11.0-15.0) % Plt Count 354 (150-400) K/uL MPV 10.20 (7.40-12.00) fL Neut % (Auto) 58.2 (48.0-80.0) % Lymph % (Auto) 28.1 (16.0-40.0) % Alfalfa % (Auto) 10.4 (0.0-15.0) % Eos % (Auto) 3.0 (0.0-7.0) % Baso % (Auto) 0.3 (0.0-1.5) % Neut # (Auto) 5.9 H (1.4-5.7) K/uL Lymph # (Auto) 2.9 H (0.6-2.4) K/uL Alfalfa # (Auto) 1.1 H (0.0-0.8) K/uL Eos # (Auto) 0.3 (0.0-0.7) K/uL Baso # (Auto) 0.0 (0.0-0.1) K/uL Nucleated RBC % 0.0 /100WBC Nucleated RBCs # 0 K/uL Sodium 143 (136-145) mmol/L Potassium 3.8 (3.5-5.1) mmol/L Chloride 104 (98-107) mmol/L Carbon Dioxide 26.9 (21.0-32.0) mmol/L BUN 18 (7.0-18.0) mg/dL Creatinine 0.7 (0.6-1.0) mg/dL Est Cr Clr Drug Dosing 80.57 mL/min Estimated GFR (MDRD) > 60.0 ml/min Glucose 100 (74-106) mg/dL Calcium 9.5 (8.5-10.1) mg/dL Total Bilirubin 0.2 (0.2-1.0) mg/dL AST 20 (15-37) IU/L ALT 33 (14-63) IU/L Alkaline Phosphatase 78 (46-116) U/L Total Protein 6.8 (6.4-8.2) g/dL Albumin 3.5 (3.4-5.0) g/dL Globulin 3.3 (2.6-4.0) g/dL Albumin/Globulin Ratio 1.1 (0.9-1.6) Meds: Medications Generic Name Dose Route Start Last Admin Trade Name Freq PRN Reason Stop Dose Admin Vancomycin HCl 1 gm/ Sodium 250 mls @ 166 mls/hr 07/07/20 17:47 07/07/20 18:24 Chloride IV 07/07/20 19:17 166 mls/hr ONETIME ONE Administration Sodium Chloride 1,000 mls @ 100 mls/hr 07/07/20 17:49 07/07/20 18:24 Normal Saline IV 07/08/20 03:48 100 mls/hr STAT ONE Administration Sodium Chloride 10 ml 07/07/20 16:51 07/07/20 18:24 Saline Flush FLUSH 10 ml ASDIRECTED PRN Administration Keep Vein Open Sodium Chloride 2.5 ml 07/07/20 16:51 07/07/20 18:24 Saline Flush FLUSH 2.5 ml ASDIRECTED PRN Administration Keep Vein Open Departure - Departure Time of Disposition: 18:47 Disposition: Refer to Observation Clinical Impression: Cellulitis of right leg - Discharge Information Referrals: Yas Zuñiga MD [Primary Care Provider] - Sepsis Event Note (ED) - Focused Exam Vital Signs: Vital Signs Temp Pulse Resp BP Pulse Ox 07/07/20 18:45 95 17 126/74 99 07/07/20 16:45 98.2 F 101 H 18 160/91 H 95 - My Orders Last 24 Hours: My Active Orders 07/07/20 16:51 Sodium Chloride 0.9% [Saline Flush] 10 ml FLUSH ASDIRECTED PRN Sodium Chloride 0.9% [Saline Flush] 2.5 ml FLUSH ASDIRECTED PRN Saline Lock Insert [OM.PC] Stat 07/07/20 17:47 Vancomycin 1 gm Sodium Chloride 0.9% [Normal Saline (AdvBag)] 250 ml IV ON ETIME 07/07/20 17:48 Blood Culture x2 Reflex Set [OM.PC] Stat 07/07/20 17:49 Sodium Chloride 0.9% [Normal Saline] 1,000 ml IV STAT 07/07/20 18:06 CULTURE BLOOD [BC] Stat CULTURE BLOOD [BC] Stat 07/07/20 18:10 Tibia Fibula Rt [CR] Stat 07/07/20 18:33 CORONAVIRUS COVID-19 ELENI [MOLEC] Stat - Assessment/Plan Last 24 Hours: My Active Orders 07/07/20 16:51 Sodium Chloride 0.9% [Saline Flush] 10 ml FLUSH ASDIRECTED PRN Sodium Chloride 0.9% [Saline Flush] 2.5 ml FLUSH ASDIRECTED PRN Saline Lock Insert [OM.PC] Stat 07/07/20 17:47 Vancomycin 1 gm Sodium Chloride 0.9% [Normal Saline (AdvBag)] 250 ml IV ONETIME 07/07/20 17:48 Blood Culture x2 Reflex Set [OM.PC] Stat 07/07/20 17:49 Sodium Chloride 0.9% [Normal Saline] 1,000 ml IV STAT 07/07/20 18:06 CULTURE BLOOD [BC] Stat CULTURE BLOOD [BC] Stat 07/07/20 18:10 Tibia Fibula Rt [CR] Stat 07/07/20 18:33 CORONAVIRUS COVID-19 ELENI [MOLEC] Stat
[2020-07-07] MEDS ORDERED: Sodium Chloride 0.9% 2.5 ML Syringe FLUSH PRN (16:51)
[2020-07-07] MEDS ORDERED: Sodium Chloride 0.9% 10 ML Syringe FLUSH PRN (16:51)
[2020-07-07] MEDS ORDERED: Sodium Chloride 0.9% 1,000 ML IV ONE (17:49)
[2020-07-07 18:08] LABS: BLOOD UREA NITROGEN,BUN 18 mg/dL (7.0-18.0); CARBON DIOXIDE,CO2 26.9 mmol/L (21.0-32.0); CHLORIDE,CL 104 mmol/L (98-107); GLUCOSE RANDOM 100 mg/dL (74-106); POTASSIUM,K 3.8 mmol/L (3.5-5.1); SODIUM,NA 143 mmol/L (136-145)
--- NOTE | 2020-07-07 19:06 | CR ---
Indication: Cellulitis pain Technique: Two-views of the right tibia-fibula. FINDINGS: FINDINGSSoft tissue edema. Normal alignment. No soft tissue gas seen. No fractures or acute osseous abnormalities. Dictated by Jaclyn Martinez MD @ Jul 07 2020 7:02PM Signed by Dr. Jaclyn Martinez @ Jul 07 2020 7:03PM
[2020-07-07] MEDS ORDERED: Ondansetron 4 MG/2 ML SDV IVPUSH PRN (20:13)
[2020-07-07] MEDS ORDERED: Acetaminophen 325 MG Tab PO PRN (20:13)
--- NOTE | 2020-07-07 20:13 | PCM.HP.2 ---
<Arsenio Traore M - Last Filed: 07/07/20 21:26> H&P History of Present Illness - General Date of Service: 07/07/20 Admit Problem/Dx: Admission Diagnosis/Problem Admission Diagnosis/Problem Cellulitis Source of Information: Patient, Other (Caregiver) History Limitations: Reports: No Limitations - History of Present Illness Initial Comments - Free Text/Narative: 34-year-old female presents complaining of worsening right leg cellulitis. She has a PMH of HTN, HLD, chronic venous stasis, intellectual disability and coarctation of aorta. Patient reports that she has noticed her right leg becoming more swollen, warm and red for the past 4 days. She states that this will happen on and off but will usually respond to oral antibiotics. Today she noticed some yellow colored discharge and "pus" near an old wound site on her right leg which prompted her to go to the ER. The wound on her right leg has been there for several years and has become much smaller in size over time. She was previously getting treatment for chronic leg edema with outpatient OT which helped a lot. She was recently treated with sinus infections with amoxicillin and doxycycline. Patient follows up with dermatology. Patient denies having any fevers, chills, sore throat, cough, SOB, chest pain, nausea, vomiting, abdominal pain, diarrhea, blood in stool, blood in urine, numbness or tingling in extremities. In the ER, CBC and CMP unremarkable. COVID-19 test negative. Blood cultures obtained. X-ray of right tib/fib showed soft tissue edema with no soft tissue gas or acute osseous abnormalities. Patient given dose of IV vancomycin and admitted for further evaluation and treatment. R leg Pain Score (Numeric/FACES): 7 - Related Data Allergies/Adverse Reactions: Allergies Allergy/AdvReac Type Severity Reaction Status Date / Time adhesive Allergy Rash Verified 07/08/20 08:34 cephalexin [From Keflex] Allergy Swelling Verified 07/08/20 08:34 latex Allergy Redness Verified 07/08/20 08:34 Sulfa (Sulfonamide Allergy Airway Verified 07/08/20 08:34 Antibiotics) Tightness Home Medications: Home Meds cycloSPORINE [Restasis] 1 drop EYEBOTH BID 12/12/17 [History] prednisoLONE acetate [Pred Forte 1% Ophth Susp] 1 drop EYEBOTH BID 10/27/19 [History] Metoprolol Succinate [Toprol XL] 25 mg PO DAILY 12/21/19 [History] Amoxicillin 2,000 mg PO ASDIRECTED 07/07/20 [History] Furosemide 20 mg PO DAILY 07/07/20 [History] Hydrocortisone [Hydrocortisone 1% Crm] 0 mg TOP ASDIRECTED 07/07/20 [History] Urea [Urea 20% Crm] 0 mg TOP ASDIRECTED 07/07/20 [History] medroxyPROGESTERone [Depo-Provera] 150 mg IM ASDIRECTED 07/07/20 [History] valACYclovir HCl [Valtrex] 0 mg PO BID 07/07/20 [History] Past Medical History HEENT History: Reports: Otitis Media, Sinusitis Cardiovascular History: Reports: Blood Clots/VTE/DVT, Hypertension, Other (See Below) Other Cardiovascular History: coarctation of the aorta Respiratory History: Reports: Sleep Apnea, Other (See Below) Other Respiratory History: respiratory difficulties Gastrointestinal History: Reports: None Genitourinary History: Reports: None BALANCE TRUER History: Reports: None Musculoskeletal History: Reports: None Neurological History: Reports: Other (See Below) Other Neuro History: down syndrome Psychiatric History: Reports: None Endocrine/Metabolic History: Reports: None Hematologic History: Reports: None Immunologic History: Reports: None Oncologic (Cancer) History: Reports: None Dermatologic History: Reports: Cellulitis, Other (See Below) Other Dermatologic History: Ulceration right leg 2009- wound cares & [facility] - Infectious Disease History Infectious Disease History: Reports: Chicken Pox - Past Surgical History Head Surgeries/Procedures: Reports: None HEENT Surgical History: Reports: Adenoidectomy, Cataract Surgery, Myringotomy w Tube(s), Tonsillectomy, Other (See Below) Other HEENT Surgeries/Procedures: ear sx, L corneal transplant Cardiovascular Surgical History: Reports: Other (See Below) Other Cardiovascular Surgeries/Procedures: heart sx for coarctation Respiratory Surgical History: Reports: None GI Surgical History: Reports: Cholecystectomy Female Surgical History: Reports: None Endocrine Surgical History: Reports: None Neurological Surgical History: Reports: None Musculoskeletal Surgical History: Reports: Amputation Oncologic Surgical History: Reports: None Dermatological Surgical History: Reports: None Social & Family History - Family History Family Medical History: No Pertinent Family History - Tobacco Use Tobacco Use Status *Q: Never Tobacco User Second Hand Smoke Exposure: No - Caffeine Use Caffeine Use: Reports: None - Recreational Drug Use Recreational Drug Use: No - Living Situation & Occupation Living situation: Reports: Other (senior care) H&P Review of Systems - Review of Systems: Review Of Systems: Comprehensive ROS is negative, except as noted in HPI. Exam - Exam Exam: See Below - Vital Signs Vital Signs: Last Vital Signs Temp 36.8 C 07/07/20 16:45 Pulse 95 07/07/20 18:45 Resp 17 07/07/20 18:45 BP 126/74 07/07/20 18:45 Pulse Ox 99 07/07/20 18:45 Weight: 118 kg - Exam General: Alert, Oriented, Cooperative HEENT: Conjunctiva Clear, EOMI, Hearing Intact, Pupils Equal, Pupils Reactive Neck: Supple, Trachea Midline, Lymphadenopathy Lungs: Normal Respiratory Effort Cardiovascular: Regular Rate, Regular Rhythm GI/Abdominal Exam: Normal Bowel Sounds, Soft, Non-Tender, No Distention Extremities: Other (RLE: approximately 8 cm x 2 cm linear wound on distal anterior leg with surrounding erythema and edema, mild yellow discharge noted, increased warmth to touch, non-tender to palpation.) Neurological: Cranial Nerves Intact, Strength Equal Bilateral, Normal Speech, Normal Tone Neuro Extensive - Mental Status: Alert, Oriented x3, Normal Mood/Affect - Patient Data Lab Results Last 24 hrs: Laboratory Results - last 24 hr 07/07/20 07/07/20 07/07/20 Range/Units 17:36 17:36 18:40 WBC 10.20 (4.0-11.0) K/uL RBC 4.68 (4.30-5.90) M/uL Hgb 12.7 (12.0-16.0) g/dL Hct 39.5 (36.0-46.0) % MCV 84.4 (80.0-98.0) fL MCH 27.1 (27.0-32.0) pg MCHC 32.2 (31.0-37.0) g/dL RDW Std Deviation 43.7 (28.0-62.0) fl RDW Coeff of Suleman 14 (11.0-15.0) % Plt Count 354 (150-400) K/uL MPV 10.20 (7.40-12.00) fL Neut % (Auto) 58.2 (48.0-80.0) % Lymph % (Auto) 28.1 (16.0-40.0) % [place] % (Auto) 10.4 (0.0-15.0) % Eos % (Auto) 3.0 (0.0-7.0) % Baso % (Auto) 0.3 (0.0-1.5) % Neut # (Auto) 5.9 H (1.4-5.7) K/uL Lymph # (Auto) 2.9 H (0.6-2.4) K/uL [place] # (Auto) 1.1 H (0.0-0.8) K/uL Eos # (Auto) 0.3 (0.0-0.7) K/uL Baso # (Auto) 0.0 (0.0-0.1) K/uL Nucleated RBC % 0.0 /100WBC Nucleated RBCs # 0 K/uL Sodium 143 (136-145) mmol/L Potassium 3.8 (3.5-5.1) mmol/L Chloride 104 (98-107) mmol/L Carbon Dioxide 26.9 (21.0-32.0) mmol/L BUN 18 (7.0-18.0) mg/dL Creatinine 0.7 (0.6-1.0) mg/dL Est Cr Clr Drug Dosing 80.57 mL/min Estimated GFR (MDRD) > 60.0 ml/min Glucose 100 (74-106) mg/dL Calcium 9.5 (8.5-10.1) mg/dL Total Bilirubin 0.2 (0.2-1.0) mg/dL AST 20 (15-37) IU/L ALT 33 (14-63) IU/L Alkaline Phosphatase 78 (46-116) U/L Total Protein 6.8 (6.4-8.2) g/dL Albumin 3.5 (3.4-5.0) g/dL Globulin 3.3 (2.6-4.0) g/dL Albumin/Globulin Ratio 1.1 (0.9-1.6) SARS-CoV-2 RNA (ELENI) NEGATIVE (NEGATIVE) Result Diagrams: 07/07/20 17:36 07/07/20 17:36 Sepsis Event Note - Evaluation Sepsis Screening Result: No Definite Risk - Focused Exam Vital Signs: Vital Signs Temp Pulse Resp BP Pulse Ox 07/07/20 18:45 95 17 126/74 99 07/07/20 16:45 36.8 C 101 H 18 160/91 H 95 Problem List Initiated/Reviewed/Updated: Yes Orders Last 24hrs: Active Orders 24 hr Category Date Time Status Admission Status [Patient Status] [ADT] Stat ADT 07/07/20 19:57 Active CULTURE BLOOD [BC] Stat Lab 07/07/20 18:06 Received CULTURE BLOOD [BC] Stat Lab 07/07/20 18:06 Received Sodium Chloride 0.9% [Normal Saline] 1,000 ml Med 07/07/20 17:49 Active IV STAT Sodium Chloride 0.9% [Saline Flush] Med 07/07/20 16:51 Active 10 ml FLUSH ASDIRECTED PRN Sodium Chloride 0.9% [Saline Flush] Med 07/07/20 16:51 Active 2.5 ml FLUSH ASDIRECTED PRN Blood Culture x2 Reflex Set [OM.PC] Stat Oth 07/07/20 17:48 Ordered Saline Lock Insert [OM.PC] Stat Oth 07/07/20 16:51 Ordered Medication Orders Sodium Chloride (Normal Saline) 1,000 mls @ 100 mls/hr IV STAT ONE Stop: 07/08/20 03:48 Last Admin: 07/07/20 18:24 Dose: 100 mls/hr Documented by: PEREZ Sodium Chloride (Saline Flush) 10 ml FLUSH ASDIRECTED PRN PRN Reason: Keep Vein Open Last Admin: 07/07/20 18:24 Dose: 10 ml Documented by: PEREZ Sodium Chloride (Saline Flush) 2.5 ml FLUSH ASDIRECTED PRN PRN Reason: Keep Vein Open Last Admin: 07/07/20 18:24 Dose: 2.5 ml Documented by: PEREZ Assessment/Plan Comment:: Assessment and Plan: 1. RLE cellulitis: - Admit to med/surg. Will treat with IV vancomycin. Wound culture ordered. IV LR's 1 L @ 100 cc/hr. - Consult wound care. 2. Past medical history of HTN, HLD, chronic venous stasis, intellectual disability and coarctation of aorta: - Continue home medications. 3. DVT prophylaxis: - Lovenox 40 mg subcut qd. <Sonam Diallo - Last Filed: 07/08/20 13:48> H&P History of Present Illness - General Admit Problem/Dx: Admission Diagnosis/Problem Admission Diagnosis/Problem Cellulitis - History of Present Illness Initial Comments - Free Text/Narative: I performed a history and physical exam of the patient and discussed management with resident. I have reviewed the residents note and agree with documented findings and plan unless otherwise specified in my note. Exam - Vital Signs Vital Signs: Last Vital Signs Temp 36.6 C 07/08/20 12:35 Pulse 95 07/08/20 12:35 Resp 18 07/08/20 12:35 BP 143/93 H 07/08/20 12:35 Pulse Ox 96 07/08/20 12:35 - Patient Data Lab Results Last 24 hrs: Laboratory Results - last 24 hr 07/07/20 07/07/20 07/07/20 Range/Units 17:36 17:36 18:40 WBC 10.20 (4.0-11.0) K/uL RBC 4.68 (4.30-5.90) M/uL Hgb 12.7 (12.0-16.0) g/dL Hct 39.5 (36.0-46.0) % MCV 84.4 (80.0-98.0) fL MCH 27.1 (27.0-32.0) pg MCHC 32.2 (31.0-37.0) g/dL RDW Std Deviation 43.7 (28.0-62.0) fl RDW Coeff of Suleman 14 (11.0-15.0) % Plt Count 354 (150-400) K/uL MPV 10.20 (7.40-12.00) fL Neut % (Auto) 58.2 (48.0-80.0) % Lymph % (Auto) 28.1 (16.0-40.0) % [place] % (Auto) 10.4 (0.0-15.0) % Eos % (Auto) 3.0 (0.0-7.0) % Baso % (Auto) 0.3 (0.0-1.5) % Neut # (Auto) 5.9 H (1.4-5.7) K/uL Lymph # (Auto) 2.9 H (0.6-2.4) K/uL [place] # (Auto) 1.1 H (0.0-0.8) K/uL Eos # (Auto) 0.3 (0.0-0.7) K/uL Baso # (Auto) 0.0 (0.0-0.1) K/uL Nucleated RBC % 0.0 /100WBC Nucleated RBCs # 0 K/uL Sodium 143 (136-145) mmol/L Potassium 3.8 (3.5-5.1) mmol/L Chloride 104 (98-107) mmol/L Carbon Dioxide 26.9 (21.0-32.0) mmol/L BUN 18 (7.0-18.0) mg/dL Creatinine 0.7 (0.6-1.0) mg/dL Est Cr Clr Drug Dosing 80.57 mL/min Estimated GFR (MDRD) > 60.0 ml/min Glucose 100 (74-106) mg/dL Calcium 9.5 (8.5-10.1) mg/dL Total Bilirubin 0.2 (0.2-1.0) mg/dL AST 20 (15-37) IU/L ALT 33 (14-63) IU/L Alkaline Phosphatase 78 (46-116) U/L Total Protein 6.8 (6.4-8.2) g/dL Albumin 3.5 (3.4-5.0) g/dL Globulin 3.3 (2.6-4.0) g/dL Albumin/Globulin Ratio 1.1 (0.9-1.6) SARS-CoV-2 RNA (ELENI) NEGATIVE (NEGATIVE) 07/08/20 07/08/20 Range/Units 06:30 06:30 WBC 9.73 (4.0-11.0) K/uL RBC 4.65 (4.30-5.90) M/uL Hgb 12.3 (12.0-16.0) g/dL Hct 39.4 (36.0-46.0) % MCV 84.7 (80.0-98.0) fL MCH 26.5 L (27.0-32.0) pg MCHC 31.2 (31.0-37.0) g/dL RDW Std Deviation 44.0 (28.0-62.0) fl RDW Coeff of Suleman 14 (11.0-15.0) % Plt Count 350 (150-400) K/uL MPV 10.50 (7.40-12.00) fL Neut % (Auto) 64.9 (48.0-80.0) % Lymph % (Auto) 23.6 (16.0-40.0) % [place] % (Auto) 7.8 (0.0-15.0) % Eos % (Auto) 3.4 (0.0-7.0) % Baso % (Auto) 0.3 (0.0-1.5) % Neut # (Auto) 6.3 H (1.4-5.7) K/uL Lymph # (Auto) 2.3 (0.6-2.4) K/uL [place] # (Auto) 0.8 (0.0-0.8) K/uL Eos # (Auto) 0.3 (0.0-0.7) K/uL Baso # (Auto) 0.0 (0.0-0.1) K/uL Nucleated RBC % 0.0 /100WBC Nucleated RBCs # 0 K/uL Sodium 142 (136-145) mmol/L Potassium 4.0 (3.5-5.1) mmol/L Chloride 107 (98-107) mmol/L Carbon Dioxide 26.8 (21.0-32.0) mmol/L BUN 14 (7.0-18.0) mg/dL Creatinine 0.8 (0.6-1.0) mg/dL Est Cr Clr Drug Dosing 70.50 mL/min Estimated GFR (MDRD) > 60.0 ml/min Glucose 101 (74-106) mg/dL Calcium 8.6 (8.5-10.1) mg/dL Total Bilirubin (0.2-1.0) mg/dL AST (15-37) IU/L ALT (14-63) IU/L Alkaline Phosphatase (46-116) U/L Total Protein (6.4-8.2) g/dL Albumin (3.4-5.0) g/dL Globulin (2.6-4.0) g/dL Albumin/Globulin Ratio (0.9-1.6) SARS-CoV-2 RNA (ELENI) (NEGATIVE) Result Diagrams: 07/08/20 06:30 07/08/20 06:30 Sepsis Event Note - Focused Exam Vital Signs: Vital Signs Temp Pulse Pulse Resp BP BP Pulse Ox 07/08/20 12:35 36.6 C 95 18 143/93 H 96 07/08/20 09:58 95 125/90 07/08/20 09:51 36.7 C 95 16 125/90 95 07/08/20 04:00 36.3 C 90 18 122/71 96 Orders Last 24hrs: Active Orders 24 hr Category Date Time Status Admission Status [Patient Status] [ADT] Stat ADT 07/07/20 19:57 Active Oxygen Therapy [RC] PRN Care 07/07/20 20:13 Active Up ad Kayla [RC] ASDIRECTED Care 07/07/20 20:13 Active VTE/DVT Education [RC] PER UNIT ROUTINE Care 07/07/20 20:13 Active Vital Signs [RC] Q4H Care 07/07/20 20:13 Active Consult to Wound Care Services [CONS] Routine Cons 07/07/20 21:37 Active Regular Diet [DIET] Diet 07/07/20 Dinner Active BASIC METABOLIC PANEL,BMP [CHEM] AM Lab 07/09/20 05:11 Ordered CBC WITH AUTO DIFF [HEME] AM Lab 07/09/20 05:11 Ordered CULTURE BLOOD [BC] Stat Lab 07/07/20 18:06 Received CULTURE BLOOD [BC] Stat Lab 07/07/20 18:06 Received CULTURE WOUND [RM] Urgent Lab 07/08/20 01:00 Received VANCOMYCIN TROUGH [CHEM] Timed Lab 07/09/20 06:30 Ordered Acetaminophen [TylenoL] Med 07/07/20 20:13 Active 650 mg PO Q4H PRN Enoxaparin [Lovenox] Med 07/08/20 00:45 Active 40 mg SUBCUT Q24H Furosemide [Lasix] Med 07/08/20 09:00 Active 20 mg PO DAILY Metoprolol Succinate [Toprol XL] Med 07/08/20 09:00 Active 25 mg PO DAILY Ondansetron [Zofran] Med 07/07/20 20:13 Active 4 mg IVPUSH Q4H PRN Pharmacy to Dose - Vancomycin Med 07/07/20 20:15 Active 1 dose .XX ASDIRECTED Sodium Chloride 0.9% [Saline Flush] Med 07/07/20 16:51 Active 10 ml FLUSH ASDIRECTED PRN Sodium Chloride 0.9% [Saline Flush] Med 07/07/20 16:51 Active 2.5 ml FLUSH ASDIRECTED PRN VANCOmycin 1.5 GM/300 ML 1.5 gm Med 07/08/20 07:00 Active Premix Bag 1 bag IV Q8H Blood Culture x2 Reflex Set [OM.PC] Stat Ot 07/07/20 17:48 Ordered Saline Lock Insert [OM.PC] Stat Oth 07/07/20 16:51 Ordered Resuscitation Status Routine Resus Stat 07/07/20 20:13 Ordered Medication Orders Acetaminophen (Tylenol) 650 mg PO Q4H PRN PRN Reason: Pain (Mild 1-3)/fever Enoxaparin Sodium (Lovenox) 40 mg SUBCUT Q24H [facility] Last Admin: 07/08/20 00:49 Dose: 40 mg Documented by: DEVON Furosemide (Lasix) 20 mg PO DAILY [facility] Last Admin: 07/08/20 09:59 Dose: 20 mg Documented by: EDU Vancomycin HCl 1.5 gm/ Premix 300 mls @ 200 mls/hr IV Q8H [facility] Last Admin: 07/08/20 06:49 Dose: 200 mls/hr Documented by: DEVON Metoprolol Succinate (Toprol Xl) 25 mg PO DAILY [facility] Last Admin: 07/08/20 09:58 Dose: 25 mg Documented by: EDU Ondansetron HCl (Zofran) 4 mg IVPUSH Q4H PRN PRN Reason: Nausea Sodium Chloride (Saline Flush) 10 ml FLUSH ASDIRECTED PRN PRN Reason: Keep Vein Open Last Admin: 07/07/20 18:24 Dose: 10 ml Documented by: PEREZ Sodium Chloride (Saline Flush) 2.5 ml FLUSH ASDIRECTED PRN PRN Reason: Keep Vein Open Last Admin: 07/07/20 18:24 Dose: 2.5 ml Documented by: PEREZ Vancomycin HCl (Pharmacy To Dose - Vancomycin) 1 dose .XX ASDIRECTED [facility]
[2020-07-07] MEDS ORDERED: Lactated Ringers 1,000 ML IV SCH (20:15)
[2020-07-07] MEDS ORDERED: Enoxaparin 40 MG/0.4 ML Syringe SUBCUT SCH (20:15)
[2020-07-08] MEDS: Enoxaparin 40 MG/0.4 ML Syringe SUBCUT SCH (00:49)
[2020-07-08] MEDS: VANCOmycin 1.5 GM/300 ML 1.5 GM in Premix Bag 1 BAG IV SCH ×2 (06:49→15:27)
[2020-07-08 07:36] LABS: BLOOD UREA NITROGEN,BUN 14 mg/dL (7.0-18.0); CARBON DIOXIDE,CO2 26.8 mmol/L (21.0-32.0); CHLORIDE,CL 107 mmol/L (98-107); GLUCOSE RANDOM 101 mg/dL (74-106); SODIUM,NA 142 mmol/L (136-145)
--- NOTE | 2020-07-08 08:51 | PCM.PN ---
<Arsenio Traore - Last Filed: 07/08/20 13:27> - General Info Date of Service: 07/08/20 Subjective Update: Patient seen up at bedside eating breakfast this morning. Reports right leg pain, swelling and redness has improved a bit overnight. Denies having any fevers, chills, nausea or vomiting. - Patient Data Vitals - Most Recent: Last Vital Signs Temp 36.3 C 07/08/20 04:00 Pulse 90 07/08/20 04:00 Resp 18 07/08/20 04:00 BP 122/71 07/08/20 04:00 Pulse Ox 96 07/08/20 04:00 Weight - Most Recent: 119.975 kg I&O - Last 24 Hours: Intake & Output 07/07/20 07/08/20 07/08/20 22:59 06:59 14:59 Intake Total 250 Output Total 350 Balance -100 Lab Results Last 24 Hours: Laboratory Results - last 24 hr 07/07/20 07/07/20 07/07/20 Range/Units 17:36 17:36 18:40 WBC 10.20 (4.0-11.0) K/uL RBC 4.68 (4.30-5.90) M/uL Hgb 12.7 (12.0-16.0) g/dL Hct 39.5 (36.0-46.0) % MCV 84.4 (80.0-98.0) fL MCH 27.1 (27.0-32.0) pg MCHC 32.2 (31.0-37.0) g/dL RDW Std Deviation 43.7 (28.0-62.0) fl RDW Coeff of Suleman 14 (11.0-15.0) % Plt Count 354 (150-400) K/uL MPV 10.20 (7.40-12.00) fL Neut % (Auto) 58.2 (48.0-80.0) % Lymph % (Auto) 28.1 (16.0-40.0) % [place] % (Auto) 10.4 (0.0-15.0) % Eos % (Auto) 3.0 (0.0-7.0) % Baso % (Auto) 0.3 (0.0-1.5) % Neut # (Auto) 5.9 H (1.4-5.7) K/uL Lymph # (Auto) 2.9 H (0.6-2.4) K/uL [place] # (Auto) 1.1 H (0.0-0.8) K/uL Eos # (Auto) 0.3 (0.0-0.7) K/uL Baso # (Auto) 0.0 (0.0-0.1) K/uL Nucleated RBC % 0.0 /100WBC Nucleated RBCs # 0 K/uL Sodium 143 (136-145) mmol/L Potassium 3.8 (3.5-5.1) mmol/L Chloride 104 (98-107) mmol/L Carbon Dioxide 26.9 (21.0-32.0) mmol/L BUN 18 (7.0-18.0) mg/dL Creatinine 0.7 (0.6-1.0) mg/dL Est Cr Clr Drug Dosing 80.57 mL/min Estimated GFR (MDRD) > 60.0 ml/min Glucose 100 (74-106) mg/dL Calcium 9.5 (8.5-10.1) mg/dL Total Bilirubin 0.2 (0.2-1.0) mg/dL AST 20 (15-37) IU/L ALT 33 (14-63) IU/L Alkaline Phosphatase 78 (46-116) U/L Total Protein 6.8 (6.4-8.2) g/dL Albumin 3.5 (3.4-5.0) g/dL Globulin 3.3 (2.6-4.0) g/dL Albumin/Globulin Ratio 1.1 (0.9-1.6) SARS-CoV-2 RNA (ELENI) NEGATIVE (NEGATIVE) 07/08/20 07/08/20 Range/Units 06:30 06:30 WBC 9.73 (4.0-11.0) K/uL RBC 4.65 (4.30-5.90) M/uL Hgb 12.3 (12.0-16.0) g/dL Hct 39.4 (36.0-46.0) % MCV 84.7 (80.0-98.0) fL MCH 26.5 L (27.0-32.0) pg MCHC 31.2 (31.0-37.0) g/dL RDW Std Deviation 44.0 (28.0-62.0) fl RDW Coeff of Suleman 14 (11.0-15.0) % Plt Count 350 (150-400) K/uL MPV 10.50 (7.40-12.00) fL Neut % (Auto) 64.9 (48.0-80.0) % Lymph % (Auto) 23.6 (16.0-40.0) % [place] % (Auto) 7.8 (0.0-15.0) % Eos % (Auto) 3.4 (0.0-7.0) % Baso % (Auto) 0.3 (0.0-1.5) % Neut # (Auto) 6.3 H (1.4-5.7) K/uL Lymph # (Auto) 2.3 (0.6-2.4) K/uL [place] # (Auto) 0.8 (0.0-0.8) K/uL Eos # (Auto) 0.3 (0.0-0.7) K/uL Baso # (Auto) 0.0 (0.0-0.1) K/uL Nucleated RBC % 0.0 /100WBC Nucleated RBCs # 0 K/uL Sodium 142 (136-145) mmol/L Potassium 4.0 (3.5-5.1) mmol/L Chloride 107 (98-107) mmol/L Carbon Dioxide 26.8 (21.0-32.0) mmol/L BUN 14 (7.0-18.0) mg/dL Creatinine 0.8 (0.6-1.0) mg/dL Est Cr Clr Drug Dosing 70.50 mL/min Estimated GFR (MDRD) > 60.0 ml/min Glucose 101 (74-106) mg/dL Calcium 8.6 (8.5-10.1) mg/dL Total Bilirubin (0.2-1.0) mg/dL AST (15-37) IU/L ALT (14-63) IU/L Alkaline Phosphatase (46-116) U/L Total Protein (6.4-8.2) g/dL Albumin (3.4-5.0) g/dL Globulin (2.6-4.0) g/dL Albumin/Globulin Ratio (0.9-1.6) SARS-CoV-2 RNA (ELENI) (NEGATIVE) Med Orders - Current: Current Medications Acetaminophen (Tylenol) 650 mg PO Q4H PRN PRN Reason: Pain (Mild 1-3)/fever Enoxaparin Sodium (Lovenox) 40 mg SUBCUT Q24H [facility] Last Admin: 07/08/20 00:49 Dose: 40 mg Documented by: Vancomycin HCl 1.5 gm/ Premix 300 mls @ 200 mls/hr IV Q8H [facility] Last Admin: 07/08/20 06:49 Dose: 200 mls/hr Documented by: Ondansetron HCl (Zofran) 4 mg IVPUSH Q4H PRN PRN Reason: Nausea Sodium Chloride (Saline Flush) 10 ml FLUSH ASDIRECTED PRN PRN Reason: Keep Vein Open Last Admin: 07/07/20 18:24 Dose: 10 ml Documented by: Sodium Chloride (Saline Flush) 2.5 ml FLUSH ASDIRECTED PRN PRN Reason: Keep Vein Open Last Admin: 07/07/20 18:24 Dose: 2.5 ml Documented by: Vancomycin HCl (Pharmacy To Dose - Vancomycin) 1 dose .XX ASDIRECTED [facility] Discontinued Medications Enoxaparin Sodium (Lovenox) 40 mg SUBCUT Q24H [facility] Last Admin: 07/08/20 00:51 Dose: Not Given Documented by: Vancomycin HCl 1 gm/ Sodium (Chloride) 250 mls @ 166 mls/hr IV ONETIME ONE Stop: 07/07/20 19:17 Last Admin: 07/07/20 18:24 Dose: 166 mls/hr Documented by: Sodium Chloride (Normal Saline) 1,000 mls @ 100 mls/hr IV STAT ONE Stop: 07/08/20 03:48 Last Admin: 07/07/20 18:24 Dose: 100 mls/hr Documented by: Lactated Ringer's (Ringers, Lactated) 1,000 mls @ 100 mls/hr IV ASDIRECTED [facility] Stop: 07/08/20 06:14 Last Admin: 07/08/20 00:51 Dose: 100 mls/hr Documented by: Vancomycin HCl 500 mg/ Sodium (Chloride) 100 mls @ 100 mls/hr IV ONETIME ONE Stop: 07/07/20 21:59 Last Admin: 07/07/20 22:23 Dose: 100 mls/hr Documented by: - Exam General: Alert, Oriented, Cooperative, No Acute Distress Lungs: Clear to Auscultation, Normal Respiratory Effort Cardiovascular: Regular Rate, Regular Rhythm GI/Abdominal Exam: Normal Bowel Sounds, Soft, Non-Tender, No Distention Extremities: Other (RLE: approximately 8 cm x 2 cm linear wound on distal anterior leg with surrounding erythema and edema appears improved slightly prior exam, yellow discharge noted, increased warmth to touch, non-tender to palpation.) - Patient Data Lab Results Last 24 hrs: Laboratory Results - last 24 hr 07/07/20 07/07/20 07/07/20 Range/Units 17:36 17:36 18:40 WBC 10.20 (4.0-11.0) K/uL RBC 4.68 (4.30-5.90) M/uL Hgb 12.7 (12.0-16.0) g/dL Hct 39.5 (36.0-46.0) % MCV 84.4 (80.0-98.0) fL MCH 27.1 (27.0-32.0) pg MCHC 32.2 (31.0-37.0) g/dL RDW Std Deviation 43.7 (28.0-62.0) fl RDW Coeff of Suleman 14 (11.0-15.0) % Plt Count 354 (150-400) K/uL MPV 10.20 (7.40-12.00) fL Neut % (Auto) 58.2 (48.0-80.0) % Lymph % (Auto) 28.1 (16.0-40.0) % [place] % (Auto) 10.4 (0.0-15.0) % Eos % (Auto) 3.0 (0.0-7.0) % Baso % (Auto) 0.3 (0.0-1.5) % Neut # (Auto) 5.9 H (1.4-5.7) K/uL Lymph # (Auto) 2.9 H (0.6-2.4) K/uL [place] # (Auto) 1.1 H (0.0-0.8) K/uL Eos # (Auto) 0.3 (0.0-0.7) K/uL Baso # (Auto) 0.0 (0.0-0.1) K/uL Nucleated RBC % 0.0 /100WBC Nucleated RBCs # 0 K/uL Sodium 143 (136-145) mmol/L Potassium 3.8 (3.5-5.1) mmol/L Chloride 104 (98-107) mmol/L Carbon Dioxide 26.9 (21.0-32.0) mmol/L BUN 18 (7.0-18.0) mg/dL Creatinine 0.7 (0.6-1.0) mg/dL Est Cr Clr Drug Dosing 80.57 mL/min Estimated GFR (MDRD) > 60.0 ml/min Glucose 100 (74-106) mg/dL Calcium 9.5 (8.5-10.1) mg/dL Total Bilirubin 0.2 (0.2-1.0) mg/dL AST 20 (15-37) IU/L ALT 33 (14-63) IU/L Alkaline Phosphatase 78 (46-116) U/L Total Protein 6.8 (6.4-8.2) g/dL Albumin 3.5 (3.4-5.0) g/dL Globulin 3.3 (2.6-4.0) g/dL Albumin/Globulin Ratio 1.1 (0.9-1.6) SARS-CoV-2 RNA (ELENI) NEGATIVE (NEGATIVE) 07/08/20 07/08/20 Range/Units 06:30 06:30 WBC 9.73 (4.0-11.0) K/uL RBC 4.65 (4.30-5.90) M/uL Hgb 12.3 (12.0-16.0) g/dL Hct 39.4 (36.0-46.0) % MCV 84.7 (80.0-98.0) fL MCH 26.5 L (27.0-32.0) pg MCHC 31.2 (31.0-37.0) g/dL RDW Std Deviation 44.0 (28.0-62.0) fl RDW Coeff of Suleman 14 (11.0-15.0) % Plt Count 350 (150-400) K/uL MPV 10.50 (7.40-12.00) fL Neut % (Auto) 64.9 (48.0-80.0) % Lymph % (Auto) 23.6 (16.0-40.0) % [place] % (Auto) 7.8 (0.0-15.0) % Eos % (Auto) 3.4 (0.0-7.0) % Baso % (Auto) 0.3 (0.0-1.5) % Neut # (Auto) 6.3 H (1.4-5.7) K/uL Lymph # (Auto) 2.3 (0.6-2.4) K/uL [place] # (Auto) 0.8 (0.0-0.8) K/uL Eos # (Auto) 0.3 (0.0-0.7) K/uL Baso # (Auto) 0.0 (0.0-0.1) K/uL Nucleated RBC % 0.0 /100WBC Nucleated RBCs # 0 K/uL Sodium 142 (136-145) mmol/L Potassium 4.0 (3.5-5.1) mmol/L Chloride 107 (98-107) mmol/L Carbon Dioxide 26.8 (21.0-32.0) mmol/L BUN 14 (7.0-18.0) mg/dL Creatinine 0.8 (0.6-1.0) mg/dL Est Cr Clr Drug Dosing 70.50 mL/min Estimated GFR (MDRD) > 60.0 ml/min Glucose 101 (74-106) mg/dL Calcium 8.6 (8.5-10.1) mg/dL Total Bilirubin (0.2-1.0) mg/dL AST (15-37) IU/L ALT (14-63) IU/L Alkaline Phosphatase (46-116) U/L Total Protein (6.4-8.2) g/dL Albumin (3.4-5.0) g/dL Globulin (2.6-4.0) g/dL Albumin/Globulin Ratio (0.9-1.6) SARS-CoV-2 RNA (ELENI) (NEGATIVE) Result Diagrams: 07/08/20 06:30 07/08/20 06:30 Sepsis Event Note - Evaluation Sepsis Screening Result: No Definite Risk - Focused Exam Vital Signs: Vital Signs Temp Pulse Resp BP Pulse Ox Pulse Ox 07/08/20 04:00 36.3 C 90 18 122/71 96 07/08/20 00:00 96 07/07/20 23:43 36.6 C 92 18 135/85 95 07/07/20 22:25 95 16 132/80 99 07/07/20 21:00 94 16 135/78 98 - Problem List Review Problem List Initiated/Reviewed/Updated: Yes - My Orders Last 24 Hours: My Active Orders 07/07/20 Dinner Regular Diet [DIET] 07/07/20 20:13 Oxygen Therapy [RC] PRN Up ad Kayla [RC] ASDIRECTED VTE/DVT Education [RC] PER UNIT ROUTINE Vital Signs [RC] Q4H Acetaminophen [TylenoL] 650 mg PO Q4H PRN Ondansetron [Zofran] 4 mg IVPUSH Q4H PRN Resuscitation Status Routine 07/07/20 20:15 Pharmacy to Dose - Vancomycin 1 dose .XX ASDIRECTED 07/07/20 21:37 Consult to Wound Care Services [CONS] Routine 07/08/20 00:45 Enoxaparin [Lovenox] 40 mg SUBCUT Q24H 07/08/20 01:00 CULTURE WOUND [RM] Urgent - Plan Plan:: Assessment and Plan: 1. RLE cellulitis: - Continue IV vancomycin. Wound culture pending. - Wound care consulted. 2. Past medical history of HTN, HLD, chronic venous stasis, intellectual disability and coarctation of aorta: - Continue home medications. 3. DVT prophylaxis: - Lovenox 40 mg subcut qd. <Sonam Diallo - Last Filed: 07/09/20 14:28> - General Info Subjective Update: I have seen and evaluated the patient and agree with the residents note unless specified in my note I - Patient Data Vitals - Most Recent: Last Vital Signs Temp 36.6 C 07/09/20 07:42 Pulse 86 07/09/20 09:09 Resp 17 07/09/20 07:42 BP 120/86 07/09/20 09:09 Pulse Ox 94 L 07/09/20 07:42 I&O - Last 24 Hours: Intake & Output 07/08/20 07/09/20 07/09/20 22:59 06:59 14:59 Intake Total 980 1480 Output Total 950 950 Balance 30 530 Lab Results Last 24 Hours: Laboratory Results - last 24 hr 03/07/21 03/07/21 03/07/21 Range/Units 06:32 06:32 06:32 WBC 10.54 (4.0-11.0) K/uL RBC 4.88 (4.30-5.90) M/uL Hgb 13.1 (12.0-16.0) g/dL Hct 40.7 (36.0-46.0) % MCV 83.4 (80.0-98.0) fL MCH 26.8 L (27.0-32.0) pg MCHC 32.2 (31.0-37.0) g/dL RDW Std Deviation 42.8 (28.0-62.0) fl RDW Coeff of Suleman 14 (11.0-15.0) % Plt Count 323 (150-400) K/uL MPV 10.20 (7.40-12.00) fL Neut % (Auto) 62.2 (48.0-80.0) % Lymph % (Auto) 24.8 (16.0-40.0) % [place] % (Auto) 9.3 (0.0-15.0) % Eos % (Auto) 3.3 (0.0-7.0) % Baso % (Auto) 0.4 (0.0-1.5) % Neut # (Auto) 6.6 H (1.4-5.7) K/uL Lymph # (Auto) 2.6 H (0.6-2.4) K/uL [place] # (Auto) 1.0 H (0.0-0.8) K/uL Eos # (Auto) 0.4 (0.0-0.7) K/uL Baso # (Auto) 0.0 (0.0-0.1) K/uL Nucleated RBC % 0.0 /100WBC Nucleated RBCs # 0 K/uL Sodium 140 (136-145) mmol/L Potassium 4.2 (3.5-5.1) mmol/L Chloride 106 (98-107) mmol/L Carbon Dioxide 21.3 (21.0-32.0) mmol/L BUN 14 (7.0-18.0) mg/dL Creatinine 0.8 (0.6-1.0) mg/dL Est Cr Clr Drug Dosing 70.50 mL/min Estimated GFR (MDRD) > 60.0 ml/min Glucose 112 H (74-106) mg/dL Calcium 9.0 (8.5-10.1) mg/dL Vancomycin Trough 31.7 H (5.0-10.0) ug/mL Major Results Last 24 Hours: Microbiology 07/07/20 18:06 Aerobic Blood Culture - Preliminary Blood - Venous NO GROWTH AFTER 1 DAY Anaerobic Blood Culture - Preliminary NO GROWTH AFTER 1 DAY 07/07/20 18:06 Aerobic Blood Culture - Preliminary Blood - Venous - Lab Draw NO GROWTH AFTER 1 DAY Anaerobic Blood Culture - Preliminary NO GROWTH AFTER 1 DAY Med Orders - Current: Current Medications Discontinued Medications Acetaminophen (Tylenol) 650 mg PO Q4H PRN PRN Reason: Pain (Mild 1-3)/fever Enoxaparin Sodium (Lovenox) 40 mg SUBCUT Q24H [facility] Last Admin: 07/08/20 00:51 Dose: Not Given Documented by: Enoxaparin Sodium (Lovenox) 40 mg SUBCUT Q24H [facility] Last Admin: 07/09/20 00:00 Dose: 40 mg Documented by: Furosemide (Lasix) 20 mg PO DAILY [facility] Last Admin: 07/09/20 09:10 Dose: 20 mg Documented by: Vancomycin HCl 1 gm/ Sodium (Chloride) 250 mls @ 166 mls/hr IV ONETIME ONE Stop: 07/07/20 19:17 Last Admin: 07/07/20 18:24 Dose: 166 mls/hr Documented by: Sodium Chloride (Normal Saline) 1,000 mls @ 100 mls/hr IV STAT ONE Stop: 07/08/20 03:48 Last Admin: 07/07/20 18:24 Dose: 100 mls/hr Documented by: Lactated Ringer's (Ringers, Lactated) 1,000 mls @ 100 mls/hr IV ASDIRECTED [facility] Stop: 07/08/20 06:14 Last Admin: 07/08/20 00:51 Dose: 100 mls/hr Documented by: Vancomycin HCl 500 mg/ Sodium (Chloride) 100 mls @ 100 mls/hr IV ONETIME ONE Stop: 07/07/20 21:59 Last Admin: 07/07/20 22:23 Dose: 100 mls/hr Documented by: Vancomycin HCl 1.5 gm/ Premix 300 mls @ 200 mls/hr IV Q8H [facility] Last Admin: 07/09/20 09:50 Dose: Not Given Documented by: Vancomycin HCl 1.5 gm/ Premix 300 mls @ 200 mls/hr IV Q12H [facility] Metoprolol Succinate (Toprol Xl) 25 mg PO DAILY [facility] Last Admin: 07/09/20 09:09 Dose: 25 mg Documented by: Ondansetron HCl (Zofran) 4 mg IVPUSH Q4H PRN PRN Reason: Nausea Sodium Chloride (Saline Flush) 10 ml FLUSH ASDIRECTED PRN PRN Reason: Keep Vein Open Last Admin: 07/07/20 18:24 Dose: 10 ml Documented by: Sodium Chloride (Saline Flush) 2.5 ml FLUSH ASDIRECTED PRN PRN Reason: Keep Vein Open Last Admin: 07/07/20 18:24 Dose: 2.5 ml Documented by: Vancomycin HCl (Pharmacy To Dose - Vancomycin) 1 dose .XX ASDIRECTED [facility] - Patient Data Lab Results Last 24 hrs: Laboratory Results - last 24 hr 07/09/20 07/09/20 07/09/20 Range/Units 06:32 06:32 06:32 WBC 10.54 (4.0-11.0) K/uL RBC 4.88 (4.30-5.90) M/uL Hgb 13.1 (12.0-16.0) g/dL Hct 40.7 (36.0-46.0) % MCV 83.4 (80.0-98.0) fL MCH 26.8 L (27.0-32.0) pg MCHC 32.2 (31.0-37.0) g/dL RDW Std Deviation 42.8 (28.0-62.0) fl RDW Coeff of Suleman 14 (11.0-15.0) % Plt Count 323 (150-400) K/uL MPV 10.20 (7.40-12.00) fL Neut % (Auto) 62.2 (48.0-80.0) % Lymph % (Auto) 24.8 (16.0-40.0) % [place] % (Auto) 9.3 (0.0-15.0) % Eos % (Auto) 3.3 (0.0-7.0) % Baso % (Auto) 0.4 (0.0-1.5) % Neut # (Auto) 6.6 H (1.4-5.7) K/uL Lymph # (Auto) 2.6 H (0.6-2.4) K/uL [place] # (Auto) 1.0 H (0.0-0.8) K/uL Eos # (Auto) 0.4 (0.0-0.7) K/uL Baso # (Auto) 0.0 (0.0-0.1) K/uL Nucleated RBC % 0.0 /100WBC Nucleated RBCs # 0 K/uL Sodium 140 (136-145) mmol/L Potassium 4.2 (3.5-5.1) mmol/L Chloride 106 (98-107) mmol/L Carbon Dioxide 21.3 (21.0-32.0) mmol/L BUN 14 (7.0-18.0) mg/dL Creatinine 0.8 (0.6-1.0) mg/dL Est Cr Clr Drug Dosing 70.50 mL/min Estimated GFR (MDRD) > 60.0 ml/min Glucose 112 H (74-106) mg/dL Calcium 9.0 (8.5-10.1) mg/dL Vancomycin Trough 31.7 H (5.0-10.0) ug/mL Result Diagrams: 07/09/20 06:32 07/09/20 06:32 Major Results Last 24 hrs: Microbiology 07/07/20 18:06 Aerobic Blood Culture - Preliminary Blood - Venous NO GROWTH AFTER 1 DAY Anaerobic Blood Culture - Preliminary NO GROWTH AFTER 1 DAY 07/07/20 18:06 Aerobic Blood Culture - Preliminary Blood - Venous - Lab Draw NO GROWTH AFTER 1 DAY Anaerobic Blood Culture - Preliminary NO GROWTH AFTER 1 DAY Sepsis Event Note - Focused Exam Vital Signs: Vital Signs Temp Pulse Pulse Resp BP BP Pulse Ox 07/09/20 09:09 86 120/86 07/09/20 09:08 86 120/86 07/09/20 07:42 36.6 C 85 17 122/69 94 L 07/09/20 04:26 36.2 C 81 18 96/74 95
[2020-07-08] MEDS: Metoprolol Succinate 25 MG Tab.ER PO SCH (09:58)
[2020-07-08] MEDS: Furosemide 20 MG Tab PO SCH (09:59)
[2020-07-09] MEDS: Enoxaparin 40 MG/0.4 ML Syringe SUBCUT SCH
[2020-07-09 07:25] LABS: BLOOD UREA NITROGEN,BUN 14 mg/dL (7.0-18.0); CARBON DIOXIDE,CO2 21.3 mmol/L (21.0-32.0); CHLORIDE,CL 106 mmol/L (98-107); GLUCOSE RANDOM 112 mg/dL (74-106); POTASSIUM,K 4.2 mmol/L (3.5-5.1); SODIUM,NA 140 mmol/L (136-145)
[2020-07-09] MEDS: Metoprolol Succinate 25 MG Tab.ER PO SCH ×2 (09:08→09:09)
[2020-07-09] MEDS: Furosemide 20 MG Tab PO SCH (09:10)
[2020-07-09] MEDS: VANCOmycin 1.5 GM/300 ML 1.5 GM in Premix Bag 1 BAG IV SCH ×3 (09:50)
--- NOTE | 2020-07-09 10:44 | PCM.DCSUM1 ---
Discharge Summary - Hospital Course Diagnosis: Stroke: No - Discharge Data Discharge Date: 07/09/20 Discharge Disposition: Home, Self-Care 01 Condition: Fair - Referral to Home Health Date of Face to Face Encounter: 07/09/20 Primary Care Physician: Yas Zuñiga MD - Patient Summary/Data Consults: Consultations 07/07/20 21:37 Consult to Wound Care Services [CONS] Routine - Patient Instructions Diet: Regular Diet as Tolerated Activity: As Tolerated, Elevate Extremity Showering/Bathing: May Shower Wound/Incision Care: Keep Operative Site/Wound Site Clean and Dry, Change Dressing Daily Notify Provider of: Fever, Increased Pain, Swelling and Redness, Drainage, Nausea and/or Vomiting Other/Special Instructions: f/u with OT/wound care in 3-4 days, f/u with surgery within 4 weeks - Discharge Plan *PRESCRIPTION DRUG MONITORING PROGRAM REVIEWED*: No *COPY OF PRESCRIPTION DRUG MONITORING REPORT IN PATIENT ANALI: No Prescriptions/Med Rec: levoFLOXacin [Levaquin] 750 mg PO DAILY #10 tab Home Medications: Home Meds cycloSPORINE [Restasis] 1 drop EYEBOTH BID 12/12/17 [History] prednisoLONE acetate [Pred Forte 1% Ophth Susp] 1 drop EYEBOTH BID 10/27/19 [History] Metoprolol Succinate [Toprol XL] 25 mg PO DAILY 12/21/19 [History] Furosemide 20 mg PO DAILY 07/07/20 [History] Hydrocortisone [Hydrocortisone 1% Crm] 0 mg TOP ASDIRECTED 07/07/20 [History] Urea [Urea 20% Crm] 0 mg TOP ASDIRECTED 07/07/20 [History] medroxyPROGESTERone [Depo-Provera] 150 mg IM ASDIRECTED 07/07/20 [History] valACYclovir HCl [Valtrex] 0 mg PO BID 07/07/20 [History] levoFLOXacin [Levaquin] 750 mg PO DAILY #10 tab 07/09/20 [Rx] Forms: ED Department Discharge Referrals: Yas Zuñiga MD [Primary Care Provider] - - Patient Data Vitals - Most Recent: Last Vital Signs Temp 36.6 C 07/09/20 07:42 Pulse 86 07/09/20 09:09 Resp 17 07/09/20 07:42 BP 120/86 07/09/20 09:09 Pulse Ox 94 L 07/09/20 07:42 Weight - Most Recent: 119.975 kg I&O - Last 24 hours: Intake & Output 07/08/20 07/09/20 07/09/20 22:59 06:59 14:59 Intake Total 980 1480 Output Total 950 950 Balance 30 530 Lab Results - Last 24 hrs: Laboratory Results - last 24 hr 07/09/20 07/09/20 07/09/20 Range/Units 06:32 06:32 06:32 WBC 10.54 (4.0-11.0) K/uL RBC 4.88 (4.30-5.90) M/uL Hgb 13.1 (12.0-16.0) g/dL Hct 40.7 (36.0-46.0) % MCV 83.4 (80.0-98.0) fL MCH 26.8 L (27.0-32.0) pg MCHC 32.2 (31.0-37.0) g/dL RDW Std Deviation 42.8 (28.0-62.0) fl RDW Coeff of Suleman 14 (11.0-15.0) % Plt Count 323 (150-400) K/uL MPV 10.20 (7.40-12.00) fL Neut % (Auto) 62.2 (48.0-80.0) % Lymph % (Auto) 24.8 (16.0-40.0) % [place] % (Auto) 9.3 (0.0-15.0) % Eos % (Auto) 3.3 (0.0-7.0) % Baso % (Auto) 0.4 (0.0-1.5) % Neut # (Auto) 6.6 H (1.4-5.7) K/uL Lymph # (Auto) 2.6 H (0.6-2.4) K/uL [place] # (Auto) 1.0 H (0.0-0.8) K/uL Eos # (Auto) 0.4 (0.0-0.7) K/uL Baso # (Auto) 0.0 (0.0-0.1) K/uL Nucleated RBC % 0.0 /100WBC Nucleated RBCs # 0 K/uL Sodium 140 (136-145) mmol/L Potassium 4.2 (3.5-5.1) mmol/L Chloride 106 (98-107) mmol/L Carbon Dioxide 21.3 (21.0-32.0) mmol/L BUN 14 (7.0-18.0) mg/dL Creatinine 0.8 (0.6-1.0) mg/dL Est Cr Clr Drug Dosing 70.50 mL/min Estimated GFR (MDRD) > 60.0 ml/min Glucose 112 H (74-106) mg/dL Calcium 9.0 (8.5-10.1) mg/dL Vancomycin Trough 31.7 H (5.0-10.0) ug/mL SORAYA Results - Last 24 hrs: Microbiology 07/07/20 18:06 Aerobic Blood Culture - Preliminary Blood - Venous NO GROWTH AFTER 1 DAY Anaerobic Blood Culture - Preliminary NO GROWTH AFTER 1 DAY 07/07/20 18:06 Aerobic Blood Culture - Preliminary Blood - Venous - Lab Draw NO GROWTH AFTER 1 DAY Anaerobic Blood Culture - Preliminary NO GROWTH AFTER 1 DAY Med Orders - Current: Current Medications Acetaminophen (Tylenol) 650 mg PO Q4H PRN PRN Reason: Pain (Mild 1-3)/fever Enoxaparin Sodium (Lovenox) 40 mg SUBCUT Q24H [facility] Last Admin: 07/09/20 00:00 Dose: 40 mg Documented by: Furosemide (Lasix) 20 mg PO DAILY [facility] Last Admin: 07/09/20 09:10 Dose: 20 mg Documented by: Vancomycin HCl 1.5 gm/ Premix 300 mls @ 200 mls/hr IV Q12H [facility] Metoprolol Succinate (Toprol Xl) 25 mg PO DAILY [facility] Last Admin: 07/09/20 09:09 Dose: 25 mg Documented by: Ondansetron HCl (Zofran) 4 mg IVPUSH Q4H PRN PRN Reason: Nausea Sodium Chloride (Saline Flush) 10 ml FLUSH ASDIRECTED PRN PRN Reason: Keep Vein Open Last Admin: 07/07/20 18:24 Dose: 10 ml Documented by: Sodium Chloride (Saline Flush) 2.5 ml FLUSH ASDIRECTED PRN PRN Reason: Keep Vein Open Last Admin: 07/07/20 18:24 Dose: 2.5 ml Documented by: Vancomycin HCl (Pharmacy To Dose - Vancomycin) 1 dose .XX ASDIRECTED [facility] Discontinued Medications Enoxaparin Sodium (Lovenox) 40 mg SUBCUT Q24H [facility] Last Admin: 07/08/20 00:51 Dose: Not Given Documented by: Vancomycin HCl 1 gm/ Sodium (Chloride) 250 mls @ 166 mls/hr IV ONETIME ONE Stop: 07/07/20 19:17 Last Admin: 07/07/20 18:24 Dose: 166 mls/hr Documented by: Sodium Chloride (Normal Saline) 1,000 mls @ 100 mls/hr IV STAT ONE Stop: 07/08/20 03:48 Last Admin: 07/07/20 18:24 Dose: 100 mls/hr Documented by: Lactated Ringer's (Ringers, Lactated) 1,000 mls @ 100 mls/hr IV ASDIRECTED [facility] Stop: 07/08/20 06:14 Last Admin: 07/08/20 00:51 Dose: 100 mls/hr Documented by: Vancomycin HCl 500 mg/ Sodium (Chloride) 100 mls @ 100 mls/hr IV ONETIME ONE Stop: 07/07/20 21:59 Last Admin: 07/07/20 22:23 Dose: 100 mls/hr Documented by: Vancomycin HCl 1.5 gm/ Premix 300 mls @ 200 mls/hr IV Q8H [facility] Last Admin: 07/09/20 09:50 Dose: Not Given Documented by:
[2020-07-09] MEDS ORDERED: VANCOmycin 1.5 GM/300 ML 1.5 GM in Premix Bag 1 BAG IV SCH (15:00)
== END 2020-07-09 11:37 | disposition home or self-care (01) ==
LOC: MW.ED 16:31 → MW.MS 19:57
PROVIDERS: ADMIT Student in an Organized Health Care Education/Training Program; ATTEND Student in an Organized Health Care Education/Training Program
DX: L03.115 Cellulitis of right lower limb (principal); I10 Essential (primary) hypertension; E78.5 Hyperlipidemia, unspecified; Z20.822 Contact with and (suspected) exposure to COVID-19; G47.30 Sleep apnea, unspecified; F79 Unspecified intellectual disabilities; Z88.2 Allergy status to sulfonamides; Z91.040 Latex allergy status; Z88.0 Allergy status to penicillin; Z91.09 Other allergy status, other than to drugs and biological substances; Z79.899 Other long term (current) drug therapy; Z86.718 Personal history of other venous thrombosis and embolism; Z98.890 Other specified postprocedural states
CPT/HCPCS: 36415; 73590; 80048; 80053; 80202; 85025; 87040; 87070; 87077; 87186; 96365; 96366; 96376; 99284; A9270; J1650; J3370; J7030; J7050; J7120; U0002; 96372; G0378

== ENCOUNTER 2020-07-10 18:41 | Observation (INO) | payer MEDICARE, MEDICAID ==
[2020-07-10 21:53] LABS: BLOOD UREA NITROGEN,BUN 12 mg/dL (7.0-18.0); CARBON DIOXIDE,CO2 27.6 mmol/L (21.0-32.0); CHLORIDE,CL 103 mmol/L (98-107); GLUCOSE RANDOM 110 mg/dL (74-106); SODIUM,NA 139 mmol/L (136-145)
[2020-07-10] MEDS ORDERED: VANCOmycin 2 GM/400 ML 2 GM in Premix Bag 1 BAG IV ONE (22:02)
[2020-07-10] MEDS ORDERED: VANCOmycin 1.5 GM/300 ML 1.5 GM in Premix Bag 1 BAG IV ONE (22:38)
[2020-07-11 07:14] LABS: BLOOD UREA NITROGEN,BUN 10 mg/dL (7.0-18.0); CHLORIDE,CL 104 mmol/L (98-107); GLUCOSE RANDOM 111 mg/dL (74-106); POTASSIUM,K 3.9 mmol/L (3.5-5.1); SODIUM,NA 140 mmol/L (136-145)
[2020-07-11] MEDS: VANCOmycin 1.75 GM/350 ML 350 ML IV SCH ×2 (10:56→22:23)
[2020-07-11] MEDS ORDERED: VANCOmycin 1.75 GM/350 ML 350 ML IV SCH (11:00)
--- NOTE | 2020-07-11 11:31 | PCM.HP.2 ---
H&P History of Present Illness - General Date of Service: 07/11/20 Admit Problem/Dx: Admission Diagnosis/Problem Admission Diagnosis/Problem Cellulitis - History of Present Illness Initial Comments - Free Text/Narative: 34-year-old female admitted to the medical surgical floor for right leg cellulitis. Patient was previously admitted on 07-07-20 and discharged on 07-09-20 discharged for right leg cellulitis with a right lower extremity wound. Patient was treated in the hospital with vancomycin and discharged home on levofloxacin. Wound culture on previous visit grew staph aureus. Patient upon readmission sta gary that she still has right lower leg pain and swelling. Patient has a past medical history of recurrent right leg cellulitis, HTN, HLD, chronic venous stasis, intellectual disability and coarctation of aorta. Patient denies fevers, chills, cough, SOB, chest pain, nausea, vomiting, abdominal pain, diarrhea. On admission white blood cell count 11.5, CRP 1.6. right leg Pain Score (Numeric/FACES): 1 - Related Data Allergies/Adverse Reactions: Allergies Allergy/AdvReac Type Severity Reaction Status Date / Time adhesive Allergy Rash Verified 07/10/20 20:02 cephalexin [From Keflex] Allergy Swelling Verified 07/10/20 20:02 latex Allergy Redness Verified 07/10/20 20:02 Sulfa (Sulfonamide Allergy Airway Verified 07/10/20 20:02 Antibiotics) Tightness Home Medications: Home Meds cycloSPORINE [Restasis] 1 drop EYEBOTH BID 12/12/17 [History] prednisoLONE acetate [Pred Forte 1% Ophth Susp] 1 drop EYEBOTH BID 10/27/19 [History] Metoprolol Succinate [Toprol XL] 25 mg PO DAILY 12/21/19 [History] Furosemide 20 mg PO DAILY 07/07/20 [History] Hydrocortisone [Hydrocortisone 1% Crm] 0 mg TOP ASDIRECTED 07/07/20 [History] Urea [Urea 20% Crm] 0 mg TOP ASDIRECTED 07/07/20 [History] medroxyPROGESTERone [Depo-Provera] 150 mg IM ASDIRECTED 07/07/20 [History] valACYclovir HCl [Valtrex] 0 mg PO BID 07/07/20 [History] levoFLOXacin [Levaquin] 750 mg PO DAILY #10 tab 03/07/21 [Rx] Past Medical History HEENT History: Reports: Otitis Media, Sinusitis Cardiovascular History: Reports: Blood Clots/VTE/DVT, Hypertension, Other (See Below) Other Cardiovascular History: coarctation of the aorta Respiratory History: Reports: Sleep Apnea, Other (See Below) Other Respiratory History: respiratory difficulties Gastrointestinal History: Reports: None Genitourinary History: Reports: None DEHYDRATOR History: Reports: None Musculoskeletal History: Reports: None Neurological History: Reports: Other (See Below) Other Neuro History: down syndrome Psychiatric History: Reports: None Other Psychiatric History: Down Syndrome Endocrine/Metabolic History: Reports: None Hematologic History: Reports: None Immunologic History: Reports: None Oncologic (Cancer) History: Reports: None Dermatologic History: Reports: Cellulitis, Other (See Below) Other Dermatologic History: Ulceration right leg 2009- wound cares & [facility] - Infectious Disease History Infectious Disease History: Reports: Chicken Pox - Past Surgical History Head Surgeries/Procedures: Reports: None HEENT Surgical History: Reports: Adenoidectomy, Cataract Surgery, Myringotomy w Tube(s), Tonsillectomy, Other (See Below) Other HEENT Surgeries/Procedures: ear sx, L corneal transplant Cardiovascular Surgical History: Reports: Other (See Below) Other Cardiovascular Surgeries/Procedures: heart sx for coarctation Respiratory Surgical History: Reports: None GI Surgical History: Reports: Cholecystectomy Female Surgical History: Reports: None Endocrine Surgical History: Reports: None Neurological Surgical History: Reports: None Musculoskeletal Surgical History: Reports: Amputation Other Musculoskeletal Surgeries/Procedures:: Amputation 4th toe on bilateral feet Oncologic Surgical History: Reports: None Dermatological Surgical History: Reports: None Social & Family History - Family History Family Medical History: No Pertinent Family History - Tobacco Use Tobacco Use Status *Q: Never Tobacco User - Caffeine Use Caffeine Use: Reports: None - Recreational Drug Use Recreational Drug Use: No - Living Situation & Occupation Living situation: Reports: Other (longterm) H&P Review of Systems - Review of Systems: Review Of Systems: See Below General: Denies: Fever, Chills, Weakness Pulmonary: Denies: Shortness of Breath, Wheezing Cardiovascular: Denies: Chest Pain Gastrointestinal: Denies: Abdominal Pain Skin: Reports: Erythema, Wound Neurological: Denies: Confusion, Dizziness Exam - Exam Exam: See Below - Vital Signs Vital Signs: Last Vital Signs Temp 97.3 F 07/11/20 07:49 Pulse 87 07/11/20 07:49 Resp 16 07/11/20 07:49 BP 134/88 07/11/20 07:49 Pulse Ox 98 07/11/20 07:49 Weight: 262 lb 3.2 oz - Exam General: Alert, Oriented Lungs: Clear to Auscultation, Normal Respiratory Effort Cardiovascular: Regular Rate GI/Abdominal Exam: Normal Bowel Sounds Extremities: Other (Area of cellulitis with a wound noted on the right lower extremity, above the ankle.) Neuro Extensive - Mental Status: Alert Psychiatric: Alert - Patient Data Lab Results Last 24 hrs: Laboratory Results - last 24 hr 07/10/20 07/10/20 07/10/20 Range/Units 21:31 21:31 21:31 WBC 11.51 H (4.0-11.0) K/uL RBC 4.76 (4.30-5.90) M/uL Hgb 12.8 (12.0-16.0) g/dL Hct 39.8 (36.0-46.0) % MCV 83.6 (80.0-98.0) fL MCH 26.9 L (27.0-32.0) pg MCHC 32.2 (31.0-37.0) g/dL RDW Std Deviation 42.9 (28.0-62.0) fl RDW Coeff of Suleman 14 (11.0-15.0) % Plt Count 335 (150-400) K/uL MPV 9.90 (7.40-12.00) fL Neut % (Auto) 64.5 (48.0-80.0) % Lymph % (Auto) 24.1 (16.0-40.0) % [place] % (Auto) 8.7 (0.0-15.0) % Eos % (Auto) 2.4 (0.0-7.0) % Baso % (Auto) 0.3 (0.0-1.5) % Neut # (Auto) 7.4 H (1.4-5.7) K/uL Lymph # (Auto) 2.8 H (0.6-2.4) K/uL [place] # (Auto) 1.0 H (0.0-0.8) K/uL Eos # (Auto) 0.3 (0.0-0.7) K/uL Baso # (Auto) 0.0 (0.0-0.1) K/uL Nucleated RBC % 0.0 /100WBC Nucleated RBCs # 0 K/uL ESR 18 (0-19) mm/hr Sodium 139 (136-145) mmol/L Potassium 4.0 (3.5-5.1) mmol/L Chloride 103 (98-107) mmol/L Carbon Dioxide 27.6 (21.0-32.0) mmol/L BUN 12 (7.0-18.0) mg/dL Creatinine 0.9 (0.6-1.0) mg/dL Est Cr Clr Drug Dosing 69.00 mL/min Estimated GFR (MDRD) > 60.0 ml/min Glucose 110 H (74-106) mg/dL Calcium 9.1 (8.5-10.1) mg/dL Total Bilirubin (0.2-1.0) mg/dL AST (15-37) IU/L ALT (14-63) IU/L Alkaline Phosphatase (46-116) U/L C-Reactive Protein 1.60 H (0.00-0.90) mg/dL Total Protein (6.4-8.2) g/dL Albumin (3.4-5.0) g/dL Globulin (2.6-4.0) g/dL Albumin/Globulin Ratio (0.9-1.6) 07/11/20 07/11/20 Range/Units 05:15 05:25 WBC 10.06 (4.0-11.0) K/uL RBC 4.80 (4.30-5.90) M/uL Hgb 12.9 (12.0-16.0) g/dL Hct 40.1 (36.0-46.0) % MCV 83.5 (80.0-98.0) fL MCH 26.9 L (27.0-32.0) pg MCHC 32.2 (31.0-37.0) g/dL RDW Std Deviation 42.7 (28.0-62.0) fl RDW Coeff of Suleman 14 (11.0-15.0) % Plt Count 324 (150-400) K/uL MPV 10.30 (7.40-12.00) fL Neut % (Auto) 61.4 (48.0-80.0) % Lymph % (Auto) 25.0 (16.0-40.0) % [place] % (Auto) 10.3 (0.0-15.0) % Eos % (Auto) 2.9 (0.0-7.0) % Baso % (Auto) 0.4 (0.0-1.5) % Neut # (Auto) 6.2 H (1.4-5.7) K/uL Lymph # (Auto) 2.5 H (0.6-2.4) K/uL [place] # (Auto) 1.0 H (0.0-0.8) K/uL Eos # (Auto) 0.3 (0.0-0.7) K/uL Baso # (Auto) 0.0 (0.0-0.1) K/uL Nucleated RBC % 0.0 /100WBC Nucleated RBCs # 0 K/uL ESR (0-19) mm/hr Sodium 140 (136-145) mmol/L Potassium 3.9 (3.5-5.1) mmol/L Chloride 104 (98-107) mmol/L Carbon Dioxide 24.0 (21.0-32.0) mmol/L BUN 10 (7.0-18.0) mg/dL Creatinine 0.8 (0.6-1.0) mg/dL Est Cr Clr Drug Dosing 77.63 mL/min Estimated GFR (MDRD) > 60.0 ml/min Glucose 111 H (74-106) mg/dL Calcium 9.0 (8.5-10.1) mg/dL Total Bilirubin 0.4 (0.2-1.0) mg/dL AST 25 (15-37) IU/L ALT 40 (14-63) IU/L Alkaline Phosphatase 67 (46-116) U/L C-Reactive Protein (0.00-0.90) mg/dL Total Protein 7.2 (6.4-8.2) g/dL Albumin 3.5 (3.4-5.0) g/dL Globulin 3.7 (2.6-4.0) g/dL Albumin/Globulin Ratio 0.9 (0.9-1.6) Result Diagrams: 07/11/20 05:15 07/11/20 05:25 Sepsis Event Note - Evaluation Sepsis Screening Result: No Definite Risk - Focused Exam Vital Signs: Vital Signs Temp Pulse Resp BP Pulse Ox 07/11/20 07:49 97.3 F 87 16 134/88 98 07/11/20 01:09 98.0 F 96 18 125/72 95 - Problem List (1) Cellulitis of right leg SNOMED Code(s): 765924131 ICD Code: L03.115 - CELLULITIS OF RIGHT LOWER LIMB Status: Acute Current Visit: Yes (2) HLD (hyperlipidemia) SNOMED Code(s): 66350688 ICD Code: E78.5 - HYPERLIPIDEMIA, UNSPECIFIED Status: Chronic Current Visit: No (3) HTN (hypertension) SNOMED Code(s): 73806633 ICD Code: I10 - ESSENTIAL (PRIMARY) HYPERTENSION Status: Chronic Current Visit: No (4) Obesity SNOMED Code(s): 071805892, 649691409 ICD Code: E66.9 - OBESITY, UNSPECIFIED Status: Chronic Current Visit: No Problem List Initiated/Reviewed/Updated: Yes Orders Last 24hrs: Active Orders 24 hr Category Date Time Status Admission Status [Patient Status] [ADT] Stat ADT 07/10/20 22:05 Active Vital Signs [RC] Q4H Care 07/11/20 00:34 Active Regular Diet [DIET] Diet 07/11/20 Breakfast Active VANCOMYCIN TROUGH [CHEM] Timed Lab 07/12/20 22:00 Ordered Pharmacy to Dose - Vancomycin Med 07/11/20 00:45 Active 1 dose .XX ASDIRECTED VANCOmycin 1.75 GM/350 ML 350 ml Med 07/11/20 11:00 Active IV Q12H Medication Orders Vancomycin HCl (Vancomycin 1.75 Gm/350 Ml) 350 mls @ 350 mls/hr IV Q12H [facility] Vancomycin HCl (Pharmacy To Dose - Vancomycin) 1 dose .XX ASDIRECTED [facility] Assessment/Plan Comment:: Cellulitis right legcontinue treatment with IV vancomycin. Upon discharge we will try Orbactiv antibiotic as patient has previously received that with good results. Monitor a.m. CBC
[2020-07-11] MEDS ORDERED: Acetaminophen 325 MG Tab PO PRN (11:32)
--- NOTE | 2020-07-12 02:59 | EDM.PDOC ---
ED HPI GENERAL MEDICAL PROBLEM - General Chief Complaint: Lower Extremity Injury/Pain Stated Complaint: RT LEG SWOLLEN Time Seen by Provider: 07/10/20 20:19 - History of Present Illness INITIAL COMMENTS - FREE TEXT/NARRATIVE: CHIEF COMPLAINT(S): Right lower extremity infection HISTORY OF PRESENT ILLNESS: This is a 34-year-old woman with a past medical history of right lower extremity cellulitis that was just discharged last night who comes to the emergency department with a chief complaint of right lower extremity infection. The patient is here with a caregiver. They state that since discharged and transition to levofloxacin the cellulitis does not seem to be improving and actually seems to be worsening. They state that there is some swelling in the ankle but the tenderness is not as severe. She rates her pain as 1 out of 10. She denies any radiation of this pain, numbness, tingling, or weakness. They state they have been using levofloxacin without any relief. They denied any aggravating factors or relieving factors. They state that they are mainly concerned because there started to be some blistering on the top of the red part inside the blue lines but that blistering has extended beyond the blue lines with the redness. They are concerned that it is not improving. She denies any fevers, chills, chest pain, shortness of breath, abdominal pain, nausea or vomiting. REVIEW OF SYSTEMS: Constitutional: Denies fever, chills. Eyes: Denies eye pain Ears, Nose, Mouth, & Throat: Denies earache Cardiovascular: Denies chest pain Respiratory: Denies shortness of breath Gastrointestinal: Denies Nausea, vomiting, diarrhea, hematochezia. Genitourinary: Denies hematuria Skin: Positive for right lower extremity cellulitis MSK: Denies joint pain Neurological: Denies blurred vision Psychiatric: Denies depression PAST MEDICAL HISTORY: As per history of present illness and as reviewed below otherwise noncontributory. SURGICAL HISTORY: As per history of present illness and as reviewed below otherwise noncontributory. SOCIAL HISTORY: As per history of present illness and as reviewed below otherwise noncontributory. FAMILY HISTORY: As per history of present illness and as reviewed below otherwi se noncontributory. EXAMINATION OF ORGAN SYSTEMS/BODY AREAS: Constitutional: Blood pressure is 145/95, heart rate 98, respiratory 16 with an oxygen saturation 87% on room air. Temperature 36.1 General: Overall well-appearing young woman who is not in any acute distress Psychiatric: Appropriate mood and affect. Eyes: No scleral icterus or conjunctival erythema ENMT: Moist mucous membranes. No pharyngeal erythema Cardiovascular: Regular, rate, and rhythm. No gallops, murmurs, or rubs. Bilateral upper extremity and lower extremity pulses symmetric and intact. No peripheral edema. No JVD. Respiratory: Lungs clear to auscultation bilaterally. No wheezes, rales, or rhonchi. Gastrointestinal: Soft, non-tender, non-distended. Normoactive bowel sounds Genitourinary: No suprapubic tenderness Musculoskeletal: Normal range of motion. Skin: There is an area of erythema around her right ankle with a swollen right ankle. There are prior cellulitic marker lines with some erythema that extends beyond this with some clear vesicles overlying this rash which extends beyond the prior cellulitic marker lines. This area is warm and mildly tender. Neurological: Alert, GCS 15 distal sensation is intact MEDICAL DECISION MAKING AND COURSE IN THE ED WITH INTERPRETATION/REVIEW OF DIAGNOSTIC STUDIES: This is a 34-year-old woman with recurrent right lower extremity cellulitis with a recent admission for right lower extremity cellulitis requiring IV vancomycin who was transitioned to levofloxacin. Who comes to the emergency department with worsening of her right lower extremity cellulitis. At this time the patient is afebrile and well-appearing. Will obtain repeat laboratory analysis including CBC and BMP. The patient does not appear to be septic. Therefore no fluids will be administered. We will start the patient on IV vancomycin. We will obtain a CRP. Laboratory: CBC reveals a mild leukocytosis of 11.51 which is up from prior at 10.54 with out any left shift. BMP is unremarkable. CRP is elevated at 1.60. I did review the patient's prior microbiology results. They did obtain a right ankle wound culture on July 08, 2020 with susceptibilities indicating that the i nfection is susceptible to levofloxacin, Augmentin, Keflex and Bactrim. At this time although the patient appears well I do believe the patient requires IV antibiotics and reevaluation given the failed outpatient therapy. This is difficult because the patient is allergic to Keflex and sulfa antibiotics. I did discuss with patient and patient's mother regarding admission. They were amenable to this plan. I contacted Dr. Canseco who accepted the patient for admission. DISPOSITION: Patient was admitted to the hospital in stable condition CONDITION: Serious PROCEDURES: None FINAL IMPRESSION(S)/DIAGNOSES: 1. Acute worsening right lower extremity cellulitis due to staph aureus Harmeet Castellanos M.D. right leg Pain Score (Numeric/FACES): 1 - Related Data Allergies Allergy/AdvReac Type Severity Reaction Status Date / Time adhesive Allergy Rash Verified 07/10/20 20:02 cephalexin [From Keflex] Allergy Swelling Verified 07/10/20 20:02 latex Allergy Redness Verified 07/10/20 20:02 Sulfa (Sulfonamide Allergy Airway Verified 07/10/20 20:02 Antibiotics) Tightness Home Meds: Home Meds cycloSPORINE [Restasis] 1 drop EYEBOTH BID 12/12/17 [History] prednisoLONE acetate [Pred Forte 1% Ophth Susp] 1 drop EYEBOTH BID 10/27/19 [History] Metoprolol Succinate [Toprol XL] 25 mg PO DAILY 12/21/19 [History] Furosemide 20 mg PO DAILY 07/07/20 [History] Hydrocortisone [Hydrocortisone 1% Crm] 0 mg TOP ASDIRECTED 07/07/20 [History] Urea [Urea 20% Crm] 0 mg TOP ASDIRECTED 07/07/20 [History] medroxyPROGESTERone [Depo-Provera] 150 mg IM ASDIRECTED 07/07/20 [History] valACYclovir HCl [Valtrex] 0 mg PO BID 07/07/20 [History] levoFLOXacin [Levaquin] 750 mg PO DAILY #10 tab 07/09/20 [Rx] Past Medical History HEENT History: Reports: Otitis Media, Sinusitis Cardiovascular History: Reports: Blood Clots/VTE/DVT, Hypertension, Other (See Below) Other Cardiovascular History: coarctation of the aorta Respiratory History: Reports: Sleep Apnea, Other (See Below) Other Respiratory History: respiratory difficulties Gastrointestinal History: Reports: None Genitourinary History: Reports: None PATIENT FINANCIAL COORDINATOR History: Reports: None Musculoskeletal History: Reports: None Neurological History: Reports: Other (See Below) Other Neuro History: down syndrome Psychiatric History: Reports: None Other Psychiatric History: Down Syndrome Endocrine/Metabolic History: Reports: None Hematologic History: Reports: None Immunologic History: Reports: None Oncologic (Cancer) History: Reports: None Dermatologic History: Reports: Cellulitis, Other (See Below) Other Dermatologic History: Ulceration right leg 2009- wound cares & [facility] - Infectious Disease History Infectious Disease History: Reports: Chicken Pox - Past Surgical History Head Surgeries/Procedures: Reports: None HEENT Surgical History: Reports: Adenoidectomy, Cataract Surgery, Myringotomy w Tube(s), Tonsillectomy, Other (See Below) Other HEENT Surgeries/Procedures: ear sx, L corneal transplant Cardiovascular Surgical History: Reports: Other (See Below) Other Cardiovascular Surgeries/Procedures: heart sx for coarctation Respiratory Surgical History: Reports: None GI Surgical History: Reports: Cholecystectomy Female Surgical History: Reports: None Endocrine Surgical History: Reports: None Neurological Surgical History: Reports: None Musculoskeletal Surgical History: Reports: Amputation Other Musculoskeletal Surgeries/Procedures:: Amputation 4th toe on bilateral feet Oncologic Surgical History: Reports: None Dermatological Surgical History: Reports: None Social & Family History - Family History Family Medical History: No Pertinent Family History - Tobacco Use Tobacco Use Status *Q: Never Tobacco User - Caffeine Use Caffeine Use: Reports: None - Recreational Drug Use Recreational Drug Use: No - Living Situation & Occupation Living situation: Reports: Other (custodial) ED ROS GENERAL - Review of Systems Review Of Systems: See Below ED EXAM, GENERAL - Physical Exam Exam: See Below GI/Abdominal: Normal Bowel Sounds Extremities: Other (Area of cellulitis with a wound noted on the right lower extremity, above the ankle.) Course - Vital Signs Last Recorded V/S: Last Vital Signs Temp 36.3 C 07/12/20 00:00 Pulse 90 07/12/20 00:00 Resp 15 07/12/20 00:00 BP 105/54 L 07/12/20 00:00 Pulse Ox 95 07/12/20 00:00 - Orders/Labs/Meds Orders: Medication Orders Vancomycin HCl (Vancomycin 1.75 Gm/350 Ml) 350 mls @ 350 mls/hr IV Q12H [facility] Vancomycin HCl (Pharmacy To Dose - Vancomycin) 1 dose .XX ASDIRECTED [facility] Labs: Laboratory Tests 07/10/20 07/10/20 07/10/20 Range/Units 21:31 21:31 21:31 WBC 11.51 H (4.0-11.0) K/uL RBC 4.76 (4.30-5.90) M/uL Hgb 12.8 (12.0-16.0) g/dL Hct 39.8 (36.0-46.0) % MCV 83.6 (80.0-98.0) fL MCH 26.9 L (27.0-32.0) pg MCHC 32.2 (31.0-37.0) g/dL RDW Std Deviation 42.9 (28.0-62.0) fl RDW Coeff of Suleman 14 (11.0-15.0) % Plt Count 335 (150-400) K/uL MPV 9.90 (7.40-12.00) fL Neut % (Auto) 64.5 (48.0-80.0) % Lymph % (Auto) 24.1 (16.0-40.0) % [place] % (Auto) 8.7 (0.0-15.0) % Eos % (Auto) 2.4 (0.0-7.0) % Baso % (Auto) 0.3 (0.0-1.5) % Neut # (Auto) 7.4 H (1.4-5.7) K/uL Lymph # (Auto) 2.8 H (0.6-2.4) K/uL [place] # (Auto) 1.0 H (0.0-0.8) K/uL Eos # (Auto) 0.3 (0.0-0.7) K/uL Baso # (Auto) 0.0 (0.0-0.1) K/uL Nucleated RBC % 0.0 /100WBC Nucleated RBCs # 0 K/uL ESR 18 (0-19) mm/hr Sodium 139 (136-145) mmol/L Potassium 4.0 (3.5-5.1) mmol/L Chloride 103 (98-107) mmol/L Carbon Dioxide 27.6 (21.0-32.0) mmol/L BUN 12 (7.0-18.0) mg/dL Creatinine 0.9 (0.6-1.0) mg/dL Est Cr Clr Drug Dosing 69.00 mL/min Estimated GFR (MDRD) > 60.0 ml/min Glucose 110 H (74-106) mg/dL Calcium 9.1 (8.5-10.1) mg/dL C-Reactive Protein 1.60 H (0.00-0.90) mg/dL Meds: Medications Generic Name Dose Route Start Last Admin Trade Name Freq PRN Reason Stop Dose Admin Vancomycin HCl 350 mls @ 350 mls/hr 07/11/20 11:00 Vancomycin 1.75 Gm/350 Ml IV Q12H [facility] Vancomycin HCl 1 dose 07/11/20 00:45 Pharmacy To Dose - Vancomycin .XX ASDIRECTED [facility] Discontinued Medications Generic Name Dose Route Start Last Admin Trade Name Freq PRN Reason Stop Dose Admin Vancomycin HCl 2 gm/ Premix 400 mls @ 200 mls/hr 07/10/20 22:02 07/11/20 00:38 IV 07/11/20 00:01 Not Given STAT ONE Vancomycin HCl 1.5 gm/ Premix 300 mls @ 200 mls/hr 07/10/20 22:38 07/10/20 22:52 IV 07/11/20 00:07 200 mls/hr ONETIME ONE Administration Departure - Departure Time of Disposition: 22:05 Disposition: Refer to Observation Clinical Impression: Cellulitis Qualifiers: Site of cellulitis: extremity Site of cellulitis of extremity: lower extremity Laterality: right Qualified Code(s): L03.115 - Cellulitis of right lower limb - Discharge Information Sepsis Event Note (ED) - Evaluation Sepsis Screening Result: No Definite Risk
[2020-07-12 05:46] LABS: BLOOD UREA NITROGEN,BUN 15 mg/dL (7.0-18.0); CHLORIDE,CL 106 mmol/L (98-107); GLUCOSE RANDOM 107 mg/dL (74-106); POTASSIUM,K 3.9 mmol/L (3.5-5.1); SODIUM,NA 139 mmol/L (136-145)
[2020-07-12 05:55] LABS: CARBON DIOXIDE,CO2 23.3 mmol/L (21.0-32.0)
--- NOTE | 2020-07-12 11:44 | PCM.DCSUM1 ---
Discharge Summary - Hospital Course Free Text/Narrative:: 34-year-old female re-admitted to the medical surgical floor for right leg cellulitis. Patient was previously admitted on 07-07-20 and discharged on 07-09-20 discharged for right leg cellulitis with a right lower extremity wound. Patient was treated in the hospital with vancomycin and discharged home on levofloxacin. Wound culture on previous visit grew staph aureus. Patient upon readmission states that she still has right lower leg pain and swelling with no improvement on current antibiotic regimen. Patient has a past medical history of recurrent right leg cellulitis, HTN, HLD, chronic venous stasis, intellectual disability and coarctation of aorta. Patient denies fevers, chills, cough, SOB, chest pain, nausea, vomiting, abdominal pain, diarrhea. On admission white blood cell count 11.5, CRP 1.6. Patient was treated with IV vancomycin for cellulitis during admission course. Upon discharge patient prescribed Orbactiv 1200 mg x 1 for further antibiotic coverage. - Discharge Data Discharge Date: 07/12/20 Discharge Disposition: Home, Self-Care 01 Condition: Stable - Referral to Home Health Primary Care Physician: JILL Osborne - Discharge Diagnosis/Problem(s) (1) Cellulitis of right leg SNOMED Code(s): 179139790 ICD Code: L03.115 - CELLULITIS OF RIGHT LOWER LIMB Status: Acute (2) HLD (hyperlipidemia) SNOMED Code(s): 47150278 ICD Code: E78.5 - HYPERLIPIDEMIA, UNSPECIFIED Status: Chronic (3) HTN (hypertension) SNOMED Code(s): 97975935 ICD Code: I10 - ESSENTIAL (PRIMARY) HYPERTENSION Status: Chronic (4) Obesity SNOMED Code(s): 211502225, 602985165 ICD Code: E66.9 - OBESITY, UNSPECIFIED Status: Chronic - Patient Instructions Diet: Heart Healthy Diet Activity: As Tolerated Driving: Do Not Drive Showering/Bathing: May Shower Notify Provider of: Fever, Increased Pain, Swelling and Redness, Drainage, Nausea and/or Vomiting - Discharge Plan *PRESCRIPTION DRUG MONITORING PROGRAM REVIEWED*: No *COPY OF PRESCRIPTION DRUG MONITORING REPORT IN PATIENT ANALI: No Prescriptions/Med Rec: Oritavancin Diphosphate [Orbactiv] 1,200 mg IV ONETIME #3 vial Home Medications: Home Meds cycloSPORINE [Restasis] 1 drop EYEBOTH BID 12/12/17 [History] prednisoLONE acetate [Pred Forte 1% Ophth Susp] 1 drop EYEBOTH BID 10/27/19 [History] Metoprolol Succinate [Toprol XL] 25 mg PO DAILY 12/21/19 [History] Furosemide 20 mg PO DAILY 07/07/20 [History] Hydrocortisone [Hydrocortisone 1% Crm] 0 mg TOP ASDIRECTED 07/07/20 [History] Urea [Urea 20% Crm] 0 mg TOP ASDIRECTED 07/07/20 [History] medroxyPROGESTERone [Depo-Provera] 150 mg IM ASDIRECTED 07/07/20 [History] valACYclovir HCl [Valtrex] 0 mg PO BID 07/07/20 [History] levoFLOXacin [Levaquin] 750 mg PO DAILY #10 tab 07/09/20 [Rx] Oritavancin Diphosphate [Orbactiv] 1,200 mg IV ONETIME #3 vial 07/12/20 [Rx] Patient Handouts: Oritavancin injection, Cellulitis, Adult, [id number] Forms: ED Department Discharge Referrals: Aicha Hernandez PA [Primary Care Provider] - 07/18/20 9:00 am - Discharge Summary/Plan Comment DC Time >30 min.: Yes - General Info Date of Service: 07/12/20 Subjective Update: Patient states improvement in right lower leg cellulitis. Patient denies any pain swelling of the right lower extremity. Patient states slight discharge from the leg wound which is described as clear with a slight yellow color. Patient denies fever, chills, nausea, vomiting, abdominal pain, chest pain, shortness of breath. Patient states that she is ready to go home. - Review of Systems General: Denies: Fever, Fatigue Pulmonary: Denies: Shortness of Breath Cardiovascular: Denies: Chest Pain Gastrointestinal: Denies: Abdominal Pain Neurological: Denies: Confusion Psychiatric: Denies: Confusion - Patient Data Vitals - Most Recent: Last Vital Signs Temp 97.8 F 07/12/20 07:10 Pulse 85 07/12/20 07:10 Resp 16 07/12/20 07:10 BP 148/82 H 07/12/20 07:10 Pulse Ox 97 07/12/20 07:10 Weight - Most Recent: 262 lb 3.2 oz I&O - Last 24 hours: Intake & Output 07/11/20 07/12/20 07/12/20 22:59 06:59 14:59 Intake Total 1100 1000 Output Total 600 450 Balance 500 550 Lab Results - Last 24 hrs: Laboratory Results - last 24 hr 07/12/20 07/12/20 Range/Units 05:00 05:00 WBC 9.80 (4.0-11.0) K/uL RBC 4.42 (4.30-5.90) M/uL Hgb 11.7 L (12.0-16.0) g/dL Hct 37.4 (36.0-46.0) % MCV 84.6 (80.0-98.0) fL MCH 26.5 L (27.0-32.0) pg MCHC 31.3 (31.0-37.0) g/dL RDW Std Deviation 44.0 (28.0-62.0) fl RDW Coeff of Suleman 14 (11.0-15.0) % Plt Count 321 (150-400) K/uL MPV 10.40 (7.40-12.00) fL Neut % (Auto) 60.0 (48.0-80.0) % Lymph % (Auto) 27.2 (16.0-40.0) % [place] % (Auto) 8.8 (0.0-15.0) % Eos % (Auto) 3.4 (0.0-7.0) % Baso % (Auto) 0.6 (0.0-1.5) % Neut # (Auto) 5.9 H (1.4-5.7) K/uL Lymph # (Auto) 2.7 H (0.6-2.4) K/uL [place] # (Auto) 0.9 H (0.0-0.8) K/uL Eos # (Auto) 0.3 (0.0-0.7) K/uL Baso # (Auto) 0.1 (0.0-0.1) K/uL Nucleated RBC % 0.0 /100WBC Nucleated RBCs # 0 K/uL Sodium 139 (136-145) mmol/L Potassium 3.9 (3.5-5.1) mmol/L Chloride 106 (98-107) mmol/L Carbon Dioxide 23.3 (21.0-32.0) mmol/L BUN 15 (7.0-18.0) mg/dL Creatinine 0.8 (0.6-1.0) mg/dL Est Cr Clr Drug Dosing 77.63 mL/min Estimated GFR (MDRD) > 60.0 ml/min Glucose 107 H (74-106) mg/dL Calcium 8.6 (8.5-10.1) mg/dL Med Orders - Current: Current Medications Acetaminophen (Acetaminophen 325 Mg Tab) 650 mg PO Q4H PRN PRN Reason: Pain (Mild 1-3)/fever Vancomycin HCl (Vancomycin 1.75 Gm/350 Ml) 350 mls @ 233.333 mls/hr IV Q12H [facility] Last Admin: 07/11/20 22:23 Dose: 233.333 mls/hr Documented by: Vancomycin HCl (Pharmacy To Dose - Vancomycin) 1 dose .XX ASDIRECTED MADAN Discontinued Medications Vancomycin HCl 2 gm/ Premix 400 mls @ 200 mls/hr IV STAT ONE Stop: 07/11/20 00:01 Last Admin: 07/11/20 00:38 Dose: Not Given Documented by: Vancomycin HCl 1.5 gm/ Premix 300 mls @ 200 mls/hr IV ONETIME ONE Stop: 07/11/20 00:07 Last Admin: 07/10/20 22:52 Dose: 200 mls/hr Documented by: Vancomycin HCl (Vancomycin 1.75 Gm/350 Ml) 350 mls @ 350 mls/hr IV Q12H MADAN - Exam General: Reports: Alert, Oriented Lungs: Reports: Clear to Auscultation, Normal Respiratory Effort Cardiovascular: Reports: Regular Rate GI/Abdominal Exam: Normal Bowel Sounds Wound/Incisions: Reports: Healing Well, Erythema Improving Psy/Mental Status: Reports: Alert
== END 2020-07-12 10:51 | disposition home health service (06) ==
LOC: MW.ED 18:41 → MW.MS 22:05
PROVIDERS: ADMIT Internal Medicine; ATTEND Internal Medicine
DX: L03.115 Cellulitis of right lower limb (principal); G47.30 Sleep apnea, unspecified; E78.5 Hyperlipidemia, unspecified; E66.9 Obesity, unspecified; Z88.8 Allergy status to other drugs, medicaments and biological substances; Z88.2 Allergy status to sulfonamides; Z91.040 Latex allergy status; Z79.899 Other long term (current) drug therapy; Z98.890 Other specified postprocedural states
CPT/HCPCS: 36415; 80048; 80053; 85025; 85652; 86140; 96365; 96366; 99284; G0378; J3370

== ENCOUNTER 2020-10-20 22:54 | Emergency (ER) | payer MEDICARE, MEDICAID ==
--- NOTE | 2020-10-21 00:42 | EDM.PDOC ---
ED HPI GENERAL MEDICAL PROBLEM - General Chief Complaint: Lower Extremity Injury/Pain Stated Complaint: LEG PAIN Time Seen by Provider: 10/20/20 22:58 Source of Information: Reports: Patient History Limitations: Reports: No Limitations - History of Present Illness INITIAL COMMENTS - FREE TEXT/NARRATIVE: 34-year-old female past medical history intellectual disability, status post aortic coarctation repair, obesity, nonhealing ulcer of right lower extremity with recurrent cellulitis, recent surgical procedure with plastic surgery Dr. Spear in [place] for removal of scar tissue in the right lower extremity presents for postoperative complication. 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 They note that patient's leg was looking much better and that the incision site was well-appearing without any surrounding erythema. Today they noted that the incision is burst open, draining purulent material, and there is surrounding redness around the surgical site. Patient denies fevers, nausea, vomiting. right leg Pain Score (Numeric/FACES): 2 - Related Data Allergies Allergy/AdvReac Type Severity Reaction Status Date / Time adhesive Allergy Rash Verified 10/21/20 00:21 cephalexin [From Keflex] Allergy Swelling Verified 10/21/20 00:21 latex Allergy Redness Verified 10/21/20 00:21 Sulfa (Sulfonamide Allergy Airway Verified 10/21/20 00:21 Antibiotics) Tightness Home Meds: Home Meds cycloSPORINE [Restasis] 1 drop EYEBOTH BID 12/12/17 [History] prednisoLONE acetate [Pred Forte 1% Ophth Susp] 1 drop EYEBOTH BID 10/27/19 [History] Metoprolol Succinate [Toprol XL] 25 mg PO DAILY 12/21/19 [History] Furosemide 20 mg PO DAILY 07/07/20 [History] Hydrocortisone [Hydrocortisone 1% Crm] 0 mg TOP ASDIRECTED 07/07/20 [History] Urea [Urea 20% Crm] 0 mg TOP ASDIRECTED 07/07/20 [History] medroxyPROGESTERone [Depo-Provera] 150 mg IM ASDIRECTED 07/07/20 [History] valACYclovir HCl [Valtrex] 0 mg PO BID 07/07/20 [History] levoFLOXacin [Levaquin] 750 mg PO DAILY #10 tab 07/09/20 [Rx] Oritavancin Diphosphate [Orbactiv] 1,200 mg IV ONETIME #3 vial 07/12/20 [Rx] Past Medical History HEENT History: Reports: Otitis Media, Sinusitis Cardiovascular History: Reports: Blood Clots/VTE/DVT, Hypertension, Other (See Below) Other Cardiovascular History: coarctation of the aorta Respiratory History: Reports: Sleep Apnea, Other (See Below) Other Respiratory History: respiratory difficulties Gastrointestinal History: Reports: None Genitourinary History: Reports: None YOUTH PROGRAM DIRECTOR History: Reports: None Musculoskeletal History: Reports: None Neurological History: Reports: Other (See Below) Other Neuro History: down syndrome Psychiatric History: Reports: None Other Psychiatric History: Down Syndrome Endocrine/Metabolic History: Reports: None Hematologic History: Reports: None Immunologic History: Reports: None Oncologic (Cancer) History: Reports: None Dermatologic History: Reports: Cellulitis, Other (See Below) Other Dermatologic History: Ulceration right leg 2009- wound cares & [facility] - Infectious Disease History Infectious Disease History: Reports: Chicken Pox - Past Surgical History Head Surgeries/Procedures: Reports: None HEENT Surgical History: Reports: Adenoidectomy, Cataract Surgery, Myringotomy w Tube(s), Tonsillectomy, Other (See Below) Other HEENT Surgeries/Procedures: ear sx, L corneal transplant Cardiovascular Surgical History: Reports: Other (See Below) Other Cardiovascular Surgeries/Procedures: heart sx for coarctation Respiratory Surgical History: Reports: None GI Surgical History: Reports: Cholecystectomy Female Surgical History: Reports: None Endocrine Surgical History: Reports: None Neurological Surgical History: Reports: None Musculoskeletal Surgical History: Reports: Amputation Other Musculoskeletal Surgeries/Procedures:: Amputation 4th toe on bilateral feet Oncologic Surgical History: Reports: None Dermatological Surgical History: Reports: None Social & Family History - Family History Family Medical History: No Pertinent Family History - Caffeine Use Caffeine Use: Reports: None - Recreational Drug Use Recreational Drug Use: No - Living Situation & Occupation Living situation: Reports: Other (residential) Review of Systems - Review of Systems Review Of Systems: Comprehensive ROS is negative, except as noted in HPI. ED EXAM, GENERAL - Physical Exam Exam: See Below Exam Limited By: No Limitations General Appearance: Alert, WD/WN, No Apparent Distress Ears: Hearing Grossly Normal Throat/Mouth: Normal Voice, No Airway Compromise Head: Atraumatic, Normocephalic Respiratory/Chest: No Respiratory Distress, No Accessory Muscle Use Cardiovascular: Normal Peripheral Pulses, Regular Rate, Rhythm Extremities: Other (large 8-cm open surgical wound draining purulent material with sutures burting open and surrounding erythema consistent with infection) Neurological: Alert Psychiatric: Normal Affect, Normal Mood Skin Exam: Warm, Dry, Intact, Normal Color Course - Vital Signs Last Recorded V/S: Last Vital Signs Temp 98.8 F 10/21/20 02:14 Pulse 90 10/21/20 02:14 Resp 18 10/21/20 02:14 BP 125/73 10/21/20 02:14 Pulse Ox 97 10/21/20 02:14 - Orders/Labs/Meds Orders: Active Orders 24 hr Category Date Time Status CULTURE BLOOD [BC] Stat Lab 10/21/20 00:50 Received CULTURE BLOOD [BC] Stat Lab 10/21/20 01:05 Results CULTURE WOUND [RM] Stat Lab 10/21/20 00:50 Received LACTIC ACID [CHEM] Routine Lab 10/21/20 03:11 Ordered Sodium Chloride 0.9% [Normal Saline] 1,000 ml Med 10/21/20 03:17 Stop Req IV .Bolus Sodium Chloride 0.9% [Saline Flush] Med 10/21/20 00:43 Active 10 ml FLUSH ASDIRECTED PRN Sodium Chloride 0.9% [Saline Flush] Med 10/21/20 00:43 Active 2.5 ml FLUSH ASDIRECTED PRN Blood Culture x2 Reflex Set [OM.PC] Stat Oth 10/21/20 00:43 Ordered Saline Lock Insert [OM.PC] Stat Oth 10/21/20 00:43 Ordered Medication Orders Sodium Chloride (Normal Saline) 1,000 mls @ 999 mls/hr IV .Bolus ONE Stop: 10/21/20 04:17 Sodium Chloride (Sodium Chloride 0.9% 10 Ml Syringe) 10 ml FLUSH ASDIRECTED PRN PRN Reason: Keep Vein Open Sodium Chloride (Sodium Chloride 0.9% 2.5 Ml Syringe) 2.5 ml FLUSH ASDIRECTED PRN PRN Reason: Keep Vein Open Labs: Laboratory Tests 10/21/20 10/21/20 10/21/20 Range/Units 00:50 00:50 00:50 WBC 13.80 H (4.0-11.0) K/uL RBC 4.90 (4.30-5.90) M/uL Hgb 13.3 (12.0-16.0) g/dL Hct 40.9 (36.0-46.0) % MCV 83.5 (80.0-98.0) fL MCH 27.1 (27.0-32.0) pg MCHC 32.5 (31.0-37.0) g/dL RDW Std Deviation 41.8 (28.0-62.0) fl RDW Coeff of Suleman 14 (11.0-15.0) % Plt Count 482 H (150-400) K/uL MPV 9.70 (7.40-12.00) fL Neut % (Auto) 65.6 (48.0-80.0) % Lymph % (Auto) 21.7 (16.0-40.0) % [place] % (Auto) 9.7 (0.0-15.0) % Eos % (Auto) 2.8 (0.0-7.0) % Baso % (Auto) 0.2 (0.0-1.5) % Neut # (Auto) 9.1 H (1.4-5.7) K/uL Lymph # (Auto) 3.0 H (0.6-2.4) K/uL [place] # (Auto) 1.3 H (0.0-0.8) K/uL Eos # (Auto) 0.4 (0.0-0.7) K/uL Baso # (Auto) 0.0 (0.0-0.1) K/uL Nucleated RBC % 0.0 /100WBC Nucleated RBCs # 0 K/uL Sodium 139 (136-145) mmol/L Potassium 4.1 (3.5-5.1) mmol/L Chloride 102 (98-107) mmol/L Carbon Dioxide 25.5 (21.0-32.0) mmol/L BUN 18 (7.0-18.0) mg/dL Creatinine 1.0 (0.6-1.0) mg/dL Est Cr Clr Drug Dosing 56.40 mL/min Estimated GFR (MDRD) > 60.0 ml/min Glucose 116 H (74-106) mg/dL Lactic Acid 2.6 H* (0.4-2.0) mmol/L Calcium 9.0 (8.5-10.1) mg/dL Total Bilirubin 0.1 L (0.2-1.0) mg/dL AST 22 (15-37) IU/L ALT 29 (14-63) IU/L Alkaline Phosphatase 86 (46-116) U/L Total Protein 8.1 (6.4-8.2) g/dL Albumin 3.5 (3.4-5.0) g/dL Globulin 4.6 H (2.6-4.0) g/dL Albumin/Globulin Ratio 0.8 L (0.9-1.6) Meds: Medications Generic Name Dose Route Start Last Admin Trade Name Freq PRN Reason Stop Dose Admin Sodium Chloride 1,000 mls @ 999 mls/hr 10/21/20 03:17 Normal Saline IV 10/21/20 04:17 .Bolus ONE Sodium Chloride 10 ml 10/21/20 00:43 Sodium Chloride 0.9% 10 Ml Syringe FLUSH ASDIRECTED PRN Keep Vein Open Sodium Chloride 2.5 ml 10/21/20 00:43 Sodium Chloride 0.9% 2.5 Ml Syringe FLUSH ASDIRECTED PRN Keep Vein Open Discontinued Medications Generic Name Dose Route Start Last Admin Trade Name Freq PRN Reason Stop Dose Admin Sodium Chloride 1,000 mls @ 999 mls/hr 10/21/20 00:43 10/21/20 01:08 Normal Saline IV 10/21/20 01:43 999 mls/hr .Bolus ONE Administration Clindamycin Phosphate 600 mg/ 50 mls @ 100 mls/hr 10/21/20 00:43 10/21/20 01:09 Premix IV 10/21/20 01:12 100 mls/hr ONETIME ONE Administration Sodium Chloride 1,000 mls @ 999 mls/hr 10/21/20 02:09 10/21/20 02:12 Normal Saline IV 10/21/20 03:09 999 mls/hr .Bolus ONE Administration - Re-Assessments/Exams Free Text/Narrative Re-Assessment/Exam: 10/21/20 01:28 We will get labs and x-ray imaging of the leg. Will reach out to surgery at [place] for disposition recommendations. 10/21/20 02:21 I spoke with the transfer center to try and reach Dr. Lloyd but unfortunately no one is on-call for plastic surgery there this weekend. I do believe the patient requires admission. I did speak with Dr. Canseco hospitalist who would prefer patient go to [place] as this is where she had her surgical procedure and does need consult by plastic surgery. Will reach out to hospitalist at [facility] for transfer. 10/21/20 03:[address] Pagan at [facility] who agrees with plan to transfer for IV antibiotics and for surgical consultation when plastics is available on Friday. Patient and mom agreeable. Departure - Departure Time of Disposition: 03:21 Disposition: DC/Tfer to Acute Hospital 02 Condition: Good Clinical Impression: Cellulitis Qualifiers: Site of cellulitis: extremity Site of cellulitis of extremity: lower extremity Laterality: right Qualified Code(s): L03.115 - Cellulitis of right lower limb - Discharge Information Instructions: Cellulitis, Adult Referrals: Yas Zuñiga MD [Primary Care Provider] - Forms: ED Department Discharge Additional Instructions: Please go to [facility] so that you can be admitted for IV antibiotics and for surgical consultation on Friday. Sepsis Event Note (ED) - Evaluation Sepsis Screening Result: No Definite Risk - Focused Exam Vital Signs: Vital Signs Temp Pulse Resp BP Pulse Ox 10/21/20 02:14 98.8 F 90 18 125/73 97 10/21/20 00:10 97.8 F 96 16 152/95 H 97 - My Orders Last 24 Hours: My Active Orders 10/21/20 00:43 Sodium Chloride 0.9% [Saline Flush] 10 ml FLUSH ASDIRECTED PRN Sodium Chloride 0.9% [Saline Flush] 2.5 ml FLUSH ASDIRECTED PRN Blood Culture x2 Reflex Set [OM.PC] Stat Saline Lock Insert [OM.PC] Stat 10/21/20 00:50 CULTURE BLOOD [BC] Stat CULTURE WOUND [RM] Stat 10/21/20 01:05 CULTURE BLOOD [BC] Stat 10/21/20 03:11 LACTIC ACID [CHEM] Routine 10/21/20 03:17 Sodium Chloride 0.9% [Normal Saline] 1,000 ml IV .Bolus - Assessment/Plan Last 24 Hours: My Active Orders 10/21/20 00:43 Sodium Chloride 0.9% [Saline Flush] 10 ml FLUSH ASDIRECTED PRN Sodium Chloride 0.9% [Saline Flush] 2.5 ml FLUSH ASDIRECTED PRN Blood Culture x2 Reflex Set [OM.PC] Stat Saline Lock Insert [OM.PC] Stat 10/21/20 00:50 CULTURE BLOOD [BC] Stat CULTURE WOUND [RM] Stat 10/21/20 01:05 CULTURE BLOOD [BC] Stat 10/21/20 03:11 LACTIC ACID [CHEM] Routine 10/21/20 03:17 Sodium Chloride 0.9% [Normal Saline] 1,000 ml IV .Bolus
[2020-10-21] MEDS ORDERED: Sodium Chloride 0.9% 1,000 ML IV ONE ×3 (00:43→03:17)
[2020-10-21] MEDS ORDERED: Sodium Chloride 0.9% 10 ML Syringe FLUSH PRN (00:43)
[2020-10-21] MEDS ORDERED: Sodium Chloride 0.9% 2.5 ML Syringe FLUSH PRN (00:43)
[2020-10-21] MEDS ORDERED: Clindamycin Phosphate in D5W 600 MG in Premix Bag 1 BAG IV ONE ×2 (00:43)
[2020-10-21 01:49] LABS: BLOOD UREA NITROGEN,BUN 18 mg/dL (7.0-18.0); CARBON DIOXIDE,CO2 25.5 mmol/L (21.0-32.0); CHLORIDE,CL 102 mmol/L (98-107); GLUCOSE RANDOM 116 mg/dL (74-106); POTASSIUM,K 4.1 mmol/L (3.5-5.1); SODIUM,NA 139 mmol/L (136-145)
--- NOTE | 2020-10-21 02:14 | CR ---
Indication: Wound infection postop Technique: Two views of the right tibia and fibula Comparison: 07/07/2020 Findings/Impression: Bones: No acute fracture or dislocation. A chronic deformity of the lateral malleolus again seen. Joint spaces: Unremarkable. Soft tissues: A large irregular soft tissue defect in the anterior and lateral aspects of the mid to distal leg, a portion of which appears to extend near the regional bones. Soft tissue edema. Dictated by Arslan Yoon MD @ 10/21/2020 2:13:[address] Arslan Yoon @ Oct 21 2020 2:13AM
== END 2020-10-21 03:37 ==
LOC: MW.ED 22:54
DX: L03.115 Cellulitis of right lower limb (principal); Q90.9 Down syndrome, unspecified; I10 Essential (primary) hypertension; Z91.048 Other nonmedicinal substance allergy status; Z88.1 Allergy status to other antibiotic agents; Z88.2 Allergy status to sulfonamides; Z91.040 Latex allergy status; Z79.899 Other long term (current) drug therapy
CPT/HCPCS: 36415; 73590; 80053; 83605; 85025; 87040; 87070; 87077; 87186; 96365; 99284; J3490; J7030

== ENCOUNTER 2022-06-10 21:59 | Emergency (ER) | payer MEDICARE, MEDICAID ==
[2022-06-10] MEDS ORDERED: Albuterol/Ipratropium 3.0-0.5 MG/3 ML Neb Soln NEB ONE (23:07)
[2022-06-10 23:24] LABS: CORONAVIRUS COVID-19 NAA POSITIVE (NEGATIVE); INFLUENZA A NAA NEGATIVE (NEGATIVE); INFLUENZA B NAA NEGATIVE (NEGATIVE); RESPIRATORY SYNCYTIAL VIR NAA NEGATIVE (NEGATIVE)
== END 2022-06-10 23:51 | disposition home or self-care (01) ==
LOC: MW.ED 21:59
DX: U07.1 COVID-19 (principal); I10 Essential (primary) hypertension; Z91.048 Other nonmedicinal substance allergy status; Z91.040 Latex allergy status; Z88.2 Allergy status to sulfonamides; Z88.1 Allergy status to other antibiotic agents
CPT/HCPCS: 0241U; 71046; 99285; 99283; J7620-GY

== ENCOUNTER 2022-10-31 12:05 | Inpatient (IN) | payer MEDICARE, MEDICAID ==
[2022-10-31] MEDS ORDERED: Sodium Chloride 0.9% 2.5 ML Syringe FLUSH PRN ×2 (12:42→15:52)
[2022-10-31] MEDS ORDERED: Sodium Chloride 0.9% 10 ML Syringe FLUSH PRN ×2 (12:42→15:52)
[2022-10-31] MEDS ORDERED: Ibuprofen 600 MG Tab PO ONE (12:55)
[2022-10-31] MEDS ORDERED: Sodium Chloride 0.9% 1,000 ML IV ONE ×2 (12:55→14:51)
[2022-10-31 13:26] LABS: BASOPHILS PERCENT AUTO 0.1 % (0.0-1.5); HEMATOCRIT 41.5 % (36.0-46.0); HEMOGLOBIN 13.5 g/dL (12.0-16.0); LYMPHOCYTES ABSOLUTE AUTO 1.5 K/uL (0.6-2.4); LYMPHOCYTES PERCENT AUTO 6.5 % (16.0-40.0); MEAN CORPUSCULAR HEMOGLOBIN 27.1 pg (27.0-32.0); MEAN CORPUSCULAR HGB CONC 32.5 g/dL (31.0-37.0); MEAN CORPUSCULAR VOLUME 83.3 fL (80.0-98.0); MONOCYTES ABSOLUTE AUTO 0.8 K/uL (0.0-0.8); MONOCYTES PERCENT AUTO 3.4 % (0.0-15.0); NEUTROPHILS ABSOLUTE AUTO 21.5 K/uL (1.4-5.7); NRBC ABSOLUTE 0 K/uL; PLATELET COUNT,PLT 304 K/uL (150-400); RED BLOOD CELL COUNT 4.98 M/uL (4.30-5.90); WHITE BLOOD CELL COUNT,WBC 23.85 K/uL (4.0-11.0)
[2022-10-31] MEDS ORDERED: VANCOmycin 2 GM/400 ML 2 GM in Premix Bag 1 BAG IV ONE (13:45)
[2022-10-31] MEDS ORDERED: Sodium Chloride 0.9% 1,000 ML IV STA (13:52)
[2022-10-31 14:00] LABS: LACTIC ACID 2.3 mmol/L (0.4-2.0)
[2022-10-31 14:07] LABS: A/G RATIO 0.8 (0.9-1.6); ALBUMIN 3.5 g/dL (3.4-5.0); BILIRUBIN TOTAL 0.8 mg/dL (0.2-1.0); CALCIUM 9.2 mg/dL (8.5-10.1); CREATININE 1.1 mg/dL (0.6-1.0); EST CRCL DRUG DOSING (CG) 49.81 mL/min; POTASSIUM,K 3.9 mmol/L (3.5-5.1); PROTEIN TOTAL,TP 7.7 g/dL (6.4-8.2)
[2022-10-31] MEDS ORDERED: Acetaminophen 500 MG Tab PO ONE (14:55)
[2022-10-31] MEDS: Piperacillin/Tazobactam 3.375 GM in Sodium Chloride 0.9% 100 ML IV SCH ×2 (15:29→20:18)
[2022-10-31] MEDS ORDERED: Ondansetron 4 MG/2 ML SDV IVPUSH PRN (16:00)
[2022-10-31] MEDS ORDERED: Sodium Chloride 0.9% 1,000 ML IV SCH (16:00)
[2022-10-31] MEDS ORDERED: Glucagon,Human Recombinant 1 MG Vial IM PRN (16:30)
[2022-10-31] MEDS ORDERED: 50% Dextrose in Water 50 ML Syringe IVPUSH PRN (16:30)
[2022-10-31] MEDS: Insulin Aspart 100 Units/ML 3 ML Pen SUBCUT SCH (16:55)
[2022-10-31] MEDS ORDERED: metFORMIN 500 MG Tab PO SCH (17:00)
[2022-10-31 17:45] LABS: APPEARANCE,URINE CLEAR; BILIRUBIN,URINE NEGATIVE (NEGATIVE); COLOR,URINE YELLOW; GLUCOSE,URINE NEGATIVE (NEGATIVE); KETONES,URINE NEGATIVE (NEGATIVE); LEUKOCYTE ESTERASE,URINE NEGATIVE (NEGATIVE); NITRITE,URINE NEGATIVE (NEGATIVE); OCCULT BLOOD,URINE SMALL (NEGATIVE); PH,URINE 5.5 (5.0-8.0); PROTEIN,URINE NEGATIVE (NEGATIVE); UROBILINOGEN,URINE 0.2 EU/dL (<2.0)
[2022-10-31] MEDS: Sodium Chloride 0.9% 1,000 ML IV SCH (17:57)
[2022-10-31 18:04] LABS: BACTERIA,URINE RARE (NEGATIVE); EPITHELIAL CELLS,URINE FEW (NONE-FEW)
[2022-10-31] MEDS: BRIMONIDINE EYEBOTH SCH (20:17)
[2022-10-31] MEDS: Enoxaparin 40 MG/0.4 ML Syringe SUBCUT SCH (20:18)
[2022-10-31] MEDS: CYCLOSPORINE 0.05% EYEBOTH SCH (20:19)
[2022-11-01 01:17] LABS: LACTIC ACID 1.5 mmol/L (0.4-2.0)
[2022-11-01] MEDS: Piperacillin/Tazobactam 3.375 GM in Sodium Chloride 0.9% 100 ML IV SCH ×4 (02:10→20:35)
[2022-11-01] MEDS: Sodium Chloride 0.9% 1,000 ML IV SCH ×2 (02:11→15:35)
[2022-11-01 07:02] LABS: BASOPHILS ABSOLUTE AUTO 0.1 K/uL (0.0-0.1); BASOPHILS PERCENT AUTO 0.4 % (0.0-1.5); HEMATOCRIT 39.2 % (36.0-46.0); HEMOGLOBIN 11.3 g/dL (12.0-16.0); LYMPHOCYTES ABSOLUTE AUTO 1.8 K/uL (0.6-2.4); LYMPHOCYTES PERCENT AUTO 10.4 % (16.0-40.0); MEAN CORPUSCULAR HEMOGLOBIN 23.8 pg (27.0-32.0); MEAN CORPUSCULAR HGB CONC 28.8 g/dL (31.0-37.0); MEAN CORPUSCULAR VOLUME 82.7 fL (80.0-98.0); MONOCYTES ABSOLUTE AUTO 1.2 K/uL (0.0-0.8); NEUTROPHILS ABSOLUTE AUTO 13.8 K/uL (1.4-5.7); NEUTROPHILS PERCENT AUTO 82.2 % (48.0-80.0); NRBC ABSOLUTE 0 K/uL; PLATELET COUNT,PLT 218 K/uL (150-400); RED BLOOD CELL COUNT 4.74 M/uL (4.30-5.90); WHITE BLOOD CELL COUNT,WBC 16.82 K/uL (4.0-11.0)
[2022-11-01] MEDS: Insulin Aspart 100 Units/ML 3 ML Pen SUBCUT SCH ×3 (07:12→17:06)
[2022-11-01 07:30] LABS: A/G RATIO 0.8 (0.9-1.6); ALBUMIN 2.8 g/dL (3.4-5.0); BILIRUBIN TOTAL 0.7 mg/dL (0.2-1.0); CALCIUM 7.4 mg/dL (8.5-10.1); CARBON DIOXIDE,CO2 19.9 mmol/L (21.0-32.0); CREATININE 0.7 mg/dL (0.6-1.0); EST CRCL DRUG DOSING (CG) 78.27 mL/min; MAGNESIUM 1.8 mg/dL (1.8-2.4); POTASSIUM,K 4.1 mmol/L (3.5-5.1); PROTEIN TOTAL,TP 6.2 g/dL (6.4-8.2)
[2022-11-01] MEDS: Enoxaparin 40 MG/0.4 ML Syringe SUBCUT SCH ×2 (08:38→20:42)
[2022-11-01] MEDS: prednisoLONE Acetate 1% Ophth Susp 5 ML Bottle EYEBOTH SCH (08:44)
[2022-11-01] MEDS: CYCLOSPORINE 0.05% EYEBOTH SCH ×2 (08:45→20:44)
[2022-11-01] MEDS: BRIMONIDINE EYEBOTH SCH ×2 (08:45→20:43)
[2022-11-01] MEDS: Acetaminophen 325 MG Tab PO PRN ×3 (08:51→20:48)
[2022-11-01] MEDS: valACYclovir 500 MG Tab PO SCH (09:34)
[2022-11-01] MEDS ORDERED: VANCOmycin 1.5 GM/300 ML 1.5 GM in Premix Bag 1 BAG IV SCH (13:50)
[2022-11-02] MEDS: Piperacillin/Tazobactam 3.375 GM in Sodium Chloride 0.9% 100 ML IV SCH ×4 (02:50→20:09)
[2022-11-02 06:31] LABS: BASOPHILS PERCENT AUTO 0.2 % (0.0-1.5); EOSINOPHILS ABSOLUTE AUTO 0.1 K/uL (0.0-0.7); HEMATOCRIT 33.8 % (36.0-46.0); HEMOGLOBIN 10.9 g/dL (12.0-16.0); LYMPHOCYTES ABSOLUTE AUTO 1.4 K/uL (0.6-2.4); LYMPHOCYTES PERCENT AUTO 13.8 % (16.0-40.0); MEAN CORPUSCULAR HEMOGLOBIN 26.7 pg (27.0-32.0); MEAN CORPUSCULAR HGB CONC 32.2 g/dL (31.0-37.0); MEAN CORPUSCULAR VOLUME 82.8 fL (80.0-98.0); MONOCYTES ABSOLUTE AUTO 0.7 K/uL (0.0-0.8); MONOCYTES PERCENT AUTO 7.3 % (0.0-15.0); NEUTROPHILS ABSOLUTE AUTO 7.6 K/uL (1.4-5.7); NEUTROPHILS PERCENT AUTO 77.7 % (48.0-80.0); NRBC ABSOLUTE 0 K/uL; PLATELET COUNT,PLT 243 K/uL (150-400); RED BLOOD CELL COUNT 4.08 M/uL (4.30-5.90); WHITE BLOOD CELL COUNT,WBC 9.81 K/uL (4.0-11.0)
[2022-11-02 06:50] LABS: CALCIUM 7.5 mg/dL (8.5-10.1); CARBON DIOXIDE,CO2 21.3 mmol/L (21.0-32.0); CREATININE 0.8 mg/dL (0.6-1.0); EST CRCL DRUG DOSING (CG) 68.49 mL/min; MAGNESIUM 1.9 mg/dL (1.8-2.4)
[2022-11-02] MEDS: Insulin Aspart 100 Units/ML 3 ML Pen SUBCUT SCH ×3 (06:58→18:53)
[2022-11-02] MEDS: BRIMONIDINE EYEBOTH SCH ×2 (08:39→20:21)
[2022-11-02] MEDS: prednisoLONE Acetate 1% Ophth Susp 5 ML Bottle EYEBOTH SCH (08:40)
[2022-11-02] MEDS: CYCLOSPORINE 0.05% EYEBOTH SCH ×2 (08:41→20:21)
[2022-11-02] MEDS: Enoxaparin 40 MG/0.4 ML Syringe SUBCUT SCH ×2 (08:51→20:08)
[2022-11-02] MEDS: Acetaminophen 325 MG Tab PO PRN ×3 (08:52→23:22)
[2022-11-02] MEDS: valACYclovir 500 MG Tab PO SCH (08:55)
[2022-11-02] MEDS ORDERED: Potassium Chloride 20 MEQ Tab.ER PO ONE ×2 (12:30→18:00)
[2022-11-02] MEDS: Furosemide 20 MG Tab PO SCH ×2 (12:32→20:08)
[2022-11-03] MEDS: Piperacillin/Tazobactam 3.375 GM in Sodium Chloride 0.9% 100 ML IV SCH ×4 (03:37→20:01)
[2022-11-03 06:46] LABS: BASOPHILS PERCENT AUTO 0.2 % (0.0-1.5); EOSINOPHILS ABSOLUTE AUTO 0.1 K/uL (0.0-0.7); EOSINOPHILS PERCENT AUTO 0.5 % (0.0-7.0); HEMOGLOBIN 11.3 g/dL (12.0-16.0); LYMPHOCYTES ABSOLUTE AUTO 1.4 K/uL (0.6-2.4); LYMPHOCYTES PERCENT AUTO 12.2 % (16.0-40.0); MEAN CORPUSCULAR HEMOGLOBIN 26.4 pg (27.0-32.0); MEAN CORPUSCULAR HGB CONC 32.3 g/dL (31.0-37.0); MEAN CORPUSCULAR VOLUME 81.8 fL (80.0-98.0); MONOCYTES ABSOLUTE AUTO 0.9 K/uL (0.0-0.8); MONOCYTES PERCENT AUTO 8.3 % (0.0-15.0); NEUTROPHILS ABSOLUTE AUTO 8.8 K/uL (1.4-5.7); NEUTROPHILS PERCENT AUTO 78.8 % (48.0-80.0); NRBC ABSOLUTE 0 K/uL; PLATELET COUNT,PLT 289 K/uL (150-400); RED BLOOD CELL COUNT 4.28 M/uL (4.30-5.90); WHITE BLOOD CELL COUNT,WBC 11.12 K/uL (4.0-11.0)
[2022-11-03 07:07] LABS: CARBON DIOXIDE,CO2 21.7 mmol/L (21.0-32.0); CREATININE 0.9 mg/dL (0.6-1.0); EST CRCL DRUG DOSING (CG) 60.88 mL/min; POTASSIUM,K 3.4 mmol/L (3.5-5.1)
[2022-11-03] MEDS: Insulin Aspart 100 Units/ML 3 ML Pen SUBCUT SCH ×3 (07:09→16:53)
[2022-11-03] MEDS: Furosemide 20 MG Tab PO SCH (08:16)
[2022-11-03] MEDS: valACYclovir 500 MG Tab PO SCH (08:16)
[2022-11-03] MEDS: Enoxaparin 40 MG/0.4 ML Syringe SUBCUT SCH ×2 (08:17→20:00)
[2022-11-03] MEDS: BRIMONIDINE EYEBOTH SCH ×2 (08:41→20:00)
[2022-11-03] MEDS: prednisoLONE Acetate 1% Ophth Susp 5 ML Bottle EYEBOTH SCH (08:42)
[2022-11-03] MEDS: CYCLOSPORINE 0.05% EYEBOTH SCH ×2 (08:42→20:01)
[2022-11-03] MEDS ORDERED: Furosemide 20 MG/2 ML VIAL IVPUSH ONE (11:37)
[2022-11-03] MEDS ORDERED: Potassium Chloride 20 MEQ Tab.ER PO ONE (11:38)
[2022-11-03] MEDS ORDERED: Furosemide 20 MG Tab PO SCH (16:00)
[2022-11-03] MEDS: Acetaminophen 325 MG Tab PO PRN (16:11)
[2022-11-04] MEDS: Piperacillin/Tazobactam 3.375 GM in Sodium Chloride 0.9% 100 ML IV SCH ×2 (03:10→08:23)
[2022-11-04 06:02] LABS: BASOPHILS PERCENT AUTO 0.2 % (0.0-1.5); EOSINOPHILS ABSOLUTE AUTO 0.2 K/uL (0.0-0.7); EOSINOPHILS PERCENT AUTO 1.8 % (0.0-7.0); HEMATOCRIT 31.5 % (36.0-46.0); HEMOGLOBIN 9.9 g/dL (12.0-16.0); LYMPHOCYTES ABSOLUTE AUTO 1.7 K/uL (0.6-2.4); LYMPHOCYTES PERCENT AUTO 15.5 % (16.0-40.0); MEAN CORPUSCULAR HEMOGLOBIN 25.9 pg (27.0-32.0); MEAN CORPUSCULAR HGB CONC 31.4 g/dL (31.0-37.0); MEAN CORPUSCULAR VOLUME 82.5 fL (80.0-98.0); MONOCYTES ABSOLUTE AUTO 1.3 K/uL (0.0-0.8); MONOCYTES PERCENT AUTO 11.5 % (0.0-15.0); NEUTROPHILS ABSOLUTE AUTO 7.7 K/uL (1.4-5.7); NRBC ABSOLUTE 0 K/uL; PLATELET COUNT,PLT 295 K/uL (150-400); RED BLOOD CELL COUNT 3.82 M/uL (4.30-5.90); WHITE BLOOD CELL COUNT,WBC 10.83 K/uL (4.0-11.0)
[2022-11-04 06:25] LABS: CARBON DIOXIDE,CO2 23.6 mmol/L (21.0-32.0); EST CRCL DRUG DOSING (CG) 54.79 mL/min; MAGNESIUM 2.1 mg/dL (1.8-2.4); POTASSIUM,K 3.3 mmol/L (3.5-5.1)
[2022-11-04] MEDS: Insulin Aspart 100 Units/ML 3 ML Pen SUBCUT SCH ×2 (07:15→12:33)
[2022-11-04] MEDS: valACYclovir 500 MG Tab PO SCH (08:36)
[2022-11-04] MEDS ORDERED: Potassium Chloride 20 MEQ Tab.ER PO SCH (09:00)
[2022-11-04] MEDS: BRIMONIDINE EYEBOTH SCH (09:13)
[2022-11-04] MEDS: prednisoLONE Acetate 1% Ophth Susp 5 ML Bottle EYEBOTH SCH (09:13)
[2022-11-04] MEDS: CYCLOSPORINE 0.05% EYEBOTH SCH (09:14)
[2022-11-04] MEDS: Enoxaparin 40 MG/0.4 ML Syringe SUBCUT SCH (09:20)
== END 2022-11-04 13:50 | disposition home health service (06) | DRG 872 ==
LOC: MW.ED 12:05 → MW.MS 14:22
PROVIDERS: ADMIT Internal Medicine; ATTEND Internal Medicine
DX: A41.9 Sepsis, unspecified organism (principal); L03.115 Cellulitis of right lower limb; Z68.43 Body mass index [BMI] 50.0-59.9, adult; L97.911 Non-pressure chronic ulcer of unspecified part of right lower leg limited to breakdown of skin; N17.9 Acute kidney failure, unspecified; R65.20 Severe sepsis without septic shock; I10 Essential (primary) hypertension; Q90.9 Down syndrome, unspecified; E78.5 Hyperlipidemia, unspecified; E66.01 Morbid (severe) obesity due to excess calories; I87.8 Other specified disorders of veins; E11.622 Type 2 diabetes mellitus with other skin ulcer; E86.0 Dehydration; E87.6 Hypokalemia; Z96.22 Myringotomy tube(s) status; T50.905A Adverse effect of unspecified drugs, medicaments and biological substances, initial encounter; L30.9 Dermatitis, unspecified; Z88.1 Allergy status to other antibiotic agents; Z88.2 Allergy status to sulfonamides; Z91.040 Latex allergy status; Z91.048 Other nonmedicinal substance allergy status; Z79.84 Long term (current) use of oral hypoglycemic drugs; Z79.899 Other long term (current) drug therapy; Z90.89 Acquired absence of other organs; Z98.890 Other specified postprocedural states; Z90.49 Acquired absence of other specified parts of digestive tract; Z89.422 Acquired absence of other left toe(s); Z89.421 Acquired absence of other right toe(s); Z87.74 Personal history of (corrected) congenital malformations of heart and circulatory system; Z86.718 Personal history of other venous thrombosis and embolism; Z98.49 Cataract extraction status, unspecified eye; Z94.7 Corneal transplant status
CPT/HCPCS: 36410; 36415; 71045; 71045-26; 73590-26-RT; 73590-RT; 73718-26-RT; 73718-RT; 80048; 80053; 80202; 81001; 82947; 83605; 83735; 84484; 85025; 85652; 86141; 87040; 96365; 99222; 99231; 99232; 99239; 99284-25; 99285; A9270-GY; J1650; J1940; J2543; J3370; J3490; J7030; J7050

== ENCOUNTER 2023-02-03 17:30 | Observation (INO) | payer MEDICARE, MEDICAID ==
[2023-02-03 18:52] LABS: BASOPHILS PERCENT AUTO 0.4 % (0.0-1.5); EOSINOPHILS ABSOLUTE AUTO 0.6 K/uL (0.0-0.7); EOSINOPHILS PERCENT AUTO 5.6 % (0.0-7.0); HEMOGLOBIN 13.1 g/dL (12.0-16.0); LYMPHOCYTES ABSOLUTE AUTO 3.3 K/uL (0.6-2.4); LYMPHOCYTES PERCENT AUTO 30.6 % (16.0-40.0); MEAN CORPUSCULAR HEMOGLOBIN 26.9 pg (27.0-32.0); MEAN CORPUSCULAR VOLUME 84.2 fL (80.0-98.0); MONOCYTES ABSOLUTE AUTO 0.9 K/uL (0.0-0.8); MONOCYTES PERCENT AUTO 8.1 % (0.0-15.0); NEUTROPHILS PERCENT AUTO 55.3 % (48.0-80.0); NRBC ABSOLUTE 0 K/uL; PLATELET COUNT,PLT 381 K/uL (150-400); RED BLOOD CELL COUNT 4.87 M/uL (4.30-5.90)
[2023-02-03 19:11] LABS: ALANINE AMINOTRANSFERASE,ALT 30 IU/L (14-63); ALBUMIN 3.9 g/dL (3.4-5.0); ALKALINE PHOSPHATASE 72 U/L (46-116); ASPARTATE AMNIOTRANSFERASE,AST 17 IU/L (15-37); BILIRUBIN TOTAL 0.2 mg/dL (0.2-1.0); BLOOD UREA NITROGEN,BUN 16 mg/dL (7.0-18.0); CALCIUM 8.2 mg/dL (8.5-10.1); CARBON DIOXIDE,CO2 28.6 mmol/L (21.0-32.0); CHLORIDE,CL 101 mmol/L (98-107); CREATININE 1.1 mg/dL (0.6-1.0); GLUCOSE RANDOM 106 mg/dL (74-106); POTASSIUM,K 3.9 mmol/L (3.5-5.1); PROTEIN TOTAL,TP 7.8 g/dL (6.4-8.2); SODIUM,NA 139 mmol/L (136-145)
[2023-02-03 19:14] LABS: ESTIMATED GFR 66 mL/min (>60)
[2023-02-03] MEDS ORDERED: Sodium Chloride 0.9% 1,000 ML IV ONE (19:52)
[2023-02-03] MEDS ORDERED: VANCOmycin 2 GM/400 ML 2 GM in Premix Bag 1 BAG IV ONE (20:15)
[2023-02-03] MEDS ORDERED: diphenhydrAMINE 50 MG/ML SDV IVPUSH ONE (22:20)
[2023-02-03] MEDS ORDERED: Famotidine 20 MG/2 ML SDV IVPUSH ONE (22:20)
[2023-02-03] MEDS ORDERED: Piperacillin/Tazobactam 4.5 GM in Sodium Chloride 0.9% 100 ML IV ONE (23:31)
[2023-02-04] MEDS ORDERED: Sodium Chloride 0.9% 10 ML Syringe FLUSH PRN (03:10)
[2023-02-04] MEDS ORDERED: Polyethylene Glycol 3350 Powder 17 GM Packet PO PRN (03:10)
[2023-02-04] MEDS ORDERED: Ondansetron 4 MG/2 ML SDV IVPUSH PRN (03:10)
[2023-02-04] MEDS ORDERED: Sodium Chloride 0.9% 20 ML SDV IV PRN (03:10)
[2023-02-04] MEDS ORDERED: Glucagon,Human Recombinant 1 MG Vial IM PRN (03:10)
[2023-02-04] MEDS ORDERED: Sodium Chloride 0.9% 2.5 ML Syringe FLUSH PRN (03:10)
[2023-02-04] MEDS ORDERED: Acetaminophen 325 MG Tab PO PRN (03:10)
[2023-02-04] MEDS ORDERED: 50% Dextrose in Water 50 ML Syringe IVPUSH PRN (03:10)
[2023-02-04] MEDS ORDERED: Albuterol/Ipratropium 3.0-0.5 MG/3 ML Neb Soln NEB PRN (03:10)
[2023-02-04] MEDS ORDERED: Enoxaparin 40 MG/0.4 ML Syringe SUBCUT SCH (03:15)
[2023-02-04] MEDS ORDERED: Lactated Ringers 1,000 ML IV SCH (03:15)
[2023-02-04] MEDS ORDERED: Piperacillin/Tazobactam 4.5 GM in Sodium Chloride 0.9% 100 ML IV SCH (05:30)
[2023-02-04 05:52] LABS: BASOPHILS PERCENT AUTO 0.4 % (0.0-1.5); EOSINOPHILS ABSOLUTE AUTO 0.6 K/uL (0.0-0.7); EOSINOPHILS PERCENT AUTO 5.8 % (0.0-7.0); HEMATOCRIT 39.4 % (36.0-46.0); HEMOGLOBIN 12.3 g/dL (12.0-16.0); LYMPHOCYTES ABSOLUTE AUTO 1.5 K/uL (0.6-2.4); LYMPHOCYTES PERCENT AUTO 15.3 % (16.0-40.0); MEAN CORPUSCULAR HEMOGLOBIN 26.3 pg (27.0-32.0); MEAN CORPUSCULAR HGB CONC 31.2 g/dL (31.0-37.0); MEAN CORPUSCULAR VOLUME 84.2 fL (80.0-98.0); MONOCYTES ABSOLUTE AUTO 0.6 K/uL (0.0-0.8); MONOCYTES PERCENT AUTO 6.4 % (0.0-15.0); NEUTROPHILS PERCENT AUTO 72.1 % (48.0-80.0); NRBC ABSOLUTE 0 K/uL; PLATELET COUNT,PLT 329 K/uL (150-400); RED BLOOD CELL COUNT 4.68 M/uL (4.30-5.90); WHITE BLOOD CELL COUNT,WBC 9.66 K/uL (4.0-11.0)
[2023-02-04 06:15] LABS: ALBUMIN 3.4 g/dL (3.4-5.0); BILIRUBIN TOTAL 0.5 mg/dL (0.2-1.0); CALCIUM 7.9 mg/dL (8.5-10.1); CARBON DIOXIDE,CO2 25.7 mmol/L (21.0-32.0); EST CRCL DRUG DOSING (CG) 54.79 mL/min; MAGNESIUM 2.1 mg/dL (1.8-2.4); POTASSIUM,K 3.7 mmol/L (3.5-5.1); PROTEIN TOTAL,TP 6.7 g/dL (6.4-8.2)
[2023-02-04] MEDS ORDERED: Insulin Aspart 100 Units/ML 3 ML Pen SUBCUT SCH (07:30)
[2023-02-04] MEDS ORDERED: Brimonidine 0.2% Ophth Soln 5 ML Bottle EYEBOTH SCH (10:30)
[2023-02-04] MEDS ORDERED: Cyclosporine [Restasis] 1 EACH EYEBOTH SCH (10:30)
[2023-02-04] MEDS ORDERED: prednisoLONE Acetate 1% Ophth Susp 5 ML Bottle EYEBOTH SCH (10:30)
== END 2023-02-04 11:15 | disposition home or self-care (01) ==
LOC: MW.ED 17:30 → MW.MS 23:37
PROVIDERS: ADMIT Family Medicine; ATTEND Family Medicine
DX: L03.115 Cellulitis of right lower limb (principal); I87.2 Venous insufficiency (chronic) (peripheral); L97.819 Non-pressure chronic ulcer of other part of right lower leg with unspecified severity; I10 Essential (primary) hypertension; G47.30 Sleep apnea, unspecified; Q25.1 Coarctation of aorta; E78.5 Hyperlipidemia, unspecified; E66.01 Morbid (severe) obesity due to excess calories; Z68.43 Body mass index [BMI] 50.0-59.9, adult; Z79.899 Other long term (current) drug therapy; Z79.52 Long term (current) use of systemic steroids; Z79.84 Long term (current) use of oral hypoglycemic drugs; Z88.1 Allergy status to other antibiotic agents; Z91.040 Latex allergy status; Z88.2 Allergy status to sulfonamides
CPT/HCPCS: 36415; 80053; 80202; 82947; 83605; 83735; 85025; 87040; 87070; 87077; 87186; 87205; 96361; 96365; 96366; 96367; 96372; 96375; 99284; A9270; G0378; J1200; J1650; J2543; J3370; J3490; J7030; J7120; 99221